=== PATIENT | male | born 1940 | race Caucasian/White ===

== ENCOUNTER 2016-09-23 13:44 | Outpatient (CLI) | payer MEDICARE, MEDICAID | END 2016-09-23 13:45 | disposition home or self-care (01) | DX: I10 Essential (primary) hypertension (principal); E78.5 Hyperlipidemia, unspecified; E11.9 Type 2 diabetes mellitus without complications; N13.9 Obstructive and reflux uropathy, unspecified; N39.0 Urinary tract infection, site not specified ==

== ENCOUNTER 2016-10-05 11:04 | Outpatient (CLI) | payer MEDICARE, MEDICAID | END 2016-10-05 11:05 | DX: N39.0 Urinary tract infection, site not specified (principal) ==

== ENCOUNTER 2016-12-06 08:33 | Outpatient (CLI) | payer MEDICARE, MEDICAID | END 2016-12-06 08:34 | disposition home or self-care (01) | LOC: LAB.R 08:33 | PROVIDERS: ATTEND Family Medicine | DX: N39.0 Urinary tract infection, site not specified (principal) | CPT/HCPCS: 87086 ==

== ENCOUNTER 2017-01-20 11:45 | Outpatient (CLI) | payer MEDICARE, MEDICAID | END 2017-01-20 11:46 | disposition home or self-care (01) | LOC: LAB.R 11:45 | PROVIDERS: ATTEND Family Medicine | DX: N39.0 Urinary tract infection, site not specified (principal) | CPT/HCPCS: 87086 ==

== ENCOUNTER 2017-02-17 16:00 | Outpatient (CLI) | payer MEDICARE, MEDICAID ==
[2017-02-17 19:23] LABS: BASOPHILS # (AUTO) 0.1 10^3/uL (0.0-0.1); BASOPHILS % (AUTO) 0.5 %; EOSINOPHILS % (AUTO) 0.5 %; HCT - HEMATOCRIT 42.3 % (42.0-52.0); HGB - HEMOGLOBIN 13.8 g/dL (14.0-18.0); LYMPHOCYTES # (AUTO) 0.8 10^3/uL (1.5-3.5); LYMPHOCYTES % (AUTO) 7.3 %; MEAN CORPUSCULAR HEMOGLOBIN 28.1 pg (27.0-31.0); MEAN CORPUSCULAR HGB CONC 32.7 g/dL (32.0-36.0); MEAN PLATELET VOLUME 7.7 fL (7.4-11.4); MONOCYTES # (AUTO) 0.5 10^3/uL (0.0-1.0); NEUTROPHILS # (AUTO) 9.3 10^3/uL (1.5-6.6); NEUTROPHILS % (AUTO) 86.7 %; RED BLOOD COUNT 4.92 10^6/uL (4.70-6.10); RED CELL DISTRIBUTION WIDTH 17.9 % (12.0-15.0); UNCORRECTED WHITE BLOOD COUNT 10.7 x10^3/uL; WHITE BLOOD COUNT 10.7 x10^3/uL (4.8-10.8)
[2017-02-17 19:26] LABS: INR 3.5 (0.8-1.2); PT - PROTHROMBIN TIME 39.9 secs (9.9-12.6)
[2017-02-17 19:54] LABS: BUN - BLOOD UREA NITROGEN 24 mg/dL (6-20); CALCIUM 8.9 mg/dL (8.5-10.3); CARBON DIOXIDE - CO2 27 mmol/L (21-32); CHLORIDE 100 mmol/L (101-111); CHOLESTEROL 139 mg/dL; CREATININE 1.2 mg/dL (0.6-1.2); GFR - MDRD 59 (>89); GLUCOSE 95 mg/dL (70-100); HDL CHOLESTEROL 47 mg/dL; LDL/HDL RATIO 1.5 (<3.6); POTASSIUM 3.5 mmol/L (3.5-5.0); SODIUM 137 mmol/L (135-145); TRIGLYCERIDES 100 mg/dL; VLDL CHOLESTEROL 20 mg/dL
[2017-02-17 20:02] LABS: HEMOGLOBIN A1C 0.49 g/dL
== END 2017-02-17 16:01 | disposition home or self-care (01) ==
LOC: LAB.WCP 16:00
PROVIDERS: ATTEND Family Medicine
DX: N39.0 Urinary tract infection, site not specified (principal); I10 Essential (primary) hypertension; E78.5 Hyperlipidemia, unspecified; E11.9 Type 2 diabetes mellitus without complications; N13.9 Obstructive and reflux uropathy, unspecified; Z79.01 Long term (current) use of anticoagulants
CPT/HCPCS: 36415; 80053; 80061; 82043; 83036; 85025; 85610; 87086

== ENCOUNTER 2017-02-17 16:30 | Outpatient (CLI) | payer MEDICARE, MEDICAID | END 2017-02-17 16:31 | disposition home or self-care (01) | LOC: LAB.R 16:30 | PROVIDERS: ATTEND Family Medicine | DX: N13.9 Obstructive and reflux uropathy, unspecified (principal) | CPT/HCPCS: 87086 ==

== ENCOUNTER 2017-05-02 13:55 | Outpatient (CLI) | payer MEDICARE, MEDICAID | END 2017-05-02 13:56 | disposition critical access hospital (66) | LOC: EMS 13:55 → EDUNIT# 13:55 → EMS 13:56 | PROVIDERS: ATTEND Surgery | DX: S61.411A Laceration without foreign body of right hand, initial encounter (principal); W22.8XXA Striking against or struck by other objects, initial encounter | CPT/HCPCS: A0425; A0429 ==

== ENCOUNTER 2017-05-02 14:29 | Inpatient (IN) | payer MEDICARE, MEDICAID ==
--- NOTE | 2017-05-02 15:36 | XRAY Preliminary Report ---
Exam: XR Wrist 4 View RT IMPRESSION: 1. 4 x 8 mm fracture dorsal aspect of the carpal bones, most likely involving the pisiform or triquet rum. Correlate clinically to determine if further evaluation with dedicated wrist CT indicated. 2. Massive edema. Exclude cellulitis [facility] SITE ID: [id number]
--- NOTE | 2017-05-02 15:37 | XRAY Preliminary Report ---
Exam: XR HAND 3 VIEW RT IMPRESSION: 1. 4 x 8 mm fracture dorsal to the carpal bones, correlate clinically to determine if dedicated wrist CT would be useful. 2. Massive edema. Exclude cellulitis. [facility] SITE ID: [id number]
--- NOTE | 2017-05-02 15:43 | XRAY Report ---
EXAM: RIGHT WRIST RADIOGRAPHY EXAM DATE: 05/02/2017 03:05 PM. CLINICAL HISTORY: Direct impact injury dorsal aspect of the hand and wrist 2 days ago. Pain. COMPARISON: None. TECHNIQUE: 4 views. FINDINGS: Bones: 48 mm fracture dorsal aspect of the wrist, in the area of the triquetrum. A form. Mature distortion fifth metacarpal due to old fracture. Mature distortion almost process due to old fracture. 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 Soft Tissues: Massive and edema, greatest dorsally to the metacarpals and wrist. IMPRESSION: 1. 4 x 8 mm fracture dorsal aspect of the carpal bones, most likely involving the pisiform or triquetrum. Correlate clinically to determine if further evaluation with dedicated wrist CT indicated. 2. Massive edema. Exclude cellulitis. [facility] Referring Provider Line: [phone] SITE ID: [id number]
--- NOTE | 2017-05-02 15:44 | XRAY Report ---
EXAM: RIGHT HAND RADIOGRAPHY EXAM DATE: 05/02/2017 03:04 PM. CLINICAL HISTORY: Direct dorsal hand and wrist trauma 2 days ago. Pain and edema. COMPARISON: None. TECHNIQUE: 3 views. FINDINGS: Bones: 4 x 8 mm fracture fragment dorsal to the mid carpal bones. Mature deformity fifth metacarpal and ulnar styloid process due to old fractures. Joints: Moderate to marked adjacent changes radiocarpal joint. Soft Tissues: Massive edema dorsal to the hand and wrist. IMPRESSION: 1. 4 x 8 mm fracture dorsal to the carpal bones, correlate clinically to determine if dedicated wrist CT would be useful. 2. Massive edema. Exclude cellulitis. [facility] Referring Provider Line: [phone] SITE ID: [id number]
[2017-05-02] MEDS ORDERED: ACETAMINOPHEN 325 MG TABLET PO STA (16:20)
[2017-05-02] MEDS ORDERED: ACETAMINOPHEN 325 MG TABLET PO ONE (16:29)
--- NOTE | 2017-05-02 17:28 | ED Physician Documentation ---
PD HPI UPPER EXT INJURY - Stated complaint Stated Complaint: HAND PX - Chief complaint Chief Complaint: Trauma Ext - History obtained from History obtained from: Patient - History of Present Illness Location: Right (Right-handed 77-year-old gentle man who is up-to-date on tetanus, in contrast of the nursing notes he says that 9 days ago he was moving a couch and it fell on his hand and he suffered a laceration to the dorsum of the right hand and pain there which is manageable at this point.) Review of Systems Ten Systems: 10 systems reviewed and negative Constitutional: reports: Chills. denies: Fever Eyes: denies: Loss of vision, Decreased vision Ears: reports: Reviewed and negative Throat: reports: Reviewed and negative Cardiac: reports: Reviewed and negative Respiratory: reports: Reviewed and negative GI: reports: Reviewed and negative : reports: Reviewed and negative PD PAST MEDICAL HISTORY - Past Medical History Cardiovascular: Atrial fibrillation Respiratory: Sleep apnea, CPAP use Neuro: None Endocrine/Autoimmune: Type 2 diabetes GI: None : Indwelling catheter HEENT: Glaucoma Psych: None Musculoskeletal: None Derm: None - Past Surgical History Past Surgical History: Yes Cardiovascular: AAA HEENT: Cataracts, Detached retina repair Derm: Skin cancer surgery - Present Medications Home Medications: Ambulatory Orders Medication Instructions Recorded Confirmed Enalapril [Vasotec] 20 mg PO BID 07/28/15 05/03/17 Warfarin [Coumadin] 7.5 mg PO DAILY 07/28/15 05/03/17 Saccharomyces Boulardii [Florastor] 250 mg PO BIDWM 07/30/15 05/03/17 amLODIPine [Norvasc] 10 mg PO DAILY 09/04/15 05/03/17 - Allergies Allergies/Adverse Reactions: Allergies Allergy/AdvReac Type Severity Reaction Status Date / Time vancomycin AdvReac Mild injection Verified 05/03/17 09:06 site erythema - Living Situation Living Situation: reports: With spouse/s.o. - Social History Does the pt smoke?: Yes Smoking Status: Current every day smoker Does the pt drink ETOH?: No Does the pt have substance abuse?: No - Immunizations Immunizations are current?: Yes Immunizations: TDAP >10years/unknown - POLST Patient has POLST: No PD ED PE NORMAL - Vitals Vital signs reviewed: Yes - General General: Alert and oriented X 3, No acute distress - HEENT HEENT: PERRL, EOMI - Neck Neck: Supple, no meningeal sign, No bony TTP - Cardiac Cardiac: Other (irregular no murmur) - Respiratory Respiratory: No respiratory distress, Clear bilaterally - Abdomen Abdomen: Soft, Non tender - Back Back: No CVA TTP, No spinal TTP - Derm Derm: Normal color, Warm and dry - Extremities Extremities: Other (On the dorsum of the right hand there is a large soft tissue defect which is full of clot and quite dirty, the entirety of the dorsum of the hand is cellulitic and edematous. He is tender over the dorsum of the hand and cannot make a fist, he says sensation is equal throughout all the digits. He has good repeat cap refill in all the digits.) - Neuro Neuro: Alert and oriented X 3, Normal speech - Psych Psych: Normal mood, Normal affect Results - Vitals Vitals: Oxygen O2 Source [With Activity] Room air O2 Source [Without Activity] Room air O2 Source Room air - Labs Labs: Laboratory Tests 05/02/17 05/02/17 05/02/17 17:34 17:34 17:34 WBC 7.5 RBC 4.47 L Hgb 12.3 L Hct 37.7 L MCV 84.3 MCH 27.5 MCHC 32.6 RDW 16.3 H Plt Count 276 MPV 6.4 L Neut # 5.6 Lymph # 1.3 L Beauregard # 0.5 Eos # 0.0 Baso # 0.1 Absolute Nucleated RBC 0.00 Nucleated RBC % 0.0 PT 30.5 H INR 2.7 H Sodium 136 Potassium 3.3 L Chloride 92 L Carbon Dioxide 31 Anion Gap 13.0 BUN 20 Creatinine 1.1 Estimated GFR (MDRD) 65 L Glucose 98 Calcium 9.3 Total Bilirubin 1.1 H AST 14 ALT < 10 L Alkaline Phosphatase 50 Total Protein 8.2 Albumin 4.1 Globulin 4.1 Albumin/Globulin Ratio 1.0 Lipase 28 PD MEDICAL DECISION MAKING - ED course ED course: 77-year-old gentleman with a large defect to the dorsum of the right hand associated with a 9-day-old fracture of indeterminate carpal bone. There is evidence of infection and will likely need a washout. I spoke with Dr. Bernardo Camejo, by phone, the on-call orthopedist who will see him in consultation. Spoke with Dr. Zamora for admission at 5:35 PM we agreed on Margy and Nicolasa. Departure - Departure Disposition: 66 [facility] DC/Xfer Clinical Impression: T2DM (type 2 diabetes mellitus), Chronic a-fib, Open fracture of carpal bone, Cellulitis of hand Condition: Stable Discharge Date/Time: 05/02/17 18:30
[2017-05-02] MEDS ORDERED: PIPERACILLIN/TAZOBACTAM 3.375 GM in SODIUM CHLORIDE 0.9% MINIBAG 100 ML IV STA (17:34)
[2017-05-02] MEDS ORDERED: VANCOMYCIN INJ 1.5 GM in SODIUM CHLORIDE 0.9% 500 ML IV STA (17:34)
[2017-05-02] MEDS ORDERED: ONDANSETRON ODT 4 MG TABLET TL PRN (17:35)
[2017-05-02] MEDS ORDERED: ONDANSETRON 4 MG/2 ML VIAL IVP PRN (17:35)
[2017-05-02 17:39] LABS: BASOPHILS # (AUTO) 0.1 10^3/uL (0.0-0.1); BASOPHILS % (AUTO) 0.9 %; EOSINOPHILS % (AUTO) 0.3 %; HCT - HEMATOCRIT 37.7 % (42.0-52.0); HGB - HEMOGLOBIN 12.3 g/dL (14.0-18.0); LYMPHOCYTES # (AUTO) 1.3 10^3/uL (1.5-3.5); LYMPHOCYTES % (AUTO) 16.9 %; MEAN CORPUSCULAR HEMOGLOBIN 27.5 pg (27.0-31.0); MEAN CORPUSCULAR HGB CONC 32.6 g/dL (32.0-36.0); MEAN CORPUSCULAR VOLUME 84.3 fL (80.0-94.0); MEAN PLATELET VOLUME 6.4 fL (7.4-11.4); MONOCYTES # (AUTO) 0.5 10^3/uL (0.0-1.0); MONOCYTES % (AUTO) 6.7 %; NEUTROPHILS # (AUTO) 5.6 10^3/uL (1.5-6.6); NEUTROPHILS % (AUTO) 75.2 %; RED BLOOD COUNT 4.47 10^6/uL (4.70-6.10); RED CELL DISTRIBUTION WIDTH 16.3 % (12.0-15.0); UNCORRECTED WHITE BLOOD COUNT 7.5 x10^3/uL; WHITE BLOOD COUNT 7.5 x10^3/uL (4.8-10.8)
[2017-05-02 17:48] LABS: INR 2.7 (0.8-1.2); PT - PROTHROMBIN TIME 30.5 secs (9.9-12.6)
[2017-05-02 17:53] LABS: BILIRUBIN,TOTAL 1.1 mg/dL (0.2-1.0); BUN - BLOOD UREA NITROGEN 20 mg/dL (6-20); CALCIUM 9.3 mg/dL (8.5-10.3); CARBON DIOXIDE - CO2 31 mmol/L (21-32); CHLORIDE 92 mmol/L (101-111); CREATININE 1.1 mg/dL (0.6-1.2); GFR - MDRD 65 (>89); GLUCOSE 98 mg/dL (70-100); LIPASE 28 U/L (22-51); POTASSIUM 3.3 mmol/L (3.5-5.0); SODIUM 136 mmol/L (135-145); TOTAL PROTEIN 8.2 g/dL (6.7-8.2)
[2017-05-02] MEDS ORDERED: VANCOMYCIN PER PHARMACY 1 GM in SODIUM CHLORIDE 0.9% 250 ML IV SCH (18:00)
[2017-05-02] MEDS ORDERED: hydrALAZINE INJ 20 MG/ML VIAL IVP PRN (19:29)
[2017-05-02] MEDS ORDERED: diphenhydrAMINE INJ 50 MG/ML VIAL IVP SCH (19:30)
[2017-05-02] MEDS: LINEZOLID 600 MG/300 ML 600 MG/300 ML BAG IV SCH (21:25)
[2017-05-02] MEDS: ENALAPRIL 5 MG TABLET PO SCH (21:33)
[2017-05-02] MEDS: METOPROLOL TARTRATE 25 MG TABLET PO SCH (21:35)
[2017-05-02] MEDS: SODIUM CHLORIDE FLUSH 0.9% 10 ML SYRINGE IVP SCH (21:38)
[2017-05-02] MEDS: oxyCODONE 5 MG TABLET PO PRN (22:23)
[2017-05-02] MEDS: PIPERACILLIN/TAZOBACTAM 3.375 GM in SODIUM CHLORIDE 0.9% MINIBAG 100 ML IV SCH (22:54)
[2017-05-03] MEDS: PIPERACILLIN/TAZOBACTAM 3.375 GM in SODIUM CHLORIDE 0.9% MINIBAG 100 ML IV SCH ×4 (01:46→21:43)
[2017-05-03] MEDS: oxyCODONE 5 MG TABLET PO PRN ×4 (01:46→21:44)
[2017-05-03] MEDS: SODIUM CHLORIDE FLUSH 0.9% 10 ML SYRINGE IVP SCH ×3 (04:55→22:24)
[2017-05-03] MEDS ORDERED: VANCOMYCIN 1.5 GM/NS 500 ML 1.5 GM/500 ML BAG IV SCH (06:00)
[2017-05-03] MEDS ORDERED: PHYTONADIONE 10 MG/ML AMP PO ONE (07:17)
--- NOTE | 2017-05-03 07:21 | PROVIDER PROGRESS NOTE ---
Subjective - Prog Note Date Prog Note Date: 05/03/17 Prog Note Time: 07:18 - Subjective Subjective: he had an allergic response to vancomycin last night>hives stopped and changed to linezolide by video production assistant. denies cp, sob, current hives I have been unable to talk to his . The phone number we have in the paperwork is his phone number that he carries with him on his cell. He says that he just does not remember his 's phone number. So I have not been able to talk to her since his admission. Current Medications - Current Medications Current Medications: Active Medications Acetaminophen (Tylenol) 650 mg PO Q4HR PRN PRN Reason: Pain 1 to 4 Amlodipine Besylate (Norvasc) 10 mg PO DAILY [facility] Enalapril Maleate (Vasotec) 20 mg PO BID [facility] Last Admin: 05/02/17 21:33 Dose: 20 mg Hydralazine HCl (Apresoline Inj) 5 mg IVP Q8HR PRN PRN Reason: Hypertensive Emergency Piperacillin Sod/Tazobactam (Sod 3.375 gm/ Sodium Chloride) 100 mls @ 200 mls/ hr IV Q6H [facility] Last Admin: 05/03/17 01:46 Dose: 200 mls/hr Linezolid (Zyvox 600 Mg/300 Ml) 600 mg in 300 mls @ 300 mls/hr IV Q12H [facility] Last Infusion: 05/02/17 22:59 Dose: Infused Metoprolol Tartrate (Lopressor) 25 mg PO BID [facility] Last Admin: 05/02/17 21:35 Dose: 25 mg Ondansetron HCl (Zofran Inj) 4 mg IVP Q6HR PRN PRN Reason: Nausea / Vomiting Ondansetron HCl (Zofran Odt) 4 mg TL Q6HR PRN PRN Reason: Nausea / Vomiting Oxycodone HCl (Roxicodone) 5 mg PO Q4HR PRN PRN Reason: Pain 5 to 7 Last Admin: 05/03/17 01:46 Dose: 5 mg Phytonadione (Vitamin K (Adult)) 10 mg PO ONCE ONE Stop: 05/03/17 07:18 Polyethylene Glycol (Miralax) 17 gm PO DAILY [facility] Saccharomyces Boulardii (Florastor) 250 mg PO BIDWM [facility] Sodium Chloride (Normal Saline Flush 0.9%) 10 ml IVP PRN PRN PRN Reason: NEEDED PER PROVIDER ORDERS Sodium Chloride (Normal Saline Flush 0.9%) 10 ml IVP Q8HR [facility] Last Admin: 05/03/17 04:55 Dose: 10 ml Warfarin Sodium 5 mg PO SUTUWETHSA 12/25/13 Enalapril [Vasotec] 20 mg PO BID 07/28/15 Warfarin [Coumadin] 7.5 mg PO MOFR 07/28/15 Saccharomyces Boulardii [Florastor] 250 mg PO BIDWM 07/30/15 Metoprolol Tartrate [Lopressor] 25 mg PO BID 09/04/15 amLODIPine [Norvasc] 10 mg PO DAILY 09/04/15 Objective - Vital Signs/Intake & Output Reviewed Vital Signs: Yes Vital Signs: Vital Signs x48h Temp Pulse Resp BP Pulse Ox 05/02/17 23:40 37.1 C 46 L 16 125/83 H 100 Intake & Output: Intake & Output 04/30/17 05/01/17 05/02/17 05/03/17 23:59 23:59 23:59 23:59 Intake Total 525 240 Output Total 200 525 Balance 325 -285 - Objective General Appearance: positive: No acute distress, Alert, Other (Much better hygiene since yesterday. He has had a shower, and his guevara has been braided. The horrible odor of dirty clothes and dried urine is gone.) Eyes Bilateral: positive: PERRL ENT: positive: Other (Dentures partially gone) Neck: positive: No JVD. negative: Lymphadenopathy (R), Lymphadenopathy (L), Stiff neck, Carotid bruit Respiratory: positive: Chest non-tender. negative: Wheezes, Rales, Rhonchi Cardiovascular: positive: Irregularly irregular. negative: Systolic murmur, Gallop/S4, Friction rub Abdomen: positive: Non-tender, No organomegaly, Nml bowel sounds, No distention Skin: positive: No rash, Warm, Dry, Other (Ruborous discoloration from the knees on down of the anterior shins. The scaling skin is completely gone. He had a shower last night and his skin was scrubbed down. So the scales were removed. He does have an ulcer on the tip of his toe that was present yesterday. That is the same size and unchanged. There is no tenderness, no drainage, no heat. Nursing has documented with the picture and size and depth) Extremities: positive: Other (The swelling of the dorsum of his right hand is considerably improved. Hematoma appears to have decreased in size. the hand overall is still swollen in all of the digits but again 25-40% better than yesterday. Still unable to flex his fingers to make a fist. Wrist flexion and extension is normal. There is no redness no heat. Skin is normal color.) Neurologic/Psychiatric: positive: Oriented x3, CN's nml (2-12), Motor nml (And he is walking down the hallway with a walker. Left leg is slightly turned outwards. It is almost a flat-footed shuffling walk but he does lift his feet. He does not feel his feet from neuropathy. And he says that the floor is moving and he has vertigo). negative: Slurred/abnml speech, Depressed mood/ affect - Lab Results Fish Bones: 05/02/17 17:34 05/02/17 17:34 Other Labs: Lab Results x24hrs 05/02/17 Range/Units 19:59 POC Whole Bld Glucose 82 (70 - 100) mg/dL Assessment/Plan - Problem List (1) Traumatic hematoma of right hand with infection Impression: to be seen by Dr. Camejo today he does not plan a wash out in the OR and just simple cleaning at the bedside. WBC was normal He has had no fever Day #2 Zosyn Day #1 linezolide after 1 dose of vancomycin caused hives Qualifiers: Encounter type: initial encounter Qualified Code(s): S60.221A - Contusion of right hand, initial encounter; L08.9 - Local infection of the skin and subcutaneous tissue, unspecified; L08.9 - Local infection of the skin and subcutaneous tissue, unspecified (2) Allergic reaction to drug Impression: due to vancomycin resolved after benadryl (3) T2DM (type 2 diabetes mellitus) Impression: 78 POC gluocose this am. diet controlled. will order only fasting ac am checks. A1c ordered. 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 (5) HTN (hypertension) Impression: Selected Entries 05/02/17 05/03/17 20:55 07:44 Blood Pressure 193/95 H 148/85 H [Right Brachial artery] He is getting his usual meds regularly. Could there be an element of noncompliance at home? here it is acceptable range this morning. no change in meds. contine to monitor. Qualifiers: Hypertension type: essential hypertension Qualified Code(s): I10 - Essential (primary) hypertension (6) Poor personal hygiene Impression: encouraged to bath every other day at home. scrub his legs to avoid the scaling.
[2017-05-03] MEDS: POLYETHYLENE GLYCOL 3350 17 GM PACKET PO SCH (07:32)
[2017-05-03] MEDS: SACCHAROMYCES BOULARDII 250 MG CAPSULE PO SCH ×2 (09:54→17:09)
[2017-05-03] MEDS: amLODIPine 5 MG TABLET PO SCH (09:55)
[2017-05-03] MEDS: POTASSIUM CHLORIDE 20 MEQ TABLET PO SCH (09:56)
[2017-05-03] MEDS: ENALAPRIL 5 MG TABLET PO SCH ×2 (09:56→21:41)
[2017-05-03] MEDS: METOPROLOL TARTRATE 25 MG TABLET PO SCH ×2 (09:56→21:41)
[2017-05-03] MEDS: LINEZOLID 600 MG/300 ML 600 MG/300 ML BAG IV SCH ×2 (10:00→21:43)
[2017-05-03] MEDS: SODIUM CHLORIDE FLUSH 0.9% 10 ML SYRINGE IVP PRN ×2 (10:58→15:04)
--- NOTE | 2017-05-03 17:59 | CONSULTATION NOTE ---
Referring Provider Name of Referring Provider:: Luisa Zamora MD Consult Date: 05/03/17 Chief Complaint - Chief Complaint Chief Complaint: Right Hand swelling and pain History of Present Illness - Admitted From Admitted From:: ED - History Obtained From Records Reviewed: ED History obtained from: albino Lemon historian - History of Present Illness HPI Comment/Other: This is a 77 yo male who is somewhat unclear about the precise mechanism but seems to have caught his Right hand under a piece of furniture he was moving or between two pieces of furniture. He did not seek medical attention. The injury occurred about 10 days ago. He came to the ED when he noticed gradually increasing swelling, pain, and odor. He was seen in the ED by Dr. Mcdermott who washed out the wound and admitted him to the Hospitalist service, starting him on antibiotics. He denies fevers, chills, sweats, or other constitutional symptoms. He notes that both pain and swelling are considerably improved today with rest and elevation. History - Past Medical History Cardiovascular: reports: Atrial fibrillation Respiratory: reports: Sleep apnea, CPAP use Neuro: reports: None Endocrine/Autoimmune: reports: Type 2 diabetes GI: reports: None : reports: Indwelling catheter HEENT: reports: Glaucoma Psych: reports: None Musculoskeletal: reports: None Derm: reports: None MRSA Hx?: No - Past Surgical History Cardiovascular: reports: AAA HEENT: reports: Cataracts, Detached retina repair Derm: reports: Skin cancer surgery - Family & Social History Living arrangement: At home Living Situation: With spouse/s.o. - POLST Patient has POLST: No Meds/Allgy - Home Medications Home Medications: Ambulatory Orders Medication Instructions Recorded Confirmed Enalapril [Vasotec] 20 mg PO BID 07/28/15 05/03/17 Warfarin [Coumadin] 7.5 mg PO DAILY 07/28/15 05/03/17 Saccharomyces Boulardii [Florastor] 250 mg PO BIDWM 07/30/15 05/03/17 amLODIPine [Norvasc] 10 mg PO DAILY 09/04/15 05/03/17 - Allergies Allergies/Adverse Reactions: Allergies Allergy/AdvReac Type Severity Reaction Status Date / Time vancomycin AdvReac Mild injection Verified 05/03/17 09:06 site erythema Review of Systems - All Other Systems All Other Systems: reports: Reviewed and negative Exam - Vital Signs Reviewed Vital Signs: Yes Vital Signs: Vital Signs x48h Temp Pulse Resp BP Pulse Ox 05/03/17 15:56 36.6 C 99 16 138/81 H 99 - Physical Exam General Appearance: positive: No acute distress, Alert Eyes Bilateral: positive: Normal inspection ENT: positive: ENT inspection nml Neck: positive: Nml inspection Respiratory: positive: No respiratory distress, Breath sounds nml Cardiovascular: positive: Regular rate & rhythm Peripheral Pulses: positive: 2+ Abdomen: positive: Non-tender, Nml bowel sounds, No distention. negative: Guarding Back: positive: Nml inspection (Large 5x8 cm eschar over dorum of Right hand with moderate surrounding erythema and boggy to compression. No abdelrahman purulence or bleeding.) Skin: positive: Color nml, Warm Neurologic/Psychiatric: positive: Oriented x3, Motor nml, Sensation nml, Mood/ affect nml Conclusion/Plan - Diagnosis Diagnosis: Hematoma, Right Hand Dorsum - Plan Plan: 1. Agree with admission for swelling control and antibiotics. 2. Silvadene dressing changes daily. 3. Consult [facility]. 4. No indication for I&D at this time. - Lab Results Fish Bones: 05/02/17 17:34 05/02/17 17:34 - Diagnostic Imaging Results Diagnostic Imaging Results: positive: See rad report
[2017-05-04] MEDS: SODIUM CHLORIDE FLUSH 0.9% 10 ML SYRINGE IVP PRN ×2 (03:45→17:39)
[2017-05-04] MEDS: PIPERACILLIN/TAZOBACTAM 3.375 GM in SODIUM CHLORIDE 0.9% MINIBAG 100 ML IV SCH ×4 (03:45→22:20)
[2017-05-04] MEDS ORDERED: SODIUM CHLORIDE 0.9% 1,000 ML IV ONE (08:44)
[2017-05-04] MEDS: POLYETHYLENE GLYCOL 3350 17 GM PACKET PO SCH (08:45)
[2017-05-04] MEDS: ACETAMINOPHEN 325 MG TABLET PO PRN ×3 (08:45→16:05)
[2017-05-04] MEDS: METOPROLOL TARTRATE 25 MG TABLET PO SCH ×2 (08:46→20:35)
[2017-05-04] MEDS: oxyCODONE 5 MG TABLET PO PRN ×4 (08:46→23:36)
[2017-05-04] MEDS: amLODIPine 5 MG TABLET PO SCH (08:46)
[2017-05-04] MEDS: ENALAPRIL 5 MG TABLET PO SCH ×2 (08:47→20:35)
[2017-05-04] MEDS: POTASSIUM CHLORIDE 20 MEQ TABLET PO SCH (08:47)
[2017-05-04] MEDS: SACCHAROMYCES BOULARDII 250 MG CAPSULE PO SCH ×2 (08:47→17:37)
[2017-05-04] MEDS: LINEZOLID 600 MG/300 ML 600 MG/300 ML BAG IV SCH ×2 (08:57→20:40)
[2017-05-04] MEDS: SODIUM CHLORIDE FLUSH 0.9% 10 ML SYRINGE IVP SCH ×3 (08:58→20:40)
[2017-05-04 09:50] LABS: BASOPHILS # (AUTO) 0.1 10^3/uL (0.0-0.1); BASOPHILS % (AUTO) 1.1 %; EOSINOPHILS # (AUTO) 0.1 10^3/uL (0.0-0.7); EOSINOPHILS % (AUTO) 1.2 %; HCT - HEMATOCRIT 36.6 % (42.0-52.0); HGB - HEMOGLOBIN 11.9 g/dL (14.0-18.0); LYMPHOCYTES % (AUTO) 14.8 %; MEAN CORPUSCULAR HEMOGLOBIN 27.8 pg (27.0-31.0); MEAN CORPUSCULAR HGB CONC 32.5 g/dL (32.0-36.0); MEAN CORPUSCULAR VOLUME 85.6 fL (80.0-94.0); MEAN PLATELET VOLUME 6.9 fL (7.4-11.4); MONOCYTES # (AUTO) 0.4 10^3/uL (0.0-1.0); MONOCYTES % (AUTO) 6.3 %; NEUTROPHILS # (AUTO) 5.3 10^3/uL (1.5-6.6); NEUTROPHILS % (AUTO) 76.6 %; RED BLOOD COUNT 4.28 10^6/uL (4.70-6.10); RED CELL DISTRIBUTION WIDTH 16.3 % (12.0-15.0); UNCORRECTED WHITE BLOOD COUNT 6.9 x10^3/uL; WHITE BLOOD COUNT 6.9 x10^3/uL (4.8-10.8)
[2017-05-04 09:57] LABS: CALCIUM 8.6 mg/dL (8.5-10.3); CREATININE 1.4 mg/dL (0.6-1.2); POTASSIUM 4.1 mmol/L (3.5-5.0)
[2017-05-04 10:38] LABS: HEMOGLOBIN A1C 0.42 g/dL
--- NOTE | 2017-05-04 22:22 | PROVIDER PROGRESS NOTE ---
Assessment/Plan - Problem List (1) Traumatic hematoma of right hand with infection Qualifiers: Encounter type: initial encounter Qualified Code(s): S60.221A - Contusion of right hand, initial encounter; L08.9 - Local infection of the skin and subcutaneous tissue, unspecified; L08.9 - Local infection of the skin and subcutaneous tissue, unspecified Assessment/Plan: is being treated by wound care, is on Zosyn day 3 and linezolid-day2 (2) Cellulitis of hand Assessment/Plan: on zosyn and linezolid (3) Essential hypertension Assessment/Plan: is being treated with amlodipine, enalapril, and metaprolol tartrate. (4) Chronic a-fib Assessment/Plan: on coumadin and metoprolol tartrate. - Current Meds Current Meds: Current Medications Generic Name Dose Route Start Last Admin Trade Name Freq PRN Reason Stop Dose Admin Acetaminophen 650 mg 05/02/17 17:35 05/04/17 16:05 Tylenol PO 650 mg Q4HR PRN Administration Pain 1 to 4 Amlodipine Besylate 10 mg 05/03/17 09:00 05/04/17 08:46 Norvasc PO 10 mg DAILY [facility] Administration Enalapril Maleate 20 mg 05/02/17 21:00 05/04/17 20:35 Vasotec PO 20 mg BID [facility] Administration Linezolid 600 mg in 300 mls @ 300 mls/hr 05/02/17 20:00 05/04/17 20:40 Zyvox 600 Mg/300 Ml IV 300 mls/hr Q12H [facility] Administration Piperacillin Sod/Tazobactam 100 mls @ 200 mls/hr 05/04/17 10:00 05/04/17 16: 07 Sod 3.375 gm/ Sodium Chloride IV 200 mls/hr Q6H [facility] Administration Metoprolol Tartrate 25 mg 05/02/17 21:00 05/04/17 20:35 Lopressor PO 25 mg BID [facility] Administration Oxycodone HCl 5 mg 05/02/17 17:35 05/04/17 16:05 Roxicodone PO 5 mg Q4HR PRN Administration Pain 5 to 7 Polyethylene Glycol 17 gm 05/03/17 09:00 05/04/17 08:45 Miralax PO 17 gm DAILY [facility] Administration Potassium Chloride 20 meq 05/03/17 08:00 05/04/17 08:47 K-Dur PO 20 meq DAILYWM [facility] Administration Saccharomyces Boulardii 250 mg 05/03/17 08:00 05/04/17 17:37 Florastor PO 250 mg BIDWM [facility] Administration Sodium Chloride 10 ml 05/02/17 17:35 05/04/17 17:39 Normal Saline Flush 0.9% IVP 10 ml PRN PRN Administration NEEDED PER PROVIDER ORDERS Sodium Chloride 10 ml 05/02/17 22:00 05/04/17 20:40 Normal Saline Flush 0.9% IVP 10 ml Q8HR [facility] Administration - Lab Result Fish Bone Diagrams: 05/04/17 09:40 05/04/17 09:40 - Additional Planning Condition/Complexity: Guarded Plan Discussed with:: Patient Time Spent: 15-30 minutes Subjective - Subjective Patient Reports: Feeling Better (His right hand is still being debrided.) Objective Vital Signs: Vital Signs - 24 hr 05/04/17 05/04/17 05/04/17 00:46 08:09 08:46 Temperature 36.6 C 36.4 C L Heart Rate [ 98 75 Brachial] Respiratory 16 18 Rate Blood Pressure 122/78 Blood Pressure 147/75 H [Left Brachial artery] Blood Pressure 134/88 H [Right Brachial artery] O2 Saturation 98 100 05/04/17 05/04/17 05/04/17 15:36 20:27 20:35 Temperature 36.8 C 36.7 C Heart Rate [ 92 40 L Brachial] Respiratory 16 16 Rate Blood Pressure 137/74 H Blood Pressure [Left Brachial artery] Blood Pressure 131/71 H 137/74 H [Right Brachial artery] O2 Saturation 100 100 05/04/17 20:41 Temperature Heart Rate [ 96 Brachial] Respiratory Rate Blood Pressure Blood Pressure [Left Brachial artery] Blood Pressure [Right Brachial artery] O2 Saturation Oxygen O2 Source Room air I&O (Last 24 Hrs): Intake and Output Totals x24h 05/02/17 05/03/17 05/04/17 23:59 23:59 23:59 Intake Total 525 2160 2100 Output Total 200 1425 1350 Balance 325 735 750 General: Alert, Oriented x3, Cooperative HEENT: Atraumatic, PERRLA, EOMI Neck: Supple Neuro: Alert Cardiovascular: Other (irregularly irregular) Respiratory: Chest non-tender, No respiratory distress, Breath sounds nml Abdomen: Normal bowel sounds, Soft, No tenderness (right arm is still needing debridement at hematoma site, lower extremities- warm, no edema, no cyanosis) - Results Results: Laboratory Results WBC 6.9 x10^3/uL (4.8-10.8) 05/04/17 09:40 RBC 4.28 10^6/uL (4.70-6.10) L 05/04/17 09:40 Hgb 11.9 g/dL (14.0-18.0) L 05/04/17 09:40 Hct 36.6 % (42.0-52.0) L 05/04/17 09:40 MCV 85.6 fL (80.0-94.0) 05/04/17 09:40 MCH 27.8 pg (27.0-31.0) 05/04/17 09:40 MCHC 32.5 g/dL (32.0-36.0) 05/04/17 09:40 RDW 16.3 % (12.0-15.0) H 05/04/17 09:40 Plt Count 277 10^3/uL (130-450) 05/04/17 09:40 MPV 6.9 fL (7.4-11.4) L 05/04/17 09:40 Neut # 5.3 10^3/uL (1.5-6.6) 05/04/17 09:40 Lymph # 1.0 10^3/uL (1.5-3.5) L 05/04/17 09:40 [place] # 0.4 10^3/uL (0.0-1.0) 05/04/17 09:40 Eos # 0.1 10^3/uL (0.0-0.7) 05/04/17 09:40 Baso # 0.1 10^3/uL (0.0-0.1) 05/04/17 09:40 Absolute Nucleated RBC 0.00 x10^3/uL 05/04/17 09:40 Nucleated RBC % 0.0 /100WBC 05/04/17 09:40 PT 30.5 secs (9.9-12.6) H 05/02/17 17:34 INR 2.7 (0.8-1.2) H 05/02/17 17:34 Sodium 135 mmol/L (135-145) 05/04/17 09:40 Potassium 4.1 mmol/L (3.5-5.0) 05/04/17 09:40 Chloride 95 mmol/L (101-111) L 05/04/17 09:40 Carbon Dioxide 30 mmol/L (21-32) 05/04/17 09:40 Anion Gap 10.0 (6-13) 05/04/17 09:40 BUN 21 mg/dL (6-20) H 05/04/17 09:40 Creatinine 1.4 mg/dL (0.6-1.2) H 05/04/17 09:40 Estimated GFR (MDRD) 49 (>89) L 05/04/17 09:40 Glucose 183 mg/dL (70-100) H 05/04/17 09:40 POC Whole Bld Glucose 128 mg/dL (70 - 100) H 05/04/17 11:29 Glycated Hemoglobin 5.3 % (4.6-6.2) 05/04/17 09:40 Estim Average Glucose 105 (70-100) H 05/04/17 09:40 Calcium 8.6 mg/dL (8.5-10.3) 05/04/17 09:40 Total Bilirubin 1.1 mg/dL (0.2-1.0) H 05/02/17 17:34 AST 14 IU/L (10-42) 05/02/17 17:34 ALT < 10 IU/L (10-60) L 05/02/17 17:34 Alkaline Phosphatase 50 IU/L (42-121) 05/02/17 17:34 Total Protein 8.2 g/dL (6.7-8.2) 05/02/17 17:34 Albumin 4.1 g/dL (3.2-5.5) 05/02/17 17:34 Globulin 4.1 g/dL (2.1-4.2) 05/02/17 17:34 Albumin/Globulin Ratio 1.0 (1.0-2.2) 05/02/17 17:34 Lipase 28 U/L (22-51) 05/02/17 17:34 - Procedures Procedures: Procedures CHANGE DRAINAGE DEVICE IN BLADDER, EXTERNAL APPROACH (07/27/15) DRAIN OF R UP LEG SUBCU/FASCIA WITH DRAIN DEV, PERC APPROACH (05/13/15) REPLACEMENT OF L HIP JT, FEMORAL WITH METAL, OPEN APPROACH (07/27/15) TRANSFUSE NONAUT FRESH PLASMA IN PERIPH VEIN, PERC (07/27/15)
[2017-05-04] MEDS: WARFARIN 5 MG TABLET PO SCH (23:35)
[2017-05-05] MEDS: PIPERACILLIN/TAZOBACTAM 3.375 GM in SODIUM CHLORIDE 0.9% MINIBAG 100 ML IV SCH ×4 (03:55→22:16)
[2017-05-05] MEDS: SODIUM CHLORIDE FLUSH 0.9% 10 ML SYRINGE IVP SCH ×3 (03:56→21:35)
[2017-05-05 05:43] LABS: BASOPHILS % (AUTO) 0.7 %; EOSINOPHILS # (AUTO) 0.1 10^3/uL (0.0-0.7); EOSINOPHILS % (AUTO) 1.8 %; HCT - HEMATOCRIT 35.8 % (42.0-52.0); HGB - HEMOGLOBIN 11.6 g/dL (14.0-18.0); LYMPHOCYTES % (AUTO) 31.5 %; MEAN CORPUSCULAR HEMOGLOBIN 27.8 pg (27.0-31.0); MEAN CORPUSCULAR HGB CONC 32.4 g/dL (32.0-36.0); MEAN CORPUSCULAR VOLUME 85.8 fL (80.0-94.0); MEAN PLATELET VOLUME 6.9 fL (7.4-11.4); MONOCYTES # (AUTO) 0.4 10^3/uL (0.0-1.0); MONOCYTES % (AUTO) 7.1 %; NEUTROPHILS # (AUTO) 3.7 10^3/uL (1.5-6.6); NEUTROPHILS % (AUTO) 58.9 %; RED BLOOD COUNT 4.17 10^6/uL (4.70-6.10); RED CELL DISTRIBUTION WIDTH 16.2 % (12.0-15.0); UNCORRECTED WHITE BLOOD COUNT 6.3 x10^3/uL; WHITE BLOOD COUNT 6.3 x10^3/uL (4.8-10.8)
[2017-05-05 05:45] LABS: INR 2.1 (0.8-1.2); PT - PROTHROMBIN TIME 23.7 secs (9.9-12.6)
[2017-05-05 06:01] LABS: BILIRUBIN,TOTAL 0.9 mg/dL (0.2-1.0); BUN - BLOOD UREA NITROGEN 21 mg/dL (6-20); CALCIUM 8.4 mg/dL (8.5-10.3); CARBON DIOXIDE - CO2 27 mmol/L (21-32); CHLORIDE 98 mmol/L (101-111); CREATININE 1.3 mg/dL (0.6-1.2); GFR - MDRD 54 (>89); GLUCOSE 93 mg/dL (70-100); POTASSIUM 3.1 mmol/L (3.5-5.0); SODIUM 136 mmol/L (135-145); TOTAL PROTEIN 6.6 g/dL (6.7-8.2)
[2017-05-05] MEDS ORDERED: POTASSIUM CHLORIDE 20 MEQ TABLET PO ONE (08:00)
[2017-05-05] MEDS: POTASSIUM CHLORIDE 20 MEQ TABLET PO SCH (09:15)
[2017-05-05] MEDS: oxyCODONE 5 MG TABLET PO PRN ×3 (09:15→21:18)
[2017-05-05] MEDS: amLODIPine 5 MG TABLET PO SCH (09:15)
[2017-05-05] MEDS: METOPROLOL TARTRATE 25 MG TABLET PO SCH ×2 (09:15→21:18)
[2017-05-05] MEDS: SACCHAROMYCES BOULARDII 250 MG CAPSULE PO SCH ×2 (09:15→16:50)
[2017-05-05] MEDS: ENALAPRIL 5 MG TABLET PO SCH ×2 (09:16→21:18)
[2017-05-05] MEDS: POLYETHYLENE GLYCOL 3350 17 GM PACKET PO SCH (09:16)
[2017-05-05] MEDS: LINEZOLID 600 MG/300 ML 600 MG/300 ML BAG IV SCH ×2 (09:20→19:05)
[2017-05-05] MEDS: WARFARIN 5 MG TABLET PO SCH (14:05)
--- NOTE | 2017-05-05 16:03 | PROVIDER PROGRESS NOTE ---
Assessment/Plan - Problem List (1) Traumatic hematoma of right hand with infection Qualifiers: Encounter type: initial encounter Qualified Code(s): S60.221A - Contusion of right hand, initial encounter; L08.9 - Local infection of the skin and subcutaneous tissue, unspecified; L08.9 - Local infection of the skin and subcutaneous tissue, unspecified Assessment/Plan: is being treated by wound care, is on IV Zosyn day 4 and linezolid day 3 (2) Cellulitis of hand Assessment/Plan: is being treated with zosyn and linezolid (3) Essential hypertension Assessment/Plan: is being treated with amlodipine, enalapril, and metaprolol tartrate (4) Chronic a-fib Assessment/Plan: is being treated with coumadin and metoprolol tartrate (5) Hypokalemia Assessment/Plan: is being treated with KCl. - Current Meds Current Meds: Current Medications Generic Name Dose Route Start Last Admin Trade Name Freq PRN Reason Stop Dose Admin Acetaminophen 650 mg 05/02/17 17:35 05/04/17 16:05 Tylenol PO 650 mg Q4HR PRN Administration Pain 1 to 4 Amlodipine Besylate 10 mg 05/03/17 09:00 05/05/17 09:15 Norvasc PO 10 mg DAILY KELLY Administration Enalapril Maleate 20 mg 05/02/17 21:00 05/05/17 09:16 Vasotec PO 20 mg BID KELLY Administration Linezolid 600 mg in 300 mls @ 300 mls/hr 05/02/17 20:00 05/05/17 10:22 Zyvox 600 Mg/300 Ml IV Infused Q12H KELLY Infusion Piperacillin Sod/Tazobactam 100 mls @ 200 mls/hr 05/04/17 10:00 05/05/17 10: 55 Sod 3.375 gm/ Sodium Chloride IV Infused Q6H KELLY Infusion Metoprolol Tartrate 25 mg 05/02/17 21:00 05/05/17 09:15 Lopressor PO 25 mg BID KELLY Administration Oxycodone HCl 5 mg 05/02/17 17:35 05/05/17 09:15 Roxicodone PO 5 mg Q4HR PRN Administration Pain 5 to 7 Polyethylene Glycol 17 gm 05/03/17 09:00 05/05/17 09:16 Miralax PO 17 gm DAILY KELLY Administration Potassium Chloride 20 meq 05/03/17 08:00 05/05/17 09:15 K-Dur PO 20 meq DAILYWM KELLY Administration Saccharomyces Boulardii 250 mg 05/03/17 08:00 05/05/17 09:15 Florastor PO 250 mg BIDWM KELLY Administration Sodium Chloride 10 ml 05/02/17 17:35 05/04/17 17:39 Normal Saline Flush 0.9% IVP 10 ml PRN PRN Administration NEEDED PER PROVIDER ORDERS Sodium Chloride 10 ml 05/02/17 22:00 05/05/17 14:05 Normal Saline Flush 0.9% IVP 10 ml Q8HR KELLY Administration Warfarin Sodium 5 mg 05/04/17 23:00 05/05/17 14:05 Coumadin PO 5 mg QDWARFARIN KELLY Administration - Lab Result Lab results reviewed: Yes Fish Bone Diagrams: 05/05/17 05:12 05/05/17 05:12 - Diagnostic Imaging Results Diagnostic Imaging Results: Final report reviewed Diagnostic Imaging Results Comments: Right Hand X-ray-4x8mm fracture dorsal to the carpal bones with massive edema, exclude cellulitis - Additional Planning My Orders: My Active Orders 05/04/17 23:00 Warfarin [Coumadin] 5 mg PO QDWARFARIN 05/05/17 12:06 Daily Dressing Change [RC] DAILY The right hand is going to need further surgical debridement and the orthopedic surgeon here feels that it will need a higher level of care than our facility can provide. The patient will need to be transferred to a higher level of care. Plan Discussed with:: Patient Time Spent: 31-60 minutes Subjective - Subjective Patient Reports: No Complaints (The right hand still needs significant debridement and continued antibiotic treatment.) Objective Vital Signs: Vital Signs - 24 hr 05/04/17 05/04/17 05/04/17 20:27 20:35 20:41 Temperature 36.7 C Heart Rate [ 40 L 96 Brachial] Respiratory 16 Rate Blood Pressure 137/74 H Blood Pressure [Left Brachial artery] Blood Pressure 137/74 H [Right Brachial artery] O2 Saturation 100 05/05/17 05/05/17 00:33 08:19 Temperature 36.6 C 36.4 C L Heart Rate [ 53 L Brachial] Respiratory 18 16 Rate Blood Pressure Blood Pressure 124/55 L [Left Brachial artery] Blood Pressure 143/68 H [Right Brachial artery] O2 Saturation 98 100 Oxygen O2 Source Room air I&O (Last 24 Hrs): Intake and Output Totals x24h 05/03/17 05/04/17 05/05/17 23:59 23:59 23:59 Intake Total 2160 2500 1320 Output Total 1425 1350 1500 Balance 735 1150 -180 General: Alert, Oriented x3, Cooperative HEENT: Atraumatic, PERRLA Neck: Supple, No JVD Neuro: Alert, CN 2-12 Grossly Intact, Oriented Times 3 Cardiovascular: Other (irregularly irregular) Respiratory: Chest non-tender, No respiratory distress, Breath sounds nml Abdomen: Normal bowel sounds, Soft, No tenderness Extremities: Other (right hand needs further debridement (infected hematoma)) - Results Results: Laboratory Results WBC 6.3 x10^3/uL (4.8-10.8) 05/05/17 05:12 RBC 4.17 10^6/uL (4.70-6.10) L 05/05/17 05:12 Hgb 11.6 g/dL (14.0-18.0) L 05/05/17 05:12 Hct 35.8 % (42.0-52.0) L 05/05/17 05:12 MCV 85.8 fL (80.0-94.0) 05/05/17 05:12 MCH 27.8 pg (27.0-31.0) 05/05/17 05:12 MCHC 32.4 g/dL (32.0-36.0) 05/05/17 05:12 RDW 16.2 % (12.0-15.0) H 05/05/17 05:12 Plt Count 265 10^3/uL (130-450) 05/05/17 05:12 MPV 6.9 fL (7.4-11.4) L 05/05/17 05:12 Neut # 3.7 10^3/uL (1.5-6.6) 05/05/17 05:12 Lymph # 2.0 10^3/uL (1.5-3.5) 05/05/17 05:12 [place] # 0.4 10^3/uL (0.0-1.0) 05/05/17 05:12 Eos # 0.1 10^3/uL (0.0-0.7) 05/05/17 05:12 Baso # 0.0 10^3/uL (0.0-0.1) 05/05/17 05:12 Absolute Nucleated RBC 0.00 x10^3/uL 05/05/17 05:12 Nucleated RBC % 0.0 /100WBC 05/05/17 05:12 PT 23.7 secs (9.9-12.6) H 05/05/17 05:12 INR 2.1 (0.8-1.2) H 05/05/17 05:12 Sodium 136 mmol/L (135-145) 05/05/17 05:12 Potassium 3.1 mmol/L (3.5-5.0) L 05/05/17 05:12 Chloride 98 mmol/L (101-111) L 05/05/17 05:12 Carbon Dioxide 27 mmol/L (21-32) 05/05/17 05:12 Anion Gap 11.0 (6-13) 05/05/17 05:12 BUN 21 mg/dL (6-20) H 05/05/17 05:12 Creatinine 1.3 mg/dL (0.6-1.2) H 05/05/17 05:12 Estimated GFR (MDRD) 54 (>89) L 05/05/17 05:12 Glucose 93 mg/dL (70-100) 05/05/17 05:12 POC Whole Bld Glucose 95 mg/dL (70 - 100) 05/05/17 11:25 Glycated Hemoglobin 5.3 % (4.6-6.2) 05/04/17 09:40 Estim Average Glucose 105 (70-100) H 05/04/17 09:40 Calcium 8.4 mg/dL (8.5-10.3) L 05/05/17 05:12 Total Bilirubin 0.9 mg/dL (0.2-1.0) 05/05/17 05:12 AST 12 IU/L (10-42) 05/05/17 05:12 ALT < 10 IU/L (10-60) L 05/05/17 05:12 Alkaline Phosphatase 39 IU/L (42-121) L 05/05/17 05:12 Total Protein 6.6 g/dL (6.7-8.2) L 05/05/17 05:12 Albumin 3.3 g/dL (3.2-5.5) 05/05/17 05:12 Globulin 3.3 g/dL (2.1-4.2) 05/05/17 05:12 Albumin/Globulin Ratio 1.0 (1.0-2.2) 05/05/17 05:12 Lipase 28 U/L (22-51) 05/02/17 17:34 - Procedures Procedures: Procedures CHANGE DRAINAGE DEVICE IN BLADDER, EXTERNAL APPROACH (07/27/15) DRAIN OF R UP LEG SUBCU/FASCIA WITH DRAIN DEV, PERC APPROACH (05/13/15) REPLACEMENT OF L HIP JT, FEMORAL WITH METAL, OPEN APPROACH (07/27/15) TRANSFUSE NONAUT FRESH PLASMA IN PERIPH VEIN, PERC (07/27/15)
--- NOTE | 2017-05-05 17:39 | PROVIDER PROGRESS NOTE ---
Subjective - General Admit Date: 05/02/17 - Review of Systems General: positive: No symptoms Musculoskeletal: positive: Joint swelling All Other Systems: positive: Reviewed and negative Objective - Patient Data Reviewed Vital Signs: Yes Vital Signs: Vital Signs x48h Temp Pulse Resp BP Pulse Ox 05/05/17 16:27 36.6 C 50 L 20 140/63 H 100 Intake & Output: Intake and Output Totals x24h 05/03/17 05/04/17 05/05/17 23:59 23:59 23:59 Intake Total 2160 2500 1320 Output Total 1425 1350 1500 Balance 735 1150 -180 - Lab Results Lab Results: 05/05/17 05:12 05/05/17 05:12 Other Lab Results: Lab Results x24hrs 05/05/17 05/05/17 05/05/17 Range/Units 11:25 07:39 05:12 WBC (4.8-10.8) x10^3/uL RBC (4.70-6.10) 10^6/uL Hgb (14.0-18.0) g/dL Hct (42.0-52.0) % MCV (80.0-94.0) fL MCH (27.0-31.0) pg MCHC (32.0-36.0) g/dL RDW (12.0-15.0) % Plt Count (130-450) 10^3/uL MPV (7.4-11.4) fL Neut # (1.5-6.6) 10^3/uL Lymph # (1.5-3.5) 10^3/uL Castro # (0.0-1.0) 10^3/uL Eos # (0.0-0.7) 10^3/uL Baso # (0.0-0.1) 10^3/uL Absolute Nucleated RBC x10^3/uL Nucleated RBC % /100WBC PT 23.7 H (9.9-12.6) secs INR 2.1 H (0.8-1.2) Sodium (135-145) mmol/L Potassium (3.5-5.0) mmol/L Chloride (101-111) mmol/L Carbon Dioxide (21-32) mmol/L Anion Gap (6-13) BUN (6-20) mg/dL Creatinine (0.6-1.2) mg/dL Estimated GFR (MDRD) (>89) Glucose (70-100) mg/dL POC Whole Bld Glucose 95 79 (70 - 100) mg/dL Calcium (8.5-10.3) mg/dL Total Bilirubin (0.2-1.0) mg/dL AST (10-42) IU/L ALT (10-60) IU/L Alkaline Phosphatase (42-121) IU/L Total Protein (6.7-8.2) g/dL Albumin (3.2-5.5) g/dL Globulin (2.1-4.2) g/dL Albumin/Globulin Ratio (1.0-2.2) 05/05/17 05/05/17 Range/Units 05:12 05:12 WBC 6.3 (4.8-10.8) x10^3/uL RBC 4.17 L (4.70-6.10) 10^6/uL Hgb 11.6 L (14.0-18.0) g/dL Hct 35.8 L (42.0-52.0) % MCV 85.8 (80.0-94.0) fL MCH 27.8 (27.0-31.0) pg MCHC 32.4 (32.0-36.0) g/dL RDW 16.2 H (12.0-15.0) % Plt Count 265 (130-450) 10^3/uL MPV 6.9 L (7.4-11.4) fL Neut # 3.7 (1.5-6.6) 10^3/uL Lymph # 2.0 (1.5-3.5) 10^3/uL Castro # 0.4 (0.0-1.0) 10^3/uL Eos # 0.1 (0.0-0.7) 10^3/uL Baso # 0.0 (0.0-0.1) 10^3/uL Absolute Nucleated RBC 0.00 x10^3/uL Nucleated RBC % 0.0 /100WBC PT (9.9-12.6) secs INR (0.8-1.2) Sodium 136 (135-145) mmol/L Potassium 3.1 L (3.5-5.0) mmol/L Chloride 98 L (101-111) mmol/L Carbon Dioxide 27 (21-32) mmol/L Anion Gap 11.0 (6-13) BUN 21 H (6-20) mg/dL Creatinine 1.3 H (0.6-1.2) mg/dL Estimated GFR (MDRD) 54 L (>89) Glucose 93 (70-100) mg/dL POC Whole Bld Glucose (70 - 100) mg/dL Calcium 8.4 L (8.5-10.3) mg/dL Total Bilirubin 0.9 (0.2-1.0) mg/dL AST 12 (10-42) IU/L ALT < 10 L (10-60) IU/L Alkaline Phosphatase 39 L (42-121) IU/L Total Protein 6.6 L (6.7-8.2) g/dL Albumin 3.3 (3.2-5.5) g/dL Globulin 3.3 (2.1-4.2) g/dL Albumin/Globulin Ratio 1.0 (1.0-2.2) - Imaging Results Radiology Imaging: positive: EMP read indepedently - Current Medications Current Medications: Current Medications Generic Name Dose Route Start Last Admin Trade Name Freq PRN Reason Stop Dose Admin Acetaminophen 650 mg 05/02/17 17:35 05/04/17 16:05 Tylenol PO 650 mg Q4HR PRN Administration Pain 1 to 4 Amlodipine Besylate 10 mg 05/03/17 09:00 05/05/17 09:15 Norvasc PO 10 mg DAILY KELLY Administration Enalapril Maleate 20 mg 05/02/17 21:00 05/05/17 09:16 Vasotec PO 20 mg BID KELLY Administration Linezolid 600 mg in 300 mls @ 300 mls/hr 05/02/17 20:00 05/05/17 10:22 Zyvox 600 Mg/300 Ml IV Infused Q12H KELLY Infusion Piperacillin Sod/Tazobactam 100 mls @ 200 mls/hr 05/04/17 10:00 05/05/17 16: 36 Sod 3.375 gm/ Sodium Chloride IV 200 mls/hr Q6H KELLY Administration Metoprolol Tartrate 25 mg 05/02/17 21:00 05/05/17 09:15 Lopressor PO 25 mg BID KELLY Administration Oxycodone HCl 5 mg 05/02/17 17:35 05/05/17 16:50 Roxicodone PO 5 mg Q4HR PRN Administration Pain 5 to 7 Polyethylene Glycol 17 gm 05/03/17 09:00 05/05/17 09:16 Miralax PO 17 gm DAILY KELLY Administration Potassium Chloride 20 meq 05/03/17 08:00 05/05/17 09:15 K-Dur PO 20 meq DAILYWM KELLY Administration Saccharomyces Boulardii 250 mg 05/03/17 08:00 05/05/17 16:50 Florastor PO 250 mg BIDWM KELLY Administration Sodium Chloride 10 ml 05/02/17 17:35 05/04/17 17:39 Normal Saline Flush 0.9% IVP 10 ml PRN PRN Administration NEEDED PER PROVIDER ORDERS Sodium Chloride 10 ml 05/02/17 22:00 05/05/17 14:05 Normal Saline Flush 0.9% IVP 10 ml Q8HR KELLY Administration Warfarin Sodium 5 mg 05/04/17 23:00 05/05/17 14:05 Coumadin PO 5 mg QDWARFARIN KELLY Administration - Physical Exam Wound/Incisions: positive: Other General Appearance: positive: No acute distress Skin: positive: No rash Extremities: positive: Other (right hand: dorsal skin loss secondary to Hematoma. When hematoma is evacuated there is intact covering of extensor tissue. There is no loss of tendon, and no fracture in the hand and wrist.) Impression/Plan - Problem List Problem List: Ortho Coverage: I have been compelled to step in and see this patient as the technical solutions consultant physician is away and not signed out on this case. This man has had a crush injury of the right hand about 11 days ago, and then developed a contained hematoma secondary to the effect of the injury and the coumadin anticoagulant. He doesn't appear to have infection at all. He could have either wound care/ dressing changes with MAC. or be sent for plastic surgery flap coverage. He prefers to have ongoing open wound management with dressing changes. A volar splint will be added. Silvadene cream bid could be helpful. The patient understands that closing by secondary intention could take up to 2 months.
[2017-05-06] MEDS: SODIUM CHLORIDE FLUSH 0.9% 10 ML SYRINGE IVP SCH ×3 (04:16→20:01)
[2017-05-06] MEDS: PIPERACILLIN/TAZOBACTAM 3.375 GM in SODIUM CHLORIDE 0.9% MINIBAG 100 ML IV SCH ×2 (04:16→10:47)
[2017-05-06] MEDS: oxyCODONE 5 MG TABLET PO PRN ×3 (08:33→20:05)
[2017-05-06] MEDS: ACETAMINOPHEN 325 MG TABLET PO PRN ×3 (08:34→20:05)
[2017-05-06] MEDS: POTASSIUM CHLORIDE 20 MEQ TABLET PO SCH (08:35)
[2017-05-06] MEDS: SACCHAROMYCES BOULARDII 250 MG CAPSULE PO SCH ×2 (08:35→16:56)
[2017-05-06] MEDS: SODIUM CHLORIDE FLUSH 0.9% 10 ML SYRINGE IVP PRN (08:43)
[2017-05-06] MEDS: LINEZOLID 600 MG/300 ML 600 MG/300 ML BAG IV SCH (08:49)
[2017-05-06 09:11] LABS: BASOPHILS # (AUTO) 0.1 10^3/uL (0.0-0.1); BASOPHILS % (AUTO) 1.1 %; EOSINOPHILS # (AUTO) 0.1 10^3/uL (0.0-0.7); EOSINOPHILS % (AUTO) 1.1 %; HCT - HEMATOCRIT 36.9 % (42.0-52.0); HGB - HEMOGLOBIN 12.1 g/dL (14.0-18.0); LYMPHOCYTES # (AUTO) 1.5 10^3/uL (1.5-3.5); MEAN CORPUSCULAR HGB CONC 32.7 g/dL (32.0-36.0); MEAN CORPUSCULAR VOLUME 85.6 fL (80.0-94.0); MEAN PLATELET VOLUME 7.6 fL (7.4-11.4); MONOCYTES # (AUTO) 0.4 10^3/uL (0.0-1.0); MONOCYTES % (AUTO) 5.7 %; NEUTROPHILS # (AUTO) 4.6 10^3/uL (1.5-6.6); NEUTROPHILS % (AUTO) 70.1 %; NUCLEATED RED BLOOD CELLS AUTO 0.1 /100WBC; RED BLOOD COUNT 4.31 10^6/uL (4.70-6.10); RED CELL DISTRIBUTION WIDTH 16.6 % (12.0-15.0); UNCORRECTED WHITE BLOOD COUNT 6.6 x10^3/uL; WHITE BLOOD COUNT 6.6 x10^3/uL (4.8-10.8)
[2017-05-06 09:18] LABS: CALCIUM 8.7 mg/dL (8.5-10.3); CREATININE 1.4 mg/dL (0.6-1.2); POTASSIUM 3.9 mmol/L (3.5-5.0)
--- NOTE | 2017-05-06 10:46 | PROVIDER PROGRESS NOTE ---
Subjective - General Admit Date: 05/02/17 - Review of Systems Wound/Incisions: positive: Healing well, Other General: positive: No symptoms Musculoskeletal: positive: Joint swelling All Other Systems: positive: Reviewed and negative Objective - Patient Data Reviewed Vital Signs: Yes Vital Signs: Vital Signs x48h Temp Pulse Resp BP Pulse Ox 05/06/17 08:26 36.8 C 64 16 158/88 H 99 Intake & Output: Intake and Output Totals x24h 05/04/17 05/05/17 05/06/17 23:59 23:59 23:59 Intake Total 2500 2170 340 Output Total 1350 1500 425 Balance 1150 670 -85 - Lab Results Lab Results: 05/06/17 08:55 05/06/17 08:55 Other Lab Results: Lab Results x24hrs 05/06/17 05/06/17 05/05/17 Range/Units 08:55 08:55 11:25 WBC 6.6 (4.8-10.8) x10^3/uL RBC 4.31 L (4.70-6.10) 10^6/uL Hgb 12.1 L (14.0-18.0) g/dL Hct 36.9 L (42.0-52.0) % MCV 85.6 (80.0-94.0) fL MCH 28.0 (27.0-31.0) pg MCHC 32.7 (32.0-36.0) g/dL RDW 16.6 H (12.0-15.0) % Plt Count 268 (130-450) 10^3/uL MPV 7.6 (7.4-11.4) fL Neut # 4.6 (1.5-6.6) 10^3/uL Lymph # 1.5 (1.5-3.5) 10^3/uL Eddy # 0.4 (0.0-1.0) 10^3/uL Eos # 0.1 (0.0-0.7) 10^3/uL Baso # 0.1 (0.0-0.1) 10^3/uL Absolute Nucleated RBC 0.01 x10^3/uL Nucleated RBC % 0.1 /100WBC Sodium 137 (135-145) mmol/L Potassium 3.9 (3.5-5.0) mmol/L Chloride 99 L (101-111) mmol/L Carbon Dioxide 25 (21-32) mmol/L Anion Gap 13.0 (6-13) BUN 21 H (6-20) mg/dL Creatinine 1.4 H (0.6-1.2) mg/dL Estimated GFR (MDRD) 49 L (>89) Glucose 118 H (70-100) mg/dL POC Whole Bld Glucose 95 (70 - 100) mg/dL Calcium 8.7 (8.5-10.3) mg/dL - Current Medications Current Medications: Current Medications Generic Name Dose Route Start Last Admin Trade Name Freq PRN Reason Stop Dose Admin Acetaminophen 650 mg 05/02/17 17:35 05/06/17 08:34 Tylenol PO 650 mg Q4HR PRN Administration Pain 1 to 4 Amlodipine Besylate 10 mg 05/03/17 09:00 05/05/17 09:15 Norvasc PO 10 mg DAILY KELLY Administration Enalapril Maleate 20 mg 05/02/17 21:00 05/05/17 21:18 Vasotec PO 20 mg BID KELLY Administration Linezolid 600 mg in 300 mls @ 300 mls/hr 05/02/17 20:00 05/06/17 08:49 Zyvox 600 Mg/300 Ml IV 300 mls/hr Q12H KELLY Administration Piperacillin Sod/Tazobactam 100 mls @ 200 mls/hr 05/04/17 10:00 05/06/17 04: 48 Sod 3.375 gm/ Sodium Chloride IV Infused Q6H KELLY Infusion Metoprolol Tartrate 25 mg 05/02/17 21:00 05/05/17 21:18 Lopressor PO 25 mg BID KELLY Administration Oxycodone HCl 5 mg 05/02/17 17:35 05/06/17 08:33 Roxicodone PO 5 mg Q4HR PRN Administration Pain 5 to 7 Polyethylene Glycol 17 gm 05/03/17 09:00 05/05/17 09:16 Miralax PO 17 gm DAILY KELLY Administration Potassium Chloride 20 meq 05/03/17 08:00 05/06/17 08:35 K-Dur PO 20 meq DAILYWM KELLY Administration Saccharomyces Boulardii 250 mg 05/03/17 08:00 05/06/17 08:35 Florastor PO 250 mg BIDWM KELLY Administration Sodium Chloride 10 ml 05/02/17 17:35 05/06/17 08:43 Normal Saline Flush 0.9% IVP 10 ml PRN PRN Administration NEEDED PER PROVIDER ORDERS Sodium Chloride 10 ml 05/02/17 22:00 05/06/17 04:16 Normal Saline Flush 0.9% IVP 10 ml Q8HR KELLY Administration Warfarin Sodium 5 mg 05/04/17 23:00 05/05/17 14:05 Coumadin PO 5 mg QDWARFARIN KELLY Administration - Physical Exam Wound/Incisions: positive: Healing well Extremities: positive: Joint swelling Neurologic/Psychiatric: positive: Motor nml, Sensation nml, Mood/affect nml Impression/Plan - Problem List Problem List: ORTHO: Pts wound is clean, and there is granulation in the base of the wound. No tendons are exposed. The patient may begin dressing changes daily at discharge. I have discussed skin grafting with the patient and this could be done as an outpatient at a later time when the wound is properly "ready" to receive a graft. At this time there needs to be a fostering of granulation healing with dressing changes. This could all be accomplished as an outpatient. IV antibiotics are not necessary, but PO Keflex could continue. Ortho office visit should be next week if the patient's social situation allows d/c
[2017-05-06] MEDS: POLYETHYLENE GLYCOL 3350 17 GM PACKET PO SCH (10:53)
[2017-05-06] MEDS: amLODIPine 5 MG TABLET PO SCH (10:53)
[2017-05-06] MEDS: METOPROLOL TARTRATE 25 MG TABLET PO SCH ×2 (10:54→20:01)
[2017-05-06] MEDS: ENALAPRIL 5 MG TABLET PO SCH ×2 (10:54→20:01)
[2017-05-06] MEDS: cephALEXin 250 MG CAPSULE PO SCH ×2 (14:41→17:00)
[2017-05-06] MEDS: WARFARIN 5 MG TABLET PO SCH (14:41)
--- NOTE | 2017-05-06 20:04 | PROVIDER PROGRESS NOTE ---
Assessment/Plan - Problem List (1) Traumatic hematoma of right hand with infection Qualifiers: Encounter type: initial encounter Qualified Code(s): S60.221A - Contusion of right hand, initial encounter; L08.9 - Local infection of the skin and subcutaneous tissue, unspecified; L08.9 - Local infection of the skin and subcutaneous tissue, unspecified Assessment/Plan: the patient will need wound care/dressing changes with MAC. Will need a volar splint. Silvadene cream should be applied to the wound bid. (2) Cellulitis of hand Assessment/Plan: will need keflex on discharge (3) Essential hypertension Assessment/Plan: is being treted with amlodipine, enalapril, and metaprolol tartrate (4) Chronic a-fib Assessment/Plan: is treating with coumadin and metoprolol tartrate (5) Hypokalemia Assessment/Plan: resolved - Current Meds Current Meds: Current Medications Generic Name Dose Route Start Last Admin Trade Name Freq PRN Reason Stop Dose Admin Acetaminophen 650 mg 05/02/17 17:35 05/06/17 15:53 Tylenol PO 650 mg Q4HR PRN Administration Pain 1 to 4 Amlodipine Besylate 10 mg 05/03/17 09:00 05/06/17 10:53 Norvasc PO 10 mg DAILY KELLY Administration Cephalexin 500 mg 05/06/17 12:00 05/06/17 17:00 Keflex PO 500 mg Q6HR KELLY Administration Enalapril Maleate 20 mg 05/02/17 21:00 05/06/17 10:54 Vasotec PO 20 mg BID KELLY Administration Metoprolol Tartrate 25 mg 05/02/17 21:00 05/06/17 10:54 Lopressor PO 25 mg BID KELLY Administration Oxycodone HCl 5 mg 05/02/17 17:35 05/06/17 15:54 Roxicodone PO 5 mg Q4HR PRN Administration Pain 5 to 7 Polyethylene Glycol 17 gm 05/03/17 09:00 05/06/17 10:53 Miralax PO Not Given DAILY KELLY Potassium Chloride 20 meq 05/03/17 08:00 05/06/17 08:35 K-Dur PO 20 meq DAILYWM KELLY Administration Saccharomyces Boulardii 250 mg 05/03/17 08:00 05/06/17 16:56 Florastor PO 250 mg BIDWM KELLY Administration Sodium Chloride 10 ml 05/02/17 17:35 05/06/17 08:43 Normal Saline Flush 0.9% IVP 10 ml PRN PRN Administration NEEDED PER PROVIDER ORDERS Sodium Chloride 10 ml 05/02/17 22:00 05/06/17 14:38 Normal Saline Flush 0.9% IVP 10 ml Q8HR KELLY Administration Warfarin Sodium 5 mg 05/04/17 23:00 05/06/17 14:41 Coumadin PO 5 mg QDWARFARIN KELLY Administration - Lab Result Lab results reviewed: Yes Fish Bone Diagrams: 05/06/17 08:55 05/06/17 08:55 - Additional Planning My Orders: My Active Orders 05/06/17 16:09 Message to Nursing [RC] QSHIFT Plan Discussed with:: Patient Time Spent: 15-30 minutes Subjective - Subjective Patient Reports: Feeling Better, No Complaints (The right hand is still requiring wound care dressing changes.) Objective Vital Signs: Vital Signs - 24 hr 05/05/17 05/06/17 05/06/17 21:18 00:40 08:26 Temperature 36.5 C 36.8 C Heart Rate [ 40 L 64 Brachial] Respiratory 16 16 Rate Blood Pressure 133/73 H Blood Pressure 137/72 H 158/88 H [Right Brachial artery] O2 Saturation 99 99 05/06/17 05/06/17 10:54 16:37 Temperature 37 C Heart Rate [ 46 L Brachial] Respiratory 16 Rate Blood Pressure 158/88 H Blood Pressure 148/63 H [Right Brachial artery] O2 Saturation 98 Oxygen O2 Source Room air I&O (Last 24 Hrs): Intake and Output Totals x24h 05/04/17 05/05/17 05/06/17 23:59 23:59 23:59 Intake Total 2500 2170 940 Output Total 1350 1500 875 Balance 1150 670 65 General: Alert HEENT: Atraumatic Neck: Supple, No JVD Neuro: Alert, CN 2-12 Grossly Intact, Oriented Times 3 Cardiovascular: Other (irregularly irregular) Respiratory: Chest non-tender, No respiratory distress, Breath sounds nml Abdomen: Normal bowel sounds, Soft, No tenderness Extremities: No edema - Results Results: Laboratory Results WBC 6.6 x10^3/uL (4.8-10.8) 05/06/17 08:55 RBC 4.31 10^6/uL (4.70-6.10) L 05/06/17 08:55 Hgb 12.1 g/dL (14.0-18.0) L 05/06/17 08:55 Hct 36.9 % (42.0-52.0) L 05/06/17 08:55 MCV 85.6 fL (80.0-94.0) 05/06/17 08:55 MCH 28.0 pg (27.0-31.0) 05/06/17 08:55 MCHC 32.7 g/dL (32.0-36.0) 05/06/17 08:55 RDW 16.6 % (12.0-15.0) H 05/06/17 08:55 Plt Count 268 10^3/uL (130-450) 05/06/17 08:55 MPV 7.6 fL (7.4-11.4) 05/06/17 08:55 Neut # 4.6 10^3/uL (1.5-6.6) 05/06/17 08:55 Lymph # 1.5 10^3/uL (1.5-3.5) 05/06/17 08:55 Placer # 0.4 10^3/uL (0.0-1.0) 05/06/17 08:55 Eos # 0.1 10^3/uL (0.0-0.7) 05/06/17 08:55 Baso # 0.1 10^3/uL (0.0-0.1) 05/06/17 08:55 Absolute Nucleated RBC 0.01 x10^3/uL 05/06/17 08:55 Nucleated RBC % 0.1 /100WBC 05/06/17 08:55 PT 23.7 secs (9.9-12.6) H 05/05/17 05:12 INR 2.1 (0.8-1.2) H 05/05/17 05:12 Sodium 137 mmol/L (135-145) 05/06/17 08:55 Potassium 3.9 mmol/L (3.5-5.0) 05/06/17 08:55 Chloride 99 mmol/L (101-111) L 05/06/17 08:55 Carbon Dioxide 25 mmol/L (21-32) 05/06/17 08:55 Anion Gap 13.0 (6-13) 05/06/17 08:55 BUN 21 mg/dL (6-20) H 05/06/17 08:55 Creatinine 1.4 mg/dL (0.6-1.2) H 05/06/17 08:55 Estimated GFR (MDRD) 49 (>89) L 05/06/17 08:55 Glucose 118 mg/dL (70-100) H 05/06/17 08:55 POC Whole Bld Glucose 84 mg/dL (70 - 100) 05/05/17 20:37 Glycated Hemoglobin 5.3 % (4.6-6.2) 05/04/17 09:40 Estim Average Glucose 105 (70-100) H 05/04/17 09:40 Calcium 8.7 mg/dL (8.5-10.3) 05/06/17 08:55 Total Bilirubin 0.9 mg/dL (0.2-1.0) 05/05/17 05:12 AST 12 IU/L (10-42) 05/05/17 05:12 ALT < 10 IU/L (10-60) L 05/05/17 05:12 Alkaline Phosphatase 39 IU/L (42-121) L 05/05/17 05:12 Total Protein 6.6 g/dL (6.7-8.2) L 05/05/17 05:12 Albumin 3.3 g/dL (3.2-5.5) 05/05/17 05:12 Globulin 3.3 g/dL (2.1-4.2) 05/05/17 05:12 Albumin/Globulin Ratio 1.0 (1.0-2.2) 05/05/17 05:12 Lipase 28 U/L (22-51) 05/02/17 17:34 - Procedures Procedures: Procedures CHANGE DRAINAGE DEVICE IN BLADDER, EXTERNAL APPROACH (07/27/15) DRAIN OF R UP LEG SUBCU/FASCIA WITH DRAIN DEV, PERC APPROACH (05/13/15) REPLACEMENT OF L HIP JT, FEMORAL WITH METAL, OPEN APPROACH (07/27/15) TRANSFUSE NONAUT FRESH PLASMA IN PERIPH VEIN, PERC (07/27/15)
[2017-05-07] MEDS: oxyCODONE 5 MG TABLET PO PRN ×5 (01:06→23:55)
[2017-05-07] MEDS: cephALEXin 250 MG CAPSULE PO SCH ×5 (01:06→23:54)
[2017-05-07] MEDS: ACETAMINOPHEN 325 MG TABLET PO PRN ×4 (01:06→23:54)
[2017-05-07 05:20] LABS: CALCIUM 8.5 mg/dL (8.5-10.3); CREATININE 1.4 mg/dL (0.6-1.2); POTASSIUM 3.9 mmol/L (3.5-5.0)
[2017-05-07 05:25] LABS: BASOPHILS # (AUTO) 0.1 10^3/uL (0.0-0.1); BASOPHILS % (AUTO) 1.2 %; EOSINOPHILS # (AUTO) 0.1 10^3/uL (0.0-0.7); EOSINOPHILS % (AUTO) 1.6 %; HCT - HEMATOCRIT 34.2 % (42.0-52.0); HGB - HEMOGLOBIN 11.2 g/dL (14.0-18.0); LYMPHOCYTES # (AUTO) 1.9 10^3/uL (1.5-3.5); LYMPHOCYTES % (AUTO) 40.3 %; MEAN CORPUSCULAR HEMOGLOBIN 28.2 pg (27.0-31.0); MEAN CORPUSCULAR HGB CONC 32.8 g/dL (32.0-36.0); MEAN CORPUSCULAR VOLUME 85.9 fL (80.0-94.0); MEAN PLATELET VOLUME 7.3 fL (7.4-11.4); MONOCYTES # (AUTO) 0.4 10^3/uL (0.0-1.0); MONOCYTES % (AUTO) 7.9 %; NEUTROPHILS # (AUTO) 2.3 10^3/uL (1.5-6.6); RED BLOOD COUNT 3.98 10^6/uL (4.70-6.10); RED CELL DISTRIBUTION WIDTH 16.4 % (12.0-15.0); UNCORRECTED WHITE BLOOD COUNT 4.7 x10^3/uL; WHITE BLOOD COUNT 4.7 x10^3/uL (4.8-10.8)
[2017-05-07] MEDS: SODIUM CHLORIDE FLUSH 0.9% 10 ML SYRINGE IVP SCH ×3 (06:55→22:03)
[2017-05-07] MEDS: METOPROLOL TARTRATE 25 MG TABLET PO SCH ×2 (09:02→20:47)
[2017-05-07] MEDS: POTASSIUM CHLORIDE 20 MEQ TABLET PO SCH (09:02)
[2017-05-07] MEDS: amLODIPine 5 MG TABLET PO SCH (09:02)
[2017-05-07] MEDS: SACCHAROMYCES BOULARDII 250 MG CAPSULE PO SCH ×2 (09:02→19:34)
[2017-05-07] MEDS: ENALAPRIL 5 MG TABLET PO SCH ×2 (09:02→20:47)
[2017-05-07] MEDS: POLYETHYLENE GLYCOL 3350 17 GM PACKET PO SCH (09:03)
--- NOTE | 2017-05-07 12:54 | Discharge Plan ---
Discharge Plan Disposition: 01 Home, Self Care Condition: Stable Prescriptions: Cephalexin [Keflex] 250 mg PO Q6H #60 capsule Diet: Cardiac Activity Restrictions: Do Shower Restrictions: No Driving Restrictions: Yes (can not drive until he can use his right arm.) Weight Bearing: No Weight Additional Instructions or Follow Up instructions: The patient will be seen at [facility] [place] at 11 am tomorrow for right hand dressing changes as per wound care. He will be set up for all of his other appts by [facility] [place]. The wound will take about 6 to 8 wk to heal. He will follow up with Dr. Smith next week and is to call his office for an appt. He will follow- up with Dr. Bell next week. ([phone] Dr. Bell) ([phone]-Dr. Smith). He is to stay on Keflex for 14 days. No Smoking: If you smoke, Please STOP! Call for help. Follow-up with: Lakshmi Bell MD [Primary Care Provider] - 1 Week
[2017-05-07] MEDS: WARFARIN 5 MG TABLET PO SCH (15:11)
--- NOTE | 2017-05-07 21:17 | PROVIDER PROGRESS NOTE ---
Hospitalist Cross-cover Note - Cross-Cover Note Cross-Cover Note: Progress Note: Traumatic hematoma of right hand with infection and cellulitis of the right hand - The patient has been discharged and [place] [facility] [place] for right hand dressing changes as per wound care. He will be set up for all of his other appts by [facility] The wound will take about 6 to 8 weeks to heal. He will follow-up with Dr. Smith next week and is to call his office for an appt. He will follow-up with Dr. Bell next week. ([phone] Dr. Bell) ([phone] Dr. Smith). He has been given a prescription for Keflex for 14 days. Essential Hypertension-is treated with amlodipine, enalapril, and metoprolol tartrate. Chronic Atrial Fibrillation- is being treated with coumadin and metoprolol tartrate. The hypokalemia has resolved. The patient is medically cleared for discharge and is refusing discharge. From the time of discharge, medicare has 72 hours to approve or deny the appealed discharge. vital signs: temp=36.8 pulse=84 blood pressure= 140/71 respiratory rate= 16 O2 saturation= 99% on room air Head- atraumatic, normocephalic Eyes- PERRLA, EOMI Neck- supple, no JVD, no bruits, no adenopathy Heart- RRR Lungs- CTA Abdomen- +BS, soft, nontender, no rebound, no guarding Lower Extremities-warm, no edema, +2 pedal pulses Right Hand - wrapped in gauze. Neurological-oriented x 3, follows commands, moves all 4 extremities. Labs: wbc=4.7 Hb=11.2 Hct=34.2 Platelets-238,000 Sodium- 139 Potassium-3.9 Chloride- 102 Carbon dioxide- 27 BUN-23 Creatinine- 1.4 glucose-87 Estimated GFR-49
[2017-05-08] MEDS: ACETAMINOPHEN 325 MG TABLET PO PRN ×3 (05:33→14:12)
[2017-05-08] MEDS: cephALEXin 250 MG CAPSULE PO SCH ×2 (05:33→14:13)
[2017-05-08] MEDS: oxyCODONE 5 MG TABLET PO PRN ×3 (05:33→14:12)
[2017-05-08] MEDS: SODIUM CHLORIDE FLUSH 0.9% 10 ML SYRINGE IVP SCH ×2 (05:34→14:13)
[2017-05-08 06:02] LABS: EOSINOPHILS # (AUTO) 0.1 10^3/uL (0.0-0.7); EOSINOPHILS % (AUTO) 1.5 %; HCT - HEMATOCRIT 35.3 % (42.0-52.0); HGB - HEMOGLOBIN 11.4 g/dL (14.0-18.0); LYMPHOCYTES # (AUTO) 1.9 10^3/uL (1.5-3.5); LYMPHOCYTES % (AUTO) 39.3 %; MEAN CORPUSCULAR HGB CONC 32.4 g/dL (32.0-36.0); MEAN CORPUSCULAR VOLUME 86.3 fL (80.0-94.0); MONOCYTES # (AUTO) 0.4 10^3/uL (0.0-1.0); MONOCYTES % (AUTO) 8.2 %; NEUTROPHILS # (AUTO) 2.4 10^3/uL (1.5-6.6); RED BLOOD COUNT 4.09 10^6/uL (4.70-6.10); RED CELL DISTRIBUTION WIDTH 16.7 % (12.0-15.0); UNCORRECTED WHITE BLOOD COUNT 4.9 x10^3/uL; WHITE BLOOD COUNT 4.9 x10^3/uL (4.8-10.8)
[2017-05-08 06:17] LABS: CALCIUM 8.4 mg/dL (8.5-10.3); CREATININE 1.2 mg/dL (0.6-1.2); POTASSIUM 3.7 mmol/L (3.5-5.0)
[2017-05-08 08:55] VITALS: BP 147/76
[2017-05-08] MEDS: POLYETHYLENE GLYCOL 3350 17 GM PACKET PO SCH (10:03)
[2017-05-08] MEDS: METOPROLOL TARTRATE 25 MG TABLET PO SCH (10:10)
[2017-05-08] MEDS: amLODIPine 5 MG TABLET PO SCH (10:10)
[2017-05-08] MEDS: SACCHAROMYCES BOULARDII 250 MG CAPSULE PO SCH (10:11)
[2017-05-08] MEDS: ENALAPRIL 5 MG TABLET PO SCH (10:12)
[2017-05-08] MEDS: POTASSIUM CHLORIDE 20 MEQ TABLET PO SCH (10:12)
--- NOTE | 2017-05-08 14:04 | PROVIDER PROGRESS NOTE ---
Subjective - Prog Note Date Prog Note Date: 05/08/17 Prog Note Time: 14:02 - Subjective Pt reports feeling: Improved (No pain) Objective - Vital Signs/Intake & Output Vital Signs: Vital Signs x48h Temp Pulse Resp BP Pulse Ox 05/08/17 08:54 36.8 C 45 L 16 147/76 H 97 Intake & Output: Intake & Output 05/05/17 05/06/17 05/07/17 05/08/17 23:59 23:59 23:59 23:59 Intake Total 2170 373 203 7460 Output Total 9056 008 1543 700 Balance 670 65 -2636 670 - Lab Results Fish Bones: 05/08/17 05:43 05/08/17 05:43 Other Labs: Lab Results x24hrs 05/08/17 05/08/17 05/08/17 Range/Units 11:26 05:43 05:43 WBC 4.9 (4.8-10.8) x10^3/uL RBC 4.09 L (4.70-6.10) 10^6/uL Hgb 11.4 L (14.0-18.0) g/dL Hct 35.3 L (42.0-52.0) % MCV 86.3 (80.0-94.0) fL MCH 28.0 (27.0-31.0) pg MCHC 32.4 (32.0-36.0) g/dL RDW 16.7 H (12.0-15.0) % Plt Count 222 (130-450) 10^3/uL MPV 7.0 L (7.4-11.4) fL Neut # 2.4 (1.5-6.6) 10^3/uL Lymph # 1.9 (1.5-3.5) 10^3/uL Lyman # 0.4 (0.0-1.0) 10^3/uL Eos # 0.1 (0.0-0.7) 10^3/uL Baso # 0.0 (0.0-0.1) 10^3/uL Absolute Nucleated RBC 0.00 x10^3/uL Nucleated RBC % 0.0 /100WBC Sodium 136 (135-145) mmol/L Potassium 3.7 (3.5-5.0) mmol/L Chloride 103 (101-111) mmol/L Carbon Dioxide 27 (21-32) mmol/L Anion Gap 6.0 (6-13) BUN 18 (6-20) mg/dL Creatinine 1.2 (0.6-1.2) mg/dL Estimated GFR (MDRD) 59 L (>89) Glucose 74 (70-100) mg/dL POC Whole Bld Glucose 106 H (70 - 100) mg/dL Calcium 8.4 L (8.5-10.3) mg/dL 05/07/17 Range/Units 20:25 WBC (4.8-10.8) x10^3/uL RBC (4.70-6.10) 10^6/uL Hgb (14.0-18.0) g/dL Hct (42.0-52.0) % MCV (80.0-94.0) fL MCH (27.0-31.0) pg MCHC (32.0-36.0) g/dL RDW (12.0-15.0) % Plt Count (130-450) 10^3/uL MPV (7.4-11.4) fL Neut # (1.5-6.6) 10^3/uL Lymph # (1.5-3.5) 10^3/uL Lyman # (0.0-1.0) 10^3/uL Eos # (0.0-0.7) 10^3/uL Baso # (0.0-0.1) 10^3/uL Absolute Nucleated RBC x10^3/uL Nucleated RBC % /100WBC Sodium (135-145) mmol/L Potassium (3.5-5.0) mmol/L Chloride (101-111) mmol/L Carbon Dioxide (21-32) mmol/L Anion Gap (6-13) BUN (6-20) mg/dL Creatinine (0.6-1.2) mg/dL Estimated GFR (MDRD) (>89) Glucose (70-100) mg/dL POC Whole Bld Glucose 112 H (70 - 100) mg/dL Calcium (8.5-10.3) mg/dL - Other Results/Comments Other Results/Comments: EXAM: Right hand: MOves fingers well without pain. N/V ok distally. Dressing removed - wound bed is granulating in nicely with minimal (4-5 mm) necrotic edge on the radial distal edge of wound. No purulence seen. No exposed tendon Assessment/Plan - Problem List (1) Cellulitis of hand Impression: Improved. Wound bed is clean and granulating in nicely with minimal necrotic wound edge radial/distally PLAN: As noted in Dr. Smith earlier note. Patient may be discharged to outpatient treatment of wound. Recommend daily wet-to-dry saline dressing changes and resplinting wrist. Demonstrated to staff and patient. Patient's will be taught dressing changes to be done at home. Follow up with Dr. Smith late next week for wound check.
[2017-05-08] MEDS: WARFARIN 5 MG TABLET PO SCH (14:11)
--- NOTE | 2017-05-09 04:32 | DISCHARGE SUMMARY ---
DATE OF ADMISSION: 05/02/2017 DATE OF DISCHARGE: 05/08/2017 TIME: 3:14. DISCHARGE DIAGNOSES 1. Traumatic hematoma of the right hand. 2. Right hand cellulitis. 3. Essential hypertension. 4. Chronic atrial fibrillation. 5. Hypokalemia. His comorbidities are sleep apnea on CPAP, type 2 diabetes mellitus diet controlled, and indwelling catheter. He will follow up with Dr. Bell next week and Dr. Smith next week. The patient wanted to be discharged from the hospital and was discharged. It was the patient's wishes that he be discharged. He received a prescription for Keflex 250 mg 1 tab p.o. q.6h. x 14 days #60. DISCHARGE INSTRUCTIONS: He received a right hand dressing change today. He is to make an appointment at [facility] for further wound care. The wound will take 6-8 weeks to heal. DISCHARGE MEDICATIONS He is to resume his home medications of 1. Warfarin 7.5 mg 1 tab p.o. every day. 2. Florastor 250 mg 1 tab p.o. twice a day on Wednesdays and Mondays. 3. Vasotec 20 mg 1 tab p.o. twice a day. 4. Norvasc 10 mg 1 tab p.o. every day. 5. Keflex 250 mg 1 tab p.o. q.6h. for 14 days. HOSPITAL COURSE: The patient, a 77-year-old white male, was admitted with a traumatic right hand injury. Dr. Camejo was consulted as was wound care. He received debridement from wound care and right hand dressing changes. The cellulitis of the right hand was treated with IV Zosyn and IV linezolid. His hypertension was treated with amlodipine, enalapril, metoprolol, and IV hydralazine. His atrial fibrillation was treated with Coumadin and Metoprolol tartrate. His orthopaedic coverage changed to Dr. Smith to continue the right hand dressing changes, and the patient's cellulitis will be treated with Keflex. On discharge, the patient is to follow up with [facility] daily for dressing changes as per instructions given to them by Dr. Smith. He received the prescription for Keflex and he was discharged to home. PHYSICAL EXAMINATION VITAL SIGNS: On discharge were temperature of 36.8, pulse of 45, blood pressure of 147/76, respiratory rate of 16, O2 saturation of 97% on room air. HEENT: Head was atraumatic, normocephalic. Eyes were PERRLA, EOMI. NECK: Supple. No JVD, no bruits, no adenopathy. HEART: Irregularly irregular. LUNGS: Clear to auscultation. ABDOMEN: Positive for bowel sounds, soft, nontender. No rebound or guarding. EXTREMITIES: Lower extremities are warm. There was no edema. There was +2 pedal pulses. Right hand was wrapped in gauze. NEUROLOGICAL: He was oriented x3, follows commands with all 4 extremities. LABORATORY: On discharge were sodium of 136, potassium of 3.7, chloride of 103, bicarbonate of 27, BUN of 18, creatinine of 1.2, glucose of 74. White blood cell count of 4.9, hemoglobin of 11.4, hematocrit of 35.3, and platelets of 222, 000. Glomerular filtration rate of 59. His right hand x-ray showed a 4 x 8 mm fracture, dorsal aspect of the carpal bones, most likely involving the pisiform or triquetrum. Correlate clinically to determine if further evaluation with wrist CT indicated to check for massive edema, and exclude cellulitis. JOB #: [id number] EXT JOB #:[id number] [facility]
--- NOTE | 2017-05-10 10:38 | HISTORY & PHYSICAL EXAMINATION ---
DATE OF ADMISSION: 05/02/2017 PRIMARY CARE PROVIDER: Lakshmi Bell MD. ADMITTING PROVIDER: Luisa Zamora MD. CHIEF COMPLAINT: Right hand swelling and pain. HISTORY OF PRESENT ILLNESS: The patient is a 77-year-old white male who lives in his own trailer with his for the last 15 years. He has a history of falls. When I ask him why he is falling, he is v ague about that. He cannot really tell me why he is falling, but he fell in April 2015 and had a ri ght thigh hematoma as a consequence of the fall and being anticoagulated for atrial fibrillation. He had to have that surgically drained by Dr. Smith. He then fell in July 2015 and had a left femor al neck fracture requiring operative repair. He fell 9 days ago. He says that he was lifting up a hea vy sofa and in lifting the sofa stumbled, tripped, and fell down, with the sofa falling directly on h is hand. Since that time, it has been an open wound. He has been unable to use that hand. He was niru id to get any water on it, so he has not bathed in over a week. He denies fever, chills, rigors, myal gias, but the pain and swelling in his right hand got to be so severe that he brought himself to the emergency room today. He was evaluated by Dr. Octavio Santos and is afebrile at 36.5. Normotensive and oxygenating normally. T he dorsum of his right hand is dome-shaped and deformed from a huge hematoma. The entire hand in and of itself has also sausage-like digits. He has a 4 x 8 mm fracture dorsal to the carpal bones, and th e film confirms massive edema. White cell count and chemistries are pending. Dr. Santos would like e patient admitted for incision and debridement of this wound and wash out under anesthesia. Dr. Marsh on is willing to do that tomorrow if we admit the patient to our service tonight. PAST MEDICAL HISTORY 1. 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 The last glycosylated hemo globin was 5% on February 17, 2017. He is diet controlled. 2. Hypertension. 3. Chronic atrial fibrillation on anticoagulation with Coumadin and rate control with metoprolol. 4. Benign prostatic hypertrophy, status post TURP. He has complications that have led to a suprapubic catheter placement. It is changed once a month by Dr. Bell's office. 5. Tonsillectomy and adenoidectomy. 6. Chronic venous stasis dermatitis as well as peripheral arterial vascular disease. 7. He has had intermittent leg wounds in the past. He [place] at [place] [facility] when he does get them infected. 8. 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 ALLERGIES: HE HAS NO KNOWN DRUG ALLERGIES. MEDICATIONS 1. Amlodipine 10 mg a day. 2. Vasotec 20 mg b.i.d. 3. Metoprolol tartrate 25 mg p.o. b.i.d. 4. Florastor 250 mg a day. 5. Coumadin 7.5 mg on Mondays and Fridays and 5 mg on other days. SOCIAL HISTORY: He was born and raised in [place]. He came down to [facility] about 15-16 years ag o, when he retired. He is to his third for 46 years. They live in their own trailer in [facility]. He has not driven for the last 5 years. He is dependent on his for taking him to [employer]. 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 He used to smoke 3 cigars a week and quit ben t 1 year ago. He used to smoke 1 pack per day for 15 years and quit over 15 years ago. He has never h ad a problem with alcohol abuse, and he does smoke cannabis but denies any history of cocaine, heroin , LSD, methamphetamines, or speed. FAMILY HISTORY: Mom in her 80s with peripheral vascular disease and old age. Dad may have i n his 50s. He did not know him very well and he was from his mom. He may have been an alcoholic. Both parents had tuberculosis. Of 2 siblings, they are younger than him as completely heal thy. He denies tuberculosis, peripheral vascular disease, hypertension, atrial fibrillation, OH, stro ke. The same goes for his one son who is completely healthy. REVIEW OF SYSTEMS GENERAL: He denies any fevers, malaise, any unexpected weight changes. HEENT: His left eye is blind. Right eye had diminishing vision. That is unchanged and just getting sl owly and gradually worse over time. He has bad teeth and has had all of them removed and only has his top plate in place right now. He thinks he lost his bottom plate. He denies problems with dysphagia, hearing, headaches, facial droop, or problem swallowing. PULMONARY: Denies emphysema, coughing, chest congestion. He denies shortness of breath. CARDIOVASCULAR: He has chronic atrial fibrillation. He has had that for years. Denies a heart attack, history of congestive heart failure. His legs are always swollen. That is not new. He walks within t he house but does not regularly exercise. GI: Denies diarrhea, black stools. Any change in bowel habits. No abdominal pain. Appetite has been g ood. : Right now, he denies flank pain. The bag is changed once a month. JOINTS: He denies significant arthritic pain. Denies any significant back or neck pain. SKIN: His legs are always dry and scaling and reddish and ruborous. Edema is the same as always. He d oes not have any new moles or rashes that he is aware of. He does say that right now, he is feeling p retty gross from not having had a bath in over a week. 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 Again, cannot tell me why he falls. He does know that the parat ransit people require him to use a cane when he walks. He denies any history of strokes or seizures o r TIA-like symptoms. He has peripheral neuropathy. PSYCHIATRIC: Denies depression. Anxiety. PHYSICAL EXAMINATION VITAL SIGNS: The patient is seen in the emergency room with a temperature of 36.5, pulse of 60, blood pressure 168/87, respirations 16, and 99% on room air. GENERAL: He is sitting in a wheelchair, disheveled and unshaven with a long guevara that goes all the w ay down to his chest. 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 He squints as he talks to you because of the blindness in the left eye, and the main thing about this gentleman is the horrific odor coming f rom his clothes and body. He smells of urine. HEAD AND NECK: With the squinting left eye, partial lower dentures, no facial asymmetry. Speech is no rmal. The neck has shotty adenopathy. No bruits or goiter. LUNGS: Clear to auscultation and percussion without crackles, rhonchi, or wheezing. He has no increas ed respiratory effort. CARDIOVASCULAR: PMI is normally placed with very slow irregular rate and rhythm. I do not hear any mu rmurs, rubs, or gallops. ABDOMEN: Soft, nontender. No organomegaly. Normal bowel sounds. EXTREMITIES: The legs are wrapped in Clark wrap and compression stockings; however, they start about a handbreadth above the ankles. This leaves the feet looking like sausages and the legs compressed. Fro m what I can see of the skin, he has layer of skin and scaling, ruborous discoloration of all of his legs but at this time, no open wounds or sores. No clubbing, no cyanosis. NEUROLOGICAL: He is alert and oriented to person, place, and time. He follows 2-step commands. Withou t anybody to assist me, I am not going to have him sit up from the gurney, as I have already placed h im in the gurney from the wheelchair, but he is adamant that he is completely ambulatory in his own h ome without an assist. He has hand grasp strength that is intact and normal on the left. The right batres nd is with fingers extended, and he cannot make a fist because of the swelling and pain in his hand. The top of the right hand has old dried blood, as well as a bulbous deformity of the dorsum of the batres nd. Dr. Santos said he has already rinsed and washed it several times. Fingers are sausage-like, and edema extends to the junction of the wrist and hand joint. A little bit of edema in the distal forear m. He can flex and extend at the wrist. He cannot flex or extend any fingers, except maybe his thumb. The left hand is normal. He appears to be blind in his left eye. Hearing is intact. He is oriented t o person, place, and time. Review of the EMR shows him to have grown Acinetobacter, Raoultella, Serratia, Enterococcus, Klebsiel la, and ESBL producing Klebsiella pneumoniae in his urine. The Enterococcus had been faecalis. The l ast positive culture was September 2016. CBC and ER abdominal panel and PT with INR have been ordered and are pending. He has a mature deformi ty of the 5th metacarpal and ulnar styloid process due to fractures, moderate to marked adjacent day ges in the radiocarpal joint, massive edema dorsal to the hand and wrist. ASSESSMENT/PLAN 1. Presumed infected hematoma in a gentleman who has had poor hygiene and has diabetes. The plan is t o admit for wash-out under surgery. Because he is a diabetic, we will start him on vancomycin and Zos yn. Follow up with CBC and sedimentation rate. 2. Chronic atrial fibrillation. Rate is controlled at this time. Continue rate-controlling medicatio ns, and he will need vitamin K before going to operating room. I will ask Dr. Camejo when that will b e planned. 3. History of type 2 diabetes with complications of neuropathy, retinopathy, and neuropathy, controll ed. Sliding scale insulin before meals will be provided after sugar is checked t.i.d. a.c. 4. Hypertension. Currently uncontrolled. He says that he may have forgotten to take his medicines tod ay. Those will all be resumed today. Adjust medications as needed. 5. Chronic indwelling Winslow catheter. We will verify with Dr. Bell's office when it was last change d, and he may need to have it changed here. 6. Hygiene is a problem. I have asked the aids and nursing to please take off his clothes, have his w enoch bring in clean clothes and have him have a bath. 7. FULL CODE STATUS. 8. Deep venous thrombosis prophylaxis is ongoing anticoagulation in a patient who is on Coumadin. JOB #: [id number] EXT JOB #:[id number]
== END 2017-05-08 14:30 | disposition home or self-care (01) | DRG 603 ==
LOC: EDUNIT# → ED 14:29 → EDUNIT# 17:35 → MS2 17:35
PROVIDERS: ADMIT Specialist
PROC: 0HDFXZZ Extraction of Right Hand Skin, External Approach (ICD-10-PCS; principal; 2017-05-04)
DX: L03.113 Cellulitis of right upper limb (principal); W20.8XXA Other cause of strike by thrown, projected or falling object, initial encounter; S62.101B Fracture of unspecified carpal bone, right wrist, initial encounter for open fracture; E11.9 Type 2 diabetes mellitus without complications; W22.8XXA Striking against or struck by other objects, initial encounter; G47.30 Sleep apnea, unspecified; H40.9 Unspecified glaucoma; Z85.828 Personal history of other malignant neoplasm of skin; I48.2 Chronic atrial fibrillation; Z79.899 Other long term (current) drug therapy; F17.200 Nicotine dependence, unspecified, uncomplicated; E87.6 Hypokalemia; E11.42 Type 2 diabetes mellitus with diabetic polyneuropathy; E11.319 Type 2 diabetes mellitus with unspecified diabetic retinopathy without macular edema; E11.51 Type 2 diabetes mellitus with diabetic peripheral angiopathy without gangrene; I10 Essential (primary) hypertension; Z93.59 Other cystostomy status; I87.8 Other specified disorders of veins; H54.3 Unqualified visual loss, both eyes; L50.0 Allergic urticaria; T36.8X5A Adverse effect of other systemic antibiotics, initial encounter; Y92.230 Patient room in hospital as the place of occurrence of the external cause; Y93.E9 Activity, other interior property and clothing maintenance; Y92.029 Unspecified place in mobile home as the place of occurrence of the external cause; Z72.89 Other problems related to lifestyle; Z79.01 Long term (current) use of anticoagulants; R76.11 Nonspecific reaction to tuberculin skin test without active tuberculosis; Z87.891 Personal history of nicotine dependence; Z91.81 History of falling
CPT/HCPCS: 36415; 80048; 80053; 83036; 83690; 85025; 85610; 87070; 87205; 99283; 99285

== ENCOUNTER 2017-07-14 08:00 | Outpatient (CLI) | payer MEDICAID, MEDICARE | END 2017-07-14 23:59 | LOC: LAB.WCP 08:00 | PROVIDERS: ATTEND Family Medicine | DX: L03.115 Cellulitis of right lower limb (principal) | CPT/HCPCS: 87070; 87077; 87205 ==

== ENCOUNTER 2017-07-27 21:04 | Outpatient (CLI) | payer MEDICARE, MEDICAID | END 2017-07-27 21:05 | disposition critical access hospital (66) | LOC: EMS 21:04 | PROVIDERS: ATTEND Surgery | DX: R29.810 Facial weakness (principal) | CPT/HCPCS: A0425; A0429 ==

== ENCOUNTER 2017-07-27 21:22 | Emergency (ER) | payer MEDICARE, MEDICAID ==
--- NOTE | 2017-07-27 21:44 | ED Physician Documentation ---
PD HPI FOCAL NEURO - Stated complaint Stated Complaint: RT FACIAL DROOP - Chief complaint Chief Complaint: Neuro - History obtained from History obtained from: Patient, Family - History of Present Illness Timing - onset: Today Timing - details: Gradual onset, Still present Severity of deficit: Moderate Weakness: Face Numbness: Face Associated symptoms: No: Headache, Nausea / vomiting, Seizure, Syncope, Head injury Contributing factors: positive: Atrial fibrillation Baseline status: positive: A&OX3, ambulatory, indep Similar symptoms before: No diagnosis Recently seen: Not recently seen - Additional information Additional information: Patient is a 77 year old male with a history of diabetes and a fib who is presenting to the emergency department for right sided facial droop. According to patient, family and ems, patient was last seen normal yesterday, and today when the family came home to check on the patient they noticed that the right side of his face was drooping. Family called ems. Patient denied any other deficits. Review of Systems Constitutional: denies: Fever, Chills Eyes: denies: Decreased vision, Photophobia Ears: denies: Ear pain Throat: reports: Reviewed and negative Respiratory: denies: Cough, Wheezing GI: denies: Nausea, Vomiting : reports: Reviewed and negative Musculoskeletal: reports: Extremity pain, Joint pain, Extremity swelling Neurologic: reports: Focal weakness, Numbness. denies: Generalized weakness PD PAST MEDICAL HISTORY - Past Medical History Cardiovascular: Atrial fibrillation Respiratory: Sleep apnea, CPAP use Neuro: None Endocrine/Autoimmune: Type 2 diabetes GI: None : Indwelling catheter HEENT: Glaucoma Psych: None Musculoskeletal: None Derm: None - Past Surgical History Past Surgical History: Yes Cardiovascular: AAA HEENT: Cataracts, Detached retina repair Derm: Skin cancer surgery - Present Medications Home Medications: Ambulatory Orders Medication Instructions Recorded Confirmed Enalapril [Vasotec] 20 mg PO BID 07/28/15 07/27/17 Warfarin [Coumadin] 7.5 mg PO DAILY 07/28/15 07/27/17 Saccharomyces Boulardii [Florastor] 250 mg PO BIDWM 07/30/15 07/27/17 amLODIPine [Norvasc] 10 mg PO DAILY 09/04/15 07/27/17 cephALEXin [Keflex] 250 mg PO Q6H #60 capsule 05/07/17 07/27/17 Atorvastatin [Lipitor] 10 mg PO DAILY 07/27/17 07/27/17 Gabapentin 300 mg PO TID 07/27/17 07/27/17 Valacyclovir HCl [Valacyclovir] 1,000 mg PO TID #21 tablet 07/27/17 predniSONE [Prednisone] 60 mg PO DAILY 7 Days tablet 07/27/17 - Allergies Allergies/Adverse Reactions: Allergies Allergy/AdvReac Type Severity Reaction Status Date / Time vancomycin AdvReac Mild injection Verified 07/27/17 21:38 site erythema - Social History Does the pt smoke?: Yes Smoking Status: Current every day smoker Does the pt drink ETOH?: No Does the pt have substance abuse?: No - Immunizations Immunizations are current?: Yes Immunizations: TDAP >10years/unknown - POLST Patient has POLST: No PD ED PE NORMAL - General General: Alert and oriented X 3, No acute distress - HEENT HEENT: Atraumatic, Pharynx benign - Neck Neck: Supple, no meningeal sign, No JVD - Respiratory Respiratory: No respiratory distress, Clear bilaterally - Abdomen Abdomen: Soft, Non tender, Non distended - Psych Psych: Normal mood PD ED PE EXPANDED - HEENT HEENT: Dry mucous membranes - 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 No: Disoriented, Lethargic, Obtunded, Unresponsive NIHSS - Time Time: 09:35 - Level of Consciousness Level of consciousness: (0) Alert, Keenly responsive LOC Questions: (0) Answers both Q's correct LOC Commands: (0) Performs both correctly - Gaze Best Gaze: (0) Normal - Visual Visual: (0) No loss - Facial Palsy Facial Palsy: (2) Partial paralysis - Motor Arms (both separate) Motor Arm (right): (0) No drift Motor Arm (left): (0) No drift - Motor Legs (both separate) Motor Leg (right): (0) No drift Motor Leg (left): (0) No drift - Limb Ataxia Limb Ataxia: (0) Absent - Sensory Sensory: (0) Normal - Best Language Best Language: (0) No aphasia - Dysarthria Dysarthria: (0) Normal - Extinction and Inattention (formally neg Extinction and inattention: (0) No abnormality - Total Score/Results Total Score/Result: 2 Results - Vitals Vitals: Vital Signs - 24 hr 07/27/17 07/27/17 21:24 22:02 Temperature 36.7 C Heart Rate 53 L 60 Respiratory 16 15 Rate Blood Pressure 128/77 132/75 H O2 Saturation 100 100 Oxygen O2 Source [] Room air O2 Source [] Room air O2 Source Room air - EKG (time done) 2132 Rate: Rate (enter#) (56) Rhythm: Atrial fibrillation QRS: Normal Ischemia: T wave inversion Compare to prior EKG: Changed from prior EKG - Labs Labs: Laboratory Tests 07/27/17 07/27/17 07/27/17 21:55 21:55 21:55 WBC 5.6 RBC 4.36 L Hgb 12.3 L Hct 37.4 L MCV 85.8 MCH 28.1 MCHC 32.8 RDW 15.1 H Plt Count 221 MPV 7.2 L Neut # 3.7 Lymph # 1.1 L [place] # 0.5 Eos # 0.1 Baso # 0.2 H Absolute Nucleated RBC 0.00 Nucleated RBC % 0.0 VBG pH VBG pCO2 VBG pO2 VBG HCO3 VBG Total CO2 VBG O2 Saturation VBG Base Excess Sodium 139 Potassium 3.5 Chloride 103 Carbon Dioxide 28 Anion Gap 8.0 BUN 20 Creatinine 1.2 Estimated GFR (MDRD) 59 L Glucose 119 H Calcium 8.5 Magnesium 2.3 Total Bilirubin 0.6 AST 17 ALT < 10 L Alkaline Phosphatase 49 Troponin I < 0.04 Total Protein 6.9 Albumin 3.6 Globulin 3.3 Albumin/Globulin Ratio 1.1 Lipase 40 Urine Color Urine Clarity Urine pH Ur Specific [place] Urine Protein Urine Glucose (UA) Urine Ketones Urine Occult Blood Urine Nitrite Urine Bilirubin Urine Urobilinogen Ur Leukocyte Esterase Urine RBC Urine WBC Ur Squamous Epith Cells Urine Bacteria Ur Microscopic Review Urine Culture Comments 07/27/17 07/27/17 21:55 21:55 WBC RBC Hgb Hct MCV MCH MCHC RDW Plt Count MPV Neut # Lymph # [place] # Eos # Baso # Absolute Nucleated RBC Nucleated RBC % VBG pH 7.376 VBG pCO2 50.4 VBG pO2 31.6 VBG HCO3 28.9 H VBG Total CO2 30.4 H VBG O2 Saturation 65.7 VBG Base Excess 2.8 H Sodium Potassium Chloride Carbon Dioxide Anion Gap BUN Creatinine Estimated GFR (MDRD) Glucose Calcium Magnesium Total Bilirubin AST ALT Alkaline Phosphatase Troponin I Total Protein Albumin Globulin Albumin/Globulin Ratio Lipase Urine Color YELLOW Urine Clarity HAZY Urine pH 7.5 Ur Specific [place] 1.020 Urine Protein 30 H Urine Glucose (UA) NEGATIVE Urine Ketones TRACE Urine Occult Blood TRACE-INTA Urine Nitrite NEGATIVE Urine Bilirubin NEGATIVE Urine Urobilinogen 0.2 (NORMAL) Ur Leukocyte Esterase MODERATE H Urine RBC 0-5 Urine WBC >25 H Ur Squamous Epith Cells RARE Squamous Urine Bacteria Many H Ur Microscopic Review INDICATED Urine Culture Comments INDICATED - Rads (name of study) ct head Radiology: Final report received (no acute intracranial pathology) PD MEDICAL DECISION MAKING - ED course Complexity details: reviewed old records, reviewed results, re-evaluated patient , considered differential, d/w patient, d/w family ED course: Patient was seen and examined at bedside. 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 Patient's diagnostics were within normal limits aside from the urinalysis, but it was likely colonization. Patient had a swanson change coming up and repeat urinalysis would be performed at that time. patient was treated with prednisone and valacylovir since his house-brackmann score was IV. Patient and family were made aware of the findings and was stable for discharge with outpatient follow up. Departure - Departure Disposition: 01 Home, Self Care Clinical Impression: Mcdermott palsy Condition: Stable Instructions: ED [place] Palsy Follow-Up: Lakshmi Bell MD [Primary Care Provider] - Within 3 Days Prescriptions: predniSONE [Prednisone] 60 mg PO DAILY 7 Days tablet Valacyclovir HCl [Valacyclovir] 1,000 mg PO TID #21 tablet Comments: Your diagnostics today were within normal limits. Your symptoms are being caused by mcdermott's palsy which is a peripheral nerve palsy, not a central nervous system problem. You will be on steriods and an antiretroviral for the next week. The symptoms can last for a few weeks. You will also need to apply eye drops to your eye as well to keep it moist. You should follow up with your doctor next week for re-evaluation. You may return to the emergency department at any time for new, worsening or uncontrollable symptoms.
[2017-07-27] MEDS ORDERED: predniSONE 20 MG TABLET PO STA (22:03)
[2017-07-27] MEDS ORDERED: valACYclovir 500 MG TABLET PO STA (22:03)
[2017-07-27 22:16] LABS: BASOPHILS # (AUTO) 0.2 10^3/uL (0.0-0.1); BASOPHILS % (AUTO) 4.1 %; EOSINOPHILS # (AUTO) 0.1 10^3/uL (0.0-0.7); EOSINOPHILS % (AUTO) 1.4 %; HGB - HEMOGLOBIN 12.3 g/dL (14.0-18.0); LYMPHOCYTES # (AUTO) 1.1 10^3/uL (1.5-3.5); LYMPHOCYTES % (AUTO) 20.2 %; MEAN CORPUSCULAR HEMOGLOBIN 28.1 pg (27.0-31.0); MEAN CORPUSCULAR HGB CONC 32.8 g/dL (32.0-36.0); MEAN CORPUSCULAR VOLUME 85.8 fL (80.0-94.0); MEAN PLATELET VOLUME 7.2 fL (7.4-11.4); MONOCYTES # (AUTO) 0.5 10^3/uL (0.0-1.0); MONOCYTES % (AUTO) 8.3 %; NEUTROPHILS # (AUTO) 3.7 10^3/uL (1.5-6.6); PLT - PLATELET COUNT 221 10^3/uL (130-450); RED BLOOD COUNT 4.36 10^6/uL (4.70-6.10); RED CELL DISTRIBUTION WIDTH 15.1 % (12.0-15.0); WHITE BLOOD COUNT 5.6 x10^3/uL (4.8-10.8)
[2017-07-27 22:17] LABS: GLUCOSE, URINE (UA) NEGATIVE (NEGATIVE); KETONES,URINE (UA) TRACE mg/dL (NEGATIVE); LEUKOCYTE ESTERASE, URINE MODERATE (NEGATIVE); NITRITE,URINE NEGATIVE (NEGATIVE); OCCULT BLOOD,URINE TRACE-INTA (NEGATIVE); PH,URINE 7.5 PH (5.0-7.5); PROTEIN,URINE 30 mg/dL (NEGATIVE); UROBILINOGEN,URINE 0.2 (NORMAL) E.U./dL (NORMAL)
--- NOTE | 2017-07-27 22:19 | CT Report ---
EXAM: CT HEAD EXAM DATE: 07/27/2017 09:53 PM. CLINICAL HISTORY: Facial droop. COMPARISON: 07/27/2015. TECHNIQUE: Multiaxial CT images were obtained from the foramen magnum to the vertex. Reformats: Coron al. IV contrast: None. In accordance with CT protocol optimization, one or more of the following dose reduction techniques w ere utilized for this exam: automated exposure control, adjustment of mA and/or KV based on patient s ize, or use of iterative reconstructive technique. FINDINGS: Parenchyma: No intraparenchymal hemorrhage. No evidence of mass, midline shift, or CT findings of inf arction. Ha-white differentiation is distinct. Extraaxial Spaces: Normal for age. No subdural or epidural collections identified. Ventricles: Normal in size and position. Sinuses and Orbits: Imaged paranasal sinuses, orbits, and mastoids show no significant abnormality. Bones: No evidence of fracture or calvarial defect. Other: No change since the prior study. IMPRESSION: No acute or focal intracranial abnormality. [facility] Referring Provider Line: [phone] SITE ID: [id number]
[2017-07-27 22:20] LABS: CLARITY,URINE HAZY (CLEAR)
[2017-07-27 22:21] LABS: VBG BASE EXCESS 2.8 mmol/L (-2 - +2); VBG PCO2 50.4 mmHg (41-51); VBG PH 7.376 (7.31-7.41); VBG PO2 31.6 mmHg (25-47); VBG TOTAL CO2 30.4 mmol/L (24-29)
[2017-07-27 22:25] LABS: BACTERIA,URINE Many /HPF (None Seen); BILIRUBIN,URINE NEGATIVE (NEGATIVE); ICTOTEST,URINE NEGATIVE; RBC,URINE 0-5 /HPF (0-5); SQUAMOUS EPITHELIAL CELL,UR RARE Squamous (<= Few)
[2017-07-27 22:26] LABS: ALBUMIN 3.6 g/dL (3.2-5.5); ALBUMIN/GLOBULIN RATIO 1.1 (1.0-2.2); ALKALINE PHOSPHATASE 49 IU/L (42-121); ALT ALANINE AMINOTRANSFERASE < 10 IU/L (10-60); AST ASPARTATE AMINOTRANSFERASE 17 IU/L (10-42); BILIRUBIN,TOTAL 0.6 mg/dL (0.2-1.0); BUN - BLOOD UREA NITROGEN 20 mg/dL (6-20); CALCIUM 8.5 mg/dL (8.5-10.3); CARBON DIOXIDE - CO2 28 mmol/L (21-32); CHLORIDE 103 mmol/L (101-111); CREATININE 1.2 mg/dL (0.6-1.2); GFR - MDRD 59 (>89); GLUCOSE 119 mg/dL (70-100); LIPASE 40 U/L (22-51); MAGNESIUM 2.3 mg/dL (1.7-2.8); SODIUM 139 mmol/L (135-145); TOTAL PROTEIN 6.9 g/dL (6.7-8.2)
--- NOTE | 2017-07-27 23:15 | XRAY Report ---
EXAM: RIGHT KNEE RADIOGRAPHY EXAM DATE: 07/27/2017 10:58 PM. CLINICAL HISTORY: Fell, knee pain. COMPARISON: 05/13/2015 TECHNIQUE: 4 views. FINDINGS: Bones: No acute displaced fracture. No definite suspicious bony lesion. Joints: No dislocation. 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 No significant effusion. Soft Tissues: Diffuse subcutaneous edema. IMPRESSION: No acute bony abnormality. No significant change. [facility] Referring Provider Line: [phone] SITE ID: [id number]
[2017-07-27 23:28] VITALS: BP 129/70
== END 2017-07-27 23:37 | disposition home or self-care (01) ==
LOC: EDUNIT# → ED 21:22
DX: G51.0 Bell's palsy (principal); E11.9 Type 2 diabetes mellitus without complications; I48.91 Unspecified atrial fibrillation; F17.200 Nicotine dependence, unspecified, uncomplicated; Z79.01 Long term (current) use of anticoagulants; Z79.4 Long term (current) use of insulin
CPT/HCPCS: 36415; 70450; 73564; 80053; 81001; 82803; 83690; 83735; 84484; 85025; 87077; 87086; 87181; 93005; 99283; A9270; J7512; 81003

== ENCOUNTER 2017-08-31 18:11 | Outpatient (CLI) | payer MEDICARE, MEDICAID | END 2017-08-31 18:12 | disposition critical access hospital (66) | LOC: EMS 18:11 | PROVIDERS: ATTEND Surgery | DX: R07.9 Chest pain, unspecified (principal); R06.02 Shortness of breath | CPT/HCPCS: A0425; A0427 ==

== ENCOUNTER 2017-08-31 18:34 | Emergency (ER) | payer MEDICARE, MEDICAID ==
[2017-08-31 19:17] LABS: BASOPHILS % (AUTO) 0.7 %; EOSINOPHILS % (AUTO) 0.1 %; HGB - HEMOGLOBIN 13.3 g/dL (14.0-18.0); LYMPHOCYTES # (AUTO) 0.9 10^3/uL (1.5-3.5); MEAN CORPUSCULAR HEMOGLOBIN 28.2 pg (27.0-31.0); MEAN CORPUSCULAR HGB CONC 32.9 g/dL (32.0-36.0); MEAN CORPUSCULAR VOLUME 85.6 fL (80.0-94.0); MEAN PLATELET VOLUME 7.7 fL (7.4-11.4); MONOCYTES # (AUTO) 0.5 10^3/uL (0.0-1.0); MONOCYTES % (AUTO) 6.4 %; NEUTROPHILS # (AUTO) 6.1 10^3/uL (1.5-6.6); NEUTROPHILS % (AUTO) 80.8 %; PLT - PLATELET COUNT 177 10^3/uL (130-450); RED BLOOD COUNT 4.72 10^6/uL (4.70-6.10); RED CELL DISTRIBUTION WIDTH 17.6 % (12.0-15.0); WHITE BLOOD COUNT 7.5 x10^3/uL (4.8-10.8)
[2017-08-31 19:22] LABS: CALCIUM 8.5 mg/dL (8.5-10.3)
--- NOTE | 2017-08-31 19:22 | XRAY Report ---
EXAM: CHEST RADIOGRAPHY EXAM DATE: 08/31/2017 07:03 PM. CLINICAL HISTORY: Chest pain COMPARISON: 07/27/2015. TECHNIQUE: 1 view. FINDINGS: Lungs/Pleura: No focal opacities evident. No pleural effusion. No pneumothorax. Lungs are well expand ed. Mediastinum: There is cardiomegaly. There is mild thoracic aortic tortuosity. Other: None. IMPRESSION: No acute intrathoracic plain film abnormality. [facility] Referring Provider Line: [phone] SITE ID: [id number]
[2017-08-31] MEDS ORDERED: ATROPINE 0.4 MG/ML VIAL IVP ONE (19:33)
--- NOTE | 2017-08-31 19:36 | ED Physician Documentation ---
PD HPI CHEST PAIN - Stated complaint Stated Complaint: CHEST PAIN - Chief complaint Chief Complaint: Cardiac - History obtained from History obtained from: Patient - History of Present Illness Timing - onset: Other (77-year-old gentleman with history of atrial fibrillation on warfarin, not currently on any AV jeff blocking agents. For the last 2 days he has had very slight chest pain and dizziness without syncope. He went to physical therapy today where he was found to be significantly bradycardic and was referred here.) Review of Systems Constitutional: reports: Reviewed and negative Nose: reports: Reviewed and negative Cardiac: reports: Chest pain / pressure. denies: Palpitations, Pedal edema, Calf pain Respiratory: denies: Dyspnea, Cough PD PAST MEDICAL HISTORY - Past Medical History Cardiovascular: Atrial fibrillation Respiratory: Sleep apnea, CPAP use Neuro: None Endocrine/Autoimmune: Type 2 diabetes GI: None : Indwelling catheter HEENT: Glaucoma Psych: None Musculoskeletal: None Derm: None - Past Surgical History Past Surgical History: Yes Cardiovascular: AAA HEENT: Cataracts, Detached retina repair Derm: Skin cancer surgery - Present Medications Home Medications: Ambulatory Orders Medication Instructions Recorded Confirmed Enalapril [Vasotec] 20 mg PO BID 07/28/15 08/31/17 Warfarin [Coumadin] 7.5 mg PO DAILY 07/28/15 08/31/17 Saccharomyces Boulardii [Florastor] 250 mg PO BIDWM 07/30/15 08/31/17 amLODIPine [Norvasc] 10 mg PO DAILY 09/04/15 08/31/17 Atorvastatin [Lipitor] 10 mg PO DAILY 07/27/17 08/31/17 Gabapentin 300 mg PO TID 07/27/17 08/31/17 - Allergies Allergies/Adverse Reactions: Allergies Allergy/AdvReac Type Severity Reaction Status Date / Time vancomycin AdvReac Mild injection Verified 08/31/17 18:43 site erythema - Social History Does the pt smoke?: Yes Smoking Status: Current every day smoker Does the pt drink ETOH?: No Does the pt have substance abuse?: No - Family History Family history: reports: Non contributory - Immunizations Immunizations are current?: Yes Immunizations: TDAP >10years/unknown - POLST Patient has POLST: No PD ED PE NORMAL - Vitals Vital signs reviewed: Yes - General General: Alert and oriented X 3, No acute distress - HEENT HEENT: PERRL, EOMI - Neck Neck: Supple, no meningeal sign, No bony TTP - Cardiac Cardiac: Other (Irregular and bradycardic) - Respiratory Respiratory: No respiratory distress, Clear bilaterally - Abdomen Abdomen: Normal bowel sounds, Soft, Non tender - Back Back: No CVA TTP, No spinal TTP - Derm Derm: Normal color, Warm and dry, No rash - Extremities Extremities: No edema, No calf tenderness / cord - Neuro Neuro: Alert and oriented X 3, Normal speech - Psych Psych: Normal mood, Normal affect Results - Vitals Vitals: Vital Signs - 24 hr 08/31/17 08/31/17 08/31/17 18:40 19:15 19:45 Temperature 36.4 C L Heart Rate 50 L 32 L 40 L Respiratory 18 18 16 Rate Blood Pressure 125/69 120/48 L 135/70 H O2 Saturation 100 96 97 08/31/17 08/31/17 08/31/17 19:47 19:50 20:05 Temperature Heart Rate 55 L 50 L 56 L Respiratory 16 Rate Blood Pressure 141/71 H O2 Saturation 97 08/31/17 08/31/17 20:18 20:57 Temperature Heart Rate 51 L 39 L Respiratory 16 16 Rate Blood Pressure 141/71 H 119/64 O2 Saturation 97 98 Oxygen O2 Source [] Room air O2 Source [] Room air O2 Source Room air - EKG (time done) 1840 Rate: Rate (enter#) (41) Rhythm: Atrial fibrillation [place]: LAD QRS: Low voltage Ischemia: Non specific changes Computer interpretation: Agree with computer - Labs Labs: Laboratory Tests 08/31/17 08/31/17 08/31/17 18:53 19:01 19:01 WBC 7.5 RBC 4.72 Hgb 13.3 L Hct 40.4 L MCV 85.6 MCH 28.2 MCHC 32.9 RDW 17.6 H Plt Count 177 MPV 7.7 Neut # 6.1 Lymph # 0.9 L [place] # 0.5 Eos # 0.0 Baso # 0.0 Absolute Nucleated RBC 0.00 Nucleated RBC % 0.0 Whole Blood INR 3.0 H Sodium 139 Potassium 3.6 Chloride 103 Carbon Dioxide 28 Anion Gap 8.0 BUN 26 H Creatinine 1.0 Estimated GFR (MDRD) 73 L Glucose 117 H Calcium 8.5 Troponin I 08/31/17 19:01 WBC RBC Hgb Hct MCV MCH MCHC RDW Plt Count MPV Neut # Lymph # [place] # Eos # Baso # Absolute Nucleated RBC Nucleated RBC % Whole Blood INR Sodium Potassium Chloride Carbon Dioxide Anion Gap BUN Creatinine Estimated GFR (MDRD) Glucose Calcium Troponin I < 0.04 PD MEDICAL DECISION MAKING - ED course ED course: 77-year-old gentleman with chronic atrial fibrillation presents with significant bradycardia, he is not on any AV jeff blocking agents. Initially he requested [facility] for transfer is no cardiology is available here, they were full. He was administered IV atropine. After [facility], they were full, then we called [facility], they were full, patient requested [facility], I guess he has extensive records there. His heart rate did come up into the mid 40s after the atropine. He was accepted by Dr. Kenton Mcdonough to the Located within [facility] at 9:09 PM. Departure - Departure Disposition: 02 Transfer Acute Care Hosp Clinical Impression: Chronic a-fib, Adequate anticoagulation on anticoagulant therapy, Bradycardia Condition: Stable
[2017-08-31 21:24] VITALS: BP 131/70
== END 2017-08-31 22:38 | disposition short-term general hospital (02) ==
LOC: EDUNIT# → ED 18:34
DX: I48.2 Chronic atrial fibrillation (principal); R00.1 Bradycardia, unspecified; E11.9 Type 2 diabetes mellitus without complications; F17.200 Nicotine dependence, unspecified, uncomplicated; Z79.01 Long term (current) use of anticoagulants
CPT/HCPCS: 36415; 71045; 80048; 84484; 85025; 85610; 93005; 96374; 99284; 99285

== ENCOUNTER 2017-08-31 22:45 | Outpatient (CLI) | payer MEDICARE, MEDICAID | END 2017-08-31 22:46 | disposition short-term general hospital (02) | LOC: EMS 22:45 | PROVIDERS: ATTEND Surgery | DX: R00.1 Bradycardia, unspecified (principal) | CPT/HCPCS: A0170; A0425; A0426 ==

== ENCOUNTER 2018-10-01 08:39 | Outpatient (CLI) | payer MEDICARE, MEDICAID | END 2018-10-01 08:40 | disposition critical access hospital (66) | LOC: EMS 08:39 | PROVIDERS: ATTEND Surgery | DX: T83.098A Other mechanical complication of other urinary catheter, initial encounter (principal); R39.89 Other symptoms and signs involving the genitourinary system; R63.0 Anorexia; R15.9 Full incontinence of feces; H57.11 Ocular pain, right eye; Y84.6 Urinary catheterization as the cause of abnormal reaction of the patient, or of later complication, without mention of misadventure at the time of the procedure; Y92.029 Unspecified place in mobile home as the place of occurrence of the external cause; Z74.01 Bed confinement status; Z59.1 Inadequate housing | CPT/HCPCS: A0425; A0429 ==

== ENCOUNTER 2018-10-01 08:57 | Emergency (ER) | payer MEDICARE, MEDICAID ==
--- NOTE | 2018-10-01 09:17 | ED Physician Documentation ---
History of Present Illness - Stated complaint Stated Complaint: CLOGGED CATH - Chief complaint Chief Complaint: General - History obtained from History obtained from: Patient, Family - History of Present Illness Timing: Today - Additonal information Additional information: 78-year-old male with a history of CVA has an indwelling Swanson suprapubic catheter and this is become plugged. Urine is leaking out around the site of insertion and the patient has some generalized pain in the area. He states that today he does not feel ill he feels like he has a plugged catheter. Patient is getting his medical care at the [facility] and goes in for care about once per month. He does have his catheter changed about once per month. He is currently on lisinopril and warfarin. Review of Systems Constitutional: denies: Fever Eyes: denies: Decreased vision Ears: denies: Ear pain Nose: denies: Rhinorrhea / runny nose, Congestion Throat: denies: Sore throat Cardiac: denies: Chest pain / pressure, Palpitations Respiratory: reports: Cough (similar to always). denies: Dyspnea GI: denies: Abdominal Pain, Nausea, Vomiting : reports: Swanson Problem Skin: denies: Rash Musculoskeletal: denies: Neck pain, Back pain, Extremity pain Neurologic: reports: Generalized weakness. denies: Focal weakness, Numbness PD PAST MEDICAL HISTORY - Past Medical History Cardiovascular: Atrial fibrillation Respiratory: Sleep apnea, CPAP use Endocrine/Autoimmune: Type 2 diabetes GI: None : Indwelling catheter HEENT: Glaucoma Psych: None Musculoskeletal: None Derm: None - Past Surgical History Past Surgical History: Yes Cardiovascular: AAA HEENT: Cataracts, Detached retina repair Derm: Skin cancer surgery - Present Medications Home Medications: Ambulatory Orders Medication Instructions Recorded Confirmed RX: Enalapril [Vasotec] 20 mg PO BID 07/28/15 08/31/17 RX: Warfarin [Coumadin] 7.5 mg PO DAILY 07/28/15 08/31/17 RX: Saccharomyces Boulardii 250 mg PO BIDWM 07/30/15 08/31/17 [Florastor] RX: amLODIPine [Norvasc] 10 mg PO DAILY 09/04/15 08/31/17 RX: Atorvastatin [Lipitor] 10 mg PO DAILY 07/27/17 08/31/17 RX: Gabapentin 300 mg PO TID 07/27/17 08/31/17 Sulfamethoxazole/Trimethoprim 1 each PO BID #14 tablet 10/01/18 [Sulfamethoxazole-Tmp Ds Tablet] - Allergies Allergies/Adverse Reactions: Allergies Allergy/AdvReac Type Severity Reaction Status Date / Time vancomycin AdvReac Mild injection Verified 08/31/17 18:43 site erythema - Social History Does the pt smoke?: Yes Smoking Status: Current every day smoker Does the pt drink ETOH?: No Does the pt have substance abuse?: No - Immunizations Immunizations are current?: Yes Immunizations: TDAP >10years/unknown - POLST Patient has POLST: No PD ED PE NORMAL - Vitals Vital signs reviewed: Yes (hypertensive ) - General General: No acute distress, Well developed/nourished - HEENT HEENT: Atraumatic, Other (significant facial droop on the left side. ) - Neck Neck: Supple, no meningeal sign, No bony TTP - Cardiac Cardiac: RRR, No murmur - Respiratory Respiratory: No respiratory distress, Other (diminished breath sounds) - Abdomen Abdomen: Soft, Other (G-tube is in place and the swanson has urine draining around the catheter insertion. There is suprapubic pain to palpation. ) - Back Back: No CVA TTP, No spinal TTP - Derm Derm: Normal color, Warm and dry, No rash - Extremities Extremities: Other (post inflamatory hyperpigmentation is present bilaterally without edema today. ) - Neuro Neuro: Alert and oriented X 3, Normal speech Eye Opening: Spontaneous Motor: Obeys Commands Verbal: Oriented GCS Score: 15 - Psych Psych: Normal mood, Normal affect Results - Vitals Vitals: Vital Signs - 24 hr 10/01/18 10/01/18 10/01/18 09:00 11:23 13:26 Temperature 36 C L Heart Rate 75 72 85 Respiratory 18 18 18 Rate Blood Pressure 129/82 H 134/78 H 137/80 H O2 Saturation 96 98 96 10/01/18 14:55 Temperature 35.8 C L Heart Rate 70 Respiratory 16 Rate Blood Pressure 140/77 H O2 Saturation 98 Oxygen O2 Source [] Room air O2 Source [] Room air O2 Source Room air - Labs Labs: Laboratory Tests 10/01/18 10/01/18 10/01/18 10:32 10:32 10:32 WBC 13.0 H RBC 4.75 Hgb 14.0 Hct 42.1 MCV 88.7 MCH 29.5 MCHC 33.2 RDW 15.4 H Plt Count 290 MPV 7.1 L Neut # (Auto) 11.6 H Lymph # (Auto) 0.5 L [place] # (Auto) 0.8 Eos # (Auto) 0.0 Baso # (Auto) 0.1 Absolute Nucleated RBC 0.00 Nucleated RBC % 0.0 Whole Blood INR 1.8 H Sodium 140 Potassium 3.9 Chloride 92 L Carbon Dioxide 32 Anion Gap 16.0 H BUN 45 H Creatinine 1.2 Estimated GFR (MDRD) 59 L Glucose 153 H Lactic Acid Calcium 9.6 Total Bilirubin 1.1 H AST 24 ALT 14 Alkaline Phosphatase 66 Troponin I Total Protein 7.5 Albumin 3.4 Globulin 4.1 Albumin/Globulin Ratio 0.8 L Lipase 31 Urine Color Urine Clarity Urine pH Ur Specific [place] Urine Protein Urine Glucose (UA) Urine Ketones Urine Occult Blood Urine Nitrite Urine Bilirubin Urine Urobilinogen Ur Leukocyte Esterase Urine RBC Urine WBC Ur Squamous Epith Cells Urine Crystals Urine Bacteria Ur Microscopic Review Urine Culture Comments 10/01/18 10/01/18 10/01/18 10:32 11:07 13:07 WBC RBC Hgb Hct MCV MCH MCHC RDW Plt Count MPV Neut # (Auto) Lymph # (Auto) [place] # (Auto) Eos # (Auto) Baso # (Auto) Absolute Nucleated RBC Nucleated RBC % Whole Blood INR Sodium Potassium Chloride Carbon Dioxide Anion Gap BUN Creatinine Estimated GFR (MDRD) Glucose Lactic Acid 1.7 Calcium Total Bilirubin AST ALT Alkaline Phosphatase Troponin I < 0.04 Total Protein Albumin Globulin Albumin/Globulin Ratio Lipase Urine Color YELLOW Urine Clarity CLOUDY Urine pH 8.5 H Ur Specific [place] 1.010 Urine Protein >=300 Urine Glucose (UA) NEGATIVE Urine Ketones 15 H Urine Occult Blood SMALL H Urine Nitrite NEGATIVE Urine Bilirubin NEGATIVE Urine Urobilinogen 1 (NORMAL) Ur Leukocyte Esterase MODERATE H Urine RBC 0-5 Urine WBC >25 H Ur Squamous Epith Cells NONE SEEN Urine Crystals 3-5 Calcium Oxalate Urine Bacteria Many H Ur Microscopic Review INDICATED Urine Culture Comments INDICATED - Rads (name of study) 1 view chest Radiology: Prelim report reviewed (Impression: 1. Small left pleural effusion with underlying atelectatic changes. Radiodense cylindrical object projecting over the cardiac silhouette, likely object external to patient. Clinical correlation recommended.), EMP read indepedently, See rad report PD MEDICAL DECISION MAKING - ED course Complexity details: reviewed old records, reviewed results, re-evaluated patient, considered differential, d/w patient, d/w family ED course: 78-year-old male status post CVA who has an in dwelling suprapubic catheter has had leaking around his catheter and clearly has an infection. His catheter is changed out and is now working well and drains urine filled with pus. The patient is administered saline and Rocephin after review of his most recent urine culture. The patient insists on going home and his lactate is normal and we have rehydrated him. The patient's living conditions are poor and the paramedics requested we call Adult Protective Services. The patient is cared for by his son in a trailer and the patient himself has refused to let people into his trailer to help him. He has refused assistance with bathing. I did confront the patient with his lack of bathing and indicated to him that it would be polite for his caregivers for him to bathe so that he does not smell bad while they are caring for him. The patient did indicate that he would give some effort to this but I am dubious. Patient is placed onto sulfamethoxazole trimethoprim as this antibiotic appears to cover the most recent organisms cultured. Social work is consulted in the case and will make a report to APS. Departure - Departure Disposition: 01 Home, Self Care Clinical Impression: Urinary tract infection Qualifiers: Urinary tract infection type: catheter-associated UTI Indwelling urinary catheter type: cystostomy catheter Encounter type: initial encounter Qualified Code(s): T83.510A - Infection and inflammatory reaction due to cystostomy catheter, initial encounter Condition: Stable Instructions: ED UTI Cystitis Male Follow-Up: Lakshmi Bell MD [Primary Care Provider] - Prescriptions: Sulfamethoxazole/Trimethoprim [Sulfamethoxazole-Tmp Ds Tablet] 1 each PO BID #14 tablet Comments: Today it looks like there is infection in the bladder and the recommendation is to increase your amount of liquids and take the antibiotic as prescribed. Because you are on an antibiotic and you are on Coumadin you will need to have your INR checked in about 3 days. Follow-up with your primary care doctor. Discharge Date/Time: 10/01/18 15:33
[2018-10-01 10:35] LABS: BASOPHILS # (AUTO) 0.1 10^3/uL (0.0-0.1); BASOPHILS % (AUTO) 0.6 %; EOSINOPHILS % (AUTO) 0.2 %; LYMPHOCYTES # (AUTO) 0.5 10^3/uL (1.5-3.5); LYMPHOCYTES % (AUTO) 3.9 %; MEAN CORPUSCULAR HEMOGLOBIN 29.5 pg (27.0-31.0); MEAN CORPUSCULAR HGB CONC 33.2 g/dL (32.0-36.0); MEAN CORPUSCULAR VOLUME 88.7 fL (80.0-94.0); MEAN PLATELET VOLUME 7.1 fL (7.4-11.4); MONOCYTES # (AUTO) 0.8 10^3/uL (0.0-1.0); NEUTROPHILS # (AUTO) 11.6 10^3/uL (1.5-6.6); NEUTROPHILS % (AUTO) 89.3 %; PLT - PLATELET COUNT 290 10^3/uL (130-450); RED BLOOD COUNT 4.75 10^6/uL (4.70-6.10); RED CELL DISTRIBUTION WIDTH 15.4 % (12.0-15.0)
[2018-10-01 10:50] LABS: ALBUMIN 3.4 g/dL (3.2-5.5); ALBUMIN/GLOBULIN RATIO 0.8 (1.0-2.2); BILIRUBIN,TOTAL 1.1 mg/dL (0.2-1.0); CALCIUM 9.6 mg/dL (8.5-10.3); CREATININE 1.2 mg/dL (0.6-1.2); TOTAL PROTEIN 7.5 g/dL (6.7-8.2)
--- NOTE | 2018-10-01 11:16 | XRAY Report ---
Reason: chest pain Procedure Date: 10/01/2018 Accession Number: [id number] / [id number] Procedure: XR - Chest 1 View X-Ray CPT Code: 93641 FULL RESULT: EXAM: CHEST RADIOGRAPHY EXAM DATE: 10/01/2018 10:27 AM. CLINICAL HISTORY: Chest pain. COMPARISON: CHEST 1 VIEW 08/31/2017 6:52 PM. TECHNIQUE: 1 view. FINDINGS: Lungs/Pleura: There is blunting of the left costophrenic angle suggestive of small effusion. Minimal atelectatic changes also seen at the left base. Right lung is clear. Mediastinum: Within exam limitations, the cardiomediastinal contour is normal. Other: There is a radiodense cylindrical object projecting over the cardiac silhouette, likely object external to patient. IMPRESSION: 1. Small left pleural effusion with underlying atelectatic changes. 2. Radiodense cylindrical object projecting over the cardiac silhouette, likely object external to patient. Clinical correlation recommended. RADIA
[2018-10-01 11:50] LABS: GLUCOSE, URINE (UA) NEGATIVE (NEGATIVE); KETONES,URINE (UA) 15 mg/dL (NEGATIVE); LEUKOCYTE ESTERASE, URINE MODERATE (NEGATIVE); NITRITE,URINE NEGATIVE (NEGATIVE); OCCULT BLOOD,URINE SMALL (NEGATIVE); PH,URINE 8.5 PH (5.0-7.5); PROTEIN,URINE >=300 mg/dL (NEGATIVE); UROBILINOGEN,URINE 1 (NORMAL) E.U./dL (NORMAL)
[2018-10-01 11:51] LABS: CLARITY,URINE CLOUDY (CLEAR)
[2018-10-01 12:01] LABS: BILIRUBIN,URINE NEGATIVE (NEGATIVE); ICTOTEST,URINE NEGATIVE
[2018-10-01 12:02] LABS: BACTERIA,URINE Many /HPF (None Seen); CRYSTALS,URINE 3-5 Calcium Oxalate /LPF; RBC,URINE 0-5 /HPF (0-5); SQUAMOUS EPITHELIAL CELL,UR NONE SEEN (<= Few)
[2018-10-01] MEDS ORDERED: cefTRIAXone 2 GM in SODIUM CHLORIDE 0.9% MINIBAG 100 ML IV STA (12:45)
[2018-10-01 14:56] VITALS: BP 140/77
== END 2018-10-01 15:33 | disposition home or self-care (01) ==
LOC: EDSEX → EDUNIT# → ED 08:57
DX: T83.510A Infection and inflammatory reaction due to cystostomy catheter, initial encounter (principal); T83.030A Leakage of cystostomy catheter, initial encounter; Y84.6 Urinary catheterization as the cause of abnormal reaction of the patient, or of later complication, without mention of misadventure at the time of the procedure; J90 Pleural effusion, not elsewhere classified; J98.11 Atelectasis; F17.200 Nicotine dependence, unspecified, uncomplicated; I69.392 Facial weakness following cerebral infarction; E11.9 Type 2 diabetes mellitus without complications; I48.91 Unspecified atrial fibrillation; Z79.01 Long term (current) use of anticoagulants
CPT/HCPCS: 36415; 71045; 80053; 81001; 81003; 83605; 83690; 84484; 85025; 85610; 87086; 96365; 99283; 99284

== ENCOUNTER 2019-01-10 13:02 | Outpatient (CLI) | payer MEDICARE, MEDICAID | END 2019-01-10 13:03 | disposition critical access hospital (66) | LOC: EMS 13:02 | PROVIDERS: ATTEND Surgery | DX: T83.091A Other mechanical complication of indwelling urethral catheter, initial encounter (principal); R53.1 Weakness | CPT/HCPCS: A0425; A0429 ==

== ENCOUNTER 2019-01-10 13:25 | Inpatient (IN) | payer MEDICARE, MEDICAID ==
--- NOTE | 2019-01-10 13:27 | ED Physician Documentation ---
PD HPI MALE - Stated complaint Stated Complaint: BLOCKED CATH - History obtained from History obtained from: Patient - History of Present Illness Timing - onset: How many days ago ( says she noted the urine to be dark and cloudy starting about 4 days ago. The catheter was not draining started this morning. She says she has had increasing trouble with care of patient at home. They have an aide but is not reliable. No Home Health nursing. She is asking for more help. Patient has had feeding tube and suprapubic catheter intermediate. Post parotid cancer with surgery and mets.) Timing - duration: Days (4 days of dark cloudy urine and increased general weakness.) Timing - details: Gradual onset, Still present Associated symptoms: Hematuria (and cloudy urine), Indwelling catheter (which was not draining today) PD HPI MALE CONTRIB FACTORS: Indwelling catheter Recently seen: Not recently seen Review of Systems Constitutional: reports: Fatigue. denies: Fever, Chills Nose: denies: Rhinorrhea / runny nose, Congestion Throat: denies: Sore throat Cardiac: denies: Chest pain / pressure Respiratory: denies: Cough GI: reports: Other (Eat some. He gets much of his calories from J-tube feedings twice daily.). denies: Abdominal Pain, Vomiting, Diarrhea Neurologic: reports: Generalized weakness PD PAST MEDICAL HISTORY - Past Medical History Cardiovascular: Atrial fibrillation Respiratory: Sleep apnea, CPAP use Endocrine/Autoimmune: Type 2 diabetes GI: None : Indwelling catheter HEENT: Glaucoma Psych: None Musculoskeletal: None Derm: None - Past Surgical History Past Surgical History: Yes Cardiovascular: AAA HEENT: Cataracts, Detached retina repair Derm: Skin cancer surgery - Present Medications Home Medications: Ambulatory Orders Medication Instructions Recorded Confirmed Enalapril [Vasotec] 20 mg PO BID 07/28/15 01/10/19 Warfarin [Coumadin] 5 mg PO DAILY 07/28/15 01/10/19 - Allergies Allergies/Adverse Reactions: Allergies Allergy/AdvReac Type Severity Reaction Status Date / Time vancomycin AdvReac Mild injection Verified 08/31/17 18:43 site erythema - Social History Does the pt smoke?: Yes Smoking Status: Current every day smoker Does the pt drink ETOH?: No Does the pt have substance abuse?: No - Immunizations Immunizations are current?: Yes Immunizations: TDAP >10years/unknown - POLST Patient has POLST: No PD ED PE NORMAL - Vitals Vital signs reviewed: Yes - General General: Alert and oriented X 3, No acute distress, Other (Strong smell of urine generally and somewhat on days.). No: Well developed/nourished - HEENT HEENT: Pharynx benign, Other (considerable scar tissue throat and neck. ) - Neck Neck: Supple, no meningeal sign - Cardiac Cardiac: RRR, No murmur - Respiratory Respiratory: Clear bilaterally - Abdomen Abdomen: Soft, Non tender - Male Male : Other (suprapubic catheter in place, not draining. feeding tube in place without signs of infection at site. ) - Rectal Rectal: Other (guiac negative) - Back Back: No CVA TTP - Derm Derm: No: Normal color (pale) Results - Vitals Vitals: Vital Signs - 24 hr 01/10/19 01/10/19 01/10/19 13:23 14:02 15:27 Temperature 36 C L Heart Rate 78 74 Respiratory 16 18 Rate Blood Pressure 91/56 L 79/44 L 111/58 L O2 Saturation 94 100 01/10/19 01/10/19 15:32 16:59 Temperature 36.5 C Heart Rate 64 Respiratory 18 Rate Blood Pressure 121/68 O2 Saturation 97 Oxygen O2 Source [With Activity] Room air O2 Source [Without Activity] Room air O2 Source Room air - Labs Labs: Laboratory Tests 01/10/19 01/10/19 01/10/19 13:50 13:50 13:50 WBC 18.9 H RBC 4.68 L Hgb 13.0 L Hct 40.9 L MCV 87.4 MCH 27.8 MCHC 31.8 L RDW 14.6 Plt Count 319 MPV 9.1 Neut # (Auto) 17.3 H Lymph # (Auto) 0.7 L [place] # (Auto) 0.8 Eos # (Auto) 0.0 Baso # (Auto) 0.1 Absolute Nucleated RBC 0.00 Nucleated RBC % 0.0 PT > 120.0 H* INR > 10.0 H* Sodium 129 L Potassium 3.5 Chloride 85 L Carbon Dioxide 22 Anion Gap 22.0 H BUN 30 H Creatinine 1.2 Estimated GFR (MDRD) 59 L Glucose 75 Lactic Acid Calcium 8.8 Magnesium 2.1 Total Bilirubin 2.9 H AST 20 ALT 20 Alkaline Phosphatase 65 Troponin I Total Protein 7.3 Albumin 3.0 L Globulin 4.3 H Albumin/Globulin Ratio 0.7 L Lipase 19 L Urine Color Urine Clarity Urine pH Ur Specific [place] Urine Protein Urine Glucose (UA) Urine Ketones Urine Occult Blood Urine Nitrite Urine Bilirubin Urine Urobilinogen Ur Leukocyte Esterase Ur Microscopic Review Urine Culture Comments 01/10/19 01/10/19 01/10/19 13:50 13:50 15:14 WBC RBC Hgb Hct MCV MCH MCHC RDW Plt Count MPV Neut # (Auto) Lymph # (Auto) [place] # (Auto) Eos # (Auto) Baso # (Auto) Absolute Nucleated RBC Nucleated RBC % PT INR Sodium Potassium Chloride Carbon Dioxide Anion Gap BUN Creatinine Estimated GFR (MDRD) Glucose Lactic Acid 1.6 Calcium Magnesium Total Bilirubin AST ALT Alkaline Phosphatase Troponin I 0.04 Total Protein Albumin Globulin Albumin/Globulin Ratio Lipase Urine Color Cancelled Urine Clarity Cancelled Urine pH Cancelled Ur Specific [place] Cancelled Urine Protein Cancelled Urine Glucose (UA) Cancelled Urine Ketones Cancelled Urine Occult Blood Cancelled Urine Nitrite Cancelled Urine Bilirubin Cancelled Urine Urobilinogen Cancelled Ur Leukocyte Esterase Cancelled Ur Microscopic Review Cancelled Urine Culture Comments Cancelled Procedures - General procedure General procedure: Exchange of the suprapubic catheter was done by me. I deflated the balloon and was able to pull out the prior suprapubic catheter. As I did urine came out spontaneously. It was feculent and cloudy. New catheter was placed in the balloon inflated without any problems. It was draining well through the catheter. The output was cloudy and dark and feculent. PD MEDICAL DECISION MAKING - ED course Complexity details: considered differential (He does seem ill. His lactate is normal but he was initially hypotensive. I think that is more from dehydration. His blood pressure improved readily with just some IV fluids. He has an elevated white count. He does not have a fever. He does have a very feculent cloudy output from the suprapubic catheter. This may be just a very good infection. We will do a CT scan with contrast to evaluate for possible fistula. Otherwise we will give antibiotics for presumed cystitis. I talked with the hospitalist will have the patient in the hospital for further care.), d/w patient Departure - Departure Disposition: [facility] DC/Xfer Clinical Impression: Transient hypotension, Dehydration, Supratherapeutic INR Suprapubic catheter dysfunction Qualifiers: Encounter type: initial encounter Qualified Code(s): T83.010A - Breakdown (mechanical) of cystostomy catheter, initial encounter UTI (urinary tract infection) Qualifiers: Urinary tract infection type: acute cystitis Hematuria presence: with hematuria Qualified Code(s): N30.01 - Acute cystitis with hematuria Condition: Stable Record reviewed to determine appropriate education?: Yes
[2019-01-10] MEDS ORDERED: SODIUM CHLORIDE 0.9% 1,000 ML IV ONE ×2 (13:42→14:32)
[2019-01-10] MEDS ORDERED: MORPHINE 10 MG/ML VIAL IVP STA (13:42)
[2019-01-10 13:56] LABS: BASOPHILS # (AUTO) 0.1 10^3/uL (0.0-0.1); BASOPHILS % (AUTO) 0.3 %; EOSINOPHILS % (AUTO) 0.1 %; LYMPHOCYTES # (AUTO) 0.7 10^3/uL (1.5-3.5); LYMPHOCYTES % (AUTO) 3.5 %; MEAN CORPUSCULAR HEMOGLOBIN 27.8 pg (27.0-31.0); MEAN CORPUSCULAR HGB CONC 31.8 g/dL (32.0-36.0); MEAN CORPUSCULAR VOLUME 87.4 fL (80.0-94.0); MEAN PLATELET VOLUME 9.1 fL (7.4-11.4); MONOCYTES # (AUTO) 0.8 10^3/uL (0.0-1.0); MONOCYTES % (AUTO) 4.3 %; NEUTROPHILS # (AUTO) 17.3 10^3/uL (1.5-6.6); NEUTROPHILS % (AUTO) 91.4 %; PLT - PLATELET COUNT 319 10^3/uL (130-450); RED BLOOD COUNT 4.68 10^6/uL (4.70-6.10); RED CELL DISTRIBUTION WIDTH 14.6 % (12.0-15.0); WHITE BLOOD COUNT 18.9 x10^3/uL (4.8-10.8)
[2019-01-10 14:13] LABS: ALBUMIN/GLOBULIN RATIO 0.7 (1.0-2.2); BILIRUBIN,TOTAL 2.9 mg/dL (0.2-1.0); CALCIUM 8.8 mg/dL (8.5-10.3); CREATININE 1.2 mg/dL (0.6-1.2); MAGNESIUM 2.1 mg/dL (1.7-2.8); TOTAL PROTEIN 7.3 g/dL (6.7-8.2)
[2019-01-10 14:34] LABS: PT - PROTHROMBIN TIME > 120.0 secs (9.9-12.6)
[2019-01-10 14:35] LABS: INR > 10.0 (0.8-1.2)
[2019-01-10] MEDS ORDERED: PHYTONADIONE INJ (ADULT) 5 MG in SODIUM CHLORIDE 0.9% 50 ML IV ONE (14:36)
--- NOTE | 2019-01-10 15:16 | XRAY Report ---
Reason: fall 2 weeks ago with leg pain still Procedure Date: 01/10/2019 Accession Number: [id number] / [id number] Procedure: XR - Tib/Fib RT CPT Code: FULL RESULT: EXAM: RIGHT TIBIA/FIBULA RADIOGRAPHY EXAM DATE: 01/10/2019 02:57 PM. CLINICAL HISTORY: Fall 2 weeks ago with leg pain still. COMPARISON: FEMUR LT 07/27/2015 6:36 PM. FEMUR 2V RT 01/10/2019 2:25 PM. KNEE 4 VIEW RT 07/27/2017 10:46 PM. TECHNIQUE: 2 views. FINDINGS: Bones: The bones are qualitatively osteopenic; this limits evaluation for underlying fractures or masses. Francis wires and a cerclage wire is seen in the region of the distal fibula. No fracture is seen in this area. The medial malleolus of the tibia demonstrates ongoing healing with apparent fracture pattern still visible. No fracture seen in the proximal or diaphyseal portions of the tibia and fibula. Joints: The visualized portions of the ankle mortise appear preserved, incompletely evaluated. Soft Tissues: Normal. No soft tissue swelling. IMPRESSION: Distal osteopenia limiting evaluation with old distal fibula and medial malleolar fractures. Nonunion/malunion or reinjury at the medial malleolus is difficult to exclude. RADIA
--- NOTE | 2019-01-10 15:17 | XRAY Report ---
Reason: fall with leg pain 2 weeks ago Procedure Date: 01/10/2019 Accession Number: [id number] / [id number] Procedure: XR - Femur 2V RT CPT Code: FULL RESULT: EXAM: RIGHT FEMUR RADIOGRAPHY. EXAM DATE: 01/10/2019 02:57 PM. CLINICAL HISTORY: Fall with leg pain 2 weeks ago. COMPARISON: FEMUR LT 07/27/2015 6:36 PM. TECHNIQUE: 2 views. FINDINGS: Bones: The bones are qualitatively osteopenic; this limits evaluation for underlying fractures or masses. No definite fracture is detected. Joints: Degenerative changes are seen in the visualized portion of the right femoral acetabular joint. Visualized portions of the knee joint demonstrate degenerative changes without subluxation. Soft Tissues: Surgical clips are seen overlying the thigh and right pelvis with fiducial markers in the prostate region. Overlying ECG leads partially obscure visualized portions of the pelvis. IMPRESSION: Osteopenia with no definite fracture detected. RADIA
--- NOTE | 2019-01-10 15:24 | XRAY Report ---
Reason: weak and low BP Procedure Date: 01/10/2019 Accession Number: [id number] / [id number] Procedure: XR - Chest 1 View X-Ray CPT Code: 10418 FULL RESULT: EXAM: CHEST RADIOGRAPHY EXAM DATE: 01/10/2019 03:15 PM. CLINICAL HISTORY: Weak and low BP. COMPARISON: CHEST 1 VIEW 10/01/2018 10:13 AM. TECHNIQUE: 1 view. FINDINGS: Limited single view AP portable radiograph with significant rotation. Lungs/Pleura: Compared to the prior radiograph, there is increase in interstitial markings, possibly pulmonary edema. There is a new apparent 1.2 cm right lung nodule in the mid lung. Pleural effusions as below. No pneumothorax. Mediastinum: There is cardiomegaly with interval increase in left pleural effusion and possibly a trace right pleural effusion. Other: Cardiac recording device is noted, again seen. IMPRESSION: Limited radiograph with interval increase in pleural effusion and possible pulmonary edema. Potential 1.2 cm right lung nodule not previously seen. RADIA
[2019-01-10] MEDS ORDERED: cefTRIAXone 1 GM VIAL IVP STA (15:51)
[2019-01-10] MEDS ORDERED: IOVERSOL 320 100 ML VIAL IVP ONE ×2 (16:43→18:54)
[2019-01-10] MEDS ORDERED: IOVERSOL 320 50 ML VIAL ONE (16:43)
[2019-01-10] MEDS ORDERED: TEMAZEPAM 15 MG CAPSULE PO PRN (16:44)
[2019-01-10] MEDS ORDERED: PROCHLORPERAZINE 10 MG/2 ML VIAL IVP PRN (16:44)
[2019-01-10] MEDS ORDERED: ONDANSETRON 4 MG/2 ML VIAL IVP PRN (16:44)
--- NOTE | 2019-01-10 17:05 | HISTORY & PHYSICAL EXAMINATION ---
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 The patient was brought in via EMS for complaints of a clogged S/P cath of which his attempted to flush at home, without success. This H&P was formulated with the assistance of the patient's , Jaleesa, given the patient's altered mental status. Jaleesa notes that starting about 2 weeks ago, the patient was not tolerating his usual tube feeding cans and would throw them up shortly after administration. She states that about one week ago, the patient had increased pain in his bladder and took up to 4 tablets of ibuprofen for this. She states that about 4 days ago is when she noticed that her 's urine was changing color and consistency with a foul odor. She states that he has had increased insomnia, waking up 4-5 times for the past several nights. Today, prior to calling EMS, she asked him to hold up his arms to put on his gown and he would not do this, which was very worrisome to her. She denies any complaints of fever, chills, chest pain, bleeding (other than easy to bruise), falls, or changes in bowels. Upon arrival to the ED, the patient was found to be hypotensive with a blood pressure of 79/44, afebrile, heart rate of 70, and did not require oxygen. He was given IV fluids, which improved the blood pressure to 111/58. Labs show an elevated WBC count of 18.9, H/H of 13.0/40.9, neut # 17.3, PT 120.0, INR 10.0, sodium 129, potassium 3.5, chloride 85, anion gap 22, BUN 30, creatinine of 1.2, GFR 59, total bili 2.9, lactic acid 1.6, troponin 0.04, lipase 19, with no other abnormalities. The ED provider changed the S/P cath, which immediately drained dark brown, mucous urine, and a sample is still pending. An abdominal CT is underway at this time. Upon my exam, the patient cannot answer questions, has sluggish speech, and appears ill. He will be admitted to inpatient to further treat this septic shock, UTI, monitor and monitor his supratherapeutic INR, and stabilize his metabolic encephalopathy. He does not appear to be acutely bleeding, despite his elevated INR of 10.0, so no vitamin K will be given unless there is evidence of bleeding, or he becomes hemodynamically unstable. History - Past Medical History Cardiovascular: reports: Hypertension, High cholesterol, Atrial fibrillation Respiratory: reports: COPD, Pneumonia, Sleep apnea Neuro: reports: Dementia, Peripheral neuropathy Endocrine/Autoimmune: reports: Type 2 diabetes (diet controlled) GI: reports: GERD : reports: Indwelling catheter HEENT: reports: Chronic vision loss, Glaucoma, Chronic sinusitis, Chronic hearing loss Psych: reports: Depression, Anxiety Musculoskeletal: reports: Osteoarthritis, Osteoporosis Derm: reports: None MRSA Hx?: No Other Past Medical History: parotid gland cancer, prostate cancer - Past Surgical History Cardiovascular: reports: AAA HEENT: reports: Cataracts, Detached retina repair Derm: reports: Skin cancer surgery - Family & Social History Family History: Mother: , CVA/TIA, Father: , Brother: Alive and Well, CAD, Hypertension Family History Comment/Other: Father: The patient did not know his father. Mother: CVA, TB. 2 Brothers: HTN, CAD Living arrangement: At home Living Situation: With spouse/s.o., With caregiver(s) (SATHYA- camila Summers) Social History Notes: The patient and his have lived in [facility] for most of their adult life and moved to [place] about 3 years ago to live on a boat. Once the patient was diagnosed with prostate cancer, they purchased a mobile home and sold the boat. Since that time they have resided in their trailer home. 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 They have one son named Kristopher who lives with them and is the patient's rehab care assistant. The patient admits to tobacco and cigar use from age 16 to 61, and currently smokes marijuana with very occasional alcohol use. He wishes to be a FULL code. - Substance History Use: Uses substance without health or social issues: Cannabis Use Issues: Anxiety Disorder Abuse: Recurrent use of substance despite neg consequences: Cannabis Abuse Issues: Anxiety Disorder Dependence: Experiences withdrawal or developed tolerances: NONE Dependence Issues: Anxiety Disorder - POLST Patient has POLST: No POLST Status: Full Code Meds/Allgy - Home Medications Home Medications: Ambulatory Orders Medication Instructions Recorded Confirmed Enalapril [Vasotec] 20 mg PO BID 07/28/15 01/10/19 Warfarin [Coumadin] 5 mg PO DAILY 07/28/15 01/10/19 - Allergies Allergies/Adverse Reactions: Allergies Allergy/AdvReac Type Severity Reaction Status Date / Time vancomycin AdvReac Mild injection Verified 08/31/17 18:43 site erythema Review of Systems - Constitutional Constitutional: reports: Fatigue, Weakness, Poor appetite, Night sweats, Weight loss - Eyes Eyes: reports: Vision loss - Ears, Nose & Throat Ears, Nose & Throat: reports: Hearing loss, Postnasal drainage - Cardiovascular Cariovascular: reports: Edema, Lightheadedness, Decr. exercise tolerance - Respiratory Respiratory: reports: Cough, SOB with exertion - Gastrointestinal Gastrointestinal: reports: Abdominal distention, Change in bowel habits, Nausea, Vomiting, Reflux/heartburn, Bloating, Poor appetite - Genitourinary Genitourinary: reports: Hematuria, Flank pain, Other (chronic S/P cath) - Musculoskeletal Musculoskeletal: reports: Muscle aches, Stiffness, Limited range of motion, Muscle weakness, Joint pain - Integumentary Integumentary: reports: Lesions, Dryness, Pigment changes, Hair changes - Neurological Neurological: reports: General weakness, Focal weakness, Numbness, Memory problems, Pre-existing deficit, Abnormal gait, Incoordination, Slurred speech - Psychiatric Psychiatric: reports: Depression, Anxiety - Hematologic/Lymphatic Hematologic/Lymphatic: reports: Anemia, Recurrent infections - All Other Systems All Other Systems: reports: Reviewed and negative Prior Level of Functionality: Has been bed bound for the past several months, was doing pivot transfers, frequent falls. Firemen come to the home for lift assist frequently. Exam - Vital Signs Reviewed Vital Signs: Yes Vital Signs: Vital Signs x48h Temp Pulse Resp BP Pulse Ox 01/10/19 16:59 64 18 121/68 97 01/10/19 15:32 36.5 C 01/10/19 15:27 74 18 111/58 L 100 01/10/19 14:02 79/44 L 01/10/19 13:23 36 C L 78 16 91/56 L 94 - Physical Exam General Appearance: positive: Moderate distress, Lethargic Eyes Bilateral: positive: No lid inflammation ENT: positive: Pharyngeal erythema, Dry mucous membranes Neck: positive: No JVD, Lymphadenopathy (R), Lymphadenopathy (L), Stiff neck, Tracheal deviation Respiratory: positive: Chest non-tender, No respiratory distress, Other (diminished) Cardiovascular: positive: Regular rate & rhythm, No gallop, Systolic murmur Peripheral Pulses: positive: 1+ Abdomen: positive: Non-tender, Nml bowel sounds, Other (rounded, PEG site with some redness and drainage) Back: positive: Nml inspection Skin: positive: No rash, Warm, Dry, Pallor Extremities: positive: Pedal edema, Joint swelling, Other (evidence of long- standing vascular impairment to BLEs- peeling skin) Neurologic/Psychiatric: positive: Disoriented to time, Weakness, Sensory loss, Slurred/abnml speech, Depressed mood/affect, Other (lethargic) Reflexes: Bicep (R): 2+, Bicep (L): 2+ Sepsis Event Note (H) - Evaluation Current Stage of Sepsis: Sepsis Possible source of Sepsis: positive: Genitourinary Confirmed Source and Organism (if known) of Sepsis: Urine - Sepsis Criteria Sepsis Criteria: Recorded Heart Rate greater than 90 bpm, WBC count greater than 12,000 or less than 4000, INSPECTOR RAG SORTING: altered consciousness (unrelated to primary neuro pathology), SBP drop more than 40mHg, SBP less than 90 mmHg, Renal: urine output less than 0.5ml/kg/hr for 2 hours or creatinine gr, Hepatic: Bilirubin greater than 2mg/dl, Hematologic: platelets < 100,000; INR > 1.5, or a PTT>60 seconds Conclusion/Plan - Problem List (1) Sepsis Conclusion/Plan: - Hypotension upon arrival - Elevated bilirubin at 2.9, normal lactic acid at 1.6, very elevated INR at 10.0 - Signs of organ dysfunction including altered mental status, and possible liver congestion - Afebrile so far, but fevers and chills at home per Plan: Order sepsis bundle, recheck lactic in 3 hours (2) Urinary tract infection Conclusion/Plan: - Urine appearance is alina, thick, mucous, and very foul smelling in new swanson tubing - Had gone a few weeks with intermittent clogging of his S/P cath - Recurrent UTIs, most recently treated with Bactrim - S/P prostate cancer a few years ago, which led to the chronic superpubic cath Plan: Await culture results, continue rocephin which was started in the ED Qualifiers: Urinary tract infection type: acute cystitis Hematuria presence: with hematuria Qualified Code(s): N30.01 - Acute cystitis with hematuria (3) Acute metabolic encephalopathy Conclusion/Plan: - per Jaleesa, the patient's , her has been confused prior to co robert in - Could not follow simple commands such as putting on his shirt at home - During my initial exam, the patient was very lethargic and has no evidence of meaningful conversations Plan: Treat sepsis, monitor for improvement (4) Nausea and vomiting Conclusion/Plan: - Jaleesa, the patient's states that these symptoms began around 2 weeks ago - Routinely gets cans of supplement per PEG - Shortly after getting his usual can feeding, he would throw it up Plan: Dietary consult, clear liquids for now (5) Dehydration Conclusion/Plan: - Very dry mucous membranes, poor skin turgor on exam - Peeling skin, 3rd spacing Plan: Continue to replace IV fluids, monitor labs (6) Supratherapeutic INR Conclusion/Plan: - No evidence of acutely bleeding, rust colored urine in swanson tubing - Continue to monitor INR - Hold coumadin Plan: Watch for bleeding, daily INR, restart when less than 2.5 (7) Transient hypotension Conclusion/Plan: - Upon presentation to the ED, blood pressure was 79/44 - After IV fluid bolus, improved to 111/58 - Lethargy on exam Plan: Continue to monitor, continue septic work up (8) Complication, blocked Swanson catheter Conclusion/Plan: - Longstanding S/P cath - Brought in via EMS for this being clogged - Newly changed while in the ED, now draining dark, rust, mucous urine Plan: Monitor I/O, treat acute infection Qualifiers: Encounter type: subsequent encounter Qualified Code(s): T83.091D - Other mechanical complication of indwelling urethral catheter, subsequent encounter (9) T2DM (type 2 diabetes mellitus) Conclusion/Plan: - , Jaleesa believes his last hgA1C was ~5% - Now considered diet controlled - Glucose a little low on admission at 75 per CMP Plan: Continue with clear liquids, monitor daily glucose in labs Qualifiers: Diabetes mellitus terminal block assembler insulin use: without terminal block assembler use Diabetes mellitus complication status: with ophthalmic complications Diabetes mellitus complication detail: with diabetic retinopathy Diabetic retinopathy severity: with proliferative retinopathy - Lab Results Lab results reviewed: Yes Ivan Bones: 01/11/19 04:40 01/11/19 04:40 Core Measures - Anticipated LOS I expect patient to be DC'd or transferred within 96 hours.: Yes - DVT/VTE - Prophylaxis VTE/DVT Device ordered at admit?: Yes VTE/DVT Prophylaxis med ordered at admit?: Yes Not Ordered - Medical Reason: Contraindicated (on coumadin) - Stroke - Rehab Assessment Rehab services assessment to be ordered?: Yes - AMI - Statin at Admit Aspirin Prescribed on Admit: No Not Ordered - Medical Reason: Contraindicated
--- NOTE | 2019-01-10 18:26 | ADVANCE CARE PLANNING NOTE ---
Advance Care Planning - Date/Time Date: 01/10/19 Time: 18:24 - Purpose of encounter Text: Establish goals of care, confirm code status - Parties in attendance Parties in attendance: The patient- Damion Johnson (Jonathan), his - Jaleesa Johnson, and myself- NESSA Dacosta - Decisional capacity Decisional capacity of: The patient is usually A & O x3, but has acute altered mental status related to his illness. Jaleesa, (POA) according to outside record chart review is his next of kin, and appears to have his best interest in mind during this interview. - Subjective/Patient's story Subjective/Patient's story: The patient's Jaleesa tells his story: They have live in [facility] for most of their adult life and moved to [place] about 3 years ago to live on a boat. Once the patient was diagnosed with prostate cancer, they purchased a mobile home and sold the boat. Since that time they have resided in their trailer home. He just celebrated his 79th birthday and this time last year was walking at a community festival with his . Over the past year, his health has been declining in which he has slowly lost his ability to bear weight on his feet. 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 This cancer was stage 4, so they understand that the chances of this metastasizing is great. He has paperwork at home that his wish has always been to make all efforts in the event of an emergency to save him, and confirms wishes to remain a FULL code. He continues to have generalized pain each day and his , Jaleesa states that the quality of his life has been very poor for the past 6 months. She endorses his continued use of medical marijuana to treat his pain. They were due to get a follow up CT at the oncology clinic this month, but due to his physical limitations, have not been able to. Jaleesa also states that they have frequent firemen come to their home for "lift assistance" because both her and her son are not strong enough to lift him. Jaleesa has concerns about her son, Kristopher due to his increased alcohol intake and his shady girlfriend who spends most of their time locked in the bedroom, "doing whatever". In conclusion, Jaleesa is seeking the medical attention needed to treat this illness, but also would like some guidance as to rehab, or would even consider a Palliative care consult. She states that she has "fired" her son as her 's primary care-taker. 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 The patient was brought in via EMS for complaints of a clogged S/P cath of which his attempted to flush at home, without success. This H&P was formulated with the assistance of the patient's , Jaleesa, given the patient's altered mental status. Jaleesa notes that starting about 2 weeks ago, the patient was not tolerating his usual tube feeding cans and would throw them up shortly after administration. She states that about one week ago, the patient had increased pain in his bladder and took up to 4 tablets of ibuprofen for this. She states that about 4 days ago is when she noticed that her 's urine was changing color and consistency with a foul odor. She states that he has had increased insomnia, waking up 4-5 times for the past several nights. Today, prior to calling EMS, she asked him to hold up his arms to put on his gown and he would not do this, which was very worrisome to her. She denies any complaints of fever, chills, chest pain, bleeding (other than easy to bruise), falls, or changes in bowels. Upon arrival to the ED, the patient was found to be hypotensive with a blood pressure of 79/44, afebrile, heart rate of 70, and did not require oxygen. He was given IV fluids, which improved the blood pressure to 111/58. Labs show an elevated WBC count of 18.9, H/H of 13.0/40.9, neut # 17.3, PT 120.0, INR 10.0, sodium 129, potassium 3.5, chloride 85, anion gap 22, BUN 30, creatinine of 1.2, GFR 59, total bili 2.9, lactic acid 1.6, troponin 0.0 4, lipase 19, with no other abnormalities. The ED provider changed the S/P cath, which immediately drained dark brown, mucous urine, and a sample is still pending. An abdominal CT is underway at this time. Upon my exam, the patient cannot answer questions, has sluggish speech, and appears ill. He will be admitted to inpatient to further treat this septic shock, UTI, monitor and monitor his supratherapeutic INR, and stabilize his metabolic encephalopathy. He does not appear to be acutely bleeding, despite his elevated INR of 10.0, so no vitamin K will be given unless there is evidence of bleeding, or he becomes hemodynamically unstable. * Further discussion with Jaleesa regarding the condition of her opened her mind to exploring the issue of her 's code status. She is agreeable to a Palliative care consult, but would like to think about it tonight. Further imaging may lead us to metastatic disease. She answered yes to all 4 questions surrounding resuscitation including; Chest compressions- YES, shocking- YES, cardiac meds- YES, and intubation- YES. I have confirmed this to keep the patient a FULL code. - Goals of Care Goals of care determinations: - Depending on further testing, if the cancer is found to be wide-spread, a Hospice care approach may be appropriate. - Acute conditions that may change the course of treatment include: *Sudden cardiac arrest or stroke *Traumatic fall with injury *A critical finding on echocardiogram *Wide-spread CA *Acute bleeding from elevated INR *Worsening infection, septic shock - Plan Plan: - Treat this acute illness and symptoms - Possible Palliative care consult in the next 1-2 days - Evaluate heart function - Obtain records from oncology to confirm prognosis, further testing, etc. - Possible SNF for short term rehab to make home care more feasible - Code Status Code Status: Attempt Resuscitation - Time Spent on Advance Care Planning Time spent on advance care plannin
[2019-01-10] MEDS: SODIUM CHLORIDE FLUSH 0.9% 10 ML SYRINGE IVP SCH (18:42)
[2019-01-10] MEDS: PANTOPRAZOLE 40 MG VIAL IVP SCH (18:43)
[2019-01-10] MEDS: SODIUM CHLORIDE 0.9% 1,000 ML IV SCH (18:43)
[2019-01-10] MEDS ORDERED: IOVERSOL 320 50 ML VIAL PO ONE (18:54)
--- NOTE | 2019-01-10 19:23 | CT Report ---
Reason: abd pain; suprapubic draining feculent urine Procedure Date: 01/10/2019 Accession Number: [id number] / [id number] Procedure: CT - Abdomen/Pelvis W CPT Code: FULL RESULT: EXAM: CT ABDOMEN AND PELVIS EXAM DATE: 01/10/2019 06:38 PM. CLINICAL HISTORY: Abdomen pain. Suprapubic catheter draining feculent urine. COMPARISONS: None. TECHNIQUE: Routine helical CT imaging was performed through the abdomen and pelvis. IV contrast: 100 cc of Optiray 320. Enteric contrast: Yes. Reconstructions: Coronal and sagittal. In accordance with CT protocol optimization, one or more of the following dose reduction techniques were utilized for this exam: automated exposure control, adjustment of mA and/or KV based on patient size, or use of iterative reconstructive technique. FINDINGS: Lung Bases: Unremarkable. Liver: Normal. No masses. Gallbladder/Bile Ducts: Small gallstones. No dilated ducts. Spleen: Normal. Pancreas: Normal. Adrenal Glands: Normal. Kidneys: On the left, mild hydronephrosis. Upper pole 5.3 mm cyst. On the right, diffuse cortical atrophy. Moderate hydronephrosis and hydroureter, with gas in the upper collecting system and with enhancing urothelium. Peritoneal Cavity/Bowel: Normal. No free fluid, free air or adenopathy. No masses or acute inflammatory process. The appendix is well visualized and normal. Pelvic Organs: Radioactive prostate seeds. Suprapubic catheter drains a very thick-walled bladder with enhancing urothelium and with air in the bladder. Vasculature: Moderate atherosclerotic calcification and plaquing. Dilated infrarenal aorta with a maximum diameter of 4.2 cm. No dissection. Bones: Left hip arthroplasty noted. Other: None. IMPRESSION: 1. Very thick-walled bladder with enhancing urothelium and air in the bladder compatible with severe cystitis. 2. Atrophic right kidney with moderate hydronephrosis, enhancing urothelium, and air in the upper collecting system compatible with ureteritis. 3. Mild left hydronephrosis and hydroureter without enhancing urothelium. 4. Infrarenal aortic aneurysm with a maximum diameter of 4.2 cm. 5. Multiple cholelithiasis. RADIA
[2019-01-10 19:29] LABS: BILIRUBIN,URINE NEGATIVE (NEGATIVE); GLUCOSE, URINE (UA) NEGATIVE (NEGATIVE); KETONES,URINE (UA) 15 mg/dL (NEGATIVE); LEUKOCYTE ESTERASE, URINE LARGE (NEGATIVE); NITRITE,URINE NEGATIVE (NEGATIVE); OCCULT BLOOD,URINE LARGE (NEGATIVE); PROTEIN,URINE 100 mg/dL (NEGATIVE); UROBILINOGEN,URINE 0.2 (NORMAL) E.U./dL (NORMAL)
[2019-01-10 19:44] LABS: CLARITY,URINE TURBID (CLEAR)
[2019-01-10 19:45] LABS: BACTERIA,URINE Rare /HPF (None Seen); RBC,URINE TNTC /HPF (0-5); SQUAMOUS EPITHELIAL CELL,UR NONE SEEN (<= Few); WBC CLUMPS,URINE PRESENT
[2019-01-10 21:04] LABS: HGB - HEMOGLOBIN 11.9 g/dL (14.0-18.0)
[2019-01-11] MEDS: SODIUM CHLORIDE 0.9% 1,000 ML IV SCH (04:27)
[2019-01-11 05:28] LABS: BASOPHILS % (AUTO) 0.2 %; EOSINOPHILS % (AUTO) 0.3 %; HGB - HEMOGLOBIN 11.5 g/dL (14.0-18.0); LYMPHOCYTES # (AUTO) 0.8 10^3/uL (1.5-3.5); LYMPHOCYTES % (AUTO) 5.3 %; MEAN CORPUSCULAR HEMOGLOBIN 28.2 pg (27.0-31.0); MEAN PLATELET VOLUME 9.9 fL (7.4-11.4); MONOCYTES # (AUTO) 0.6 10^3/uL (0.0-1.0); MONOCYTES % (AUTO) 4.2 %; NEUTROPHILS # (AUTO) 13.2 10^3/uL (1.5-6.6); NEUTROPHILS % (AUTO) 89.7 %; PLT - PLATELET COUNT 284 10^3/uL (130-450); RED BLOOD COUNT 4.08 10^6/uL (4.70-6.10); RED CELL DISTRIBUTION WIDTH 14.8 % (12.0-15.0); WHITE BLOOD COUNT 14.7 x10^3/uL (4.8-10.8)
[2019-01-11 05:37] LABS: INR 1.5 (0.8-1.2); PT - PROTHROMBIN TIME 17.2 secs (9.9-12.6)
[2019-01-11 05:48] LABS: ALBUMIN 2.8 g/dL (3.2-5.5); ALBUMIN/GLOBULIN RATIO 0.8 (1.0-2.2); BILIRUBIN,TOTAL 2.3 mg/dL (0.2-1.0); CALCIUM 8.6 mg/dL (8.5-10.3); CREATININE 0.9 mg/dL (0.6-1.2); MAGNESIUM 2.1 mg/dL (1.7-2.8); PHOSPHORUS 2.7 mg/dL (2.5-4.6); TOTAL PROTEIN 6.5 g/dL (6.7-8.2)
[2019-01-11] MEDS ORDERED: DEXTROSE 50% ABBOJECT 25 GM/50 ML SYRINGE IVP ONE (06:22)
[2019-01-11] MEDS: SODIUM CHLORIDE FLUSH 0.9% 10 ML SYRINGE IVP SCH ×3 (06:38→17:18)
[2019-01-11] MEDS: PANTOPRAZOLE 40 MG VIAL IVP SCH (06:43)
--- NOTE | 2019-01-11 08:09 | PROVIDER PROGRESS NOTE ---
Subjective - Prog Note Date Prog Note Date: 01/11/19 Prog Note Time: 08:08 - Subjective Pt reports feeling: Improved Subjective: Ike (patient's preferred name) complains of ongoing leg pain, and continues to be lethargic even when not getting IV pain medication. His , Jaleesa has been at his bedside for much of today. He denies chest pain, emesis, a new rash, a new cough, or a headache on exam. He initially refused a head CT to rule out causes of his AMS, but later proceeded. Current Medications - Current Medications Current Medications: Active Medications: Acetaminophen (Tylenol) 650 mg PO Q4HR PRN Apixaban (Eliquis) 5 mg PO BID KELLY Potassium Chloride/Dextrose/Sod Cl (D5.45ns W/20 Meq Kcl) 1,000 mls @ 125 mls/hr IV .Q8H KELLY Morphine Sulfate (Morphine (Carpuject)) 2 mg IVP Q2HR PRN Ondansetron HCl (Zofran Inj) 4 mg IVP Q6HR PRN Pantoprazole Sodium (Protonix) 40 mg IVP QDAC KELLY Polyethylene Glycol (Miralax) 17 gm PO DAILY KELLY Prochlorperazine Edisylate (Compazine Inj) 10 mg IVP Q6HR PRN Temazepam (Restoril) 15 mg PO QPM PRN Cefepime 2 GM IV KELLY HOME meds: Enalapril [Vasotec] 20 mg PO BID 07/28/15 Warfarin [Coumadin] 5 mg PO DAILY 07/28/15 Objective - Vital Signs/Intake & Output Reviewed Vital Signs: Yes Vital Signs: Vital Signs x48h Temp Pulse Resp BP Pulse Ox 01/11/19 04:00 36.6 C 74 20 128/68 95 Intake & Output: Intake & Output 01/08/19 01/09/19 01/10/19 01/11/19 23:59 23:59 23:59 23:59 Intake Total 2050.5 973.333 Output Total 750 1175 Balance 1300.5 -201.667 - Objective General Appearance: positive: No acute distress Eyes Bilateral: positive: No lid inflammation ENT: positive: Pharynx nml, Dry mucous membranes, Other ([place], blindness in left eye) Neck: positive: No JVD, Stiff neck, Tracheal deviation Respiratory: positive: Chest non-tender, No respiratory distress, Other (diminished, bilaterally) Cardiovascular: positive: Regular rate & rhythm, No gallop, Systolic murmur, Decreased pulse(s) Peripheral Pulses: 1+ Radial (R), 1+ Radial (L) Abdomen: positive: Non-tender, Abnml bowel sounds, Other (PEG in place with minimal drainage) Back: positive: Nml inspection Skin: positive: No rash, Warm, Dry, Pallor Extremities: positive: Non-tender, Pedal edema, Joint swelling, Other (profound debility, loss of function to BLEs) Neurologic/Psychiatric: positive: Disoriented to time, Weakness, Sensory loss, Facial droop (chronic), Slurred/abnml speech, Depressed mood/affect, Other Reflexes: Bicep (R): 2+, Bicep (L): 2+ - Lab Results Fish Bones: 01/11/19 04:40 01/11/19 04:40 Other Labs: Lab Results x24hrs 01/11/19 01/11/19 01/11/19 Range/Units 04:40 04:40 04:40 WBC 14.7 H (4.8-10.8) x10^3/uL RBC 4.08 L (4.70-6.10) 10^6/uL Hgb 11.5 L (14.0-18.0) g/dL Hct 35.9 L (42.0-52.0) % MCV 88.0 (80.0-94.0) fL MCH 28.2 (27.0-31.0) pg MCHC 32.0 (32.0-36.0) g/dL RDW 14.8 (12.0-15.0) % Plt Count 284 (130-450) 10^3/uL MPV 9.9 (7.4-11.4) fL Neut # (Auto) 13.2 H (1.5-6.6) 10^3/uL Lymph # (Auto) 0.8 L (1.5-3.5) 10^3/uL [place] # (Auto) 0.6 (0.0-1.0) 10^3/uL Eos # (Auto) 0.0 (0.0-0.7) 10^3/uL Baso # (Auto) 0.0 (0.0-0.1) 10^3/uL Absolute Nucleated RBC 0.00 x10^3/uL Nucleated RBC % 0.0 /100WBC PT 17.2 H (9.9-12.6) secs INR 1.5 H (0.8-1.2) Sodium 135 (135-145) mmol/L Potassium 3.1 L (3.5-5.0) mmol/L Chloride 94 L (101-111) mmol/L Carbon Dioxide 21 (21-32) mmol/L Anion Gap 20.0 H (6-13) BUN 23 H (6-20) mg/dL Creatinine 0.9 (0.6-1.2) mg/dL Estimated GFR (MDRD) 82 L (>89) Glucose 60 L* (70-100) mg/dL Lactic Acid (0.5-2.2) mmol/L Calcium 8.6 (8.5-10.3) mg/dL Phosphorus 2.7 (2.5-4.6) mg/dL Magnesium 2.1 (1.7-2.8) mg/dL Total Bilirubin 2.3 H (0.2-1.0) mg/dL AST 14 (10-42) IU/L ALT 15 (10-60) IU/L Alkaline Phosphatase 68 (42-121) IU/L Troponin I (<0.49) ng/mL Total Protein 6.5 L (6.7-8.2) g/dL Albumin 2.8 L (3.2-5.5) g/dL Globulin 3.7 (2.1-4.2) g/dL Albumin/Globulin Ratio 0.8 L (1.0-2.2) Lipase (22-51) U/L Urine Color Urine Clarity Urine pH Ur Specific [place] Urine Protein Urine Glucose (UA) Urine Ketones Urine Occult Blood Urine Nitrite Urine Bilirubin Urine Urobilinogen Ur Leukocyte Esterase Urine RBC (0-5) /HPF Urine WBC (0-3) /HPF Urine WBC Clumps Ur Squamous Epith Cells (<= Few) Urine Bacteria (None Seen) /HPF Ur Microscopic Review Urine Culture Comments 01/10/19 01/10/19 01/10/19 Range/Units 20:57 20:57 18:55 WBC (4.8-10.8) x10^3/uL RBC (4.70-6.10) 10^6/uL Hgb 11.9 L (14.0-18.0) g/dL Hct 37.9 L (42.0-52.0) % MCV (80.0-94.0) fL MCH (27.0-31.0) pg MCHC (32.0-36.0) g/dL RDW (12.0-15.0) % Plt Count (130-450) 10^3/uL MPV (7.4-11.4) fL Neut # (Auto) (1.5-6.6) 10^3/uL Lymph # (Auto) (1.5-3.5) 10^3/uL [place] # (Auto) (0.0-1.0) 10^3/uL Eos # (Auto) (0.0-0.7) 10^3/uL Baso # (Auto) (0.0-0.1) 10^3/uL Absolute Nucleated RBC x10^3/uL Nucleated RBC % /100WBC PT (9.9-12.6) secs INR (0.8-1.2) Sodium (135-145) mmol/L Potassium (3.5-5.0) mmol/L Chloride (101-111) mmol/L Carbon Dioxide (21-32) mmol/L Anion Gap (6-13) BUN (6-20) mg/dL Creatinine (0.6-1.2) mg/dL Estimated GFR (MDRD) (>89) Glucose (70-100) mg/dL Lactic Acid 1.1 (0.5-2.2) mmol/L Calcium (8.5-10.3) mg/dL Phosphorus (2.5-4.6) mg/dL Magnesium (1.7-2.8) mg/dL Total Bilirubin (0.2-1.0) mg/dL AST (10-42) IU/L ALT (10-60) IU/L Alkaline Phosphatase (42-121) IU/L Troponin I (<0.49) ng/mL Total Protein (6.7-8.2) g/dL Albumin (3.2-5.5) g/dL Globulin (2.1-4.2) g/dL Albumin/Globulin Ratio (1.0-2.2) Lipase (22-51) U/L Urine Color YELLOW Urine Clarity TURBID Urine pH 7.0 Ur Specific [place] 1.010 Urine Protein 100 H Urine Glucose (UA) NEGATIVE Urine Ketones 15 H Urine Occult Blood LARGE H Urine Nitrite NEGATIVE Urine Bilirubin NEGATIVE Urine Urobilinogen 0.2 (NORMAL) Ur Leukocyte Esterase LARGE H Urine RBC TNTC H (0-5) /HPF Urine WBC >25 H (0-3) /HPF Urine WBC Clumps PRESENT Ur Squamous Epith Cells NONE SEEN (<= Few) Urine Bacteria Rare (None Seen) /HPF Ur Microscopic Review INDICATED Urine Culture Comments INDICATED 01/10/19 01/10/19 01/10/19 Range/Units 15:14 13:50 13:50 WBC (4.8-10.8) x10^3/uL RBC (4.70-6.10) 10^6/uL Hgb (14.0-18.0) g/dL Hct (42.0-52.0) % MCV (80.0-94.0) fL MCH (27.0-31.0) pg MCHC (32.0-36.0) g/dL RDW (12.0-15.0) % Plt Count (130-450) 10^3/uL MPV (7.4-11.4) fL Neut # (Auto) (1.5-6.6) 10^3/uL Lymph # (Auto) (1.5-3.5) 10^3/uL [place] # (Auto) (0.0-1.0) 10^3/uL Eos # (Auto) (0.0-0.7) 10^3/uL Baso # (Auto) (0.0-0.1) 10^3/uL Absolute Nucleated RBC x10^3/uL Nucleated RBC % /100WBC PT (9.9-12.6) secs INR (0.8-1.2) Sodium (135-145) mmol/L Potassium (3.5-5.0) mmol/L Chloride (101-111) mmol/L Carbon Dioxide (21-32) mmol/L Anion Gap (6-13) BUN (6-20) mg/dL Creatinine (0.6-1.2) mg/dL Estimated GFR (MDRD) (>89) Glucose (70-100) mg/dL Lactic Acid 1.6 (0.5-2.2) mmol/L Calcium (8.5-10.3) mg/dL Phosphorus (2.5-4.6) mg/dL Magnesium (1.7-2.8) mg/dL Total Bilirubin (0.2-1.0) mg/dL AST (10-42) IU/L ALT (10-60) IU/L Alkaline Phosphatase (42-121) IU/L Troponin I 0.04 (<0.49) ng/mL Total Protein (6.7-8.2) g/dL Albumin (3.2-5.5) g/dL Globulin (2.1-4.2) g/dL Albumin/Globulin Ratio (1.0-2.2) Lipase (22-51) U/L Urine Color Cancelled Urine Clarity Cancelled Urine pH Cancelled Ur Specific [place] Cancelled Urine Protein Cancelled Urine Glucose (UA) Cancelled Urine Ketones Cancelled Urine Occult Blood Cancelled Urine Nitrite Cancelled Urine Bilirubin Cancelled Urine Urobilinogen Cancelled Ur Leukocyte Esterase Cancelled Urine RBC (0-5) /HPF Urine WBC (0-3) /HPF Urine WBC Clumps Ur Squamous Epith Cells (<= Few) Urine Bacteria (None Seen) /HPF Ur Microscopic Review Cancelled Urine Culture Comments Cancelled 01/10/19 01/10/19 01/10/19 Range/Units 13:50 13:50 13:50 WBC 18.9 H (4.8-10.8) x10^3/uL RBC 4.68 L (4.70-6.10) 10^6/uL Hgb 13.0 L (14.0-18.0) g/dL Hct 40.9 L (42.0-52.0) % MCV 87.4 (80.0-94.0) fL MCH 27.8 (27.0-31.0) pg MCHC 31.8 L (32.0-36.0) g/dL RDW 14.6 (12.0-15.0) % Plt Count 319 (130-450) 10^3/uL MPV 9.1 (7.4-11.4) fL Neut # (Auto) 17.3 H (1.5-6.6) 10^3/uL Lymph # (Auto) 0.7 L (1.5-3.5) 10^3/uL [place] # (Auto) 0.8 (0.0-1.0) 10^3/uL Eos # (Auto) 0.0 (0.0-0.7) 10^3/uL Baso # (Auto) 0.1 (0.0-0.1) 10^3/uL Absolute Nucleated RBC 0.00 x10^3/uL Nucleated RBC % 0.0 /100WBC PT > 120.0 H* (9.9-12.6) secs INR > 10.0 H* (0.8-1.2) Sodium 129 L (135-145) mmol/L Potassium 3.5 (3.5-5.0) mmol/L Chloride 85 L (101-111) mmol/L Carbon Dioxide 22 (21-32) mmol/L Anion Gap 22.0 H (6-13) BUN 30 H (6-20) mg/dL Creatinine 1.2 (0.6-1.2) mg/dL Estimated GFR (MDRD) 59 L (>89) Glucose 75 (70-100) mg/dL Lactic Acid (0.5-2.2) mmol/L Calcium 8.8 (8.5-10.3) mg/dL Phosphorus (2.5-4.6) mg/dL Magnesium 2.1 (1.7-2.8) mg/dL Total Bilirubin 2.9 H (0.2-1.0) mg/dL AST 20 (10-42) IU/L ALT 20 (10-60) IU/L Alkaline Phosphatase 65 (42-121) IU/L Troponin I (<0.49) ng/mL Total Protein 7.3 (6.7-8.2) g/dL Albumin 3.0 L (3.2-5.5) g/dL Globulin 4.3 H (2.1-4.2) g/dL Albumin/Globulin Ratio 0.7 L (1.0-2.2) Lipase 19 L (22-51) U/L Urine Color Urine Clarity Urine pH Ur Specific [place] Urine Protein Urine Glucose (UA) Urine Ketones Urine Occult Blood Urine Nitrite Urine Bilirubin Urine Urobilinogen Ur Leukocyte Esterase Urine RBC (0-5) /HPF Urine WBC (0-3) /HPF Urine WBC Clumps Ur Squamous Epith Cells (<= Few) Urine Bacteria (None Seen) /HPF Ur Microscopic Review Urine Culture Comments ABX Reporting Has patient been on IV antibiotics over the past 48 hours?: Yes Sepsis Event Note (H) - Evaluation Current Stage of Sepsis: Sepsis Possible source of Sepsis: positive: Genitourinary - Sepsis Criteria Sepsis Criteria: Recorded Heart Rate greater than 90 bpm, WBC count greater than 12,000 or less than 4000, ANIMAL THERAPIST: altered consciousness (unrelated to primary neuro pathology), SBP drop more than 40mHg, SBP less than 90 mmHg, Renal: urine output less than 0.5ml/kg/hr for 2 hours or creatinine gr, Hepatic: Bilirubin greater than 2mg/dl Assessment/Plan - Problem List (1) Gram-positive cocci bacteremia Impression: - 2 of 2 blood cultures samples are preliminary positive with the same organism - Preliminary urine results also show + nitrites, so maybe a variation of e. coli Plan: Await final culture results, changing Rocephin to Cefepime (2) Sepsis Impression: - Hypotension upon arrival, still with light B/Ps 115/57, heart rates 80-90's today - Elevated bilirubin at 2.9, now 2.3 - Normal lactic acid at 1.6, recheck was 1.1 - Elevated INR at 10.0, post vitamin K, now 1.5 - Signs of organ dysfunction including altered mental status, and possible liver congestion- both improved today - Afebrile so far, temp max 36.7 C Plan: Continue to monitor, await head CT to evaluate for changes given AMS (3) Pyelonephritis Impression: - Urine appearance is alina, thick, mucous, and very foul smelling in new swanson tubing - Had gone a few weeks with intermittent clogging of his S/P cath - Recurrent UTIs, most recently treated with Bactrim - S/P prostate cancer a few years ago, which led to the chronic supra pubic cath - Abdominal CT results Plan: Await culture results, continue rocephin which was started in the ED (4) Hypokalemia Impression: - K+ is low at 3.1 today - Stooling upon admission and very poor PO intake for the past several days Plan: Change IVFs to 20 Meq, replace as needed, daily labs (5) Hypoglycemia Impression: - Lab draw this AM showed a low blood sugar of only 60 - NO home meds Plan: Encourage PO intake, nursing to do periodic blood sugar checks, treat accordingly (6) Acute metabolic encephalopathy Impression: - per Jaleesa, the patient's , her has been confused prior to co robert in - Could not follow simple commands such as putting on his shirt at home - During my initial exam, the patient was very lethargic and has no evidence of meaningful conversations Plan: Treat sepsis, monitor for improvement (7) Nausea and vomiting Impression: - Jaleesa, the patient's states that these symptoms began around 2 weeks ago - Routinely gets cans of supplement per PEG - Shortly after getting his usual can feeding, he would throw it up - Continues to have nausea today after consuming a small amount of Jello Plan: Dietary consulting and following, clear liquids for now (8) Dehydration Impression: - Very dry mucous membranes, poor skin turgor on exam - Peeling skin, 3rd spacing Plan: Continue to replace IV fluids, monitor labs (9) Supratherapeutic INR Impression: - No evidence of acutely bleeding, rust colored urine in swanson tubing - Upon arrival to the ED, INR was 10.0, now down to 1.5 after one dose of Vitamin K in the ED - Coumadin was held, now discontinued Plan: Watch for bleeding, start Eliquis today (10) Transient hypotension Impression: - Upon presentation to the ED, blood pressure was 79/44 - After IV fluid bolus, improved to 111/58 - Lethargy on exam Plan: Continue to monitor, continue septic work up (11) Complication, blocked Swanson catheter Impression: - Longstanding S/P cath - Brought in via EMS for this being clogged - Newly changed while in the ED, now draining dark, rust, mucous urine Plan: Monitor I/O, treat acute infection Qualifiers: Encounter type: subsequent encounter Qualified Code(s): T83.091D - Other mechanical complication of indwelling urethral catheter, subsequent encounter (12) T2DM (type 2 diabetes mellitus) Impression: - , Jaleesa believes his last hgA1C was ~5% - Now considered diet controlled - Glucose a little low on admission at 75 per CMP Plan: Continue with clear liquids, monitor daily glucose in labs Qualifiers: Diabetes mellitus terminal manager insulin use: without terminal manager use Diabetes mellitus complication status: with ophthalmic complications Diabetes mellitus complication detail: with diabetic retinopathy Diabetic retinopathy severity: with proliferative retinopathy (13) Pulmonary nodule, right Impression: - A chest x-ray at the time of admission notes a 1.2 cm right lung nodule that is new - and patient has been informed - Status post prostate and parotid gland cancer Plan: Recommend follow up
[2019-01-11] MEDS ORDERED: DOXYCYCLINE INJ 100 MG in SODIUM CHLORIDE 0.9% MINIBAG 100 ML IV SCH (09:00)
[2019-01-11] MEDS ORDERED: cefTRIAXone 2 GM in SODIUM CHLORIDE 0.9% MINIBAG 100 ML IV SCH (09:00)
[2019-01-11] MEDS: D5.45NS W/20 MEQ KCL 1,000 ML IV SCH ×2 (10:02→18:58)
[2019-01-11] MEDS: APIXABAN 5 MG TABLET PO SCH ×2 (10:20→21:07)
[2019-01-11] MEDS: MORPHINE 2 MG/ML CARPUJECT IVP PRN ×4 (10:21→21:06)
[2019-01-11] MEDS: POLYETHYLENE GLYCOL 3350 17 GM PACKET PO SCH (10:24)
--- NOTE | 2019-01-11 17:05 | CT Report ---
Reason: altered mental status, evaluate for mets Procedure Date: 01/11/2019 Accession Number: [id number] / [id number] Procedure: CT - HEAD WO CPT Code: FULL RESULT: EXAM: CT HEAD WITHOUT CONTRAST. EXAM DATE: 01/11/2019 02:40 PM. CLINICAL HISTORY: Altered mental status, evaluate for metastasis. COMPARISON: HEAD W/O 07/27/2017 9:47 PM. TECHNIQUE: Multiaxial CT images were obtained from the foramen magnum to the vertex. Reformats: Sagittal and coronal. IV contrast: None. In accordance with CT protocol optimization, one or more of the following dose reduction techniques were utilized for this exam: automated exposure control, adjustment of mA and/or KV based on patient size, or use of iterative reconstructive technique. FINDINGS: The examination is degraded by a dense metallic foreign object located along the medial right supraorbital region superficially which measures 1.9 x 0.9 cm. This dense object generated significant beam hardening artifact covering brain parenchyma. Parenchyma: No intraparenchymal hemorrhage is detected. While no mass with direct mass effect is detected, there is progressive volume loss. Degree of midline asymmetry as assessed coronally is similar to the prior study. Extraaxial Spaces: There is asymmetry of the frontal horns, the right is greater than the left which was also seen previously, possibly related to asymmetric volume loss. Basal cisterns are preserved. No subdural or epidural collections identified. Ventricles: Normal in size and position. Sinuses and Orbits: Imaged paranasal sinuses, orbits show no significant abnormality. Bones: The patient is status post interval right mastoidectomy. There is no left mastoid effusion. Other: None. IMPRESSION: No acute intracranial hemorrhage or significant mass effect. Preservation of basal cisterns. Cerebral volume loss. RADIA
[2019-01-11] MEDS: CEFEPIME 2 GM in SODIUM CHLORIDE 0.9% MINIBAG 100 ML IV SCH (18:56)
[2019-01-12] MEDS: D5.45NS W/20 MEQ KCL 1,000 ML IV SCH ×2 (03:49→12:34)
[2019-01-12] MEDS: SODIUM CHLORIDE FLUSH 0.9% 10 ML SYRINGE IVP SCH ×3 (03:49→18:33)
[2019-01-12 05:20] LABS: ALBUMIN 2.5 g/dL (3.2-5.5); ALBUMIN/GLOBULIN RATIO 0.7 (1.0-2.2); BILIRUBIN,TOTAL 0.9 mg/dL (0.2-1.0); CALCIUM 8.3 mg/dL (8.5-10.3); CREATININE 0.8 mg/dL (0.6-1.2); MAGNESIUM 1.9 mg/dL (1.7-2.8); PHOSPHORUS 1.9 mg/dL (2.5-4.6); TOTAL PROTEIN 6.2 g/dL (6.7-8.2)
[2019-01-12] MEDS: CEFEPIME 2 GM in SODIUM CHLORIDE 0.9% MINIBAG 100 ML IV SCH ×2 (06:11→18:33)
[2019-01-12] MEDS: SODIUM CHLORIDE FLUSH 0.9% 10 ML SYRINGE IVP PRN ×3 (06:49→11:30)
[2019-01-12] MEDS: PANTOPRAZOLE 40 MG VIAL IVP SCH (06:49)
--- NOTE | 2019-01-12 09:11 | PROVIDER PROGRESS NOTE ---
Subjective - Prog Note Date Prog Note Date: 01/12/19 Prog Note Time: 09:10 - Subjective Pt reports feeling: Improved Subjective: Ike states that he only wants to return home with his . He denies any new symptoms and continues to have a very poor appetite. Jello is difficult to finish and makes him nauseated. He is agreeable to a trickle tube feeding to start (low rate 30-50 mLs). His , Jaleesa is at the bedside and wishes for a Palliative care consult today. Current Medications - Current Medications Current Medications: Active Medications: Acetaminophen (Tylenol) 650 mg PO Q4HR PRN Apixaban (Eliquis) 5 mg PO BID KELLY Potassium Chloride/Dextrose/Sod Cl (D5.45ns W/20 Meq Kcl) 1,000 mls @ 125 mls/hr IV .Q8H KELLY Cefepime HCl 2 gm/ Sodium (Chloride) 100 mls @ 200 mls/hr IV Q12H KELLY Morphine Sulfate (Morphine (Carpuject)) 2 mg IVP Q2HR PRN Ondansetron HCl (Zofran Inj) 4 mg IVP Q6HR PRN Pantoprazole Sodium (Protonix) 40 mg IVP QDAC KELLY Polyethylene Glycol (Miralax) 17 gm PO DAILY KELLY Prochlorperazine Edisylate (Compazine Inj) 10 mg IVP Q6HR PRN Temazepam (Restoril) 15 mg PO QPM PRN HOME meds: Enalapril [Vasotec] 20 mg PO BID 07/28/15 Warfarin [Coumadin] 5 mg PO DAILY 07/28/15 Objective - Vital Signs/Intake & Output Reviewed Vital Signs: Yes Vital Signs: Vital Signs x48h Temp Pulse Resp BP Pulse Ox 01/12/19 04:07 36.3 C L 70 16 126/72 99 Intake & Output: Intake & Output 01/09/19 01/10/19 01/11/19 01/12/19 23:59 23:59 23:59 23:59 Intake Total 2050.5 3873.333 1404.167 Output Total 750 2100 375 Balance 1300.5 1950.800 4217.167 - Objective General Appearance: positive: No acute distress, Alert, Lethargic Eyes Bilateral: positive: No lid inflammation ENT: positive: Pharyngeal erythema, Dry mucous membranes Neck: positive: No JVD, Tracheal deviation Respiratory: positive: Chest non-tender, No respiratory distress, Breath sounds nml, Other (diminished) Cardiovascular: positive: Regular rate & rhythm, No gallop, Systolic murmur Peripheral Pulses: 1+ Radial (R), 1+ Radial (L) Abdomen: positive: Non-tender, Nml bowel sounds, Guarding Back: positive: Nml inspection Skin: positive: No rash, Warm, Dry, Pallor Extremities: positive: Non-tender, Pedal edema, Joint swelling, Other (loss of function to BLEs) Neurologic/Psychiatric: positive: CN's nml (2-12), Weakness, Sensory loss, Slurred/abnml speech (baseline), Depressed mood/affect Reflexes: Bicep (R): 2+, Bicep (L): 2+ - Lab Results Fish Bones: 01/11/19 04:40 01/12/19 04:55 Other Labs: Lab Results x24hrs 01/12/19 01/11/19 01/11/19 Range/Units 04:55 08:01 06:59 Sodium 133 L (135-145) mmol/L Potassium 3.1 L (3.5-5.0) mmol/L Chloride 96 L (101-111) mmol/L Carbon Dioxide 28 (21-32) mmol/L Anion Gap 9.0 (6-13) BUN 15 (6-20) mg/dL Creatinine 0.8 (0.6-1.2) mg/dL Estimated GFR (MDRD) 93 (>89) Glucose 158 H (70-100) mg/dL POC Whole Bld Glucose 113 H 142 H (70 - 100) mg/dL Calcium 8.3 L (8.5-10.3) mg/dL Phosphorus 1.9 L (2.5-4.6) mg/dL Magnesium 1.9 (1.7-2.8) mg/dL Total Bilirubin 0.9 (0.2-1.0) mg/dL AST 11 (10-42) IU/L ALT 11 (10-60) IU/L Alkaline Phosphatase 57 (42-121) IU/L Total Protein 6.2 L (6.7-8.2) g/dL Albumin 2.5 L (3.2-5.5) g/dL Globulin 3.7 (2.1-4.2) g/dL Albumin/Globulin Ratio 0.7 L (1.0-2.2) Prealbumin 5 L (18-45) mg/dL 01/11/19 01/11/19 Range/Units 06:17 06:00 Sodium (135-145) mmol/L Potassium (3.5-5.0) mmol/L Chloride (101-111) mmol/L Carbon Dioxide (21-32) mmol/L Anion Gap (6-13) BUN (6-20) mg/dL Creatinine (0.6-1.2) mg/dL Estimated GFR (MDRD) (>89) Glucose (70-100) mg/dL POC Whole Bld Glucose 66 L 50 L* (70 - 100) mg/dL Calcium (8.5-10.3) mg/dL Phosphorus (2.5-4.6) mg/dL Magnesium (1.7-2.8) mg/dL Total Bilirubin (0.2-1.0) mg/dL AST (10-42) IU/L ALT (10-60) IU/L Alkaline Phosphatase (42-121) IU/L Total Protein (6.7-8.2) g/dL Albumin (3.2-5.5) g/dL Globulin (2.1-4.2) g/dL Albumin/Globulin Ratio (1.0-2.2) Prealbumin (18-45) mg/dL ABX Reporting Has patient been on IV antibiotics over the past 48 hours?: Yes Sepsis Event Note (H) - Evaluation Current Stage of Sepsis: Resolved - Sepsis Criteria Sepsis Criteria: Hepatic: Bilirubin greater than 2mg/dl Assessment/Plan - Problem List (1) Gram-positive cocci bacteremia Impression: - 2 of 2 blood cultures samples are preliminary positive with the same organism - Urine results also show + nitrites, so likely e. coli, but this seems to be of not culture quality Plan: Await final culture results, continue Cefepime (2) Sepsis Impression: - Hypotension upon arrival, still with light B/Ps 115/57, heart rates 80-90's today - Elevated bilirubin at 2.9, now 2.3 - Normal lactic acid at 1.6, recheck was 1.1 - Elevated INR at 10.0, post vitamin K, now 1.5 - Signs of organ dysfunction including altered mental status, and possible liver congestion- both improved today - Afebrile so far, temp max 36.7 C Plan: Continue to monitor, await head CT to evaluate for changes given AMS (3) Pyelonephritis Impression: - Urine appearance is al[place], thick, mucous, and very foul smelling in new swanson tubing - Had gone a few weeks with intermittent clogging of his S/P cath - Recurrent UTIs, most recently treated with Bactrim - S/P prostate cancer a few years ago, which led to the chronic supra pubic cath - Abdominal CT results show hydronephrosis - Changed Rocephin to Cefepime based on + blood cultures Plan: Await culture results, continue Cefepime (4) Hypokalemia Impression: - K+ is low at 3.1 again today despite adding K+ to IV fluids yesterday - 40 Meq of potassium in a liquid form for PEG x1 today - Stooling upon admission and very poor PO intake for the past several days - Still not tolerating TF, but will start at a trickle rate today 01/12 Plan: Give a one time dose of 40 Meq K+ in PEG, routine labs (5) Acute metabolic encephalopathy Impression: - per Jaleesa, the patient's , her has been confused prior to coming in - Could not follow simple commands such as putting on his shirt at home - During my initial exam, the patient was very lethargic and has no evidence of meaningful conversations - Each day his mentation has slightly improved and is conversing with his - Today he made his wish known that he wishes to return home with his Plan: Treat sepsis, monitor for improvement (6) Nausea and vomiting Impression: - Jaleesa, the patient's states that these symptoms began around 2 weeks ago - Routinely gets cans of supplement per PEG - Shortly after getting his usual can feeding, he would throw it up - Continues to have nausea today after consuming a small amount of Jello - Agreeable to starting trickle feeds via PEG with a slow rate of 30-50 mls/hour Plan: Dietary consulting and following, clear liquids for now (7) Dehydration Impression: - Very dry mucous membranes, poor skin turgor on exam - Peeling skin, 3rd spacing - Improvement in appearance, now with a low sodium, indicating some fluid overload Plan: Continue to monitor, daily weights, monitor labs (8) Complication, blocked [place] catheter Impression: - Longstanding S/P cath - Brought in via EMS for this being clogged - Newly changed while in the ED, now draining dark, rust, mucous urine - Now clearing up, but continues to have mucous Plan: Monitor I/O, treat acute infection Qualifiers: Encounter type: subsequent encounter Qualified Code(s): T83.091D - Other mechanical complication of indwelling urethral catheter, subsequent encounter (9) T2DM (type 2 diabetes mellitus) Impression: - , Jaleesa believes his last hgA1C was ~5% - Now considered diet controlled - Glucose a little low on admission at 75 per CMP, now improved at 158 this morning Plan: Continue with clear liquids, monitor daily glucose in labs Qualifiers: Diabetes mellitus fdc insulin use: without fdc use Diabetes mellitus complication status: with ophthalmic complications Diabetes mellitus complication detail: with diabetic retinopathy Diabetic retinopathy severity: with proliferative retinopathy (10) Pulmonary nodule, right Impression: - A chest x-ray at the time of admission notes a 1.2 cm right lung nodule that is new - and patient has been informed - Status post prostate and parotid gland cancer Plan: Recommend follow up
[2019-01-12] MEDS: APIXABAN 5 MG TABLET PO SCH ×2 (10:21→21:05)
[2019-01-12] MEDS: POLYETHYLENE GLYCOL 3350 17 GM PACKET PO SCH (10:22)
[2019-01-12] MEDS: MORPHINE 2 MG/ML CARPUJECT IVP PRN ×3 (10:59→21:14)
[2019-01-12] MEDS: POTASSIUM CHLORIDE 20 MEQ/15 ML UDC PEG SCH (10:59)
--- NOTE | 2019-01-12 16:29 | CONSULTATION NOTE ---
Palliative Care Consultation - Referral Referring Provider: Sri SZYMANSKI Time of Visit: [id number] Referral setting: Hospitalized patient Referral Reason: Stage IV Parotid Cancer/FTT/Goals of care - Information Sources Records reviewed: Previous records reviewed History/Review of Systems obtained from: Patient, Family ( Jaleesa present) Exam limitations: Clinical condition (patient DB; mild memory problems) - History of Present Illness Brief History of Present Illness: This is a 79-year-old gentleman who has had fairly rapid decline over the last 2 to 3 weeks, and more gradual decline over the last 9 months. 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 Patient has not received chemotherapy, has continued with surveillance scans. Unfortunately has not been able to be followed for the last 6 months, as he has had more functional decline, and has mostly been bedbound. In the context of his failure to thrive, patient has had significant weight loss, reports overall about 200 pounds, and more acutely over the last 6 months. He has had upper and lower extremity muscle wasting, and has been essentially bedbound. He was having increased difficulty with swallowing and 11/2017, at that point in time he had the PEG tube placed. On return home, he has become weaker, spending more time in bed, and essentially has been bedbound more recently. There is no acute episode they can identify, he did have a fall about 6 months ago to his right knee, that had limited his ambulation. In reviewing his weight loss, reports he is supposed to be getting 6 cans of feeding daily, but most often was only able to take 4 this was related both to a feeling of fullness and nausea, as well as resistance seco ndary to this. He has had poor tolerance over the last several weeks, that she now attributes to his pending acute illness, that included vomiting and poor toleration of the tube feeding. They are hopeful the continuous feeding, will solve the problem of abdominal discomfort, and better tolerance. He is able to take a few things orally, ice cream, yogurt, Jell-O's. He has also been challenged with liquid and loose stools on a regular basis. Patient also has a history of prostate cancer, and 89 received a TURP from Dr[address] Wick, he also has had ongoing complications with what they described as a "hole" in his urethra, diverticulitis in his bladder that required a surgical resection, and at that point in time had a suprapubic placed. They have been receiving her primary care down at [place] that you have developed, they are to reconnect on 02/16 as a new patient up at [facility]. Hoping given patient's functional decline, to obtain more of his care closer to home, including follow- up with urology. Patient currently has been confused on admit, he still continues with short-term memory issues, does have some hearing difficulties. He did have a CT of the abdomen and chest, which showed a new 1.2 cm nodule. He had a head CT that was negative, and no further identification of disease metastatic. He unfortunately though does need a follow-up CT of his neck, for ongoing surveillance, he may need to do this outpatient. Palliative care referral made to assist with goals of care, identifying better support services, and assisting with continuum of care and anticipatory guidance . Medical/Surgical History - Past Medical History Cardiovascular: reports: Hypertension, High cholesterol, Atrial fibrillation (was previously on coumadin; unable to get INR related to homebound status; on eliquis now) Respiratory: reports: COPD, Pneumonia, Sleep apnea Neuro: Dementia, Peripheral neuropathy Endocrine/Autoimmune: reports: Type 2 diabetes (diet controlled) GI: reports: GERD, Other (PEG tube feeding) : reports: Indwelling catheter (suprapubic; changed in ed) HEENT: reports: Chronic vision loss, Glaucoma, Chronic sinusitis, Chronic hearing loss Psych: reports: Depression, Anxiety Musculoskeletal: reports: Osteoarthritis, Osteoporosis, Other (right knee injury) Derm: reports: Other (LE wounds) MRSA Hx?: No Other Past Medical History: parotid gland cancer, prostate cancer - Past Surgical History Ortho: reports: Hip replacement Cardiovascular: reports: Pacemaker, AAA HEENT: reports: Cataracts, Detached retina repair Derm: reports: Skin cancer surgery - Substance History Use: Uses substance without health or social issues: Cannabis Use Issues: Anxiety Disorder Social History - Living Situation Living arrangement: At home Living Situation: With spouse/s.o., With family Support System: Patient and have been together 45 years, and 2000 got . The previously came from [place], then moved to [place] and lived on a boat. They did move to a [facility], where there is son also lives with them with his girlfriend. His son is his [employer] worker, there is been significant tension related to alcohol use, though they say they have resolved most of their differences at this point in time. There are multiple financial stressors, and with patient's increased care needs and functional decline has caused more difficulties as well. Family History - Family History Family History: Mother: , CVA/TIA, Father: , Brother: Alive and Well, CAD Medications/Allergies - Medications Active Medication List: Active Medications Acetaminophen (Tylenol) 650 mg PO Q4HR PRN PRN Reason: Pain 1 to 4 Apixaban (Eliquis) 5 mg PO BID [facility] Last Admin: 01/12/19 10:21 Dose: 5 mg Cefepime HCl 2 gm/ Sodium (Chloride) 100 mls @ 200 mls/hr IV Q12H [facility] Last Infusion: 01/12/19 06:55 Dose: Infused Morphine Sulfate (Morphine (Carpuject)) 2 mg IVP Q2HR PRN PRN Reason: PAIN Last Admin: 01/12/19 14:29 Dose: 2 mg Ondansetron HCl (Zofran Inj) 4 mg IVP Q6HR PRN PRN Reason: Nausea / Vomiting Pantoprazole Sodium (Protonix) 40 mg IVP QDAC [facility] Last Admin: 01/12/19 06:49 Dose: 40 mg Polyethylene Glycol (Miralax) 17 gm PO DAILY [facility] Last Admin: 01/12/19 10:22 Dose: 17 gm Potassium Chloride () 40 meq PEG DAILYWM [facility] Last Admin: 01/12/19 10:59 Dose: 40 meq Prochlorperazine Edisylate (Compazine Inj) 10 mg IVP Q6HR PRN PRN Reason: Nausea / Vomiting Sodium Chloride (Normal Saline Flush 0.9%) 10 ml IVP PRN PRN PRN Reason: NEEDED PER PROVIDER ORDERS Last Admin: 01/12/19 11:30 Dose: 10 ml Sodium Chloride (Normal Saline Flush 0.9%) 10 ml IVP 0100,0900,1700 [facility] Last Admin: 01/12/19 06:49 Dose: 10 ml Temazepam (Restoril) 15 mg PO QPM PRN PRN Reason: Insomnia Enalapril [Vasotec] 20 mg PO BID 07/28/15 Warfarin [Coumadin] 5 mg PO DAILY 07/28/15 - Allergies Allergies/Adverse Reactions: Allergies Allergy/AdvReac Type Severity Reaction Status Date / Time vancomycin AdvReac Mild injection Verified 08/31/17 18:43 site erythema Review of Systems - Constitutional Constitutional: reports: Fatigue (190), Weight loss - Eyes Eyes: reports: Vision loss (vision very poor right eye) - Ears, Nose & Throat Ears, Nose & Throat: reports: Hearing loss (left ear), Nasal congestion, Dry mouth, Other (scarring from surgery) - Respiratory Respiratory: denies: Cough, SOB at rest - Gastrointestinal Gastrointestinal: reports: Diarrhea, Nausea. denies: Abdominal pain, Reflux/heartburn - Genitourinary Genitourinary: reports: Other (suprapubic catheter sediment; dark brown high INR on arrival could have been old blood) - Musculoskeletal Musculoskeletal: reports: Muscle aches, Stiffness, Limited range of motion, Muscle weakness, Joint pain (right knee) - Integumentary Integumentary: reports: Dryness - Neurological Neurological: reports: General weakness, Memory problems, Other (peripheral neuropathy). denies: Abnormal gait (nonambulatory for 9 months) - Psychiatric Psychiatric: reports: Depression, Anxiety - Endocrine Endocrine: reports: Diabetes type 2 - Hematologic/Lymphatic Hematologic/Lymphatic: reports: Anemia, Recurrent infections (UTIs) - All Other Systems All Other Systems: reports: Reviewed and negative Physical Exam - Vital Signs Vital Signs: Vital Signs x48h Temp Pulse Resp BP BP Pulse Ox 01/12/19 16:00 36.5 C 80 18 128/64 98 01/12/19 14:50 37.0 C 67 17 123/55 L 98 - Physical Exam General Appearance: positive: No acute distress, Lethargic ENT: positive: Other (scarred; difficult to open oral cavity) Neck: positive: Lymphadenopathy (L), Stiff neck, Other (scarring with skin graft left neck) Cardiovascular: positive: Regular rate & rhythm Respiratory: positive: No respiratory distress Abdomen: positive: Soft, Nml bowel sounds Skin: positive: Pallor, Dryness, Wound (dressing right bernard intact) Extremities: positive: Pedal edema Neurologic/Psychiatric: positive: Disoriented to time, Weakness, Slurred/abnml speech, Depressed mood/affect, Flat affect Palliative Care - POLST Patient has POLST: No POLST Status: Full Code Pain: Pain improved, Location (right knee) Tiredness/Fatigue: Severe (7-10) Drowsiness/Sedation: Moderate (4-6) Nausea: Moderate (4-6) Depression: Moderate (4-6) Anxiety: Mild (1-3) Dyspnea: None Anorexia: Mild (1-3) Sleep: Variable sleep pattern Performance Status: Recent on his birthday last year, was able to ambulate, no decline in function. Has had muscle wasting, weight loss, symptoms of failure to thrive with a slow decline, and more acute over the last several weeks. Patient is become ho mebound and bedbound. Requiring lift assist and ambulance support for appointments. This is been a significant stressor for both patient and his .He is also incontinent of stool, difficulty with bed mobility, and is hoping for some improvement in his functional status. - Palliative Care Discussion: Patient and do understand he has metastatic stage IV parotid cancer, that he has been on surveillance, with the goal to revisit treatment if recurrent disease. Now presents with new nodule, has been in touch with oncologist, and told to focus on his current acute situation first. In discussing what is most important to them both, it would actually to improve his functional status, reports the patient is just able to stand and pivot transfer, with increased their ability to meet his care needs, and improve his quality of life. His goal is to have enough strength to be able to use his scooter, and be able to participate more in life. Currently spends most of his time in bed, watching TV, does not identify any quality of life. 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 His has changed her quality of life as well, needing to stay home with him, is feeling like he needs some space to get organized, and identify things that would make things easier at home including equipment and further home services and support. In the context of introducing ways to meet their goals, we did discuss rehab and SNF placement. There were 2 things that would need to happen, he would be needing to have the recommendation from therapy, that he would benefit, as well as his willingness to dissipate. He had been and filled out go about 3-1/2 years ago for a hip replacement, and had found that a positive experience. His would like him close to home, so she could see him daily the dog would be her first choice, carriage her second. They do appear to have realistic goals, as far as what is possible given his current level of decline, but certainly would benefit from increased trunk balance, pivot transfer training, and appropriate equipment to meet his care needs. We also discussed overall the role of palliative care, given he has serious illness, and providing support through the continuum of care. I did not address advanced care planning at this point, my goal is to establish rapport and trust given his multiple issues. Will reach out to oncology, patient does need a surveillance scan of his neck, to better help us understand where his cancer diagnosis puts us. Results - Lab Results Lab results reviewed: Yes Fish Bones: 01/11/19 04:40 01/12/19 04:55 Lab and Imaging Results: Lab Results x24hrs 01/12/19 01/11/19 01/11/19 Range/Units 04:55 08:01 06:59 Sodium 133 L (135-145) mmol/L Potassium 3.1 L (3.5-5.0) mmol/L Chloride 96 L (101-111) mmol/L Carbon Dioxide 28 (21-32) mmol/L Anion Gap 9.0 (6-13) BUN 15 (6-20) mg/dL Creatinine 0.8 (0.6-1.2) mg/dL Estimated GFR (MDRD) 93 (>89) Glucose 158 H (70-100) mg/dL POC Whole Bld Glucose 113 H 142 H (70 - 100) mg/dL Calcium 8.3 L (8.5-10.3) mg/dL Phosphorus 1.9 L (2.5-4.6) mg/dL Magnesium 1.9 (1.7-2.8) mg/dL Total Bilirubin 0.9 (0.2-1.0) mg/dL AST 11 (10-42) IU/L ALT 11 (10-60) IU/L Alkaline Phosphatase 57 (42-121) IU/L Total Protein 6.2 L (6.7-8.2) g/dL Albumin 2.5 L (3.2-5.5) g/dL Globulin 3.7 (2.1-4.2) g/dL Albumin/Globulin Ratio 0.7 L (1.0-2.2) Prealbumin 5 L (18-45) mg/dL 01/11/19 01/11/19 Range/Units 06:17 06:00 Sodium (135-145) mmol/L Potassium (3.5-5.0) mmol/L Chloride (101-111) mmol/L Carbon Dioxide (21-32) mmol/L Anion Gap (6-13) BUN (6-20) mg/dL Creatinine (0.6-1.2) mg/dL Estimated GFR (MDRD) (>89) Glucose (70-100) mg/dL POC Whole Bld Glucose 66 L 50 L* (70 - 100) mg/dL Calcium (8.5-10.3) mg/dL Phosphorus (2.5-4.6) mg/dL Magnesium (1.7-2.8) mg/dL Total Bilirubin (0.2-1.0) mg/dL AST (10-42) IU/L ALT (10-60) IU/L Alkaline Phosphatase (42-121) IU/L Total Protein (6.7-8.2) g/dL Albumin (3.2-5.5) g/dL Globulin (2.1-4.2) g/dL Albumin/Globulin Ratio (1.0-2.2) Prealbumin (18-45) mg/dL Impression and Recommendations - Palliative Care Impression: Is a 79-year-old gentleman who presents acutely with sepsis, urinary tract infection, and acute metabolic encephalopathy and supratherapeutic INR in the face of dehydration. In the context of patient's bigger picture, patient has had ongoing decline, weight loss, and does present as a failure to thrive. Patient's underlying diagnosis of stage IV parotid cancer, now with probable lung mets, will need to be addressed in the near future. Palliative care to provide ongoing support, coordination of care, and definition of goals. Recommendations/Counseling Done: 1. Metastatic parotid cancer. Patient now presents with new lung nodule, will need follow-up on the outpatient setting as well as surveillance scan of his neck. We will help facilitate this on discharge. 2. Generalized weakness. Patient would benefit from SNF placement for rehab services, goals remain realistic as far as pivot transfers, truncal stability, and ability to manage in a wheeled chair for increased independence. 3. Failure to thrive. This seems multifactorial in origin, including nutrition, deconditioning, may be attributed to progressive cancer diagnosis as well, as well as acute infection. We will continue to look at the multiple variables, and focus on issues of quality of life in the context of coordination of care and symptom management. Would continue to explore if continuous tube feedings versus bolus feedings would benefit of patient. Consult with dietitian. 4. Caregiver fatigue. This is multifactorial in origin as well, patient does need appropriate equipment in the home, increased [employer] support for bathing and care, multiple family and financial stressors adding to the distress. Discussed transitioning more specialty care, primary care and continue support with palliative care and managing patient's ongoing needs. Follow-up with [facility] regarding patient's/'s choices for SNF placement and goals. 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 Advanced care planning. Patient presents with stage IV cancer, failure to thrive, functional decline as well as cognitive decline. Palliative care establishing rapport, will continue to explore goals of care as well as advanced care planning documents. Time Spent: 70 minutes with greater than 50% of this done in counseling regarding goals of care, coordination of care issues, psychosocial support anticipatory guidance and establishing rapport with palliative care
[2019-01-12] MEDS: NEUTRA-PHOS 250 MG TABLET PEG SCH (18:33)
[2019-01-13 05:26] LABS: BASOPHILS % (AUTO) 0.4 %; EOSINOPHILS # (AUTO) 0.3 10^3/uL (0.0-0.7); EOSINOPHILS % (AUTO) 3.5 %; HGB - HEMOGLOBIN 10.7 g/dL (14.0-18.0); LYMPHOCYTES # (AUTO) 0.7 10^3/uL (1.5-3.5); LYMPHOCYTES % (AUTO) 7.4 %; MEAN CORPUSCULAR HEMOGLOBIN 28.1 pg (27.0-31.0); MEAN CORPUSCULAR HGB CONC 31.1 g/dL (32.0-36.0); MEAN CORPUSCULAR VOLUME 90.3 fL (80.0-94.0); MEAN PLATELET VOLUME 9.2 fL (7.4-11.4); MONOCYTES # (AUTO) 0.5 10^3/uL (0.0-1.0); MONOCYTES % (AUTO) 5.4 %; NEUTROPHILS # (AUTO) 7.9 10^3/uL (1.5-6.6); NEUTROPHILS % (AUTO) 82.9 %; PLT - PLATELET COUNT 254 10^3/uL (130-450); RED BLOOD COUNT 3.81 10^6/uL (4.70-6.10); WHITE BLOOD COUNT 9.5 x10^3/uL (4.8-10.8)
[2019-01-13] MEDS: CEFEPIME 2 GM in SODIUM CHLORIDE 0.9% MINIBAG 100 ML IV SCH (06:29)
[2019-01-13] MEDS: SODIUM CHLORIDE FLUSH 0.9% 10 ML SYRINGE IVP SCH ×3 (06:30→19:00)
[2019-01-13] MEDS: PANTOPRAZOLE 40 MG VIAL IVP SCH (06:51)
[2019-01-13] MEDS: SODIUM CHLORIDE FLUSH 0.9% 10 ML SYRINGE IVP PRN ×3 (06:51→15:29)
[2019-01-13] MEDS: NEUTRA-PHOS 250 MG TABLET PEG SCH ×3 (09:29→16:55)
[2019-01-13] MEDS: POLYETHYLENE GLYCOL 3350 17 GM PACKET PO SCH (09:31)
[2019-01-13] MEDS: APIXABAN 5 MG TABLET PO SCH ×2 (09:31→21:49)
[2019-01-13] MEDS: POTASSIUM CHLORIDE 20 MEQ/15 ML UDC PEG SCH (09:31)
--- NOTE | 2019-01-13 10:33 | PROVIDER PROGRESS NOTE ---
Subjective - Prog Note Date Prog Note Date: 01/13/19 Prog Note Time: 10:33 - Subjective Pt reports feeling: Improved Subjective: Ike complains of ongoing nausea and states that he just vomited this morning after getting his tube feeding for most of the night. He denies new symptoms such as chest pain, a rash, a new cough or shortness of breath. Current Medications - Current Medications Current Medications: Active Medications: Acetaminophen (Tylenol) 650 mg PO Q4HR PRN Apixaban (Eliquis) 5 mg PO BID [facility] Ciprofloxacin (Cipro 400 Mg/200 Ml) 200 mls @ 200 mls/hr IV Q12H [facility] Morphine Sulfate (Morphine (Carpuject) 2 mg IVP Q2HR PRN Ondansetron HCl (Zofran Inj) 4 mg IVP Q6HR PRN Pantoprazole Sodium (Protonix) 40 mg IVP QDAC [facility] Polyethylene Glycol (Miralax) 17 gm PO DAILY [facility] Potassium Chloride 40 meq PEG DAILYWM [facility] Prochlorperazine Edisylate (Compazine Inj) 10 mg IVP Q6HR PRN Reglan 10 mg IV Q6H [facility] Sodium Phosphate (K-Phos Neutral) 250 mg PEG TIDWM [facility] Temazepam (Restoril) 15 mg PO QPM PRN HOME meds: Enalapril [Vasotec] 20 mg PO BID 07/28/15 Warfarin [Coumadin] 5 mg PO DAILY 07/28/15 Objective - Vital Signs/Intake & Output Reviewed Vital Signs: Yes Vital Signs: Vital Signs x48h Temp Pulse Resp BP Pulse Ox 01/13/19 07:22 36.5 C 73 18 127/65 96 Intake & Output: Intake & Output 01/10/19 01/11/19 01/12/19 01/13/19 23:59 23:59 23:59 23:59 Intake Total 2050.5 3873.333 4374.000 2729 Output Total 750 2100 665 377 Balance 1300.5 9236.569 9890.000 2352 - Objective General Appearance: positive: No acute distress, Lethargic Eyes Bilateral: positive: No lid inflammation Eyes: OU Scleral icterus ENT: positive: Pharynx nml, No signs of dehydration Neck: positive: No JVD, Lymphadenopathy (R), Lymphadenopathy (L), Stiff neck Respiratory: positive: Chest non-tender, No respiratory distress Cardiovascular: positive: Regular rate & rhythm, No gallop, Systolic murmur Peripheral Pulses: 1+ Radial (R), 1+ Radial (L) Abdomen: positive: Non-tender, Nml bowel sounds, Other (PEG in place) Back: positive: Nml inspection Skin: positive: Color nml, No rash, Warm, Dry, Pallor Extremities: positive: Pedal edema, Joint swelling, Other (loss of muscle tone BLEs) Neurologic/Psychiatric: positive: CN's nml (2-12), Weakness, Sensory loss, Facial droop (baseline- left), Slurred/abnml speech, Depressed mood/affect Reflexes: Bicep (R): 2+, Bicep (L): 2+ - Lab Results Fish Bones: 01/13/19 05:14 01/12/19 04:55 Other Labs: Lab Results x24hrs 01/13/19 01/13/19 01/13/19 Range/Units 05:14 05:14 05:14 WBC 9.5 (4.8-10.8) x10^3/uL RBC 3.81 L (4.70-6.10) 10^6/uL Hgb 10.7 L (14.0-18.0) g/dL Hct 34.4 L (42.0-52.0) % MCV 90.3 (80.0-94.0) fL MCH 28.1 (27.0-31.0) pg MCHC 31.1 L (32.0-36.0) g/dL RDW 15.0 (12.0-15.0) % Plt Count 254 (130-450) 10^3/uL MPV 9.2 (7.4-11.4) fL Neut # (Auto) 7.9 H (1.5-6.6) 10^3/uL Lymph # (Auto) 0.7 L (1.5-3.5) 10^3/uL [place] # (Auto) 0.5 (0.0-1.0) 10^3/uL Eos # (Auto) 0.3 (0.0-0.7) 10^3/uL Baso # (Auto) 0.0 (0.0-0.1) 10^3/uL Absolute Nucleated RBC 0.00 x10^3/uL Nucleated RBC % 0.0 /100WBC C-Reactive Protein 10.6 H (0-1.0) mg/dL B-Natriuretic Peptide 232 H (5-100) pg/mL ABX Reporting Has patient been on IV antibiotics over the past 48 hours?: Yes Sepsis Event Note (H) - Evaluation Current Stage of Sepsis: Resolved Possible source of Sepsis: positive: Genitourinary - Sepsis Criteria Sepsis Criteria: Hepatic: Bilirubin greater than 2mg/dl Assessment/Plan - Problem List (1) Gram-positive cocci bacteremia Impression: - 2 of 2 blood cultures samples are preliminary positive with the same organism - Urine results also show + nitrites, so likely e. coli, but this seems to be of not culture quality - Cefepime changed to Cipro based on culture results Plan: Await final culture results, continue Cipro based on sensitivity list of urine sample (2) Sepsis Impression: - This is resolving, now with continued bacteremia, UTI - Hypotension upon arrival, still with light B/Ps 127/65, heart rates 80's today - Elevated bilirubin at 2.9, now 0.9 - Normal lactic acid at 1.6, recheck was 1.1 - CRP elevated at 10.6 - Elevated INR at 10.0, post vitamin K, now 1.5 - Signs of organ dysfunction including altered mental status, and possible liver congestion- both improving - Afebrile so far, temp max 36.7 C Plan: Continue to monitor, treat bacteremia, and UTI (3) Pyelonephritis Impression: - Urine appearance is alina, thick, mucous, and very foul smelling in new swanson tubing - Improved appearance of urine, still with mucous - Had gone a few weeks with intermittent clogging of his S/P cath - Recurrent UTIs, most recently treated with Bactrim - S/P prostate cancer a few years ago, which led to the chronic supra pubic cath - Abdominal CT results show hydronephrosis - Changed Rocephin to Cefepime based on + blood cultures, now changed to Cipro - Back pain has improved Plan: Continue Cipro (4) Nausea and vomiting Impression: - Jaleesa, the patient's states that these symptoms began around 2 weeks ago - Routinely gets cans of supplement per PEG - Shortly after getting his usual can feeding, he would throw it up - TFs via PEG with a slow rate of 50 mls/hour infused overnight, a total of 1982 mLs was charted - Reports that he vomited about 300 mL this morning - Will start Reglan to promote GI motility after an abdominal x-ray to rule out a blockage Plan: Dietary consulting and following, clear liquids (5) Hypokalemia Impression: - K+ is low at 3.1, no electrolyte labs today - 40 Meq of potassium in a liquid form for PEG daily continues - Stooling upon admission and very poor PO intake for the past several days- now tolerating TF - Tolerating TF at a slower rate, which was started 01/12 Plan: Routine labs (6) Acute metabolic encephalopathy Impression: - per Jaleesa, the patient's , her has been confused prior to coming in - Could not follow simple commands such as putting on his shirt at home - During my initial exam, the patient was very lethargic and has no evidence of meaningful conversations - Each day his mentation has slightly improved and is conversing with his - Today he made his wish known that he wishes to return home with his Plan: Treat sepsis, monitor for improvement (7) Complication, blocked Swanson catheter Impression: - Longstanding S/P cath - Brought in via EMS for this being clogged - Newly changed while in the ED, now draining dark, rust, mucous urine - Now clearing up, but continues to have mucous Plan: Monitor I/O, treat acute infection Qualifiers: Encounter type: subsequent encounter Qualified Code(s): T83.091D - Other mechanical complication of indwelling urethral catheter, subsequent encounter (8) T2DM (type 2 diabetes mellitus) Impression: - , Jaleesa believes his last hgA1C was ~5% - Now considered diet controlled - Glucose a little low on admission at 75 per CMP, now improved at 158 this morning Plan: Continue with clear liquids, monitor daily glucose in labs Qualifiers: Diabetes mellitus buttermaker continuous churn insulin use: without buttermaker continuous churn use Diabetes mellitus complication status: with ophthalmic complications Diabetes mellitus complication detail: with diabetic retinopathy Diabetic retinopathy severity: with proliferative retinopathy (9) Pulmonary nodule, right Impression: - A chest x-ray at the time of admission notes a 1.2 cm right lung nodule that is new - and patient has been informed - Status post prostate and parotid gland cancer Plan: Recommend follow up
--- NOTE | 2019-01-13 13:29 | XRAY Report ---
Reason: nausea/vomiting,abdominal pain Procedure Date: 01/13/2019 Accession Number: [id number] / [id number] Procedure: XR - Abdomen 1 View X-Ray CPT Code: 60745 FULL RESULT: EXAM: ABDOMEN RADIOGRAPHY EXAM DATE: 01/13/2019 01:13 PM. CLINICAL HISTORY: Abdominal pain with nausea and vomiting. COMPARISON: ABDOMEN/PELVIS W/ 01/10/2019 6:25 PM. TECHNIQUE: 1 view. FINDINGS: Bowel Gas Pattern: Within normal limits. No dilated loops. Other: Prostatic seeds are noted, with additional postsurgical clips seen about the pelvis. There is round radiodensity projecting over the stomach, likely PEG tube. Left total hip hardware is partially visualized. IMPRESSION: 1. No dilated loops to suggest obstruction. RADIA
[2019-01-13] MEDS: CIPROFLOXACIN 400 MG/200 ML 200 ML IV SCH ×2 (13:36→22:56)
[2019-01-13] MEDS: ACETAMINOPHEN 325 MG TABLET PO PRN (16:58)
[2019-01-13] MEDS: METOCLOPRAMIDE 10 MG/2 ML VIAL IVP SCH (19:00)
[2019-01-14] MEDS: SODIUM CHLORIDE FLUSH 0.9% 10 ML SYRINGE IVP SCH ×2 (00:24→06:30)
[2019-01-14] MEDS: METOCLOPRAMIDE 10 MG/2 ML VIAL IVP SCH ×2 (00:24→06:30)
[2019-01-14] MEDS ORDERED: SODIUM CHLORIDE 0.9% 500 ML IV PRN (04:49)
[2019-01-14] MEDS: SODIUM CHLORIDE FLUSH 0.9% 10 ML SYRINGE IVP PRN (06:30)
[2019-01-14] MEDS: PANTOPRAZOLE 40 MG VIAL IVP SCH (06:30)
[2019-01-14 07:13] LABS: ALBUMIN 2.4 g/dL (3.2-5.5); ALBUMIN/GLOBULIN RATIO 0.7 (1.0-2.2); ALKALINE PHOSPHATASE 52 IU/L (42-121); ALT ALANINE AMINOTRANSFERASE < 10 IU/L (10-60); AST ASPARTATE AMINOTRANSFERASE 12 IU/L (10-42); BILIRUBIN,TOTAL 0.6 mg/dL (0.2-1.0); BUN - BLOOD UREA NITROGEN 16 mg/dL (6-20); CALCIUM 8.1 mg/dL (8.5-10.3); CARBON DIOXIDE - CO2 27 mmol/L (21-32); CHLORIDE 100 mmol/L (101-111); CREATININE 0.7 mg/dL (0.6-1.2); GFR - MDRD 109 (>89); GLUCOSE 130 mg/dL (70-100); PHOSPHORUS 1.8 mg/dL (2.5-4.6); PREALBUMIN 9 mg/dL (18-45); SODIUM 133 mmol/L (135-145); TOTAL PROTEIN 5.8 g/dL (6.7-8.2)
[2019-01-14 08:07] VITALS: BP 129/85
[2019-01-14] MEDS: ACETAMINOPHEN 325 MG TABLET PO PRN ×2 (08:14→13:27)
[2019-01-14] MEDS: NEUTRA-PHOS 250 MG TABLET PEG SCH ×2 (08:14→11:46)
[2019-01-14] MEDS: POLYETHYLENE GLYCOL 3350 17 GM PACKET PO SCH (08:22)
[2019-01-14] MEDS: APIXABAN 5 MG TABLET PO SCH (08:22)
[2019-01-14] MEDS ORDERED: CARBOXYMETHYLCELLULOSE OPHTH DROPS RIGHTEYE PRN (09:30)
[2019-01-14] MEDS: POTASSIUM CHLORIDE 20 MEQ/15 ML UDC PEG SCH (09:38)
--- NOTE | 2019-01-14 10:51 | Discharge Plan ---
"Discharge Plan for SNF / [facility] - Discharge Plan And Transition Orders Disposition: 03 SNF DC/Xfer Condition: Good Allergies and Adverse Reactions: Allergies Allergy/AdvReac Type Severity Reaction Status Date / Time vancomycin AdvReac Mild injection Verified 08/31/17 18:43 site erythema Health Concerns: Generalized weakness Bacteremia with Staphlococcus Cristi hominis, Staph epidermidis (2 of 2 blood cultures) Dementia Parotid gland cancer, new lung nodule, history of prostate cancer Chronic supra-pubic catheter PEG with continuous tube feeding Plan of Treatment: Transfer to a SNF to gain strength enough to be able to pivot transfer Complete another 14 days of PO/PEG Ciprofloxacin based on final culture results Continue with continuous tube feedings Continue another 5 days of Reglan for ongoing nausea and for GI motility Palliative care was initiated here, and can continue likely after you return home Continue new blood thinner Eliquis, which was started here Care Goals: Cure infection Improve nutritional status by changing bolus feeding to continuous Gain strength by curing infection and by improving nutrition Assessment: You were admitted for a presumed bladder infection that traveled up to your kidneys, and also became a blood infection. You were started on IV antibiotics, that were transitioned to PEG antibiotics after cultures results were finalized. Your INR was very high, and since you kidney function is normal, you were changed to Eliquis. A prescription was sent you your pharmacy to ensure that it would be covered, and it is 100% covered. Physical therapy has determined that you would benefit from a senior care rehab stay. A Palliative care consult was made, and Karis Castrejonlley met with both you and your , which a rehab stay was discussed when figuring out what the most valuable next step in your life. - SNF / HALFWAY Transition Orders Admit to ([facility]): [facility] Diagnosis: Gram-positive cocci bacteremia- 2 of 2 blood culture samples were positive, with sensitivities to Cipro. Transitioned to PEG administration to continue for the next 14 days Sepsis- Resolved Pyelonephritis- Confirmed by imaging, continue Cipro per PEG, S/P cath was shay ruiz in the ED upon admission (01/10/2019), back pain resolved Hypokalemia- resolved, K+ 4.0 today Acute metabolic encephalopathy- resolved, baseline dementia Nausea and vomiting- resolved, tolerating continuous TF after starting Reglan per PEG Dehydration- resolved Complication, blocked Winslow catheter- resolved T2DM (type 2 diabetes mellitus)- chronic, stable Pulmonary nodule, right- Patient and were told of this, recommend follow up UTI (urinary tract infection)- resloved, urine culture showed colonized organisms Supratherapeutic INR- 10.0 on admission, resolved with an INR of 1.5, now on Eliquis Transient hypotension- resolved Primary parotid gland malignancy- chronic, status post resection Medicare Certification Statement: I certify that [facility] senior care care is medically necessary on a continuing basis for any of the conditions for which she/he is receiving care during hospitalization. Notify PCP of admission and forward orders to primary provider for signature. Weight on admission and: Weekly Additional Bowel Program Orders: If no BM after 2 days, nurse may give M.O.M. 30ml PO PRN and/or ducolax Supp 1 MN and/or PASHA 250mg P.O., and/or senna 1-2 tabs PO. On day 3 nurse may give repeat above order until residents constipation is resolved. Treatments & Other Orders: Continuous tube feeding per established PEG Oxygen Orders: N/A Lab Tests or X-ray Orders: Check electrolytes in 5-7 days. Orthopedic Orders: Imaging reviewed with Dr. Smith- orthopedic surgery. Based on imaging, right leg/ankle is cleared to bear full weight. Old fractures only noted. Also had hip imaging revealing no fractures. Medication Orders: PLEASE REFER TO THE DISCHARGE MEDICATION LIST. - Medications New Prescriptions: Acetaminophen [Tylenol] 650 mg PEG Q4HR PRN #60 tablet PRN Reason: Pain 1 to 4 Apixaban [Eliquis] 5 mg PO BID #60 tablet Ciprofloxacin HCl [Cipro] 500 mg PO BID #28 tablet Metoclopramide [Reglan] 10 mg PEG Q6H #20 tablet Neutra-Phos [K-Phos Neutral] 250 mg PEG BIDWM #60 tablet Polyethylene Glycol 3350 [Miralax] 17 gm PO DAILY #30 packet Saccharomyces Boulardii [Florastor] 250 mg PEG BID #60 capsule - Diet Type: Geriatric Texture: Regular Liquids: Thin May have monthly special meal: Yes - Therapies | Activity Therapy: Evaluation | Treat if indicated: PT, OT Rehabilitation Potential: Maximize functional status, Return to independent living Activity: Activity as Tolerated Weight Bearing: Full Weight Assistance Devices: Wheelchair, Walker"
[2019-01-14] MEDS ORDERED: CIPROFLOXACIN 250 MG TABLET PO SCH (11:00)
[2019-01-14] MEDS ORDERED: METOCLOPRAMIDE 10 MG TABLET PEG SCH (11:00)
--- NOTE | 2019-01-14 11:34 | DISCHARGE SUMMARY ---
Discharge Summary Admit Date: 01/10/19 Discharge Date: 01/14/19 Discharging Provider: NESSA Dacosta Primary Care Provider: Marbin Guo Code Status: Attempt Resuscitation Condition at Discharge: Good Discharge Disposition: 03 SNF DC/Xfer Discharge Facility Name: [facility] - DIAGNOSES Discharge Diagnoses with Status of Each Condition: Gram-positive cocci bacteremia- 2 of 2 blood culture samples were positive, with sensitivities to Cipro. Transitioned to PEG administration to continue for the next 14 days Sepsis- Resolved Pyelonephritis- Confirmed by imaging, continue Cipro per PEG, S/P cath was changed in the ED upon admission (01/10/2019), back pain resolved Hypokalemia- resolved, K+ 4.0 today Acute metabolic encephalopathy- resolved, baseline dementia Nausea and vomiting- resolved, tolerating continuous TF after starting Reglan per PEG Dehydration- resolved Complication, blocked Swanson catheter- resolved T2DM (type 2 diabetes mellitus)- chronic, stable Pulmonary nodule, right- Patient and were told of this, recommend follow up UTI (urinary tract infection)- resloved, urine culture showed colonized organisms Supratherapeutic INR- 10.0 on admission, resolved with an INR of 1.5, now on Eliquis Transient hypotension- resolved Primary parotid gland malignancy- chronic, status post resection - HPI History of Present Illness: Damion Johnson (Jonathan) is a very ill appearing 79-year old male with a past medical history of 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 The patient was brought in via EMS for complaints of a clogged S/P cath of which his attempted to flush at home, without success. This H&P was formulated with the assistance of the patient's , Jaleesa, given the patient's altered mental status. Jaleesa notes that starting about 2 weeks ago, the patient was not tolerating his usual tube feeding cans and would throw them up shortly after administration. She states that about one week ago, the patient had increased pain in his bladder and took up to 4 tablets of ibuprofen for this. She states that about 4 days ago is when she noticed that her 's urine was changing color and consistency with a foul odor. She states that he has had increased insomnia, waking up 4-5 times for the past several nights. Today, prior to calling EMS, she asked him to hold up his arms to put on his gown and he would not do this, which was very worrisome to her. She denies any complaints of fever, chills, chest pain, bleeding (other than easy to bruise), falls, or changes in bowels. Upon arrival to the ED, the patient was found to be hypotensive with a blood pressure of 79/44, afebrile, heart rate of 70, and did not require oxygen. He was given IV fluids, which improved the blood pressure to 111/58. Labs show an elevated WBC count of 18.9, H/H of 13.0/40.9, neut # 17.3, PT 120.0, INR 10.0, sodium 129, potassium 3.5, chloride 85, anion gap 22, BUN 30, creatinine of 1.2, GFR 59, total bili 2.9, lactic acid 1.6, troponin 0 .04, lipase 19, with no other abnormalities. The ED provider changed the S/P cath, which immediately drained dark brown, mucous urine, and a sample is still pending. An abdominal CT is underway at this time. Upon my exam, the patient cannot answer questions, has sluggish speech, and appears ill. He will be admitted to inpatient to further treat this septic shock, UTI, monitor and monitor his supratherapeutic INR, and stabilize his metabolic encephalopathy. He does not appear to be acutely bleeding, despite his elevated INR of 10.0, so no vitamin K will be given unless there is evidence of bleeding, or he becomes hemodynamically unstable. - HOSPITAL COURSE Hospital Course: Gram-positive cocci bacteremia- 2 of 2 blood cultures samples are preliminary positive with the same organism - Urine results also show + nitrites, so likely e. coli, but this seems to be of not culture quality - Cefepime changed to Cipro based on culture results - Continue Cipro for an extended course of 14 days Sepsis- This has resolved - Hypotension upon arrival, now resolved, B/Ps 127/65, heart rates 80's - Elevated bilirubin at 2.9, now 0.9 - Normal lactic acid at 1.6, recheck was 1.1 - CRP elevated at 10.6 - Elevated INR at 10.0, post vitamin K, now 1.5 - Signs of organ dysfunction including altered mental status, and possible liver congestion- both resolved - Afebrile, temp max 36.7 C Pyelonephritis- Urine appearance is alina, thick, mucous, and very foul smelling in new swanson tubing - Improved appearance of urine, still with mucous - Recurrent UTIs, most recently treated with Bactrim - S/P prostate cancer a few years ago, which led to the chronic supra pubic cath - Abdominal CT results show hydronephrosis - Changed Rocephin to Cefepime based on + blood cultures, now changed to Cipro to continue for 14 days - Consider fpc treatment with Hiprex after Cipro treatment Nausea and vomiting- Now resolved since starting the Jaleesa Mcelroy, the patient's states that these symptoms began around 2 weeks ago Hypokalemia- Resolved, once the patient began tolerating tube feedings Acute metabolic encephalopathy- Now resolved, per Jaleesa, the patient's , her has been confused prior to coming in - Could not follow simple commands such as putting on his shirt at home - During my initial exam, the patient was very lethargic and has no evidence of meaningful conversations - Each day his mentation has slightly improved and is conversing with his Complication, blocked Swanson catheter- Longstanding S/P cath - Brought in via EMS for this being clogged - Newly changed while in the ED, now draining dark, rust, mucous urine - Now clearing up, but continues to have mucous T2DM (type 2 diabetes mellitus)- , Jaleesa believes his last hgA1C was ~5% - Now considered diet controlled - Glucose a little low on admission at 75 per CMP, now improved at 158 Pulmonary nodule, right- A chest x-ray at the time of admission notes a 1.2 cm right lung nodule that is new - and patient has been informed - Status post prostate and parotid gland cancer, Recommend follow up Disposition: The patient was medically stable and started on oral antibiotics for his bacteremia. His encephalopathy resolved, he has been afebrile with no further WBC count. - ALLERGIES Allergies/Adverse Reactions: Allergies Allergy/AdvReac Type Severity Reaction Status Date / Time vancomycin AdvReac Mild injection Verified 08/31/17 18:43 site erythema - MEDICATIONS Home Medications: Ambulatory Orders Medication Instructions Recorded Confirmed Apixaban [Eliquis] 5 mg PO BID #60 tablet 01/12/19 Acetaminophen [Tylenol] 650 mg PEG Q4HR PRN #60 tablet 01/14/19 Apixaban [Eliquis] 5 mg PEG BID tablet 01/14/19 Ciprofloxacin HCl [Cipro] 500 mg PO BID #28 tablet 01/14/19 Enalapril [Vasotec] 5 mg PEG BID #60 01/14/19 01/10/19 Metoclopramide [Reglan] 10 mg PEG Q6H #20 tablet 01/14/19 Neutra-Phos [K-Phos Neutral] 250 mg PEG BIDWM #60 tablet 01/14/19 Polyethylene Glycol 3350 [Miralax] 17 gm PO DAILY #30 packet 01/14/19 Saccharomyces Boulardii [Florastor] 250 mg PEG BID #60 capsule 01/14/19 - PHYSICAL EXAM AT DISCHARGE General Appearance: positive: No acute distress, Alert Eyes Bilateral: positive: No lid inflammation ENT: positive: Pharynx nml, Dry mucous membranes Neck: positive: Thyroid nml, No JVD Respiratory: positive: Chest non-tender, No respiratory distress, Breath sounds nml Cardiovascular: positive: Regular rate & rhythm, No gallop, Systolic murmur, Decreased pulse(s) Peripheral Pulses: positive: 1+ Abdomen: positive: Non-tender, Nml bowel sounds, Hepatomegaly, Other (PEG in place, soft, rounded) Back: positive: Nml inspection Skin: positive: No rash, Warm, Dry Extremities: positive: Non-tender, Pedal edema, Joint swelling (baseline right foot deformity) Neurologic/Psychiatric: positive: Oriented x3, CN's nml (2-12), Weakness, Sensory loss, Slurred/abnml speech (baseline garbled speech due to prior parotid gland dissection), Depressed mood/affect (baseline dementia, poor short term memory) Reflexes: Bicep (R): 3+, Bicep (L): 3+ - LABS Result Diagrams: 01/13/19 05:14 01/14/19 06:39 - DIAGNOSTIC IMAGING Diagnostic Imaging Results: Final report reviewed Diagnostic Imaging Results Comments: EXAM: RIGHT TIBIA/FIBULA RADIOGRAPHY EXAM DATE: 01/10/2019 02:57 PM IMPRESSION: Distal osteopenia limiting evaluation with old distal fibula and medial malleolar fractures. Nonunion/malunion or reinjury at the medial malleolus is difficult to exclude. EXAM: RIGHT FEMUR RADIOGRAPHY EXAM DATE: 01/10/2019 02:57 PM IMPRESSION: Osteopenia with no definite fracture detected. EXAM: CHEST RADIOGRAPHY EXAM DATE: 01/10/2019 03:15 PM IMPRESSION: Limited radiograph with interval increase in pleural effusion and possible pulmonary edema. Potential 1.2 cm right lung nodule not previously seen. EXAM: CT ABDOMEN AND PELVIS EXAM DATE: 01/10/2019 06:38 PM IMPRESSION: 1. Very thick-walled bladder with enhancing urothelium and air in the bladder compatible with severe cystitis. 2. Atrophic right kidney with moderate hydronephrosis, enhancing urothelium, and air in the upper collecting system compatible with ureteritis. 3. Mild left hydronephrosis and hydroureter without enhancing urothelium. 4. Infrarenal aortic aneurysm with a maximum brigida meter of 4.2 cm. 5. Multiple cholelithiasis. EXAM: CT HEAD WITHOUT CONTRAST EXAM DATE: 01/11/2019 02:40 PM IMPRESSION: No acute intracranial hemorrhage or significant mass effect. Pres ervation of basal cisterns. Cerebral volume loss. EXAM: ABDOMEN RADIOGRAPHY EXAM DATE: 01/13/2019 01:13 PM IMPRESSION: 1. No dilated loops to suggest obstruction. - SEPSIS Current Stage of Sepsis: Resolved Possible source of Sepsis: Genitourinary Sepsis Criteria: Hepatic: Bilirubin greater than 2mg/dl - FOLLOW UP Follow Up: Follow up with PCP after rehab. - TIME SPENT Time Spent in Discharge (Minutes): 55
== END 2019-01-14 14:00 | DRG 871 ==
LOC: ED 13:25 → MS2 16:44
PROVIDERS: ADMIT Nurse Practitioner; ATTEND Nurse Practitioner
DX: T83.090A Other mechanical complication of cystostomy catheter, initial encounter (principal); N30.01 Acute cystitis with hematuria; A41.1 Sepsis due to other specified staphylococcus; R65.21 Severe sepsis with septic shock; Z93.4 Other artificial openings of gastrointestinal tract status; G93.41 Metabolic encephalopathy; F17.200 Nicotine dependence, unspecified, uncomplicated; G47.30 Sleep apnea, unspecified; E11.9 Type 2 diabetes mellitus without complications; N12 Tubulo-interstitial nephritis, not specified as acute or chronic; J90 Pleural effusion, not elsewhere classified; Z85.858 Personal history of malignant neoplasm of other endocrine glands; Z86.79 Personal history of other diseases of the circulatory system; Z85.828 Personal history of other malignant neoplasm of skin; N13.30 Unspecified hydronephrosis; A41.51 Sepsis due to Escherichia coli [E. coli]; T83.098A Other mechanical complication of other urinary catheter, initial encounter; C07 Malignant neoplasm of parotid gland; E87.6 Hypokalemia; E86.0 Dehydration; R91.1 Solitary pulmonary nodule; I48.91 Unspecified atrial fibrillation; I10 Essential (primary) hypertension; J44.9 Chronic obstructive pulmonary disease, unspecified; G47.33 Obstructive sleep apnea (adult) (pediatric); I95.9 Hypotension, unspecified; R11.2 Nausea with vomiting, unspecified; E11.42 Type 2 diabetes mellitus with diabetic polyneuropathy; E11.649 Type 2 diabetes mellitus with hypoglycemia without coma; E11.51 Type 2 diabetes mellitus with diabetic peripheral angiopathy without gangrene; E11.3599 Type 2 diabetes mellitus with proliferative diabetic retinopathy without macular edema, unspecified eye; E78.5 Hyperlipidemia, unspecified; R42 Dizziness and giddiness; I71.2 Thoracic aortic aneurysm, without rupture; I87.2 Venous insufficiency (chronic) (peripheral); I89.0 Lymphedema, not elsewhere classified; K76.1 Chronic passive congestion of liver; F03.90 Unspecified dementia, unspecified severity, without behavioral disturbance, psychotic disturbance, mood disturbance, and anxiety; R29.6 Repeated falls; M19.90 Unspecified osteoarthritis, unspecified site; M85.80 Other specified disorders of bone density and structure, unspecified site; F32.9 Major depressive disorder, single episode, unspecified; F12.980 Cannabis use, unspecified with anxiety disorder; Z93.1 Gastrostomy status; D64.9 Anemia, unspecified; M79.604 Pain in right leg; K21.9 Gastro-esophageal reflux disease without esophagitis; K80.20 Calculus of gallbladder without cholecystitis without obstruction; J32.9 Chronic sinusitis, unspecified; H54.7 Unspecified visual loss; H40.9 Unspecified glaucoma; H91.90 Unspecified hearing loss, unspecified ear; Z96.642 Presence of left artificial hip joint; Z51.5 Encounter for palliative care; Z79.01 Long term (current) use of anticoagulants; Z74.01 Bed confinement status; Z95.0 Presence of cardiac pacemaker; Z87.891 Personal history of nicotine dependence; Z85.46 Personal history of malignant neoplasm of prostate; Z87.440 Personal history of urinary (tract) infections; Z92.3 Personal history of irradiation; Z85.820 Personal history of malignant melanoma of skin; Z87.01 Personal history of pneumonia (recurrent); Z72.89 Other problems related to lifestyle; Z90.79 Acquired absence of other genital organ(s)
CPT/HCPCS: 36415; 51702; 70450; 71045; 73552; 73590; 74018; 74177; 80053; 81001; 83605; 83690; 83735; 83880; 84100; 84134; 84484; 85014; 85018; 85025; 85610; 86140; 87040; 87077; 87086; 87181; 93306; 96361; 96365; 96366; 96375; 97162; 97530; 99223; 99284; A9270; J2765; J7040; Q9967; 81003

== ENCOUNTER 2019-03-05 12:57 | Outpatient (CLI) | payer MEDICARE, MEDICAID | END 2019-03-05 12:58 | disposition critical access hospital (66) | LOC: EMS 12:57 | PROVIDERS: ATTEND Surgery | DX: R53.1 Weakness (principal); K92.1 Melena | CPT/HCPCS: A0425; A0429 ==

== ENCOUNTER 2019-03-05 13:20 | Emergency (ER) | payer MEDICARE, MEDICAID ==
--- NOTE | 2019-03-05 13:26 | ED Physician Documentation ---
History of Present Illness - Stated complaint Stated Complaint: GI - History obtained from History obtained from: Patient, Family - History of Present Illness Timing: Prior to arrival - Additonal information Additional information: Patient is a 79-year-old male with extremely complicated past medical history including dementia,And recent bacteremia full cancers, diabetes, hypertension, hyperlipidemia, atrial fibrillation from likely urinary source that placed him in the hospital several months ago presenting from home by ambulance after home health nurse was concerned about presence of blood in his stool. Patient and deny such an issue, as well as any fever, chest pain, difficulty breathing, productive cough, abdominal pain, nausea, or vomiting. Patient is fed by PEG tube and denies any complications with such. Patient also has suprapubic urinary catheter in place which was recently changed in the past several days and and patient also denies complications with such. No other improving or worsening factors noted. Patient's Coumadin was recently changed to Eliquis. Review of Systems Constitutional: denies: Fever Cardiac: denies: Chest pain / pressure Respiratory: denies: Dyspnea, Cough GI: denies: Abdominal Pain, Nausea, Vomiting, Diarrhea, Hematemesis, Bloody / black stool : denies: Dysuria PD PAST MEDICAL HISTORY - Past Medical History Cardiovascular: Hypertension, High cholesterol, Atrial fibrillation (was previously on coumadin; unable to get INR related to homebound status; on eliquis now) Respiratory: COPD, Pneumonia, Sleep apnea Neuro: Dementia, Peripheral neuropathy Endocrine/Autoimmune: Type 2 diabetes (diet controlled) GI: GERD, Other (PEG tube feeding) : Indwelling catheter (suprapubic; changed in ed) HEENT: Chronic vision loss, Glaucoma, Chronic sinusitis, Chronic hearing loss Psych: Depression, Anxiety Musculoskeletal: Osteoarthritis, Osteoporosis, Other (right knee injury) Derm: Other (LE wounds) - Past Surgical History Past Surgical History: Yes Ortho: Hip replacement Cardiovascular: Pacemaker, AAA HEENT: Cataracts, Detached retina repair Derm: Skin cancer surgery - Present Medications Home Medications: Ambulatory Orders Medication Instructions Recorded Confirmed Apixaban [Eliquis] 5 mg PO BID #60 tablet 01/12/19 Acetaminophen [Tylenol] 650 mg PEG Q4HR PRN #60 tablet 01/14/19 03/05/19 Apixaban [Eliquis] 5 mg PEG BID tablet 01/14/19 03/05/19 Ciprofloxacin HCl [Cipro] 500 mg PO BID #28 tablet 01/14/19 Enalapril [Vasotec] 5 mg PEG BID #60 01/14/19 01/10/19 Metoclopramide [Reglan] 10 mg PEG Q6H #20 tablet 01/14/19 Neutra-Phos [K-Phos Neutral] 250 mg PEG BIDWM #60 tablet 01/14/19 Polyethylene Glycol 3350 [Miralax] 17 gm PO DAILY #30 packet 01/14/19 Saccharomyces Boulardii [Florastor] 250 mg PEG BID #60 capsule 01/14/19 Chlorthalidone 12.5 mg PEG DAILY 03/05/19 03/05/19 Nitrofurantoin [Macrobid] 100 mg PEG DAILY 03/05/19 03/05/19 Pantoprazole Sodium 40 mg PEG BID 03/05/19 03/05/19 - Allergies Allergies/Adverse Reactions: Allergies Allergy/AdvReac Type Severity Reaction Status Date / Time vancomycin AdvReac Mild injection Verified 03/05/19 13:47 site erythema - Social History Does the pt smoke?: Yes Smoking Status: Former smoker Does the pt drink ETOH?: No Does the pt have substance abuse?: No - Immunizations Immunizations are current?: Yes Immunizations: TDAP >10years/unknown - POLST Patient has POLST: No POLST Status: Full Code PD ED PE NORMAL - Vitals Vital signs reviewed: Yes - General General: Alert and oriented X 3, No acute distress, Well developed/nourished - HEENT HEENT: Atraumatic, Moist mucous membranes - Neck Neck: Supple, no meningeal sign - Cardiac Cardiac: No murmur. No: RRR (irregular) - Respiratory Respiratory: No respiratory distress, Clear bilaterally - Abdomen Abdomen: Soft, Non tender, Non distended - Male Male : Other (Suprapubic catheter in place and draining orange colored fluid) - Rectal Rectal: Other (Hemmocult negative stool) - Derm Derm: Normal color, Warm and dry, No rash - Extremities Extremities: No deformity, No tenderness to palpate - Neuro Neuro: Alert and oriented X 3, No motor deficit, No sensory deficit - Psych Psych: Normal mood, Normal affect Results - Vitals Vitals: Vital Signs - 24 hr 03/05/19 03/05/19 03/05/19 13:25 13:56 15:12 Temperature 36.5 C 36.8 C Heart Rate 73 72 70 Respiratory 23 18 20 Rate Blood Pressure 108/86 H 104/67 125/72 O2 Saturation 95 97 100 03/05/19 16:45 Temperature Heart Rate 72 Respiratory 20 Rate Blood Pressure 138/88 H O2 Saturation 98 Oxygen O2 Source [] Room air O2 Source [] Room air O2 Source Room air - EKG (time done) 1355 Rate: Rate (enter#) (75) Rhythm: Atrial fibrillation Intervals: Prolonged QT, RBBB - Labs Labs: Laboratory Tests 03/05/19 03/05/19 03/05/19 13:55 13:55 13:55 WBC 7.1 RBC 4.01 L Hgb 11.3 L Hct 37.0 L MCV 92.3 MCH 28.2 MCHC 30.5 L RDW 16.8 H Plt Count 289 MPV 9.0 Neut # (Auto) 5.3 Lymph # (Auto) 0.9 L [place] # (Auto) 0.5 Eos # (Auto) 0.5 Baso # (Auto) 0.1 Absolute Nucleated RBC 0.00 Nucleated RBC % 0.0 PT 20.5 H INR 1.8 H APTT 35.4 H Sodium 140 Potassium 3.5 Chloride 93 L Carbon Dioxide 33 H Anion Gap 14.0 H BUN 36 H Creatinine 1.0 Estimated GFR (MDRD) 72 L Glucose 159 H Calcium 9.3 Total Bilirubin 0.9 AST 18 ALT 17 Alkaline Phosphatase 87 Total Protein 7.8 Albumin 2.9 L Globulin 4.9 H Albumin/Globulin Ratio 0.6 L Lipase 37 Urine Color Urine Clarity Urine pH Ur Specific [place] Urine Protein Urine Glucose (UA) Urine Ketones Urine Occult Blood Urine Nitrite Urine Bilirubin Urine Urobilinogen Ur Leukocyte Esterase Urine RBC Urine WBC Ur Squamous Epith Cells Urine Bacteria Ur Microscopic Review Urine Culture Comments 03/05/19 16:30 WBC RBC Hgb Hct MCV MCH MCHC RDW Plt Count MPV Neut # (Auto) Lymph # (Auto) [place] # (Auto) Eos # (Auto) Baso # (Auto) Absolute Nucleated RBC Nucleated RBC % PT INR APTT Sodium Potassium Chloride Carbon Dioxide Anion Gap BUN Creatinine Estimated GFR (MDRD) Glucose Calcium Total Bilirubin AST ALT Alkaline Phosphatase Total Protein Albumin Globulin Albumin/Globulin Ratio Lipase Urine Color LT. YELLOW Urine Clarity CLOUDY Urine pH 7.0 Ur Specific [place] 1.015 Urine Protein 100 H Urine Glucose (UA) NEGATIVE Urine Ketones NEGATIVE Urine Occult Blood MODERATE H Urine Nitrite NEGATIVE Urine Bilirubin NEGATIVE Urine Urobilinogen 0.2 (NORMAL) Ur Leukocyte Esterase LARGE H Urine RBC 6-10 H Urine WBC >25 H Ur Squamous Epith Cells NONE SEEN Urine Bacteria Many H Ur Microscopic Review INDICATED Urine Culture Comments INDICATED PD MEDICAL DECISION MAKING - ED course Complexity details: reviewed old records, reviewed results, re-evaluated patient, considered differential, d/w patient, d/w family ED course: Patient presenting because of presence of blood on bedding at home and noticed by nursing, which is likely due to skin breakdown and friable skin as he is chronically bedbound. Do not find evidence of bloody stool or Hemoccult positive stool on exam and do not feel the patient is experiencing an acute GI bleed. Patient also denies other complaints, as does . Have low suspicion at this time for other complication including sepsis, intra-abdominal issues, cardiac issues, respiratory compromise. Screening lab work obtained which was relatively unremarkable and otherwise similar to prior measurements. Urinalysis was performed after exchange of suprapubic catheter and noted to be infected, although patient just started Macrobid yesterday and feel this is appropriate. At this time, do not feel patient requires further imaging or work-up. Arrangement for transportation home made as patient is bedbound. and patient otherwise voiced understanding and are comfortable with discharge plan. Departure - Departure Disposition: 01 Home, Self Care Clinical Impression: Diarrhea Condition: Good Follow-Up: Lakshmi Bell MD [Primary Care Provider] - Within 3 Days Comments: Please continue all home medications as previously instructed, including antibiotics. Please follow-up with primary care physician in next 2 to 3 days and return to ED sooner if experience worsening symptoms or have other concerns.
[2019-03-05 14:00] LABS: BASOPHILS # (AUTO) 0.1 10^3/uL (0.0-0.1); BASOPHILS % (AUTO) 0.7 %; EOSINOPHILS # (AUTO) 0.5 10^3/uL (0.0-0.7); EOSINOPHILS % (AUTO) 6.3 %; HGB - HEMOGLOBIN 11.3 g/dL (14.0-18.0); LYMPHOCYTES # (AUTO) 0.9 10^3/uL (1.5-3.5); LYMPHOCYTES % (AUTO) 11.9 %; MEAN CORPUSCULAR HEMOGLOBIN 28.2 pg (27.0-31.0); MEAN CORPUSCULAR HGB CONC 30.5 g/dL (32.0-36.0); MEAN CORPUSCULAR VOLUME 92.3 fL (80.0-94.0); MONOCYTES # (AUTO) 0.5 10^3/uL (0.0-1.0); MONOCYTES % (AUTO) 6.6 %; NEUTROPHILS # (AUTO) 5.3 10^3/uL (1.5-6.6); NEUTROPHILS % (AUTO) 74.2 %; PLT - PLATELET COUNT 289 10^3/uL (130-450); RED BLOOD COUNT 4.01 10^6/uL (4.70-6.10); RED CELL DISTRIBUTION WIDTH 16.8 % (12.0-15.0); WHITE BLOOD COUNT 7.1 x10^3/uL (4.8-10.8)
[2019-03-05 14:10] LABS: INR 1.8 (0.8-1.2); PT - PROTHROMBIN TIME 20.5 secs (9.9-12.6)
[2019-03-05 14:17] LABS: ALBUMIN 2.9 g/dL (3.2-5.5); ALBUMIN/GLOBULIN RATIO 0.6 (1.0-2.2); BILIRUBIN,TOTAL 0.9 mg/dL (0.2-1.0); CALCIUM 9.3 mg/dL (8.5-10.3); TOTAL PROTEIN 7.8 g/dL (6.7-8.2)
[2019-03-05 14:18] LABS: PARTIAL THROMBOPLASTIN TIME 35.4 secs (24.9-33.3)
[2019-03-05] MEDS ORDERED: SODIUM CHLORIDE 0.9% 1,000 ML IV ONE (15:31)
[2019-03-05 16:36] LABS: BILIRUBIN,URINE NEGATIVE (NEGATIVE); GLUCOSE, URINE (UA) NEGATIVE (NEGATIVE); KETONES,URINE (UA) NEGATIVE (NEGATIVE); LEUKOCYTE ESTERASE, URINE LARGE (NEGATIVE); NITRITE,URINE NEGATIVE (NEGATIVE); OCCULT BLOOD,URINE MODERATE (NEGATIVE); PROTEIN,URINE 100 mg/dL (NEGATIVE); UROBILINOGEN,URINE 0.2 (NORMAL) E.U./dL (NORMAL)
[2019-03-05 16:37] LABS: CLARITY,URINE CLOUDY (CLEAR)
[2019-03-05 16:46] LABS: BACTERIA,URINE Many /HPF (None Seen); SQUAMOUS EPITHELIAL CELL,UR NONE SEEN (<= Few)
[2019-03-05 20:55] VITALS: BP 147/86
== END 2019-03-05 21:00 | disposition home or self-care (01) ==
LOC: ED 13:20
DX: R19.7 Diarrhea, unspecified (principal); N39.0 Urinary tract infection, site not specified; I10 Essential (primary) hypertension; F03.90 Unspecified dementia, unspecified severity, without behavioral disturbance, psychotic disturbance, mood disturbance, and anxiety; Z96.0 Presence of urogenital implants; Z93.1 Gastrostomy status; Z87.891 Personal history of nicotine dependence; Z74.01 Bed confinement status
CPT/HCPCS: 36415; 80053; 81001; 81003; 83690; 85025; 85610; 85730; 87086; 93005; 96360; 99282

== ENCOUNTER 2019-03-05 21:04 | Outpatient (CLI) | payer MEDICARE, MEDICAID | END 2019-03-05 21:05 | disposition home or self-care (01) | LOC: EMS 21:04 | PROVIDERS: ATTEND Surgery | DX: R53.1 Weakness (principal); Z74.01 Bed confinement status | CPT/HCPCS: A0425; A0428 ==

== ENCOUNTER 2019-08-23 08:00 | Outpatient (CLI) | payer MEDICARE, MEDICAID ==
[2019-08-23 19:30] LABS: BILIRUBIN,URINE NEGATIVE (NEGATIVE); GLUCOSE, URINE (UA) NEGATIVE (NEGATIVE); KETONES,URINE (UA) NEGATIVE (NEGATIVE); LEUKOCYTE ESTERASE, URINE MODERATE (NEGATIVE); NITRITE,URINE NEGATIVE (NEGATIVE); OCCULT BLOOD,URINE SMALL (NEGATIVE); PH,URINE 7.5 PH (5.0-7.5); PROTEIN,URINE NEGATIVE (NEGATIVE); UROBILINOGEN,URINE 0.2 (NORMAL) E.U./dL (NORMAL)
[2019-08-23 19:32] LABS: CLARITY,URINE HAZY (CLEAR)
[2019-08-23 19:58] LABS: BACTERIA,URINE Few /HPF (None Seen); SQUAMOUS EPITHELIAL CELL,UR RARE Squamous (<= Few); WBC CLUMPS,URINE PRESENT
== END 2019-08-23 23:59 | disposition home or self-care (01) ==
LOC: LAB.R 08:00
PROVIDERS: ATTEND Family Medicine
DX: N39.0 Urinary tract infection, site not specified (principal)
CPT/HCPCS: 81001; 81003; 87086; 87181

== ENCOUNTER 2019-10-13 08:00 | Outpatient (CLI) | payer MEDICARE, MEDICAID ==
[2019-10-13 15:15] LABS: BILIRUBIN,URINE NEGATIVE (NEGATIVE); GLUCOSE, URINE (UA) NEGATIVE (NEGATIVE); KETONES,URINE (UA) NEGATIVE (NEGATIVE); LEUKOCYTE ESTERASE, URINE LARGE (NEGATIVE); NITRITE,URINE NEGATIVE (NEGATIVE); OCCULT BLOOD,URINE MODERATE (NEGATIVE); PH,URINE 6.5 PH (5.0-7.5); PROTEIN,URINE NEGATIVE (NEGATIVE); UROBILINOGEN,URINE 0.2 (NORMAL) E.U./dL (NORMAL)
[2019-10-13 15:23] LABS: BACTERIA,URINE Few /HPF (None Seen); CLARITY,URINE HAZY (CLEAR); RBC,URINE TNTC /HPF (0-5); SQUAMOUS EPITHELIAL CELL,UR NONE SEEN (<= Few); WBC CLUMPS,URINE PRESENT
== END 2019-10-13 23:59 | disposition home or self-care (01) ==
LOC: LAB.R 08:00
PROVIDERS: ATTEND Family Medicine
DX: N39.0 Urinary tract infection, site not specified (principal)
CPT/HCPCS: 81001

== ENCOUNTER 2020-01-15 15:12 | Outpatient (CLI) | payer MEDICARE, MEDICAID ==
[2020-01-15 18:10] LABS: BILIRUBIN,URINE NEGATIVE (NEGATIVE); GLUCOSE, URINE (UA) NEGATIVE (NEGATIVE); KETONES,URINE (UA) TRACE mg/dL (NEGATIVE); LEUKOCYTE ESTERASE, URINE LARGE (NEGATIVE); NITRITE,URINE NEGATIVE (NEGATIVE); OCCULT BLOOD,URINE MODERATE (NEGATIVE); PROTEIN,URINE 100 mg/dL (NEGATIVE); UROBILINOGEN,URINE 1 (NORMAL) E.U./dL (NORMAL)
[2020-01-15 18:11] LABS: CLARITY,URINE CLEAR (CLEAR)
[2020-01-15 18:22] LABS: WBC CLUMPS,URINE PRESENT
[2020-01-15 18:23] LABS: BACTERIA,URINE Rare /HPF (None Seen); SQUAMOUS EPITHELIAL CELL,UR NONE SEEN (<= Few)
== END 2020-01-15 23:59 | disposition home or self-care (01) ==
LOC: LAB.R 15:12
PROVIDERS: ATTEND Family Medicine
DX: N39.0 Urinary tract infection, site not specified (principal)
CPT/HCPCS: 81001; 81003; 87086; 87181

== ENCOUNTER 2020-05-27 14:40 | Outpatient (CLI) | payer MEDICARE, MEDICAID ==
--- NOTE | 2020-05-27 16:58 | CONSULTATION NOTE ---
Palliative Care Consultation - Referral Referring Provider: Dr. Yifan Braswell Time of Visit: 2554-4214 Referral setting: Home Referral Reason: Debility/FTT/Advanced Care Planning - Information Sources Records reviewed: Previous records reviewed History/Review of Systems obtained from: Patient, Family (, Jaleesa present), Other (ZAK, Josiane present) Exam limitations: Clinical condition ([place]) - History of Present Illness Brief History of Present Illness: This is a 80-year-old gentleman who was seen and evaluated today for initial palliative care consultation within his home with his , Jaleesa and his [id number], Josiane present Due to failure to thrive, debility, and advanced care planning. The patient's , Jaleesa reports that the patient has been bedbound since he developed sepsis in 2019, approximately 1-1/2 years ago. She does also relay, that the patient was diagnosed with stage IV parietal cancer and underwent extensive head and neck surgery followed by radiation. After the patient completed radiation it was noted that he had increasing weakness that he have subsequently not recovered from. When the patient last had CT scans of his neck from his oncologist through the [facility] at radiation oncology it was stable without signs of recurrence. The patient has not been out of his home and has been unable to see his primary PCP. The patient's , Jaleesa was quite anxious for the patient to receive an influenza vaccine within the home for protection. The patient also has a history of prostate cancer status post brachytherapy and reconstructive surgery for bladder diverticulum and ureteral diversion and has had a suprapubic catheter since 2009. The patient has had a history of frequent urinary tract infections and is on chronic Macrobid therapy for UTI prophylaxis and suppression. The patient's previous private caregiver was changing the patient suprapubic catheter every 4 weeks. The patient's , does not feel equipped to perform the catheter changes and presently is receiving help from her sister, Josiane who is trained as an [employer]. However, the patient's [id number]-tsd is only helping for a brief time as they are looking into an additional caregiver from the [employer] program and needs additional follow-up and training. After the patient's completed his radiation for his stage IV parietal cancer he was having a difficult time with taste and appetite. He had a significant weight loss from close to 400 pounds to now approximately weighing close to 200 pounds. He had a PEG placed and receives tube feeding continuously during the day with Jevity 1.5. The patient's reports that he was evaluated for dysphagia and there was no evidence of obstruction or signs of aspiration after the surgery. The PEG was placed per the 's report for maintaining his weight due to his lack of oral intake. The patient is able to swallow his medic ations without signs of coughing. He does eat items periodically that he is craving but subsequently, receives ultimately the bulk of his nutrition through his tube feeding. The patient continues with generalized weakness with muscle wasting. In recent weeks he has been able to sit on the edge of the bed for very brief periods of time but subsequently becomes lightheaded and needs to lie back down. He has poor activity tolerance. The patient's and himself reports that he is becoming more motivated. The patient's reports that they expected the patient to have generalized decline after the radiation but expected him to gradually improve with his energy. The patient has a history of diabetes mellitus and is no longer on any antidiabetic medication. He never required any insulin therapy. With the significant weight loss the patient has had resolution of his diabetes. However, the patient does report neuropathy to both his hands as well as his feet. He has recently reengaged with wanting to work on his [employer] sketches. When the patient was last out of his home for follow-up at [facility] radiation oncology he had such weakness that he fell while getting out of the car at the facility landing on his right knee. The patient and his report that he has had multiple imaging to that right knee without evidence of fracture. Since that particular event, he continues to have pain to the right knee with active range of motion. He has Voltaren gel that is applied before movement which reduces his pain adequately. If he needs anything additional the patient's will administer Tylenol as he is presently on Eliquis for anticoagulation due to his history of atrial fibrillation. The patient is seen sitting up in his hospital bed in the common living room, no evidence of acute distress, chronically ill appearing. He has continuous tube feed running without evidence of distress comfort. Medical/Surgical History - Past Medical History Cardiovascular: reports: Hypertension, High cholesterol, Angina, Atrial fibrillation (was previously on coumadin; unable to get INR related to homebound status; on eliquis now), Other (AAA, Thoaracic aortic aneurysm 2015) Respiratory: reports: COPD, Pneumonia, Sleep apnea Neuro: Dementia, Peripheral neuropathy Neuro: reports: None Endocrine/Autoimmune: reports: Type 2 diabetes (diet controlled after weight loss) GI: reports: GERD, Other (PEG tube feeding) : reports: Indwelling catheter (suprapubic since 2009), Other (frequent UTIs on chronic suppression with macrobid) HEENT: reports: Chronic vision loss (ERM OS), Glaucoma, Chronic sinusitis, Chronic hearing loss, Other (parotid gland cancer) Psych: reports: Depression, Anxiety Musculoskeletal: reports: Osteoarthritis, Osteoporosis, Other (right knee injury) Derm: reports: Other (LE wounds) MRSA Hx?: No Other Past Medical History: Lymphedema, vertigo, balance disturbance - Past Surgical History Ortho: reports: Hip replacement Cardiovascular: reports: Pacemaker, AAA HEENT: reports: Cataracts, Detached retina repair, Other (paroidectomy/mastoidectomy and right neck dissection with neutron raditation 2017) Derm: reports: Skin cancer surgery Other past surgical history: s/p brachytherapy with reconstructive surgery for bladder diverticulum and ureteral diversion - Substance History Use: Uses substance without health or social issues: Cannabis, Other (Former cigar smoker) Use Issues: Anxiety Disorder Social History - Living Situation Living arrangement: At home Living Situation: With spouse/s.o. Support System: Patient and have been together for 45 years. They were residing in [place], [place] on [place] in a [place] area where they were home setting. Approximately 3 years ago they then relocated to [place] where they lived on a boat. After the patient had a diagnosis of cancer [place] The patient originally grew up in [facility]. The patient has a degree in history from [employer]. The couple have 1 son together, Johnathan and he presently resides in a [facility]. The patient has benefits from [employer] program for 180 hours/month. They are presently between caregivers and the patient's [id number] who is an [employer] is presently providing assistance to both the patient and his spouse. Family History - Family History Family History: Mother: , Father: Family History Comment/Other: Mother , cancer. father , [place]. 2 brothers. Medications/Allergies - Medications Home Medications: Ambulatory Orders Medication Instructions Recorded Confirmed Acetaminophen [Tylenol] 650 mg PEG Q4HR PRN #60 tablet 01/14/19 05/28/20 Apixaban [Eliquis] 5 mg PEG BID tablet 01/14/19 05/28/20 Enalapril [Vasotec] 5 mg PEG BID #60 01/14/19 05/28/20 Chlorthalidone 12.5 mg PEG DAILY 03/05/19 05/28/20 Nitrofurantoin [Macrobid] 100 mg PEG DAILY 03/05/19 05/28/20 Diclofenac Sodium [Voltaren] 2 - 4 g TP QID PRN 05/28/20 05/28/20 - Allergies Allergies/Adverse Reactions: Allergies Allergy/AdvReac Type Severity Reaction Status Date / Time vancomycin AdvReac Mild injection Verified 03/05/19 13:47 site erythema Review of Systems - Constitutional Constitutional: reports: Fatigue, Weight stable (after radiation significant weight loss of appx 200lbs that has stablized) - Eyes Eyes: reports: Vision loss (left eye) - Ears, Nose & Throat Ears, Nose & Throat: reports: Hearing loss (right ear after radiation) - Cardiovascular Cardiovascular: denies: Palpitations, Edema - Respiratory Respiratory: denies: Cough - Gastrointestinal Gastrointestinal: reports: Poor appetite. denies: Abdominal pain, Constipation, Vomiting - Genitourinary Genitourinary: reports: Other (suprapubic catheter) - Musculoskeletal Musculoskeletal: reports: Muscle weakness, Joint pain (right knee pain), Transfer issues - Integumentary Integumentary: reports: Other (redness to sacrum) - Neurological Neurological: reports: General weakness, Numbness (to b/l hands and feet due to neuropathy), Memory problems - Psychiatric Psychiatric: reports: Anxiety (reports controlled with medical marijuana). denies: Depression - Hematologic/Lymphatic Hematologic/Lymph: Recurrent infections (UTIs) - All Other Systems All Other Systems: reports: Reviewed and negative Physical Exam - Vital Signs Temperature: 36.4 C Pulse Rate: 54 O2 Saturation: 95 (on RA at rest) Blood Pressure: 115/62 (left wrist) - Physical Exam General Appearance: positive: No acute distress, Alert, Other (resting in bed, chroniclly ill appearing and appears older than stated age) Eyes Bilateral: positive: PERRL, Other (cloudiness to left eye via lens) ENT: positive: No signs of dehydration, Other (+edentulous) Neck: positive: Other ( right parotidectomy with scar tissue prauricular and submandibular area with noted graft site; section of lobule of right ear removed) Cardiovascular: positive: Bradycardia, Systolic murmur Respiratory: positive: No respiratory distress, Breath sounds nml Abdomen: positive: Non-tender, Soft, Nml bowel sounds, Other (+PEG, +suprapubic catheter) Skin: positive: Other (Erythema to sacrum with skin visibly intact; Venous stasis changes to BLE) Extremities: positive: No pedal edema Neurologic/Psychiatric: positive: Oriented x3, Flat affect, Other (+right facial Paralysis; +BUE strength equal and symmetric; +BLE weakness with 2/5 bilaterally; inversion of right foot) Palliative Care - POLST Patient has POLST: No Pain: Pain unchanged (right knee s/p fall appx 1.5 years ago with negative imaging per 's report responds to voltaren gel application) Tiredness/Fatigue: Mild (1-3) Drowsiness/Sedation: None Nausea: None Anorexia: Moderate (4-6) Dyspnea: None Depression: None Anxiety: Mild (1-3) (controlled with marijuana) Feelings of wellbeing/Perceived Quality of Life: Good Sleep: Sleeps well Constipation: No Performance Status: The patient has been bedbound for approximately 1.5 to 2 years. He is receiving nutrition via the PEG tube with intermittent oral intake if he has a desire. He has attempted to sit on the edge of the bed but due to generalized muscle wasting and deconditioning is unable to sit up for long. He is completely dependent for caregivers regarding his ADLs. - Palliative Care Discussion: The patient developed a significant decline after he underwent treatment for his stage IV parotid cancer and then again after he develops S cysts. The patient has been homebound as well as bedbound for approximately 2 years. The patient's is looking for additional ways to support both herself as well as the patient within the home setting. Since the patient's has been extremely fearful that either she or her would contract the illness. The patient's is fearful that if she were to contract the illness who would look after the patient. The patient's [id number], Josiane has offered to assist with caregiving needs if that was required. The patient had a caregiver through [employer] who was able to manage his care as well as changing his suprapubic catheter. The patient's however, feels uncomfortable with the maintenance and certain aspects of caregiving and would like additional support from home health services. Given the patient's multiple comorbidities and overall debility introduced goals of care and interventions with the patient and the spouse. The patient wishes for all interventions and to heroics to be performed. The patient presently does not have a designated healthcare agent and introduced the idea of having his and additional Healthcare agent designated and provided blank copies for the patient and his spouse today. Impression and Recommendations - Palliative Care Impression: This is a frail 80-year-old gentleman who has had stage IV parotid cancer status post surgical intervention and radiation, prostate cancer with suprapubic catheter, peripheral neuropathy, and debility. The patient is presently homebound as well as bedbound and old though has stabilized has demonstrated evidence of failure to thrive with and at any point could suffer a sequelae through something such as an infection. Patient has a history of stage IV parotid cancer but due to his homebound status has been unable to have follow-up imaging for monitoring. Palliative care to continue to provide ongoing support, coordination of care and further exploration of goals of care with anticipatory guidance. Recommendations/Counseling Done: 1. Stage IV parotid cancer. Patient is status post paroidectomy/mastoidectomy with right neck dissection and radiation. No reports of recurrence. Patient has not been able to have follow-up surveillance imaging due to his bedbound status and has hopes to have this coordinated with the patient's new PCP. 2.Physical deconditioning due to peripheral neuropathy due to diabetes mellitus. Patient no longer requires diabetic medication as his diabetes mellitus is now diet controlled after significant weight loss. He has significant generalized weakness with muscle wasting and is unable to exert his lower extremities against gravity. He is now motivated to work with physical therapy and Occupational Therapy for strengthening with a goal of sitting on the edge of the bed and eventually transitioning to a wheelchair in order to leave his home. 3. Failure to thrive. Appears to be multifactorial including deconditioning, Dementia, and history of stage IV parotid cancer. Presently bedbound. The patient presently is maintained on supplemental nutrition via PEG tube and has very little oral intake. Denies signs or symptoms of dysphagia. Recommend as piration precautions due to PEG tube feeding. Presently, the patient does not perceive a poor quality of life outside of right knee pain and offers minimal symptom burden. Palliative care will continue to explore goals of care with the patient as well as spouse moving forward. 4. Right knee pain. Status post fall 1+ year ago with trauma to the right knee. reports negative imaging for fracture or underlying abnormality. reports that imaging was obtained at [facility] and will request records for reference. Likely underlying arthritis as pain is with motion. Responds well to application of Voltaren gel and as needed acetaminophen. Introduced if pain worsens there are additional options for pain management. was hesitant to discuss additional options as patient is presently controlled on present regimen. 5. Vaccine administration. Administered influenza vaccine after consent was obtained by the patient's spouse verbalizing understanding regarding side effects, purpose, dose and agreement to proceed. Administered to left deltoid. 6. Caregiver burden. The patient is and presently his crqxpz-[id number]-ayx are managing the patient's care needs within the home. The patient does have [employer] hours of 180/month and a new caregiver is set to be implemented and at that time his [id number]-[id number] will return to her home. Offered supportive listening an d patient's may require palliative care social work in the future for additional support. 7. Suprapubic catheter in the setting of history of prostate cancer. Patient's has had suprapubic catheter since approximately 2009. Last PSA was undetectable per 's report. Patient's does not feel comfortable with maintenance of patient suprapubic catheter and care previously fell to the patient's caregiver who has subsequently left. would benefit from home health nursing for management and education. 8. At risk for skin breakdown due to bedbound status and supplemental nutrition. Patient's skin is intact. Has erythema to sacrum and recommended application of barrier cream and frequent repositioning. Recommend obtaining heel protectors to protect his heels. 9. Advanced care planning. Patient is status post stage IV cancer, prostate cancer, failure to thrive, dementia, physical deconditioning and has his nutritional support through a PEG tube. Presently, the patient wishes for any medical interventions that would prolong life. Palliative care will continue to build rapport and continue to explore goals of care moving forward. Introduced advanced care planning documents such as designated a healthcare power of litigation attorney and left blank forms for the patient and his to review. FACE to FACE: It would be a taxing considerable effort for the patient to leave his home secondary to her bedbound status, physical deconditioning due to peripheral neuropathy due to diabetes mellitus and right knee pain. PT for strengthening program with a goal of sitting on edge of bed with being able to assist caregivers with transfers to a wheelchair/recliner. OT for upper extremity strength training, energy conservation, and home fall safety evaluation. Home health nursing for maintenance of suprapubic catheter and education. Time Spent: F/u June 2020 or prn. Total time spent 90 minutes with greater than 50% of this spent in counseling and coordination of care with patient, and ZAK; review of aplliative philosophy; supportive listening; examination of patient; review of pain and symptom management and anticipatory guidance. CPT 29536 I spent 40 minutes reviewing the patient's past medical records prior to the visit. Disclaimer: The chart note was formulated using voice recognition technology and unfortunately sound alike errors may occur.
== END 2020-05-27 14:41 | disposition home or self-care (01) ==
LOC: PC 14:40
PROVIDERS: ATTEND Nurse Practitioner Family
DX: Z51.5 Encounter for palliative care (principal); C07 Malignant neoplasm of parotid gland; R53.1 Weakness; E11.42 Type 2 diabetes mellitus with diabetic polyneuropathy; M62.59 Muscle wasting and atrophy, not elsewhere classified, multiple sites; R62.7 Adult failure to thrive; R63.4 Abnormal weight loss; M25.561 Pain in right knee; F03.90 Unspecified dementia, unspecified severity, without behavioral disturbance, psychotic disturbance, mood disturbance, and anxiety; R53.83 Other fatigue; I48.91 Unspecified atrial fibrillation; Z79.899 Other long term (current) drug therapy; Z79.01 Long term (current) use of anticoagulants; Z74.01 Bed confinement status; Z85.46 Personal history of malignant neoplasm of prostate; Z92.3 Personal history of irradiation; Z87.440 Personal history of urinary (tract) infections; Z93.1 Gastrostomy status; Z86.19 Personal history of other infectious and parasitic diseases; Z93.50 Unspecified cystostomy status; Z91.81 History of falling
CPT/HCPCS: 99350; 99358

== ENCOUNTER 2020-06-04 11:00 | Outpatient (CLI) | payer MEDICARE, MEDICAID ==
[2020-06-04 19:05] LABS: BILIRUBIN,URINE NEGATIVE (NEGATIVE); GLUCOSE, URINE (UA) NEGATIVE (NEGATIVE); KETONES,URINE (UA) NEGATIVE (NEGATIVE); LEUKOCYTE ESTERASE, URINE LARGE (NEGATIVE); NITRITE,URINE NEGATIVE (NEGATIVE); OCCULT BLOOD,URINE LARGE (NEGATIVE); PH,URINE 8.5 PH (5.0-7.5); PROTEIN,URINE 30 mg/dL (NEGATIVE); UROBILINOGEN,URINE 1 (NORMAL) E.U./dL (NORMAL)
[2020-06-04 19:30] LABS: CLARITY,URINE TURBID (CLEAR)
[2020-06-04 19:31] LABS: BACTERIA,URINE Many /HPF (None Seen); RBC,URINE TNTC /HPF (0-5); SQUAMOUS EPITHELIAL CELL,UR NONE SEEN (<= Few); WBC CLUMPS,URINE PRESENT
== END 2020-06-04 23:59 | disposition home or self-care (01) ==
LOC: LAB.R 11:00
PROVIDERS: ATTEND Family Medicine
DX: N39.0 Urinary tract infection, site not specified (principal)
CPT/HCPCS: 81001; 87077; 87086; 87181

== ENCOUNTER 2020-07-01 07:00 | Outpatient (CLI) | payer MEDICARE, MEDICAID ==
[2020-07-01 18:26] LABS: BASOPHILS % (AUTO) 0.4 %; EOSINOPHILS % (AUTO) 0.2 %; HGB - HEMOGLOBIN 13.8 g/dL (14.0-18.0); LYMPHOCYTES # (AUTO) 0.9 10^3/uL (1.5-3.5); LYMPHOCYTES % (AUTO) 10.1 %; MEAN CORPUSCULAR HEMOGLOBIN 29.7 pg (27.0-31.0); MEAN CORPUSCULAR HGB CONC 31.4 g/dL (32.0-36.0); MEAN CORPUSCULAR VOLUME 94.6 fL (80.0-94.0); MEAN PLATELET VOLUME 10.2 fL (7.4-11.4); MONOCYTES # (AUTO) 0.6 10^3/uL (0.0-1.0); MONOCYTES % (AUTO) 6.2 %; NEUTROPHILS # (AUTO) 7.4 10^3/uL (1.5-6.6); NEUTROPHILS % (AUTO) 82.9 %; PLT - PLATELET COUNT 246 10^3/uL (130-450); RED BLOOD COUNT 4.65 10^6/uL (4.70-6.10); RED CELL DISTRIBUTION WIDTH 14.9 % (12.0-15.0); WHITE BLOOD COUNT 8.9 x10^3/uL (4.8-10.8)
[2020-07-01 18:41] LABS: ALBUMIN 3.7 g/dL (3.2-5.5); ALKALINE PHOSPHATASE 68 IU/L (42-121); ALT ALANINE AMINOTRANSFERASE 11 IU/L (10-60); AST ASPARTATE AMINOTRANSFERASE 16 IU/L (10-42); BUN - BLOOD UREA NITROGEN 20 mg/dL (6-20); CALCIUM 9.3 mg/dL (8.5-10.3); CARBON DIOXIDE - CO2 32 mmol/L (21-32); CHLORIDE 90 mmol/L (101-111); CHOL/HDL RATIO 3.9 (<5.0); CHOLESTEROL 183 mg/dL; CREATININE 0.5 mg/dL (0.6-1.2); GLUCOSE 146 mg/dL (70-100); HDL CHOLESTEROL 47 mg/dL; LDL CHOLESTEROL,CALCULATED 117 mg/dL; LDL/HDL RATIO 2.5 (<3.6); SODIUM 135 mmol/L (135-145); TOTAL PROTEIN 7.4 g/dL (6.7-8.2); VLDL CHOLESTEROL 19 mg/dL
== END 2020-07-01 23:59 | disposition home or self-care (01) ==
LOC: LAB.R 07:00
PROVIDERS: ATTEND Internal Medicine
DX: E11.42 Type 2 diabetes mellitus with diabetic polyneuropathy (principal); I10 Essential (primary) hypertension
CPT/HCPCS: 80053; 80061; 83036; 83721; 85025

== ENCOUNTER 2020-09-02 12:45 | Outpatient (CLI) | payer MEDICARE, MEDICAID ==
--- NOTE | 2020-09-02 16:27 | CONSULTATION NOTE ---
Palliative Care Follow Up - Referral Referring Provider: Dr. Yifan Braswell Time of Visit: [id number] Referral setting: Home Referral Reason: Debility/failure to thrive/suprapubic catheter/balanitis - Information Sources Records reviewed: Previous records reviewed History/Review of Systems obtained from: Patient, Family (, Jaleesa present) Exam limitations: Clinical condition ([place]) - History of Present Illness Update Brief HPI Update: This is a 80-year-old gentleman who was seen and evaluated today in follow-up due to failure to thrive, functional debility, leakage of the suprapubic catheter, and balantis in his home with his present. See detailed history dictated in HPI 05/27/2020 for full details. 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 The patient's is now open to allowing physical therapy and to the home setting after initial declining with the goal of having the patient with improved upper extremity and lower extremity strength and to be able to transfer to a wheelchair. As the patient is significantly deconditioned he is unable to leave the home setting which has resulted in him not being able to have follow-up surveillance scans due to his history of a stage IV parietal cancer. The patient is being followed by home health nursing due to his suprapubic catheter which is changed every 4 weeks. He has a history of frequent UTIs and is on suppressive therapy with Macrobid. 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 Home health nursing has reported leakage from the suprapubic catheter site. The patient's reports that upon initial placement of a suprapubic catheter the patient did have bladder spasms and they had antispasmatic medications that he utilized. However, she reports that the leakage tends to occur in certain positions and is resolved and others. The patient denies any discomfort that would indicate bladder spasming as a contributing factor. Due to limited caregiving hours the patient developed a Lantus to the glans penis and scrotum and was initiated on clotrimazole 1% cream with positive effect. Home health nursing also reported recent notation of edema to his lower extremities that is not present today on evaluation. The patient is on diuretic therapy with potassium supplementation. He also continues on Jevity 1.5 continuously via tube feeding during the day which is already measured. He continues to enjoy frequent cups of coffee and cookies during the day. With frequent turning and repositioning needed the patient will apply Voltaren gel to the right knee with positive response. The patient is seen sitting up in his hospital bed in the common living room, no evidence of acute distress. He is chronically ill-appearing. Continuous tube feed presently running. 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 Social History - Living Situation Living arrangement: At home Living Situation: With spouse/s.o. Support System: Patient and have been together for 45 years. They were residing in [place] in [place] area where [place]. 3 years ago they relocated to [place] where they were living on a boat. After the patient developed a diagnosis of cancer with a transition to a trailer on [facility]. The patient originally grew up in [facility]. The couple have 1 son together, Johnathan. The patient is receiving caregiving hours through [facility] and Yokasta is his block and case maker. They are having a full-time caregiver starting 09/07, Luci who will be coming 6 days/week to provide assistance. Medications/Allergies - Medications Home Medications: Ambulatory Orders Medication Instructions Recorded Confirmed Acetaminophen [Tylenol] 650 mg PEG Q4HR PRN #60 tablet 01/14/19 09/02/20 Enalapril [Vasotec] 5 mg PEG BID #60 01/14/19 09/02/20 Chlorthalidone 12.5 mg PEG DAILY 03/05/19 09/02/20 Nitrofurantoin [Macrobid] 100 mg PEG DAILY 03/05/19 09/02/20 Diclofenac Sodium [Voltaren] 2 - 4 g TP QID PRN 05/28/20 09/02/20 Apixaban [Eliquis] 2.5 mg PEG BID 09/02/20 09/02/20 Clotrimazole 1% Cream [Lotrimin 1% 1 applic TP BID MDD X.14 DAYS THEN 09/02/20 09/02/20 Cream] PRN Potassium Chloride [K-Dur] 1 tab PO DAILY 09/02/20 09/02/20 - Allergies Allergies/Adverse Reactions: Allergies Allergy/AdvReac Type Severity Reaction Status Date / Time vancomycin AdvReac Mild injection Verified 09/02/20 16:48 site erythema Review of Systems - Constitutional Constitutional: reports: Fatigue, Weight stable (after radiation he had significant weight loss; weight maintained with tube feedings). denies: Fever - Eyes Eyes: reports: Vision loss (left eye) - Ears, Nose & Throat Ears, Nose & Throat: reports: Hearing loss (right ear after radiation). denies: Hearing aids - Cardiovascular Cardiovascular: denies: Chest pain, Edema - Respiratory Respiratory: denies: Cough, SOB at rest - Gastrointestinal Gastrointestinal: reports: Other (Enjoys coffee; uses PEG with tube feeding Jevity 1.5 for most of his caloric intake). denies: Abdominal pain, Constipation, Vomiting - Genitourinary Genitourinary: reports: Other (suprapubic catheter in place) - Musculoskeletal Musculoskeletal: reports: Limited range of motion (unable to turn independently in bed), Joint pain (right knee with movement), Assistive devices, Transfer issues - Integumentary Integumentary: reports: Dryness - Neurological Neurological: reports: General weakness, Memory problems - Psychiatric Psychiatric: reports: Depression (has good days and bad days) - Endocrine Endocrine: reports: Diabetes type 2 (diet controlled) - Hematologic/Lymphatic Hematologic/Lymph: reports: Recurrent infections (UTIs on suppressive therapy) - All Other Systems All Other Systems: reports: Reviewed and negative (ROS supplemented by , Jaleesa) Physical Exam - Vital Signs Temperature: 36.5 C Pulse Rate: 51 O2 Saturation: 98 (on RA at rest) Blood Pressure: 106/63 (left wrist cuff) - Physical Exam General Appearance: positive: No acute distress, Alert, Other (chronically ill appearing and appears old than stated age) Eyes Bilateral: positive: No lid inflammation ENT: positive: No signs of dehydration, Other (+endentulous) Neck: positive: Other (right parotidectomy with scar tissue) Cardiovascular: positive: Bradycardia, Systolic murmur Respiratory: positive: No respiratory distress, Breath sounds nml. negative: Rales Abdomen: positive: Non-tender, Soft, Nml bowel sounds, Other (+PEG, +suprapubic catheter draining yellow urine with no noted drainage at exit site) Skin: positive: Other (dressing to right medial aspect of right foot--see home health nursing notes for further details; Venous stasis chagnes to BLE) Extremities: positive: No pedal edema Neurologic/Psychiatric: positive: Oriented x3, Weakness (decreased range of motion, generalized with inversion of right foot and noted muscular atrophy), Flat affect, Other (right facial paralysis) Palliative Care - POLST Patient has POLST: No Pain: Comment (Patient will have pain to right knee with movement and turning. Voltaren gel is applied before movement and is effective. The patient developed right knee pain after a fall approximately 2 years ago.) Performance Status: She has been bedbound for approximately 2 years. He is receiving nutrition via PEG tube with intermittent oral intake if he has the desire for it. He is completely dependent for caregivers regarding his ADLs. He is incontinent of stool. He has a suprapubic catheter in place since 2009. He requires assistance with turning in bed and repositioning. - Palliative Care Discussion: The patient has previously expressed that he desires all interventions and heroics to be performed for himself. His continues to be fearful about allowing others into the home if they have not been vaccinated with at least when vaccine for coronavirus. She is fearful for both herself and her spouse if they were to contract coronavirus and potentially leading to complications and . The patient's spouse is scheduled to obtain her first coronavirus vaccine at [facility] in early September 2020 based on supply allocation. The patient himself reports frustration that he has thoughts regarding movement on his body and his mind but his body will not cooperate. He would potentially benefit from a trapeze bar so he can turn and reposition more independently in bed. Over the is now open to having physical therapy in the home to work on upper and lower extremity strengthening with the goal to be able to transfer to a wheelchair so he may utilize paratransit if it were to go outside of their trailer home.. Impression and Recommendations - Palliative Care Impression: This is a frail, 80-year-old man who was had stage IV parietal cancer status post surgical intervention and radiation, prostate cancer with suprapubic catheter, and for functional deconditioning and debility. The patient is presently bedbound and has been unable to leave his home. Palliative care to continue to provide ongoing support, care coordination, building rapport, and anticipatory guidance. Recommendations/Counseling Done: 1. Physical deconditioning. Multifactorial due to peripheral neuropathy secondary to diabetes and sequelae of from stage IV parietal cancer and intervention. Patient and desire for him to have increased independence within the home environment and being able to transfer to a wheelchair so he may have surveillance monitoring as well as reducing social isolation and improvement of his quality of life. Patient's is now open to having physical therapy return into the home environment to work on strengthening as well as equipment recommendations and have made home health would be aware of this request. 2. Right knee pain. Status post fall with trauma to the right knee in the past. Reports of negative imaging for fracture previously. Responds well to Voltaren gel application before movement. Continue to encourage repositioning. 3. At high risk for skin breakdown due to bedbound status and supplementation oral nutrition. Noted dressing to medial aspect of right foot please see home health nursing notes for full details. Continue to encourage the patient's heels to be floated which are presently intact. Encouraged the patient and spouse that he needs to reposition and turn every 2 hours. Continue specialty mattress 1 hospital bed for reduction of risk of skin breakdown. 4. Suprapubic catheter since 2009. History of prostate cancer. Continue home health nursing for support and catheter changes. No evidence of bladder spasms related to leakage upon collection of history and appears to be more positional. Wish to avoid any additional medications that may have potential adverse effects. If needed in the future would consider low-dose oxybutynin for leakage related to bladder spasms reviewed with patient and with understanding verbalized. 5. Balanitis. Resolved to affected sites with use of clotrimazole 1% cream. Strongly recommended routine pericare to patient and for reduction of future development in the future. 6. Covid19 risk. The patient is presently physically unable to leave his home setting due to his bedbound state and physical deconditioning. The patient's spouse is expressing concerns regarding the patient's Covid19 risk. Discussed with the patient and spouse that the patient is entirely homebound and his interactions are with those coming in and out of the home and therefore it would be of the utmost importance to have those individuals be vaccinated for COVID-19 to decrease his potential risk. The patient's spouse expresses the desire to be vaccinated with COVID-19 herself and is scheduled if supplies allow in early September 2020. It is the patient's spouse's preference for the patient to be vaccinated with in the home when available. CC: Home Health Nursing F/u in 2-3 months or as needed if new/worsening symptoms. Total time spent 40 minutes with greater than 50% of this spent in counseling and coordination of care with patient and spouse; examination of patient; review of symptom management and anticipatory guidance. Disclaimer: The chart note was formulated using voice recognition technology and unfortunately sound alike errors may occur.
== END 2020-09-02 12:46 | disposition home or self-care (01) ==
LOC: PC 12:45
PROVIDERS: ATTEND Nurse Practitioner Family
DX: Z51.5 Encounter for palliative care (principal); R53.1 Weakness; E11.42 Type 2 diabetes mellitus with diabetic polyneuropathy; M25.561 Pain in right knee; I10 Essential (primary) hypertension; I48.91 Unspecified atrial fibrillation; Z93.50 Unspecified cystostomy status; Z79.899 Other long term (current) drug therapy; Z93.1 Gastrostomy status; Z79.01 Long term (current) use of anticoagulants; Z74.01 Bed confinement status; Z85.841 Personal history of malignant neoplasm of brain
CPT/HCPCS: 99349

== ENCOUNTER 2020-12-04 12:10 | Outpatient (CLI) | payer MEDICARE, MEDICAID ==
--- NOTE | 2020-12-04 13:59 | CONSULTATION NOTE ---
Palliative Care Follow Up - Referral Referring Provider: Dr. Juan Luis Cain Time of Visit: [id number] Referral setting: Home Referral Reason: FTT/Suprapubic catheter with spasm/Excess cerumen - Information Sources Records reviewed: Previous records reviewed History/Review of Systems obtained from: Patient, Family (, Jaleesa), Caregiver (Luci) Exam limitations: Clinical condition ([place], STM impairment) - History of Present Illness Update Brief HPI Update: This is a 80-year-old gentleman who was seen and evaluated today in follow-up due to failure to thrive, debility, leakage of his suprapubic catheter in the setting of bladder spasms and excess cerumen in his home with his , caregiver and home health nurse, Yas present. Please see detailed history dictated in HPI from 05/27/2020 for full details. The patient has reported increased fullness to his ears and home health nurseYas irrigated the left ear. However, due to the patient's prior surgery due to his past history of parietal cancer she did not feel comfortable to do any procedures to the patient's right ear, rightly so and appropriately. The patient no longer has hearing in his right ear after surgery. Caregiver has been placing Debrox otic drops in the left ear and as that ear canal was clear without any evidence of cerumen advised may discontinue. The patient denies any pain to his right ear. There is not been any discharge. The patient is being followed by home health nursing to do a suprapubic catheter. He does have a history of frequent UTIs and is on suppressive therapy with Macrobid. 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 The reports increased leakage from the stoma of the suprapubic catheter. This may be contributed will due to bladder spasms as well as the patient utilizing the trapeze over his bed more regularly and underlying deconditioning of the abdominal muscles. The patient has been on antispasmodic medication in the past however, neither the patient nor the spouse can recall the names of the medications. The patient Reports chronic right knee pain after he sustained a fall in injury in the past and has had negative imaging. His caregiver reports that they placed Voltaren gel directly to the right knee daily and is effective in about 15 to 20 minutes and allows for ease of turning. The patient recently had an increased cough and the use of vaping CBD and he has been titrated down and plans to transition to oral marijuana lozenge years as he has had a positive response to this in the past. The patient has developed the beginning of some hardware showing from his previous right ankle surgery. There has been no discharge, erythema, or tenderness to the site. A referral has been placed for orthopedics to a [facility] and the does not plan to set this up until February 2021 as she wishes to have multiple appointments in 1 day as she will need to set up a ambulance for transport. The patient has a history of stage IV parotid cancer however, has not had surveillance scans due to his significantly deconditioned state in his home setting. He had been followed at [facility]. The patient's cannot recall the name of the oncologist or surgeon at the present time. The patient is seen sitting up in bed in the common living room, no evidence of acute distress. He is chronically ill-appearing. Continues tube feed presently running. 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 Social History - Living Situation Living arrangement: At home Living Situation: With spouse/s.o. Support System: Patient and have been together for 45 years. They were residing in [place] in a remote area where they had a [place]. Approximately 3 years ago they relocated to [place] where they were living on a boat. After the patient developed a diagnosis of cancer they made the transition to a trailer on [facility] [facility]. The patient originally grew up in [place] [facility]. The couple have 1 son together, Johnathan. The patient is receiving caregiving hours through [facility] with Aisha as showcase trimmer presently. They are have a full-time caregiver, Luci who has been coming 6 days/week. Medications/Allergies - Medications Home Medications: Ambulatory Orders Medication Instructions Recorded Confirmed Acetaminophen [Tylenol] 650 mg PEG Q4HR PRN #60 tablet 01/14/19 12/04/20 Enalapril [Vasotec] 5 mg PEG BID #60 01/14/19 12/04/20 Chlorthalidone 12.5 mg PEG DAILY 03/05/19 12/04/20 Nitrofurantoin [Macrobid] 100 mg PEG DAILY 03/05/19 12/04/20 Diclofenac Sodium [Voltaren] 2 - 4 g TP QID PRN 05/28/20 12/04/20 Apixaban [Eliquis] 2.5 mg PEG BID 09/02/20 12/04/20 Clotrimazole 1% Cream [Lotrimin 1% 1 applic TP BID MDD X.14 DAYS THEN 09/02/20 12/04/20 Cream] PRN Potassium Chloride [K-Dur] 1 tab PO DAILY 09/02/20 12/04/20 Ondansetron Odt [Zofran Odt] 4 mg PO Q8H PRN 12/04/20 12/04/20 Oxybutynin Chloride [Ditropan Xl] 5 mg PO DAILY 12/04/20 12/04/20 - Allergies Allergies/Adverse Reactions: Allergies Allergy/AdvReac Type Severity Reaction Status Date / Time vancomycin AdvReac Mild injection Verified 09/02/20 16:48 site erythema Review of Systems - Constitutional Constitutional: reports: Fatigue, Weight stable (after radiation he had significant weight loss; weight maintained with tube feedings). denies: Fever - Eyes Eyes: reports: Vision loss (left eye) - Ears, Nose & Throat Ears, Nose & Throat: reports: Hearing loss (right ear after radiation), Other (ear fullness, see HPI). denies: Hearing aids - Cardiovascular Cardiovascular: denies: Palpitations, Edema - Respiratory Respiratory: reports: Cough (recent cough with vaping and no longer going to vape and switch to lozenges for marijanna). denies: Wheezing - Gastrointestinal Gastrointestinal: reports: Nausea (occasional nausea, last appx 6-8 weeks ago and has given promethazine 12.5mg tablet from rehab facility that was effectice--advised to dispose of medication and will prescribe order for zofran ODT PRN), Other (Enjoys coffee; uses PEG with tube feeding Jevity 1.5 for most of his caloric intake). denies: Abdominal pain, Constipation (intermittent use of metamucil the paient has daily bowel movements), Vomiting - Genitourinary Genitourinary: reports: Other (suprapubic catheter in place with leakage). denies: Dysuria, Hematuria - Musculoskeletal Musculoskeletal: reports: Limited range of motion (improved with use of trapezee), Joint pain (right knee with movement), Assistive devices, Transfer issues - Integumentary Integumentary: reports: Dryness, Pigment changes (BLE), Other (visible hardware to right ankle) - Neurological Neurological: reports: General weakness, Memory problems - Psychiatric Psychiatric: reports: Depression - Endocrine Endocrine: reports: Diabetes type 2 (diet controlled) - Hematologic/Lymphatic Hematologic/Lymph: reports: Recurrent infections (UTIs on suppressive therapy) - All Other Systems All Other Systems: reports: Reviewed and negative (ROS supplemented by Jaleesa and caregiver, Luci) Physical Exam - Vital Signs Temperature: 36.3 C Pulse Rate: 59 O2 Saturation: 98 (on RA) Blood Pressure: 108/56 (left arm) - Physical Exam General Appearance: positive: No acute distress, Alert, Other (chronically ill appearing and appears old than stated age) Eyes Bilateral: positive: No lid inflammation ENT: positive: No signs of dehydration, Other (+endentulous; Right ear canal with excess cerumen removed with lighted currette and otoscope--tolerated well and TM intact with noed scarring; Left ear cannal without excess cerumen and TM intact.) Neck: positive: Other (right parotidectomy with scar tissue) Cardiovascular: positive: Bradycardia, Systolic murmur Respiratory: positive: No respiratory distress, Breath sounds nml Abdomen: positive: Non-tender, Soft, Nml bowel sounds, Other Skin: positive: Other ( Venous stasis chagnes to BLE; pinprick site of exposed metal hardware on right lateral malleolus without discharge, TTP, or surroudning erythema) Extremities: positive: No pedal edema Neurologic/Psychiatric: positive: Oriented x3, Weakness (decreased range of motion, generalized with inversion of right foot and noted muscular atrophy), Flat affect, Other (right facial paralysis) Palliative Care - POLST Patient has POLST: No Pain: Comment (Pain with movement to right knee with movement or turning that is controlled with voltaren gel application before movement.) Constipation: No Performance Status: Has been bedbound for approximately 2.5 years. Receiving nutrition via PEG tube with intermittent oral intake if he has a desire for it. Able to swallow medications without difficulty. He is completely dependent for caregivers regarding his ADLs. He is incontinent of stool. He has a suprapubic catheter in place since 2009. Increase increased ability to turn and reposition in bed with the use of a trapeze bar. - Palliative Care Discussion: Now that the patient has been vaccinated for Covid19 the patient's spouse is looking to having a coordinated for the day of appointments later this summer for the patient for evaluation. It has been sometime since he had any surveillance scans regarding his history of stage IV parietal cancer and she is hoping to coordinate with the [facility] for a order to be placed and sent to [facility] as well as the patient's PCP and to herself for recordkeeping to then coordinate with seeing his PCP as well as orthopedics for evaluation of the exposed hardware from his right ankle surgery and repair approximately 40 years ago. Reviewed with the patient spouse signs and symptoms of infection/cellulitis to monitor for and verbalized understanding. The patient is very adamant that he wishes to continue to have marijuana as he finds this to be effective. The patient spouse voices concerns about using vapors and plans to transition to loss injures to reduce any potential exposure in the vapor product. The patient has intermittent leakage from his suprapubic catheter with likely bladder spasms. He has been on antispasmodic medication in the past and would benefit from reintroducing an antispasmodic For comfort and avoidance of increased changing of his suprapubic catheter. Both the patient and spouse are in agreement for trial of antispasmodic medication. Impression and Recommendations - Palliative Care Impression: This is a frail, 80-year-old man who has had stage IV parotid cancer status post surgical intervention and radiation, prostate cancer with suprapubic catheter and leakage, debility, access cerumen in the ears who would benefit from introduction of an antispasmodic. Excess cerumen was removed today and patient tolerated intervention well. The patient remains bedbound and has been unable to leave his home for a number of years. He is found he is able to participate more in his caregiving needs with the use of a trapeze bar. Palliative care to continue provide some support, care coordination, and anticipatory guidance. Recommendations/Counseling Done: 1. Metastatic parotid cancer. Status post radical neck dissection and radiation. Was being followed at the [facility]. Will request last office visit notes from oncology. Patient requires surveillance scans of his neck and patient's spouse to reach out to [facility] to request prescription for energy imaging to be performed at [facility] due to the patient's underlying debility it would be a difficult journey for him to be transported to [facility] for follow-up. 2. Protein calorie malnutrition. In the setting of history of metastatic parietal cancer and surgical intervention. Has a PEG tube for caloric intake. Recent reports of nausea and will prescribe Zofran 4 mg ODT to be used every 8 hours as needed for nausea. 3. Suprapubic catheter since 2009 in the setting of VOO and history of prostate cancer. Patient to transition to [facility] nursing for management and support. His having leakage around the stoma and exit site likely due to bladder spasms. Home health nursing to change catheter today. Would benefit from Ditropan XL 5 mg daily for reduction of bladder spasms. Reviewed with the patient's spouse and patient himself regarding introduction of an antispasmodic and anticholinergic side effects such as dry mouth with understanding verbalized and wished to proceed with pharmacologic intervention. 4. Right ankle hardware exposed. Patient has a history of right ankle surgery and repair approximately 40 years ago. Exposed hardware just breaking the skin with no evidence of cellulitis. Reviewed with the patient's caregiver and spouse signs and symptoms of infection for monitoring such as redness, discharge, warmth to touch and aware to contact health care provider if this were to occur. Patient has a referral placed for orthopedics for evaluation. 5. Excess cerumen. No wax cerumen noted to left ear canal. Excess cerumen noted to right ear canal and was removed with lighted curette and otoscope and tolerated well with tympanic membrane intact. Advised caregiver and spouse no longer need to administer Debrox otic drops. May consider periodic evaluation and removal of excess cerumen in the future. 6. Physical deconditioning and debility. Multifactorial as the patient has a history of diabetes and ultimate sequela I patient's metastatic parietal cancer and intervention. The use of the trapeze has been positive and effective. The patient's spouse wishes to contact ambulance for transport for patient's upcoming medical appointments. Provided contact for nonurgent ambulance transfer with phone number [phone] for follow-up and coordination. Consider once the patient has transition to [facility] if can be evaluated for a specialty wheelchair that may function as a Mae chair versus a tilt in space to increase the patient's independence. Total time spent 50 minutes with greater than 50% of the spent in counseling coordination of care with the patient, spouse, caregiver and home health nursing; removal of excess cerumen; examination of patient; review of symptom management and anticipatory guidance. Discussed with the patient's spouse disposal of promethazine and no longer using this as it has . Disclaimer: The chart note was formulated using voice recognition technology and unfortunately sound alike errors may occur.
== END 2020-12-04 12:11 | disposition home or self-care (01) ==
LOC: PC 12:10
PROVIDERS: ATTEND Nurse Practitioner Family
DX: Z51.5 Encounter for palliative care (principal); C07 Malignant neoplasm of parotid gland; C79.9 Secondary malignant neoplasm of unspecified site; E46 Unspecified protein-calorie malnutrition; T83.038A Leakage of other urinary catheter, initial encounter; T84.098A Other mechanical complication of other internal joint prosthesis, initial encounter; H61.22 Impacted cerumen, left ear; E11.9 Type 2 diabetes mellitus without complications; Z93.1 Gastrostomy status; Z74.01 Bed confinement status
CPT/HCPCS: 99349

== ENCOUNTER 2021-02-02 14:20 | Outpatient (CLI) | payer MEDICARE, MEDICAID ==
--- NOTE | 2021-02-02 15:45 | CONSULTATION NOTE ---
Palliative Care Follow Up - Referral Referring Provider: Dr. Juan Luis Cain Time of Visit: 5218-5732 Referral setting: Home Referral Reason: Right ankle hardware/Right dry eye/Coordination of Care - Information Sources Records reviewed: Previous records reviewed History/Review of Systems obtained from: Patient, Family (spouse,Jaleesa) Exam limitations: Clinical condition (+CIRCLE and STM impairment) - History of Present Illness Update Brief HPI Update: This is an 81 year old man who is seen and evaluated today in follow up due to exposed hardware to right ankle, dry eye, failure to thrive and debility with his , Jaleesa present. The patient has had exposed hardware to his right ankle for some time. He has a history of a fracture and repair to the right ankle that occurred approximately 38 years ago and was performed in [place], [place] after the patient broke his ankle. There has been no evidence of infection at the site. Home health nursing has provided a padded dressing with an insert placed over it. Unfortunately, to the patient's bedbound status his right ankle is inverted causing infiltration of the hardware. Patient's the end of December 2020 was reporting increased exposure of the hardware from baseline and EMS was contacted for evaluation as the patient is bedbound and has been unable to leave his home for approximately 2 years however, it was deemed not an emergency and the patient was not seen and evaluated. He does have a pending referral to [facility] orthopedics as long as transportation can be set up. To the site he now has a callus formation again, without any signs or symptoms of infection. The patient is followed by [facility] nursing for his suprapubic catheter. He does have a history of frequent UTIs and is on suppressive therapy with Macrobid. 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 Last evaluation by this [facility] in November 2020 there was increased leakage from the stoma of the suprapubic catheter and he was initiated on oxybutynin for potential bladder spasming. However, the patient's and patient himself have opted not to continue this therapy and he is no longer on it. They have not noticed any increased leakage or the patient noting any reports of bladder spasming. The patient has a history of stage IV parietal cancer however has not had any surveillance scans due to his significant deep condition state in his home setting. He has been followed at [facility]. The patient's has been in contact with radiation oncology at [facility] who are going no request coordination with the patient's PCP for obtainment of surveillance scans. However, the patient will need coordination of transport due to his bedbound state. The patient has not been up out of bed in the wheelchair for approximately 2 years. Prior to exposure of hardware to his right ankle he was working with home health PT and OT services and was sitting up on the edge of the bed several days a week for approximately half an hour at a time initially having increased dizziness but after that he built up tolerance and has had no syncopal episodes. However, this is not continued. The patient continually throughout the course of the visit was rubbing his right eye. No noted discharge. He does report intermittent blurred vision and attempts to clear by rubbing his eye. He denies any pain. Denies a foreign body sensation. He does have a weighted piece of goal to his right upper eyelid. However, he cannot completely close his right eyelids together. The patient's utilizes a patch overnight to his right eye to assist with closure. The patient is seen sitting up in bed in the common living room, no evidence of acute distress. He is chronically ill-appearing. Has a continuous tube feed running during the day and off at night. 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 Has had COVID vaccine. Social History - Living Situation Living arrangement: At home Living Situation: With spouse/s.o. Support System: Patient and have been together for 45 years. They were residing in [place] in a remote area where they had a [place]. Approximately 3 years ago they relocated to [place] where they were living on a boat. After the patient developed a diagnosis of cancer they made the transition to a trailer on [address]. The patient originally grew up in [place]. The couple have 1 son together, Johnathan. 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 The patient spouse fire the patient's previous caregiver and she is presently interviewing additional caregivers however, he has been managing independently but is looking forward to having assistance from a caregiver again in the near future. The patient enjoys drawing and cartoon but has not been interested in pursuing this in the last several weeks. Followed by [facility]. Medications/Allergies - Medications Home Medications: Ambulatory Orders Medication Instructions Recorded Confirmed Acetaminophen [Tylenol] 650 mg PEG Q4HR PRN #60 tablet 01/14/19 12/04/20 Enalapril [Vasotec] 5 mg PEG BID #60 01/14/19 12/04/20 Chlorthalidone 12.5 mg PEG DAILY 03/05/19 12/04/20 Nitrofurantoin [Macrobid] 100 mg PEG DAILY 03/05/19 12/04/20 Diclofenac Sodium [Voltaren] 2 - 4 g TP QID PRN 05/28/20 12/04/20 Apixaban [Eliquis] 2.5 mg PEG BID 09/02/20 12/04/20 Clotrimazole 1% Cream [Lotrimin 1% 1 applic TP BID PRN 09/02/20 12/04/20 Cream] Potassium Chloride [K-Dur] 1 tab PO DAILY 09/02/20 12/04/20 Ondansetron Odt [Zofran Odt] 4 mg PO Q8H PRN 12/04/20 12/04/20 Systane Overnight Gel 0.25 RIGHTEYE QPM 02/02/21 - Allergies Allergies/Adverse Reactions: Allergies Allergy/AdvReac Type Severity Reaction Status Date / Time vancomycin AdvReac Mild injection Verified 09/02/20 16:48 site erythema Review of Systems - Constitutional Constitutional: reports: Weight stable (after radiation he had significant weight loss; weight maintained with tube feedings; Left MAC 24cm today 1). denies: Fever - Eyes Eyes: reports: Blurred vision (right eye, see HPI), Vision loss (left eye). denies: Corrective lenses - Ears, Nose & Throat Ears, Nose & Throat: reports: Hearing loss (right ear after radiation). denies: Hearing aids - Cardiovascular Cardiovascular: denies: Chest pain, Edema - Respiratory Respiratory: denies: Wheezing - Gastrointestinal Gastrointestinal: reports: Other (Enjoys coffee; uses PEG with tube feeding Jevity 1.5 for most of his caloric intake during the day and is off during the night. Has been orally drinking water but not eating any snacks with the tube feedings recently). denies: Abdominal pain, Abdominal distention, Constipation (intermittent use of metamucil the paient has daily bowel movements), Nausea, Vomiting - Genitourinary Genitourinary: reports: Other (suprapubic catheter in place with leakage). denies: Hematuria - Musculoskeletal Musculoskeletal: reports: Limited range of motion (improved with use of trapezee), Assistive devices, Transfer issues - Integumentary Integumentary: reports: Dryness, Pigment changes (BLE), Other (callus formation due to visible hardware lateral right ankle. v) - Neurological Neurological: reports: General weakness, Memory problems - Psychiatric Psychiatric: reports: Depression - Endocrine Endocrine: reports: Diabetes type 2 (diet controlled) - Hematologic/Lymphatic Hematologic/Lymph: reports: Recurrent infections (UTIs on suppressive therapy) - All Other Systems All Other Systems: reports: Reviewed and negative (ROS supplemented by , Jaleesa.) Physical Exam - Vital Signs Temperature: 36.3 C Pulse Rate: 64 O2 Saturation: 98 (on RA) Blood Pressure: 124/80 (left arm) - Physical Exam General Appearance: positive: No acute distress, Alert, Other (chronically ill appearing and appears old than stated age) Eyes Bilateral: positive: PERRL, Other (right eyelids do not fully touch despite weight in right upper eyelid with exposure of conjunctiva) ENT: positive: No signs of dehydration, Other (+endentulous) Neck: positive: Other (right parotidectomy with scar tissue) Cardiovascular: positive: Regular rate & rhythm, Systolic murmur Respiratory: positive: No respiratory distress, Breath sounds nml Abdomen: positive: Non-tender, Soft, Nml bowel sounds, Other (+PEG; left suprapubic catheter without erythema surrounding stoma or urine) Skin: positive: Other ( Venous stasis chagnes to BLE; callus formation over exposed hardware 0.4cm on right lateralmalleolus without surrounding erythema and mildly tender to touch.) Extremities: positive: No pedal edema Neurologic/Psychiatric: positive: Oriented x3, Weakness (+ generalized with inversion of right foot and noted muscular atrophy), Flat affect, Other (right facial paralysis) Palliative Care - POLST Patient has POLST: No Pain: Comment (Pain with movementof rightknee that iscontrolled with voltaren gel application) Feelings of wellbeing/Perceived Quality of Life: Fair Sleep: Sleeps well Constipation: No (routine bowel movements are reported.) Performance Status: Patient has been bedbound for approximately 2.5 years. Receiving nutrition via PEG tube with intermittent oral intake if he has a desire to eat. Tube feed occurs during the day and is off at night. Able to swallow all medications without difficulty. He is completely dependent on caregivers for his ADLs. He is incontinent of stool. Has a suprapubic catheter in place since 2009. Has a trapeze bar that provides assistance for repositioning in bed. - Palliative Care Discussion: Patient was to have at least yearly surveillance scans due to his history of parietal cancer however, due to his bedbound state as well as the coronavirus pandemic it is has not been able to be achieved. The patient's has been coordinating with radiation oncology to assist with care coordination [place] [facility] which would be a taxing and difficult journey for the patient and his present physical state. Patient's expresses some concerns if there has been recurrence and potential metastatic disease. However when trying to explore this further she declined further evaluation and exploration wanting to have definitive evidence and not provide speculation as at the present time the patient is comfortable and without evidence of disease. In regards to the history of exposed hardware to the patient's right ankle both the patient and spouse wish to have the patient evaluated by an orthopedist as the hardware has been present for 38 years. If surgery was required to remove the hardware this is something that both the patient and spouse are open to having be performed. Palliative care will assist with care coordination for transport. Impression and Recommendations - Palliative Care Impression: This is a frail 81-year-old man who was had stage IV parietal cancer status post surgical intervention and radiation, prostate cancer with suprapubic catheter, debility, and exposed metal hardware to right ankle. Patient is bedbound and has been unable to leave his home for a number of years nor even sit in a wheelchair. Both the patient and his spouse wish to continue with interventions and require assistance with transport outside of the home for further evaluation. Palliative care to continue provide support, care coordination and anticipatory guidance. Recommendations/Counseling Done: 1.Dry eye, right eye. Patient unable to fully Roni close his right eyelids together with exposure of conjunctiva in the setting of a weighted lid. Re commend utilization of Systane nighttime gel apply one fourth thin ribbon to the right lower eyelid at bedtime to provide moisturization overnight and decrease dry pockets that is leading to impairment of the patient's vision. [facility]. 2. Right ankle hardware. Patient has a history of right ankle surgery and repair approximately 38 years ago. Has a callus formation over the previously exposed hardware with no evidence of cellulitis. Would continue localized padding for protection given the patient's inverted right ankle. PCP has previously provided referral to would be orthopedics for evaluation and treatment. Request that the patient's house contact orthopedics and schedule an appointment at least 2 weeks out and this [employer] will work with care coordination with [facility] regarding approval and obtainment of ambulance transport given the patient would require a stretcher for evaluation. 3. Suprapubic catheter since 2009 in the setting of history of prostate cancer. Being followed by [facility] for management of suprapubic catheter. Patient and spouse have declined to continue Ditropan XL for potential bladder spasms. There has been no increased leakage or report of bladder spasms by either republican. 4. Metastatic parietal cancer. Status post radical neck dissection and radiation. Was being followed by [facility]. has been in contact with radiation oncology to coordinate with PCP in regards to surveillance scans at [facility] due to the patient's underlying debility would be a taxing difficult journey for him to be transported to [facility] for follow-up. Total time spent 45 minutes with greater than 50% of this spent in counseling and coordination of care with patient and spouse, review of pain and symptom management and anticipatory guidance. Disclaimer: The chart note was formulated using voice recognition technology and unfortunately sound alike errors may occur.
== END 2021-02-02 14:21 | disposition home or self-care (01) ==
LOC: PC 14:20
PROVIDERS: ATTEND Nurse Practitioner Family
DX: Z51.5 Encounter for palliative care (principal); H02.59 Other disorders affecting eyelid function; T84.196A Other mechanical complication of internal fixation device of bone of right lower leg, initial encounter; Z93.50 Unspecified cystostomy status; C71.3 Malignant neoplasm of parietal lobe; C79.9 Secondary malignant neoplasm of unspecified site; Z74.01 Bed confinement status; Z93.1 Gastrostomy status
CPT/HCPCS: 99349

== ENCOUNTER 2021-05-21 15:35 | Outpatient (CLI) | payer MEDICARE, MEDICAID ==
--- NOTE | 2021-05-21 19:15 | CONSULTATION NOTE ---
Palliative Care Follow Up - Referral Referring Provider: Dr. Juan Luis Cain Time of Visit: [id number] Referral setting: Home Referral Reason: Parotid Ca/Exposed hardware/Debility - Information Sources Records reviewed: Previous records reviewed History/Review of Systems obtained from: Patient, Family (spouse, Jaleesa) Exam limitations: Clinical condition (+SHOSHONE-PAIUTE and STM impairment) - History of Present Illness Update Brief HPI Update: This is an 81-year-old man who was seen and evaluated today in his home in follow-up due to debility, dry right eye, parotid cancer history, suprapubic catheter and flu vaccine administration with his , Jaleesa present. Provider wore N95 mask. Last evaluation the patient was reporting increased dry eyes due to exposure of conjunctiva and inability to fully close his right eyelid. Has been using [id number] nighttime gel in the evenings and this is provided adequate moisturization overnight. Patient denies any grittiness to his eyes. Patient has a history of ankle fracture and repair approximately 38 years ago performed in [place], [place] after he broke his ankle. He continues to have exposure of hardware to his right ankle which has been present for some time. He was scheduled to have an evaluation with orthopedics [place] summer 2020 with ambulance transfer due to the patient's debility and bedbound state however, the patient's canceled this due to increasing Covid19 rates for fear of she and the patient amado this. She presently does not want the patient to leave the home until they have both been vaccinated with the Covid19 booster and are presently on a waiting list for [facility]. The patient and spouse report no redness to the site of exposed hardware nor any discharge. The patient continues to be followed by [facility] for his suprapubic catheter. He has a history of frequent UTIs and is on suppressive therapy with Macrobid. 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 Previously trialed on oxybutynin for bladder spasms due to increased leakage from stoma however, this was discontinued by the patient's spouse no increase of adverse symptoms. The patient has a history of stage IV parietal cancer however has not had any surveillance scans due to his significant deconditioned state in his home setting. He has been followed by [facility]. He was pending scans after coordination for transport due to his bedbound state however, this was canceled given the patient's spouse's fears regarding Covid19 exposure and will not create follow-up until the patient has been vaccinated with booster. 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 Has had COVID vaccine. Social History - Living Situation Living arrangement: At home Living Situation: With spouse/s.o. Support System: Patient and have been together for 45 years. They were residing in [place] on [place] acres [place] area where they were homesteading. Approximately 4 years ago they then relocated to [place] where they lived on a boat. After the patient had a diagnosis of cancer they transitioned to a trailer on [facility]. The patient originally grew up in [place]. The patient has a degree in history from [employer]. The couple have 1 son together, Johnathan and he presently resides in a [facility]. Reporting present estrangement from son. Patient has [facility] hours approved but spouse has been providing care indpendently but is looking to at restarting a caregiver for some respite. Followed by [facility]. Medications/Allergies - Medications Home Medications: Ambulatory Orders Medication Instructions Recorded Confirmed Acetaminophen [Tylenol] 650 mg PEG Q4HR PRN #60 tablet 01/14/19 12/04/20 Enalapril [Vasotec] 5 mg PEG BID #60 01/14/19 12/04/20 Chlorthalidone 12.5 mg PEG DAILY 03/05/19 12/04/20 Nitrofurantoin [Macrobid] 100 mg PEG DAILY 03/05/19 12/04/20 Diclofenac Sodium [Voltaren] 2 - 4 g TP QID PRN 05/28/20 12/04/20 Apixaban [Eliquis] 2.5 mg PEG BID 09/02/20 12/04/20 Clotrimazole 1% Cream [Lotrimin 1% 1 applic TP BID PRN 09/02/20 12/04/20 Cream] Potassium Chloride [K-Dur] 1 tab PO DAILY 09/02/20 12/04/20 Ondansetron Odt [Zofran Odt] 4 mg PO Q8H PRN 12/04/20 12/04/20 Systane Overnight Gel 0.25 RIGHTEYE QPM 02/02/21 - Allergies Allergies/Adverse Reactions: Allergies Allergy/AdvReac Type Severity Reaction Status Date / Time vancomycin AdvReac Mild injection Verified 09/02/20 16:48 site erythema Review of Systems - Constitutional Constitutional: reports: Weight stable (weight maintained with tube feedings; Left MAC 24cm 02/02/2021). denies: Fever - Eyes Eyes: reports: Vision loss (left eye). denies: Irritation, Corrective lenses - Ears, Nose & Throat Ears, Nose & Throat: reports: Hearing loss (right ear after radiation-- reports to be obtaining hearing aids). denies: Hearing aids - Cardiovascular Cardiovascular: denies: Palpitations, Chest pain, Edema - Respiratory Respiratory: denies: Cough - Gastrointestinal Gastrointestinal: reports: Diarrhea (last evening), Other (Enjoys coffee; uses PEG with tube feeding Jevity 1.5 for most of his caloric intake during the day and is off during the night. Has been orally drinking water and recently had some bites of yogurt). denies: Abdominal pain, Constipation (+daily bowel movements), Nausea, Vomiting - Genitourinary Genitourinary: reports: Other (suprapubic catheter in place since 2009). denies: Hematuria - Musculoskeletal Musculoskeletal: reports: Stiffness, Limited range of motion, Assistive devices, Transfer issues (bedbound and nonambulatory) - Integumentary Integumentary: reports: Dryness, Pigment changes (BLE), Other (callus formation due to visible hardware lateral right ankle.) - Neurological Neurological: reports: General weakness, Memory problems - Psychiatric Psychiatric: reports: Depression - Endocrine Endocrine: reports: Diabetes type 2 (diet controlled) - Hematologic/Lymphatic Hematologic/Lymph: reports: Recurrent infections (UTIs on suppressive therapy) - All Other Systems All Other Systems: reports: Reviewed and negative (ROS supplemented by , Jaleesa.) Physical Exam - Vital Signs Temperature: 36.5 C Pulse Rate: 60 O2 Saturation: 98 (on RA) Blood Pressure: 138/66 (left wrist) - Physical Exam General Appearance: positive: No acute distress, Alert, Other (chronically ill appearing and appears old than stated age resting in hospital bed) Eyes Bilateral: positive: PERRL, Other (+ectropion right lower eyelid; +cloudy lens to left eye) ENT: positive: No signs of dehydration, Other (+endentulous) Neck: positive: Other (right parotidectomy with scar tissue) Cardiovascular: positive: Regular rate & rhythm, Systolic murmur Respiratory: positive: No respiratory distress, Breath sounds nml. negative: Rales Abdomen: positive: Non-tender, Soft, Nml bowel sounds, Other (+PEG; left suprapubic catheter in place with yellow urine drainage) Skin: positive: Other ( Venous stasis chagnes to BLE; callus formation over sharp exposed hardware size of pinpoint on right latera lmalleolus without surrounding erythema and non-ttp) Extremities: positive: No pedal edema, Other (+Right foot inverted with internal rotation noted of right hip) Neurologic/Psychiatric: positive: Oriented x3, Weakness (+ generalized and noted muscular atrophy), Flat affect, Other (right facial paralysis) Palliative Care - POLST Patient has POLST: No Pain: No pain Performance Status: Patient has been bedbound for approximately 3 years. Receiving nutrition via PEG tube with intermittent oral intake if he has a desire to eat tear. Tube feed occurs during the day and is off at night. Able to swallow all medications without difficulty. He is dependent on his for all ADLs. Incontinent of stool. Has had a suprapubic catheter in place since 2009. Has a trapeze bar that provides assistance for repositioning in bed. - Palliative Care Discussion: Patient and spouse are fearful regarding contracture of Covid19 and therefore, I have further postponed evaluation of the patient's exposed hardware to his right ankle with an orthopedist as well as surveillance scans due to his history of parietal cancer. However, he has had not had any surveillance scans since he became bedbound approximately 3 years ago. The patient's has previously been in contact with radiation oncology to assist with care coordination with the patient's PCP for obtainment of imaging on [facility] versus going down to [place] which will be a taxing and difficult journey for the patient's and his present deconditioned, bedbound state. Patient and spouse continue to desire aggressive interventions however, are hesitant to leave the home given fear of amado Covid19. They report that again, their desire and ability to leave the home for further evaluation for the patient is delayed until he has had his Covid19 booster. Palliative care to continue to work on building rapport given the patient's multiple comorbidities and underlying complexity. 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 Patient is bedbound and has been unable to leave his home for a number of years revisit in a wheelchair. Patient and his spouse wish to continue with interventions and requires assistance with transport outside of the home for further evaluation however, this is on hold due to increasing rise of Covid19 cases further fear of obtainment of the illness. Palliative care to continue to provide support, care coordination, anticipatory guidance and tease out goals of care with building rapport. Recommendations/Counseling Done: 1. Metastatic parotid cancer. Status post radical neck dissection and radiation. Was being followed at the [facility]. has been in contact with radiation oncology to coordinate with PCP in regards to surveillance scans at [facility] due to the patient's underlying debility would be a taxing difficult journey for him to be transported to [place] for follow-up. HOwever, follow-up scans on hold at present until patient has had COVID-19 booster per patient's and spouse's desire to be vaccinated to decreased exposure risk. 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 Patient unable to fully close his right eyelids even with weighted lid. Improved. Continue utilization of Systane nighttime gel apply one fourth thin ribbon to the right lower eyelid at bedtime to provide moisturization overnight and decrease dry pockets that is leading to impairment of the patient's vision. 3. Protein calorie malnutrition. In the setting of history of metastatic parietal cancer and surgical intervention. Has a PEG tube for caloric intake. Obtain MAC at next visit. 4. Suprapubic catheter since 2009 in the setting of VOO and history of prostate cancer. Followed by [facility]. Spouse discontinued Ditropan XL that was prescibed for bladder spasms. 5. Right ankle hardware. Patient has a history of right ankle surgery and repair approximately 40 years ago. Has a callus formation over the exposed hardware with no evidence of cellulitis. Patient and spouse continue to express desire to evaluation and coordination for ambulance transfer to orthopedics on a stretcher once he has been vaccinated with COVID-19 booster. Reviewed with patient's spouse s/s of infection such as redness, discharge, warmth to touch and to contact PCP if occurs 6. Flu vaccine. Adminstered Fluzone High Dose [employer] Lot Number [id number] January 21, 2022 to Left Deltoid after consent reviewed and signed by patient's spouse/DPOA. Provided handout on Influenza Vaccine from CDC. REviewed common side effects such as soreness, redness and/or swelling from shot at injection site and when to contact with concerns to PCP. Consider lab obtainment prior to next home visit. CC: [facility] CPT 14023 Plan of care reviewed with patient and spouse at length with questions answered and addressed. No medication adjustments at this time. Aware to contact palliative care is needs arise prior to next home visit. Disclaimer: The chart note was formulated using voice recognition technology and unfortunately sound alike errors may occur.
== END 2021-05-21 15:36 | disposition home or self-care (01) ==
LOC: PC 15:35
PROVIDERS: ATTEND Nurse Practitioner Family
DX: Z51.5 Encounter for palliative care (principal); H02.102 Unspecified ectropion of right lower eyelid; G51.0 Bell's palsy; M62.50 Muscle wasting and atrophy, not elsewhere classified, unspecified site; Z74.01 Bed confinement status; Z93.1 Gastrostomy status; R15.9 Full incontinence of feces; T84.398A Other mechanical complication of other bone devices, implants and grafts, initial encounter; Z93.6 Other artificial openings of urinary tract status; Y79.1 Therapeutic (nonsurgical) and rehabilitative orthopedic devices associated with adverse incidents; E46 Unspecified protein-calorie malnutrition; Z23 Encounter for immunization; Z85.46 Personal history of malignant neoplasm of prostate; Z85.89 Personal history of malignant neoplasm of other organs and systems; Z92.3 Personal history of irradiation; N39.0 Urinary tract infection, site not specified; Z79.2 Long term (current) use of antibiotics; N32.89 Other specified disorders of bladder; I48.91 Unspecified atrial fibrillation; Z79.01 Long term (current) use of anticoagulants; H91.90 Unspecified hearing loss, unspecified ear; H54.7 Unspecified visual loss; E11.9 Type 2 diabetes mellitus without complications
CPT/HCPCS: 99349

== ENCOUNTER 2021-09-16 11:15 | Outpatient (CLI) | payer MEDICARE, MEDICAID ==
--- NOTE | 2021-09-16 14:41 | CONSULTATION NOTE ---
Palliative Care Follow Up - Referral Referring Provider: Dr. Juan Luis Cain Time of Visit: Intiated 1115 Referral setting: Home Referral Reason: Parotid Ca/Exposed hardware/Debility/HTN - Information Sources Records reviewed: Previous records reviewed History/Review of Systems obtained from: Patient, Family (spouse, Jaleesa) Exam limitations: Clinical condition (+SHINNECOCK and STM impairment) - History of Present Illness Update Brief HPI Update: This is an 81-year-old man who was seen and evaluated in follow-up in his home due to debility, dry right eye, parietal cancer history, and exposed hardware to right ankle with his , Jaleesa present. Provider wore N95 mask. Patient has a history of ankle fracture and repair approximately 38 years ago performed in [place], [place] after he broke his ankle. He has a callused area over the exposed hardware on his right ankle which has been present for some time. He was scheduled to have an evaluation with orthopedics in the summer 2020 with ambulance transfer but due to the patient and 's concern due to increasing Covid19 rates they canceled the appointment. The patient also has a history of parietal cancer and has not had follow-up CT scans in at least 3 years. He was being followed by [facility]. The patient and spouse report they recently met via telemedicine with the patient's PCP and the plan is for the patient to have imaging and scans done at the hospital without admission when things quiet down with Covid hopefully, in early summer 2021 per the report. The patient continues to be followed by [facility] for suprapubic catheter. He has a history of frequent UTIs and is on suppressive therapy with Macrobid. 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 The patient has a PEG tube and continues to receive the bulk of his nutrition via tube feedings. Spouse is hoping to have the PEG tube changed and the summer 2021 when he goes in for additional diagnostics if Covid-19 "settles down." Patient continues to have discomfort to his right knee with turning and repositioning. However, the patient's spouse will utilize Voltaren gel prior to repositioning and this provides relief. 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 +COVID vaccine. +Vapes with Marijuana Social History - Living Situation Living arrangement: At home Living Situation: With spouse/s.o. Support System: nt and have been together for 45 years. They were residing in [place] on [place] acres [place] area where they were homesteading. Approximately 4 years ago they then relocated to [place] where they lived on a boat. After the patient had a diagnosis of cancer they transitioned to a trailer on [facility]. The patient originally grew up in [place]. The patient has a degree in history from [employer]. The couple have 1 son together, Johnathan and he presently resides in a [facility]. +Cat in home. Spouse and patient enjoy sharing coffee in the morning over the first hour they get up. Patient has [employer] hours approved but spouse has been providing care independently for appx 7 months but is looking to at restarting a caregiver for some respite. Followed by [facility]. Medications/Allergies - Medications Home Medications: Ambulatory Orders Medication Instructions Recorded Confirmed Acetaminophen [Tylenol] 650 mg PEG Q4HR PRN #60 tablet 01/14/19 12/04/20 Enalapril [Vasotec] 5 mg PEG BID #60 01/14/19 12/04/20 Chlorthalidone 12.5 mg PEG DAILY 03/05/19 12/04/20 Nitrofurantoin [Macrobid] 100 mg PEG DAILY 03/05/19 12/04/20 Diclofenac Sodium [Voltaren] 2 - 4 g TP QID PRN 05/28/20 12/04/20 Apixaban [Eliquis] 2.5 mg PEG BID 09/02/20 12/04/20 Clotrimazole 1% Cream [Lotrimin 1% 1 applic TP BID PRN 09/02/20 12/04/20 Cream] Ondansetron Odt [Zofran Odt] 4 mg PO Q8H PRN 12/04/20 12/04/20 Systane Overnight Gel 0.25 RIGHTEYE QPM 02/02/21 Potassium Chloride [Klor-Con] 1 packet PEG DAILY 09/16/21 09/16/21 - Allergies Allergies/Adverse Reactions: Allergies Allergy/AdvReac Type Severity Reaction Status Date / Time vancomycin AdvReac Mild injection Verified 09/02/20 16:48 site erythema Review of Systems - Constitutional Constitutional: reports: Weight stable (weight maintained with tube feedings; Left MAC 24cm 02/02/2021). denies: Fatigue, Fever - Eyes Eyes: reports: Vision loss. denies: Irritation, Corrective lenses - Ears, Nose & Throat Ears, Nose & Throat: reports: Hearing loss (right ear after radiation), Nasal congestion (clear, first thing in the morning). denies: Hearing aids - Cardiovascular Cardiovascular: denies: Chest pain, Edema - Respiratory Respiratory: denies: Cough - Gastrointestinal Gastrointestinal: reports: Other (Enjoys coffee; uses PEG with tube feeding Jevity 1.5 for most of his caloric intake during the day and is off during the night.). denies: Abdominal pain, Constipation (+daily bowel movements), Nausea, Vomiting - Genitourinary Genitourinary: reports: Other (suprapubic catheter in place since 2009). denies: Hematuria - Musculoskeletal Musculoskeletal: reports: Stiffness, Limited range of motion, Assistive devices, Transfer issues (bedbound and nonambulatory) - Integumentary Integumentary: reports: Dryness, Pigment changes (BLE), Other (callus formation due to visible hardware lateral right ankle.) - Neurological Neurological: reports: General weakness, Memory problems - Psychiatric Psychiatric: reports: Depression - Endocrine Endocrine: reports: Diabetes type 2 (diet controlled) - Hematologic/Lymphatic Hematologic/Lymph: reports: Recurrent infections (UTIs on suppressive therapy) - All Other Systems All Other Systems: reports: Reviewed and negative (ROS supplemented by , Jaleesa.) Physical Exam - Vital Signs Temperature: 36.0 C Pulse Rate: 50 O2 Saturation: 96 (on RA) Blood Pressure: 121/73 (left wrist) - Physical Exam General Appearance: positive: No acute distress, Alert, Other (chronically ill appearing and appears old than stated age resting in hospital bed) Eyes Bilateral: positive: PERRL, Conjunctivae nml, Other (+ectropion right lower eyelid; +cloudy lens to left eye) ENT: positive: No signs of dehydration, Other (+endentulous; No visible wax to either ear canal) Neck: positive: Other (Right parotidectomy with scar tissue) Cardiovascular: positive: Bradycardia, Systolic murmur, Other (Paced) Respiratory: positive: No respiratory distress, Breath sounds nml Abdomen: positive: Non-tender, Soft, Nml bowel sounds, Other (+PEG; left suprapubic catheter in place with yellow urine drainage) Skin: positive: Other ( Venous stasis chagnes to BLE; callus formation over sharp exposed hardware size of pinpoint on right latera lmalleolus without surrounding erythema and non-ttp; Dry, flaky skin to BLE and thickened toenails) Extremities: positive: No pedal edema, Other (+Right foot inverted with internal rotation noted of right hip) Neurologic/Psychiatric: positive: Oriented x3, Weakness (+ generalized and noted muscular atrophy), Flat affect, Other (right facial paralysis) Palliative Care - POLST Patient has POLST: No Pain: Comment (Pain with movement of right knee with repositioning controlled with tylenol--patient and spouse wish to avoid opioid therapy.) - Palliative Care Discussion: Patient and spouse continue to remain fearful regarding contracture of Covid19 and therefore, have postponed multiple evaluations for follow-up such as the patient CT scans related to his parietal cancer as well as evaluation of the exposed hardware to his right ankle with orthopedics. They are optimistic that come early summer 2021 the patient will be able to have all of these diagnostics performed that have been put on hold for the last 2 years due to the pandemic. The patient and spouse continue to remain quite isolated within their home. They continue to be supported by home health nursing. However, the patient spouse has been doing the primary caregiving for approximately 7 months and she is beginning to experience caregiver fatigue. Introduced the role of of palliative care volunteer program to provide some respite and this is something that the patient's spouse as well as the patient is open to. The patient spouse is also looking at reengaging with the patient [employer] therapeutic case manager to obtain caregiving support again in the near future. 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 He is unable to leave his home for a number of years. Diagnostics for follow-up remain on hold at the present time due to Covid19 pandemic but patient and spouse which to reevaluate diagnostics and imaging when things are stable hop efully, in early summer 2020. Given the patient's spouse is expressing some caregiver fatigue and burnout will request palliative care volunteer to provide some additional support. Palliative care will continue to build rapport, provide care coordination, anticipatory guidance and tease out goals of care moving forward. Recommendations/Counseling Done: 1. Caregiver burden. Patient spouse presents with a caregiver burden as she is the sole caregiver for the patient. Patient has [employer] hours however, this has not been utilized in some time due to prior experience with last caregiver. To request volunteer to come to the home from palliative care volunteer program to provide respite to the patient's spouse who is most appreciative and this is welcomed by both parties. 2. Protein calorie malnutrition in the setting of history of metastatic parietal cancer and surgical intervention. Has a PEG G-tube for caloric intake. No noted weight loss reported by patient and spouse. Obtain MAC at next visit. 3. 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 Patient is unable to fully close his right eyelids even with a weighted livid. Continue to use refresh p.m. gel nightly for relief. 4. Right ankle hardware. Patient has a history of right ankle surgery and repair approximately 40 years ago. Has a callus formation over the exposed hardware with no evidence of cellulitis. Continues to be stable. Patient and spouse continue to express desire to have evaluation and will coordinate for orthopedics evaluation in the future when Covid19 pandemic is more stable per their request. Continue to monitor for signs and symptoms of infection. 5. Bedbound status. Has been bedbound for several years. Has trapeze in place to assist with repositioning. Continue to be followed by home health nursing for support. 6. Stage IV parietal cancer. Patient is status post parietal ectomy/mastoidectomy with right neck dissection and radiation. No reports of recurrence. Patient has not been able to have follow-up with surveillance scans due to fear regarding amado Covid19. Plan to have PCP coordinate with [facility] for imaging ideally in the summer 2021 when things hopefully have quieted down with Covid19 per the patient and spouse's request. CC: [facility] CPT 21378 Plan of care reviewed with patient and spouse at length questions answered and addressed. Will obtain telemedicine visit from PCP earlier this month for review. Disclaimer: The chart note was formulated using voice recognition technology and unfortunately sound alike errors may occur.
== END 2021-09-16 11:16 | disposition home or self-care (01) ==
LOC: PC 11:15
PROVIDERS: ATTEND Nurse Practitioner Family
DX: Z51.5 Encounter for palliative care (principal); E46 Unspecified protein-calorie malnutrition; Z93.1 Gastrostomy status; H02.102 Unspecified ectropion of right lower eyelid; T85.698A Other mechanical complication of other specified internal prosthetic devices, implants and grafts, initial encounter; Z74.01 Bed confinement status; Z85.841 Personal history of malignant neoplasm of brain
CPT/HCPCS: 99349

== ENCOUNTER 2021-09-17 08:00 | Outpatient (CLI) | payer MEDICARE, MEDICAID ==
[2021-09-17 18:50] LABS: BASOPHILS % (AUTO) 0.4 %; EOSINOPHILS # (AUTO) 0.1 10^3/uL (0.0-0.7); EOSINOPHILS % (AUTO) 0.6 %; HCT - HEMATOCRIT 42.2 % (42.0-52.0); HGB - HEMOGLOBIN 13.2 g/dL (14.0-18.0); LYMPHOCYTES # (AUTO) 0.9 10^3/uL (1.5-3.5); LYMPHOCYTES % (AUTO) 9.6 %; MEAN CORPUSCULAR HEMOGLOBIN 28.8 pg (27.0-31.0); MEAN CORPUSCULAR HGB CONC 31.3 g/dL (32.0-36.0); MEAN CORPUSCULAR VOLUME 91.9 fL (80.0-94.0); MEAN PLATELET VOLUME 10.6 fL (7.4-11.4); MONOCYTES # (AUTO) 0.5 10^3/uL (0.0-1.0); MONOCYTES % (AUTO) 5.6 %; NEUTROPHILS # (AUTO) 7.8 10^3/uL (1.5-6.6); NEUTROPHILS % (AUTO) 83.5 %; PLT - PLATELET COUNT 279 10^3/uL (130-450); RED BLOOD COUNT 4.59 10^6/uL (4.70-6.10); WHITE BLOOD COUNT 9.4 x10^3/uL (4.8-10.8)
[2021-09-17 19:11] LABS: ALBUMIN 3.4 g/dL (3.2-5.5); ALBUMIN/GLOBULIN RATIO 0.9 (1.0-2.2); ALKALINE PHOSPHATASE 61 IU/L (42-121); ALT ALANINE AMINOTRANSFERASE 14 IU/L (10-60); AST ASPARTATE AMINOTRANSFERASE 17 IU/L (10-42); BILIRUBIN,TOTAL 0.7 mg/dL (0.2-1.0); BUN - BLOOD UREA NITROGEN 23 mg/dL (6-20); CALCIUM 9.3 mg/dL (8.5-10.3); CARBON DIOXIDE - CO2 33 mmol/L (21-32); CHLORIDE 86 mmol/L (101-111); CHOLESTEROL 179 mg/dL; CREATININE 0.6 mg/dL (0.6-1.2); GFR - MDRD 130 (>89); GLUCOSE 150 mg/dL (70-100); HDL CHOLESTEROL 45 mg/dL; LDL CHOLESTEROL,CALCULATED 117 mg/dL; LDL/HDL RATIO 2.6 (<3.6); POTASSIUM 3.3 mmol/L (3.5-5.0); SODIUM 132 mmol/L (135-145); TRIGLYCERIDES 85 mg/dL; VLDL CHOLESTEROL 17 mg/dL
[2021-09-17 19:13] LABS: T4 (THYROXINE) 10.12 ug/dL (6.09-12.23)
[2021-09-17 19:17] LABS: THYROID STIMULATING HORMONE 1.35 uIU/mL (0.34-5.60)
[2021-09-17 19:47] LABS: ESTIMATED AVERAGE GLUCOSE 108 mg/dL (70-100); HEMOGLOBIN A1c% 5.4 % (4.27-6.07)
== END 2021-09-17 23:59 ==
LOC: LAB.R 08:00
PROVIDERS: ATTEND Internal Medicine
DX: C07 Malignant neoplasm of parotid gland (principal); E11.9 Type 2 diabetes mellitus without complications; I48.0 Paroxysmal atrial fibrillation; E78.5 Hyperlipidemia, unspecified
CPT/HCPCS: 80053; 80061; 83036; 83721; 84436; 84443; 85025

== ENCOUNTER 2022-06-14 08:00 | Outpatient (CLI) | payer MEDICARE, MEDICAID ==
[2022-06-14 17:53] LABS: BILIRUBIN,URINE NEGATIVE (NEGATIVE); GLUCOSE, URINE (UA) NEGATIVE (NEGATIVE); KETONES,URINE (UA) NEGATIVE (NEGATIVE); LEUKOCYTE ESTERASE, URINE LARGE (NEGATIVE); NITRITE,URINE POSITIVE (NEGATIVE); OCCULT BLOOD,URINE LARGE (NEGATIVE); PROTEIN,URINE 30 mg/dL (NEGATIVE); UROBILINOGEN,URINE 0.2 (NORMAL) E.U./dL (NORMAL)
[2022-06-14 17:54] LABS: CLARITY,URINE CLOUDY (CLEAR)
[2022-06-14 18:18] LABS: WBC,URINE >25 /HPF (0-3)
[2022-06-14 18:19] LABS: BACTERIA,URINE Moderate /HPF (None Seen); SQUAMOUS EPITHELIAL CELL,UR RARE Squamous (<= Few)
== END 2022-06-14 23:59 | disposition home or self-care (01) ==
LOC: LAB.R 08:00
PROVIDERS: ATTEND Internal Medicine
DX: N39.0 Urinary tract infection, site not specified (principal)
CPT/HCPCS: 81001; 81003; 87086; 87181

== ENCOUNTER 2022-08-17 10:55 | Outpatient (CLI) | payer MEDICARE, MEDICAID | END 2022-08-17 10:56 | disposition critical access hospital (66) | LOC: EMS 10:55 | DX: K94.23 Gastrostomy malfunction (principal); L89.109 Pressure ulcer of unspecified part of back, unspecified stage | CPT/HCPCS: A0425; A0429 ==

== ENCOUNTER 2022-08-17 11:15 | Emergency (ER) | payer MEDICARE, MEDICAID ==
--- NOTE | 2022-08-17 12:35 | ED Physician Documentation ---
History of Present Illness - Stated complaint Stated Complaint: FEEDING TUBE/WOUND - Chief complaint Chief Complaint: Wound - Additonal information Additional information: History is provided by patient's Jaleesa. This 82-year-old male is brought to the emergency department via EMS for evaluation of a chronically leaking G-tube as well as wounds on his posterior coccyx region. Caregiver and historian Jaleesa reports that for the last 5 months she has found that the patient's G-tube leaks consistently while he is being fed. She states that it is gastric contents and not his tube feeding. She is also concerned because he has an area of extensive dermatitis and erythema on his posterior lower back and thighs with now the development of some sacral and coccyx ulcers. Caregiver is frustrated. She reports that she gets very little home health care for her . 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 He does have a PEG tube in place. He also has a suprapubic [place] in place. She reports that b ecause he is bedbound she has been unable to have him follow-up with either his primary care providers or [facility]. She is having difficulty keeping up with his care needs. Patient has previously been seen by palliative care but patient's Jaleesa reports to this provider today that Lew does not have a POLST and that he is a full code "do everything we possibly can to sustain his life and keep him living." On exam we see very elderly chronically debilitated and chronically ill- appearing gentleman. His G-tube has a fair area of dermatitis surrounding it and there is some leakage of gastric contents seen on the dressing. He also has a suprapubic catheter that is reportedly being changed once a week per home health. It is draining yellow cloudy sediment. Review of Systems Unable to obtain: Other (Per caregiver Jaleesa) Constitutional: denies: Fever, Chills Ears: reports: Reviewed and negative Cardiac: denies: Chest pain / pressure GI: reports: Other (G-tube leaking) Skin: reports: Other (Coccyx ulcers) Musculoskeletal: reports: Back pain PD PAST MEDICAL HISTORY - Past Medical History Cardiovascular: Hypertension, High cholesterol, Atrial fibrillation Respiratory: COPD, Pneumonia, Sleep apnea Neuro: Dementia, Peripheral neuropathy Endocrine/Autoimmune: Type 2 diabetes (diet controlled after weight loss) GI: GERD, Other (PEG tube feeding) : Indwelling catheter HEENT: Chronic vision loss, Glaucoma, Chronic sinusitis, Chronic hearing loss Psych: Depression, Anxiety Musculoskeletal: Osteoarthritis, Osteoporosis, Other (right knee injury) Derm: Other (LE wounds) - Past Surgical History Past Surgical History: Yes Ortho: Hip replacement Cardiovascular: Pacemaker, AAA HEENT: Cataracts, Detached retina repair Derm: Skin cancer surgery - Present Medications Home Medications: Ambulatory Orders Medication Instructions Recorded Confirmed Acetaminophen [Tylenol] 650 mg PEG Q4HR PRN #60 tablet 01/14/19 12/04/20 Enalapril [Vasotec] 5 mg PEG BID #60 01/14/19 12/04/20 Chlorthalidone 12.5 mg PEG DAILY 03/05/19 12/04/20 Nitrofurantoin [Macrobid] 100 mg PEG DAILY 03/05/19 12/04/20 Diclofenac Sodium [Voltaren] 2 - 4 g TP QID PRN 05/28/20 12/04/20 Apixaban [Eliquis] 2.5 mg PEG BID 09/02/20 12/04/20 Clotrimazole 1% Cream [Lotrimin 1% 1 applic TP BID PRN 09/02/20 12/04/20 Cream] Ondansetron Odt [Zofran Odt] 4 mg PO Q8H PRN 12/04/20 12/04/20 Systane Overnight Gel 0.25 RIGHTEYE QPM 02/02/21 Potassium Chloride [Klor-Con] 1 packet PEG DAILY 09/16/21 09/16/21 Amox/Clav 875/125 [Augmentin] 1 each PO Q12H #20 tablet 03/10/22 Cefdinir 300 mg PO BID #20 cap 03/14/22 - Allergies Allergies/Adverse Reactions: Allergies Allergy/AdvReac Type Severity Reaction Status Date / Time vancomycin AdvReac Mild injection Verified 03/10/22 12:40 site erythema - Social History Does the pt smoke?: Yes Smoking Status: Former smoker Does the pt drink ETOH?: No Does the pt have substance abuse?: No - Immunizations Immunizations are current?: Yes Immunizations: TDAP >10years/unknown - POLST Patient has POLST: No POLST Status: Full Code PD ED PE EXPANDED - General General: Alert, Other (Chronically ill) - Cardiac Cardiac: Regular Rate, Murmur Present, Radial strong equal, Pedal strong equal, Cap refill < 2 sec - Respiratory Respiratory: Clear to ausultation jacinto. No: Distress, Labored - Abdomen Abdomen: Surgical scars, Other (G-tube in place left upper quadrant. Gastric contents seen on dressing. Fair amount of erythema and dermatitis surrounding.) - Male Male : Other (Suprapubic catheter present. Draining cloudy yellow urine) - Derm Derm: Other (Extensive area of dermatitis and erythema of the lower back extending to the posterior thighs. Multiple areas of skin ulceration. Deep sacral ulcer of the mid coccyx that tunnels 1 to 2 cm in all direction. No bone was palpated though soft tissue is present) - Extremities Extremities: Pedal Pulses Present, Other (Significant hemosiderin staining and peripheral vascular disease on lower extremities.) - Neuro Neuro: Alert and Oriented X 3 - GCS Eye Opening: Spontaneous Motor: Obeys Commands Verbal: Oriented Total: 15 Results - Vitals Vitals: Vital Signs - 24 hr 08/17/22 08/17/22 08/17/22 11:27 11:33 14:04 Temperature 36.8 C Heart Rate 88 65 66 Respiratory 18 18 18 Rate Blood Pressure 159/102 H 152/111 H 153/83 H O2 Saturation 100 100 99 08/17/22 16:00 Temperature Heart Rate 95 Respiratory 18 Rate Blood Pressure 154/96 H O2 Saturation 100 Oxygen O2 Source [] Room air O2 Source [] Room air O2 Source Room air - Labs Labs: Laboratory Tests 08/17/22 08/17/22 08/17/22 12:32 12:32 13:25 WBC 10.0 RBC 4.47 L Hgb 11.8 L Hct 39.2 L MCV 87.7 MCH 26.4 L MCHC 30.1 L RDW 17.2 H Plt Count 318 MPV 9.1 Neut # (Auto) 8.4 H Lymph # (Auto) 0.7 L [place] # (Auto) 0.7 Eos # (Auto) 0.1 Baso # (Auto) 0.0 Absolute Nucleated RBC 0.00 Nucleated RBC % 0.0 Sodium 136 Potassium 3.3 L Chloride 94 L Carbon Dioxide 32 Anion Gap 10.0 BUN 17 Creatinine 0.6 Estimated GFR (MDRD) 129 Glucose 111 H Calcium 8.8 Total Bilirubin 1.2 H AST 17 ALT 10 Alkaline Phosphatase 50 Total Protein 7.4 Albumin 3.3 Globulin 4.1 Albumin/Globulin Ratio 0.8 L Lipase 26 Nasal Adenovirus (PCR) NOT DETECTED Nasal B. parapertussis DNA (PCR) NOT DETECTED Nasal Coronavir 229E PCR NOT DETECTED Nasal Coronavir HKU1 PCR NOT DETECTED Nasal Coronavir NL63 PCR NOT DETECTED Nasal Coronavir OC43 PCR NOT DETECTED Nasal Enterovir/Rhinovir PCR NOT DETECTED Nasal Influenza B PCR NOT DETECTED Nasal Influenza A PCR NOT DETECTED Nasal Parainfluen 1 PCR NOT DETECTED Nasal Parainfluen 2 PCR NOT DETECTED Nasal Parainfluen 3 PCR NOT DETECTED Nasal Parainfluen 4 PCR NOT DETECTED Nasal RSV (PCR) NOT DETECTED Nasal B.pertussis DNA PCR NOT DETECTED Nasal C.pneumoniae (PCR) NOT DETECTED [place] Human Metapneumo PCR NOT DETECTED Nasal M.pneumoniae (PCR) NOT DETECTED Nasal SARS-CoV-2 (PCR) NOT DETECTED - Rads (name of study) CT chest Radiology: Final report received (No acute intrathoracic abnormality. In the setting of malignancy history consider follow-up for pulmonary nodules and suspe cted basilar lung scarring atelectasis. Pulmonary nodules are present measuring [address] abd Radiology: Final report received (Subcutaneous inflammation around the post coccygeal and ischial regions. No drainable abscess. There are some osseous indistinctness of the posterior coccyx which may represent osteomyelitis, correlate whether post coccygeal ulcer probes to bone and consider MRI if necessary to further evaluate. ), Other (G-tube in appropriate position. Enlarging aortoiliac aneurysm, consider CTA follow-up. Indeterminate renal lesions consider ultrasound or renal protocol CT or MRI. High stool burden) PD Medical Decision Making - ED course Complexity details: reviewed results, re-evaluated patient, considered differential, d/w patient, d/w credit consultant ED course: 82-year-old male presents to the emergency department via EMS for evaluation of greater than 5 months G-tube gastric leaking. His is also concerned about the number of bedsores he has developed in his coccyx area. She is also expressing concern and difficulty with caregiver burden and burnout. In brief this gentleman is currently bedbound and nonambulatory. He does have a limited amount of home health hours per week. He does have a history of metastatic parotid cancer for which she has completed chemotherapy and radiation though he has not been seen by oncology since before 2019 pandemic began. Due to weight loss associated with chemotherapy and radiation he did have a G-tube placed. His states that once the G-tube was placed he gave up all hope. She is quite clear that he does not have a POLST and she would wish for all life-saving measures be taken. Here in the emergency department we do note that the G-tube is in place. There is moderate amount of dermatitis surrounding this tube. His has loosened the button on the tube assuming that it was too tight and that is the cause of the leaking. The patient was seen and evaluated very briefly by Dr. Erwin on- call for surgery and she is discussed that loosening the G-tube is likely the cause for the gastric secretions leaking. This gentleman does have a number of sacral decub's and ulcerations on his posterior coccyx. There is 1 tunneling lesion that is about 2 cm in diameter and with my gloved finger I am unable to appreciate any bony surfaces. Soft tissues felt only. It does not seem to track extensively. He has an extensive area of dermatitis however on his lower back and buttocks which I believe is likely due to urine and feces as he is difficult to turn and manage at home. I did obtain a CBC and electrolytes today on this gentleman. My personal interpretation is that there are no acute worrisome findings. Specifically no leukocytosis. No worrisome anemia. His electrolytes show no significant worrisome abnormalities. He has preserved renal function. His vital signs to day in the emergency department show no fevers, tachycardia or hypotension. He does not present as septic. As it has been at least 3 years since he has had CT imaging we did proceed to do a CT of the chest abdomen pelvis. There are multiple incidental findings seen including bilateral pulmonary nodules, an abdominal aneurysm, multiple renal nodules and significant stool obstipation. The CT suggest that there could be early osteomyelitis of the lower sacral region however on my evaluation no bony surfaces are exposed and given the lack of fever or leukocytosis I feel that appropriate wound care should be attempted first. I did contact our wound therapy department and they were able to evaluate the pictures in the chart. They have made a recommendation to begin placing Aquacel AG with Hydrofiber within his wounds and packing with foam bordered dressings. They would also recommend increased pressure relief. These dressings can stay in place up to 1 week. Social work saw the patient and spoke with the . is interested in pursuing respite care though she is hesitant to leave her alone as she still wishes for him to have full support and management of his chronic medical conditions. I did discuss with her that if the CT scans and subsequent imaging are concerning for return of his cancer his prognosis is rather poor. However she would like to continue to speak with oncology as well as the patient's primary care doctor. I did offer the patient and his to board in the emergency department until a bed is available at [facility] which would later likely be later this week however his would prefer to take him home at this time and arrange for Respite care as an outpatient which I believe is a reasonable alternative at this time. I have asked social work to follow-up with the patient and [facility] tomorrow when he is at home to help ensure that his care needs are being met. I did discuss with that she could return to the emergency department at any point for further concerns Departure - Departure Clinical Impression: Pulmonary nodules, History of parotid cancer, Sacral decubitus ulcer, stage III, Renal lesion, Dermatitis, Suprapubic catheter, Gastrostomy tube in place Abdominal aortic aneurysm Qualifiers: Abdominal aorta location: unspecified Presence of rupture: without rupture Qualified Code(s): I71.40 - Abdominal aortic aneurysm, without rupture, unspecified Condition: Poor Comments: Lew came to the ER today because you had concerns that his gastric tube was leaking. Dr. Marquez the surgeon was able to evaluate the catheter and found that it had been loosened too much which was likely the cause of the leaking. The gastric tube is in normal position on CT. The CTs of his chest abdomen and pelvis today show a number of mostly incidental findings. These include an abdominal aneurysm, pulmonary nodules, renal lesions. He should have a CT angiogram completed as an outpatient for further evaluation of this abdominal aorta. He may need dedicated CT of his kidneys for further evaluation of the renal lesions. The pulmonary nodules are concerning that he could have a return of cancer. He does have some dermatitis around his G-tube as well as on his back and legs. I encourage you to use barrier cream in all of these areas. He will need a wound consult referral. We have placed an Aquacel gel within his wounds as well as a foam dressing surrounding these. The best way to manage his wounds is by turning him as often as possible to reduce pressure on his sacrum and coccyx. You were seen by social work today. [facility] Has been contacted and our social sciences professor is attempting to help arrange respite care for you. This will likely take a number of days more. Our social workers will be in contact with you tomorrow. We are going to discharge to head back home. You can continue his usual care and tube feedings otherwise. If you have any other emergent concerns do not hesitate to return to the emergency department
[2022-08-17 12:36] LABS: BASOPHILS % (AUTO) 0.4 %; EOSINOPHILS # (AUTO) 0.1 10^3/uL (0.0-0.7); EOSINOPHILS % (AUTO) 1.2 %; HCT - HEMATOCRIT 39.2 % (42.0-52.0); HGB - HEMOGLOBIN 11.8 g/dL (14.0-18.0); LYMPHOCYTES # (AUTO) 0.7 10^3/uL (1.5-3.5); LYMPHOCYTES % (AUTO) 6.7 %; MEAN CORPUSCULAR HEMOGLOBIN 26.4 pg (27.0-31.0); MEAN CORPUSCULAR HGB CONC 30.1 g/dL (32.0-36.0); MEAN CORPUSCULAR VOLUME 87.7 fL (80.0-94.0); MEAN PLATELET VOLUME 9.1 fL (7.4-11.4); MONOCYTES # (AUTO) 0.7 10^3/uL (0.0-1.0); MONOCYTES % (AUTO) 7.2 %; NEUTROPHILS # (AUTO) 8.4 10^3/uL (1.5-6.6); NEUTROPHILS % (AUTO) 84.2 %; PLT - PLATELET COUNT 318 10^3/uL (130-450); RED BLOOD COUNT 4.47 10^6/uL (4.70-6.10); RED CELL DISTRIBUTION WIDTH 17.2 % (12.0-15.0)
[2022-08-17 12:48] LABS: ALBUMIN 3.3 g/dL (3.2-5.5); ALBUMIN/GLOBULIN RATIO 0.8 (1.0-2.2); BILIRUBIN,TOTAL 1.2 mg/dL (0.2-1.0); CALCIUM 8.8 mg/dL (8.5-10.3); CREATININE 0.6 mg/dL (0.6-1.2); POTASSIUM 3.3 mmol/L (3.5-5.0); TOTAL PROTEIN 7.4 g/dL (6.7-8.2)
--- NOTE | 2022-08-17 14:15 | CT Report ---
PROCEDURE: CHEST WO INDICATIONS: hx of metastatic parotid cancer TECHNIQUE: Noncontrast 1mm axial images were acquired from the pulmonary apices to the posterior costophrenic an gles. Axial 5 mm soft tissue kernel reconstructions were performed as well as 8 mm axial MIP and cor onal and sagittal 5 mm reformations. For radiation dose reduction, the following was used: automate d exposure control, adjustment of mA and/or kV according to patient size. COMPARISON: None FINDINGS: Image quality: Good Lungs and pleura: Basal scarring/atelectasis. No pleural effusion. No dense consolidation. Pulmonary nodules are present, for example in the medial portion of the right upper lobe measuring 5 mm (3/68). Mediastinum, heart, and esophagus: Cardiomegaly and biatrial enlargement. Coronary calcifications. Le aflets pacer. No hiatal hernia. Atherosclerotic calcifications. No pathologic adenopathy by size crit eria. Chest wall and thyroid: Postsurgical changes of the right neck partially seen. Thyroid is unremarkabl e. Upper abdomen: Separately dictated Bones: Degenerative changes without acute or suspicious osseous finding. IMPRESSION: No acute intrathoracic abnormality. In the setting of malignancy history, consider follow-up for pulm onary nodules and suspected basilar lung scarring/atelectasis. Other findings as above, probably front end specialist awais/senescent. Reviewed by: Jack Gannon MD on 08/17/2022 2:13 PM PST Approved by: Jack Gannon MD on 08/17/2022 2:13 PM PST Station ID: [id number]
--- NOTE | 2022-08-17 14:24 | CT Report ---
PROCEDURE: ABDOMEN/PELVIS WO INDICATIONS: large ulcers posterior coccyx; G-tube leaking TECHNIQUE: Noncontrast 5 mm thick sections acquired from the diaphragms to the symphysis. 5 mm coronal and sagi ttal reformats were then performed. For radiation dose reduction, the following was used: automated exposure control, adjustment of mA and/or kV according to patient size. COMPARISON: 01/10/2019 FINDINGS: Image quality: Good Lower chest: Separately dictated Solid organs: Limited evaluation without intravenous contrast. Liver is unremarkable. Cholelithiasis. No pathologic dilation of biliary tree or pancreatic duct. No splenomegaly. No adrenal nodules. Estefania lar appearance of mild adrenal thickening. Atrophy of the right kidney. Right hemorrhagic cyst. Multi ple intrarenal calcified calculi on the right. Mild peripelvic stranding on the right. On the left, there is no hydronephrosis. An indeterminate 1.5 cm lesion is seen in the anterior porti on of the left kidney, slightly larger than 2019. Dominant left upper pole renal cyst is also present . Vessels and lymph nodes: Aortoiliac aneurysmal dilation again seen, larger than prior, measuring up t o 4.7 cm in the distal aorta. No pathologic adenopathy by size criteria. A possible right borderline- enlarged common iliac node is decreased in size compared to prior. Bowel and peritoneum: A gastric tube is in place, with balloon inside the stomach. No body wall absce ss in the adjacent soft tissues. No small bowel obstruction. Moderate to high colorectal stool burden . There is also some wall thickening in the distal colon and rectum. No pathologic ascites. Body wall: Anterior abdominal wall postsurgical changes and rectus diastases. No drainable abscess in the coccyx or ischial regions, although there is fat stranding signifying inflammation. Muscular atr ophy diffusely. Pelvis: Suprapubic catheter in place. Bladder is underdistended limiting evaluation. The pelvis is ob scured by metallic artifact. Prostate bed radiation beads. Bones: Left hip arthroplasty. Scattered degenerative changes. Osteopenia. Bony indistinctness of the posterior coccyx. IMPRESSION: Subcutaneous inflammation around the post coccygeal and ischial regions. No drainable abscess. There is some osseous indistinctness of the posterior coccyx which may represent osteomyelitis, correlate w hether the post coccygeal ulcer probes to bone and consider MRI if necessary to further evaluate. G-tube appears to be appropriate position. Enlarging aortoiliac aneurysm, consider CTA follow-up. Indeterminate renal lesions, consider correlation with ultrasound or renal protocol CT or MR. Moderate to high stool burden, with wall thickening that may represent constipation related colitis a nd proctitis. Correlate with any age-appropriate colonoscopy results. Other incidental/senescent findings above. Reviewed by: Jack Gannon MD on 08/17/2022 2:23 PM PST Approved by: Jack Gannon MD on 08/17/2022 2:23 PM PST Station ID: [id number]
[2022-08-17 14:40] LABS: B. PARAPERTUSSIS- RESP PCR PAN NOT DETECTED; B. PERTUSSIS- RESP PCR PANEL NOT DETECTED; C. PNEUMONIAE- RESP PCR PANEL NOT DETECTED; CORONAVIRUS 229E-RESP PCR NOT DETECTED; CORONAVIRUS HKU1-RESP PCR NOT DETECTED; CORONAVIRUS NL63-RESP PCR NOT DETECTED; CORONAVIRUS OC43-RESP PCR NOT DETECTED; HUMAN METAPNEUMOVIRUS NOT DETECTED; INFLUENZA A- RESP PCR PANEL NOT DETECTED; INFLUENZA B - RESP PCR PANEL NOT DETECTED; M. PNEUMONIAE- RESP PCR PANEL NOT DETECTED; PARAINFLUENZA VIRUS 1 NOT DETECTED; PARAINFLUENZA VIRUS 2 NOT DETECTED; PARAINFLUENZA VIRUS 3 NOT DETECTED; PARAINFLUENZA VIRUS 4 NOT DETECTED; RHINOVIRUS/ENTEROVIRUS NOT DETECTED; RSV- RESP PCR PANEL NOT DETECTED; SARS-CoV-2 -RESP PCR PANEL NOT DETECTED
[2022-08-17 17:33] VITALS: BP 135/67
== END 2022-08-17 17:33 | disposition home or self-care (01) ==
LOC: EDUNIT# → ED 11:15
DX: K94.29 Other complications of gastrostomy (principal); L89.153 Pressure ulcer of sacral region, stage 3; L30.9 Dermatitis, unspecified; Z85.818 Personal history of malignant neoplasm of other sites of lip, oral cavity, and pharynx; Z74.01 Bed confinement status; Z96.0 Presence of urogenital implants; I71.40 Abdominal aortic aneurysm, without rupture, unspecified; N28.9 Disorder of kidney and ureter, unspecified; Z87.891 Personal history of nicotine dependence; Z20.822 Contact with and (suspected) exposure to COVID-19; E11.42 Type 2 diabetes mellitus with diabetic polyneuropathy; J44.9 Chronic obstructive pulmonary disease, unspecified; G47.30 Sleep apnea, unspecified; I48.91 Unspecified atrial fibrillation; E78.00 Pure hypercholesterolemia, unspecified; I10 Essential (primary) hypertension; F32.A Depression, unspecified; F41.9 Anxiety disorder, unspecified; Z95.0 Presence of cardiac pacemaker; K21.9 Gastro-esophageal reflux disease without esophagitis; F03.90 Unspecified dementia, unspecified severity, without behavioral disturbance, psychotic disturbance, mood disturbance, and anxiety
CPT/HCPCS: 36415; 80053; 83690; 85025; 87633; 99284; 99285

== ENCOUNTER 2022-08-17 17:32 | Outpatient (CLI) | payer MEDICARE, MEDICAID | END 2022-08-17 17:33 | disposition home or self-care (01) | LOC: EMS 17:32 | PROVIDERS: ATTEND Registered Nurse | DX: Z43.1 Encounter for attention to gastrostomy (principal); Z74.01 Bed confinement status | CPT/HCPCS: A0425; A0428 ==

== ENCOUNTER 2022-08-19 12:09 | Emergency (ER) | payer MEDICARE, MEDICAID ==
--- NOTE | 2022-08-19 12:24 | ED Physician Documentation ---
History of Present Illness - Stated complaint Stated Complaint: FEEDING TUBE OUT - History obtained from History obtained from: EMS - Additonal information Additional information: 82-year-old gentleman presents by ambulance for evaluation of his feeding tube. Reportedly it fell out this morning but was already replaced at home. Initial history is from the foreign languages department chair, the is not here in initial evaluation. Reportedly they just wanted it assessed. Patient has no specific complaints. PD PAST MEDICAL HISTORY - Past Medical History Cardiovascular: Hypertension, High cholesterol, Atrial fibrillation Respiratory: COPD, Pneumonia, Sleep apnea Neuro: Dementia, Peripheral neuropathy Endocrine/Autoimmune: Type 2 diabetes (diet controlled after weight loss) GI: GERD, Other (PEG tube feeding) : Indwelling catheter HEENT: Chronic vision loss, Glaucoma, Chronic sinusitis, Chronic hearing loss Psych: Depression, Anxiety Musculoskeletal: Osteoarthritis, Osteoporosis, Other (right knee injury) Derm: Other (LE wounds) - Past Surgical History Past Surgical History: Yes Ortho: Hip replacement Cardiovascular: Pacemaker, AAA HEENT: Cataracts, Detached retina repair Derm: Skin cancer surgery - Present Medications Home Medications: Ambulatory Orders Medication Instructions Recorded Confirmed Acetaminophen [Tylenol] 650 mg PEG Q4HR PRN #60 tablet 01/14/19 12/04/20 Enalapril [Vasotec] 5 mg PEG BID #60 01/14/19 12/04/20 Chlorthalidone 12.5 mg PEG DAILY 03/05/19 12/04/20 Nitrofurantoin [Macrobid] 100 mg PEG DAILY 03/05/19 12/04/20 Diclofenac Sodium [Voltaren] 2 - 4 g TP QID PRN 05/28/20 12/04/20 Apixaban [Eliquis] 2.5 mg PEG BID 09/02/20 12/04/20 Clotrimazole 1% Cream [Lotrimin 1% 1 applic TP BID PRN 09/02/20 12/04/20 Cream] Ondansetron Odt [Zofran Odt] 4 mg PO Q8H PRN 12/04/20 12/04/20 Systane Overnight Gel 0.25 RIGHTEYE QPM 02/02/21 Potassium Chloride [Klor-Con] 1 packet PEG DAILY 09/16/21 09/16/21 Amox/Clav 875/125 [Augmentin] 1 each PO Q12H #20 tablet 03/10/22 Cefdinir 300 mg PO BID #20 cap 03/14/22 - Allergies Allergies/Adverse Reactions: Allergies Allergy/AdvReac Type Severity Reaction Status Date / Time vancomycin AdvReac Mild injection Verified 03/10/22 12:40 site erythema - Social History Does the pt smoke?: Yes Smoking Status: Former smoker Does the pt drink ETOH?: No Does the pt have substance abuse?: No - Immunizations Immunizations are current?: Yes Immunizations: TDAP >10years/unknown - POLST Patient has POLST: No POLST Status: Full Code PD ED PE NORMAL - Vitals Vital signs reviewed: Yes - General General: Other (Very hard of hearing and modestly confused) - Abdomen Abdomen: Normal bowel sounds, Soft, Non tender, Other (G-tube left upper q uadrant with apparent appropriate placement albeit the tube itself was noted to have quite a bit of residual feeding and it and flushed at the bedside.) - Back Back: No CVA TTP, No spinal TTP - Derm Derm: Normal color, Warm and dry Results - Vitals Vitals: Vital Signs - 24 hr 08/19/22 12:12 Temperature 37.2 C Heart Rate 78 Respiratory 18 Rate Blood Pressure 122/56 L O2 Saturation 99 Oxygen O2 Source [With Activity] Room air O2 Source [Without Activity] Room air O2 Source Room air PD Medical Decision Making - ED course ED course: Subsequently arrived and she wanted the G-tube replaced. It was replaced with a 22 [place] G-tube without issue. She was counseled on flushing it. Departure - Departure Disposition: 01 Home, Self Care Clinical Impression: Gastrostomy tube in place, Feeding tube dysfunction Condition: Good Instructions: ED G Tube Replacement Comments: Follow with Dr. Cain's office for continued efforts at respite care. Return for new or worsening symptoms.
[2022-08-19 12:38] VITALS: BP 122/56
== END 2022-08-19 13:42 | disposition home or self-care (01) ==
LOC: EDUNIT# → ED 12:09
DX: K94.23 Gastrostomy malfunction (principal); I48.91 Unspecified atrial fibrillation; E11.42 Type 2 diabetes mellitus with diabetic polyneuropathy; I10 Essential (primary) hypertension; E78.00 Pure hypercholesterolemia, unspecified; Z95.0 Presence of cardiac pacemaker
CPT/HCPCS: 43762

== ENCOUNTER 2022-08-25 10:22 | Outpatient (CLI) | payer MEDICARE, MEDICAID | END 2022-08-25 10:23 | LOC: EMS 10:22 | DX: S31.000A Unspecified open wound of lower back and pelvis without penetration into retroperitoneum, initial encounter (principal); X58.XXXA Exposure to other specified factors, initial encounter; Z74.01 Bed confinement status | CPT/HCPCS: A0425; A0428 ==

== ENCOUNTER 2022-09-06 09:36 | Outpatient (CLI) | payer MEDICARE, MEDICAID | END 2022-09-06 09:37 | disposition critical access hospital (66) | LOC: EMS 09:36 | DX: R11.2 Nausea with vomiting, unspecified (principal); R09.89 Other specified symptoms and signs involving the circulatory and respiratory systems; L89.109 Pressure ulcer of unspecified part of back, unspecified stage; L89.899 Pressure ulcer of other site, unspecified stage; R53.1 Weakness; Z74.01 Bed confinement status | CPT/HCPCS: A0425; A0427 ==

== ENCOUNTER 2022-09-06 09:49 | Emergency (ER) | payer MEDICARE, MEDICAID ==
[2022-09-06 10:22] LABS: BASOPHILS # (AUTO) 0.1 10^3/uL (0.0-0.1); BASOPHILS % (AUTO) 0.5 %; EOSINOPHILS # (AUTO) 0.2 10^3/uL (0.0-0.7); HCT - HEMATOCRIT 33.4 % (42.0-52.0); HGB - HEMOGLOBIN 9.9 g/dL (14.0-18.0); LYMPHOCYTES # (AUTO) 0.7 10^3/uL (1.5-3.5); LYMPHOCYTES % (AUTO) 6.2 %; MEAN CORPUSCULAR HEMOGLOBIN 25.5 pg (27.0-31.0); MEAN CORPUSCULAR HGB CONC 29.6 g/dL (32.0-36.0); MEAN CORPUSCULAR VOLUME 86.1 fL (80.0-94.0); MEAN PLATELET VOLUME 9.3 fL (7.4-11.4); MONOCYTES # (AUTO) 0.9 10^3/uL (0.0-1.0); MONOCYTES % (AUTO) 8.2 %; NEUTROPHILS # (AUTO) 9.5 10^3/uL (1.5-6.6); NEUTROPHILS % (AUTO) 82.8 %; PLT - PLATELET COUNT 405 10^3/uL (130-450); RED BLOOD COUNT 3.88 10^6/uL (4.70-6.10); RED CELL DISTRIBUTION WIDTH 17.2 % (12.0-15.0); WHITE BLOOD COUNT 11.5 x10^3/uL (4.8-10.8)
[2022-09-06 10:33] LABS: ALBUMIN 2.4 g/dL (3.2-5.5); ALBUMIN/GLOBULIN RATIO 0.5 (1.0-2.2); BILIRUBIN,TOTAL 0.6 mg/dL (0.2-1.0); CALCIUM 8.7 mg/dL (8.5-10.3); CREATININE 0.7 mg/dL (0.6-1.2); POTASSIUM 4.1 mmol/L (3.5-5.0); TOTAL PROTEIN 6.9 g/dL (6.7-8.2)
[2022-09-06 10:40] LABS: BILIRUBIN,URINE NEGATIVE (NEGATIVE); GLUCOSE, URINE (UA) NEGATIVE (NEGATIVE); KETONES,URINE (UA) NEGATIVE (NEGATIVE); LEUKOCYTE ESTERASE, URINE LARGE (NEGATIVE); NITRITE,URINE POSITIVE (NEGATIVE); OCCULT BLOOD,URINE MODERATE (NEGATIVE); PROTEIN,URINE 30 mg/dL (NEGATIVE); UROBILINOGEN,URINE 1 (NORMAL) E.U./dL (NORMAL)
[2022-09-06 10:46] LABS: CLARITY,URINE SL. CLOUDY (CLEAR)
[2022-09-06 10:54] LABS: BACTERIA,URINE Moderate /HPF (None Seen); RBC,URINE 0-5 /HPF (0-5); SQUAMOUS EPITHELIAL CELL,UR NONE SEEN (<= Few); WBC CLUMPS,URINE PRESENT; WBC,URINE >25 /HPF (0-3)
[2022-09-06] MEDS ORDERED: cefTRIAXone 1 GM VIAL IVP STA (10:56)
[2022-09-06] MEDS ORDERED: SODIUM CHLORIDE 0.9% 1,000 ML IV STA (10:58)
--- NOTE | 2022-09-06 11:07 | ED Physician Documentation ---
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 She states that he has been living at [facility] for the last 2 weeks. She states that for the past 5 months he has had issues with his G-tube falling out. She states that she is concerned he has E. coli in his stool as he has had watery stools. No fevers. She states that he is less talkative than usual. Review of Systems Constitutional: denies: Fever Nose: denies: Rhinorrhea / runny nose, Congestion GI: reports: Diarrhea (Chronic, unchanged). denies: Vomiting, Hematemesis, Bloody / black stool : reports: Other (Chronic indwelling Winslow catheter) Skin: denies: Rash Musculoskeletal: denies: Neck pain, Back pain Neurologic: denies: Headache, Head injury PD PAST MEDICAL HISTORY - Past Medical History Past Medical History: Yes Cardiovascular: Hypertension, High cholesterol, Atrial fibrillation Respiratory: COPD, Pneumonia, Sleep apnea Neuro: Dementia, Peripheral neuropathy Endocrine/Autoimmune: Type 2 diabetes GI: GERD, Other : Indwelling catheter HEENT: Chronic vision loss, Glaucoma, Chronic sinusitis, Chronic hearing loss Psych: Depression, Anxiety Musculoskeletal: Osteoarthritis, Osteoporosis, Other Derm: Other - Past Surgical History Past Surgical History: Yes Ortho: Hip replacement Cardiovascular: Pacemaker, AAA HEENT: Cataracts, Detached retina repair Derm: Skin cancer surgery - Present Medications Home Medications: Ambulatory Orders Medication Instructions Recorded Confirmed Acetaminophen [Tylenol] 650 mg PEG Q4HR PRN #60 tablet 01/14/19 12/04/20 Enalapril [Vasotec] 5 mg PEG BID #60 01/14/19 12/04/20 Chlorthalidone 12.5 mg PEG DAILY 03/05/19 12/04/20 Nitrofurantoin [Macrobid] 100 mg PEG DAILY 03/05/19 12/04/20 Diclofenac Sodium [Voltaren] 2 - 4 g TP QID PRN 05/28/20 12/04/20 Apixaban [Eliquis] 2.5 mg PEG BID 09/02/20 12/04/20 Clotrimazole 1% Cream [Lotrimin 1% 1 applic TP BID PRN 09/02/20 12/04/20 Cream] Ondansetron Odt [Zofran Odt] 4 mg PO Q8H PRN 12/04/20 12/04/20 Systane Overnight Gel 0.25 RIGHTEYE QPM 02/02/21 Potassium Chloride [Klor-Con] 1 packet PEG DAILY 09/16/21 09/16/21 Amox/Clav 875/125 [Augmentin] 1 each PO Q12H #20 tablet 03/10/22 Cefdinir 300 mg PO BID #20 cap 03/14/22 - Allergies Allergies/Adverse Reactions: Allergies Allergy/AdvReac Type Severity Reaction Status Date / Time vancomycin AdvReac Mild injection Verified 09/06/22 09:56 site erythema - Social History Does the pt smoke?: Yes Smoking Status: Current every day smoker Does the pt drink ETOH?: No Does the pt have substance abuse?: No - Immunizations Immunizations are current?: Yes Immunizations: TDAP >10years/unknown - POLST Patient has POLST: No POLST Status: Full Code PD ED PE NORMAL - Vitals Vital signs reviewed: Yes - General General: No acute distress, Well developed/nourished, Other (Drowsy, easily arousable. Oriented to person and place) - HEENT HEENT: Atraumatic, PERRL, Moist mucous membranes, Pharynx benign - Neck Neck: Supple, no meningeal sign - Cardiac Cardiac: RRR, Strong equal pulses - Respiratory Respiratory: No respiratory distress, Clear bilaterally - Abdomen Abdomen: Soft, Non tender, Non distended - Back Back: No spinal TTP - Derm Derm: Warm and dry - Extremities Extremities: No calf tenderness / cord - Neuro Neuro: Alert and oriented X 3 - Psych Psych: Normal mood, Normal affect Results - Vitals Vitals: Vital Signs - 24 hr 09/06/22 09/06/22 09/06/22 09:49 10:23 12:38 Temperature 37.1 C Heart Rate 66 62 62 Respiratory 19 24 24 Rate Blood Pressure 124/70 126/52 L 126/50 L O2 Saturation 100 99 100 09/06/22 14:13 Temperature Heart Rate 68 Respiratory 28 H Rate Blood Pressure 121/61 O2 Saturation 95 Oxygen O2 Source [] Room air O2 Source [] Room air O2 Source Room air - EKG (time done) 1006 Rate: Rate (enter#) (72) Rhythm: NSR [place]: Normal Intervals: Normal VT QRS: Normal Ischemia: Normal ST segments, Q waves (III, aVF) - Labs Labs: Laboratory Tests 09/06/22 09/06/22 09/06/22 10:15 10:15 10:30 WBC 11.5 H RBC 3.88 L Hgb 9.9 L Hct 33.4 L MCV 86.1 MCH 25.5 L MCHC 29.6 L RDW 17.2 H Plt Count 405 MPV 9.3 Neut # (Auto) 9.5 H Lymph # (Auto) 0.7 L [place] # (Auto) 0.9 Eos # (Auto) 0.2 Baso # (Auto) 0.1 Absolute Nucleated RBC 0.00 Nucleated RBC % 0.0 Sodium 134 L Potassium 4.1 Chloride 91 L Carbon Dioxide 31 Anion Gap 12.0 BUN 31 H Creatinine 0.7 Estimated GFR (MDRD) 108 Glucose 140 H Lactic Acid Calcium 8.7 Total Bilirubin 0.6 AST 19 ALT 23 Alkaline Phosphatase 74 Total Protein 6.9 Albumin 2.4 L Globulin 4.5 H Albumin/Globulin Ratio 0.5 L Lipase 31 Urine Color YELLOW Urine Clarity SL. CLOUDY Urine pH 7.0 Ur Specific [place] 1.015 Urine Protein 30 H Urine Glucose (UA) NEGATIVE Urine Ketones NEGATIVE Urine Occult Blood MODERATE H Urine Nitrite POSITIVE H Urine Bilirubin NEGATIVE Urine Urobilinogen 1 (NORMAL) Ur Leukocyte Esterase LARGE H Urine RBC 0-5 Urine WBC >25 H Urine WBC [place]umps PRESENT Ur Squamous Epith Cells NONE SEEN Urine Bacteria Moderate H Ur Microscopic Review INDICATED Urine Culture Comments INDICATED 09/06/22 11:10 WBC RBC Hgb Hct MCV MCH MCHC RDW Plt Count MPV Neut # (Auto) Lymph # (Auto) [place] # (Auto) Eos # (Auto) Baso # (Auto) Absolute Nucleated RBC Nucleated RBC % Sodium Potassium Chloride Carbon Dioxide Anion Gap BUN Creatinine Estimated GFR (MDRD) Glucose Lactic Acid 1.4 Calcium Total Bilirubin AST ALT Alkaline Phosphatase Total Protein Albumin Globulin Albumin/Globulin Ratio Lipase Urine Color Urine Clarity Urine pH Ur Specific [place] Urine Protein Urine Glucose (UA) Urine Ketones Urine Occult Blood Urine Nitrite Urine Bilirubin Urine Urobilinogen Ur Leukocyte Esterase Urine RBC Urine WBC Urine WBC Clumps Ur Squamous Epith Cells Urine Bacteria Ur Microscopic Review Urine Culture Comments - Rads (name of study) Abdomen pelvis CT Radiology: Final report received, See rad report Abdomen ultrasound Radiology: Final report received, See rad report PD Medical Decision Making - ED course Complexity details: reviewed results, re-evaluated patient, considered differential, d/w patient, d/w family ED course: 82-year-old male with decreased level of consciousness the day, chronic ongoing diarrhea for the past 5 months. Has a feeding tube in place. Has a chronic indwelling Winslow catheter. Given IV fluids. Mental status improved back to baseline. He also was given a dose of Rocephin as he does have leukocytosis along with potential UTI versus colonization of the catheter. states that he is on antibiotics at home currently, therefore we will continue those awaiting culture results. CT scan showed a potential cholecystitis, but there is no evidence of cholecystitis on ultrasound. Does have known gallstones. Patient is currently at his baseline. Not septic. Lactate is normal. Patient has chronic anemia. Patient also recently had a flu vaccination and this may explain the malaise over the past few days. Patient and family counseled regarding signs and symptoms for which I believe and urgent re-evaluation would be necessary. Patient with good understanding of and agreement to plan and is comfortable going home at this time This document was made in part using voice recognition software. While efforts are made to proofread this document, sound alike and grammatical errors may occur. Departure - Departure Disposition: 01 Home, Self Care Clinical Impression: Dehydration, Malaise Cholelithiasis Qualifiers: Cholelithiasis location: gallbladder Cholecystitis presence: without cholecystitis Biliary obstruction: without biliary obstruction Qualified Code(s): K80.20 - Calculus of gallbladder without cholecystitis without obstruction Condition: Good Instructions: ED Dehydration Follow-Up: Your,doctor in 1 week [Other] Comments: Please follow-up with his doctor for further care. He does have gallstones on CT and ultrasound but no evidence of infection. He was given IV fluids. The general malaise may be due to the recent influenza vaccination. Please return if he worsens Discharge Date/Time: 09/06/22 16:30
[2022-09-06] MEDS ORDERED: iohexoL-300 100 ML VIAL ONE (12:02)
[2022-09-06] MEDS ORDERED: iohexoL-300 100 ML VIAL IVP ONE (12:38)
--- NOTE | 2022-09-06 13:27 | CT Report ---
PROCEDURE: ABDOMEN/PELVIS W INDICATIONS: abd pain, diffuse CONTRAST: 100ml Omnipaque 300 TECHNIQUE: After the administration of IV contrast, 5 mm thick sections acquired from the diaphragms to the symp hysis. 5 mm thick coronal and sagittal reformats were acquired. For radiation dose reduction, the f ollowing was used: automated exposure control, adjustment of mA and/or kV according to patient size. COMPARISON: 08/17/2022 FINDINGS: Image quality: Mildly motion degraded. There is also metallic artifact. Lower chest: Basal scarring/atelectasis. Suspected pleural thickening also present. Cardiomegaly part ially seen. Solid organs: Liver is unremarkable. There is cholelithiasis, with mild pericholecystic fat stranding . Overall gallbladder however is not distended. No pathologic dilation of biliary tree or pancreatic duct. No splenomegaly. No adrenal nodules. Indeterminate renal lesions, possibly a hemorrhagic cyst o n the right. Nonobstructing renal calculi, particularly on the right, right kidney is atrophic. No hy dronephrosis. 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 Thrombosed right common iliac aneurysm, as before. No pathologic adenopathy by s ize criteria. Bowel and peritoneum: G-tube in place, similar to prior moderate colorectal stool burden. No patholog ic ascites. Body wall: Post coccyx fat stranding, subcutaneous emphysema, and adjacent cortical osseous indistinc tness again seen. No drainable abscess. Pelvis: Not well seen due to metallic artifact. A suprapubic catheter is in place. Bones: Degenerative changes. No acute changes compared to prior Left hip arthroplasty is in place. IMPRESSION: No acute changes compared to prior imaging. Cholelithiasis with nonspecific pericholecystic fat stranding, correlate with LFTs and possible ultra sound to evaluate for cholecystitis. Post coccyx ulcer, in close association with the adjacent bone. Suspected constipation. No drainable intra-abdominal abscess. Aortoiliac aneurysm and indeterminate renal lesions, consider follow-up with CTA and ultrasound respe ctively. Other findings as above. Reviewed by: Jack Gannon MD on 09/06/2022 1:25 PM PST Approved by: Jack Gannon MD on 09/06/2022 1:25 PM PST Station ID: [id number]
[2022-09-06 14:14] VITALS: BP 121/61
--- NOTE | 2022-09-06 15:13 | Ultrasound Report ---
PROCEDURE: Abdomen Limited INDICATIONS: possible cholecystitis on CT TECHNIQUE: Real-time focused scanning was performed of the abdomen, with image documentation. COMPARISON: Same-day CT, 08/17/2022 CT FINDINGS: Liver is mildly enlarged measuring 21 cm and echotexture is heterogeneous. Gallbladder adenomyomatosis and cholelithiasis. Gallbladder wall measures 4 mm. Patient was unable to perform breath holds. CBD is prominent measuring 6 to 8 mm. Pancreas not well seen. Right kidney measures 11 cm. Overall not well seen. IMPRESSION: Overall limited ultrasound due to patient factors. Cholelithiasis and mild gallbladder wall thickenin g, overall equivocal for cholecystitis by imaging. Please correlate for leukocytosis and right upper quadrant symptoms. If further evaluation is needed, nuclear medicine HIDA study can more definitivel y evaluate the patency of the cystic duct. MRCP can further evaluate the CBD if there is cholestatic LFT pattern. Reviewed by: Jack Gannon MD on 09/06/2022 3:12 PM PST Approved by: Jack Gannon MD on 09/06/2022 3:12 PM PST Station ID: [id number]
--- NOTE | 2022-09-11 14:59 | ED Physician Documentation ---
ED Addendum - Addendum Addendum: 09/11/22 14:58 Patient's urine culture is positive for Pseudomonas. It is sensitive to cefepime. We will place on cefpodoxime and have him follow-up closely with his doctor for further care. Departure - Departure Disposition: 01 Home, Self Care Clinical Impression: Dehydration, Malaise Cholelithiasis Qualifiers: Cholelithiasis location: gallbladder Cholecystitis presence: without cholecystitis Biliary obstruction: without biliary obstruction Qualified Code(s): K80.20 - Calculus of gallbladder without cholecystitis without obstruction Condition: Good Instructions: ED Dehydration Follow-Up: Your,doctor in 1 week [Other] Prescriptions: Cefpodoxime Proxetil [Vantin] 100 mg PO Q12H #14 tablet Comments: Please follow-up with his doctor for further care. He does have gallstones on CT and ultrasound but no evidence of infection. He was given IV fluids. The general malaise may be due to the recent influenza vaccination. Please return if he worsens Discharge Date/Time: 09/06/22 16:30
== END 2022-09-06 16:30 | disposition home or self-care (01) ==
LOC: ED 09:49
DX: E86.0 Dehydration (principal); R53.81 Other malaise; K80.20 Calculus of gallbladder without cholecystitis without obstruction; R82.71 Bacteriuria; B96.5 Pseudomonas (aeruginosa) (mallei) (pseudomallei) as the cause of diseases classified elsewhere; Z96.0 Presence of urogenital implants; F17.200 Nicotine dependence, unspecified, uncomplicated; Z96.89 Presence of other specified functional implants; Z74.01 Bed confinement status
CPT/HCPCS: 36415; 74177; 76705; 80053; 81001; 83605; 83690; 85025; 87040; 87077; 87086; 87181; 93005; 96361; 96374; 99284; Q9967; 81003

== ENCOUNTER 2022-09-06 16:55 | Outpatient (CLI) | payer MEDICARE, MEDICAID | END 2022-09-06 16:56 | disposition home or self-care (01) | LOC: EMS 16:55 | PROVIDERS: ATTEND Emergency Medicine | DX: E86.0 Dehydration (principal); Z74.01 Bed confinement status | CPT/HCPCS: A0425; A0428 ==

== ENCOUNTER 2022-09-10 13:45 | Outpatient (CLI) | payer MEDICARE, MEDICAID | END 2022-09-10 13:46 | disposition home or self-care (01) | LOC: EMS 13:45 | PROVIDERS: ATTEND Family Medicine | DX: R52 Pain, unspecified (principal); M62.59 Muscle wasting and atrophy, not elsewhere classified, multiple sites; Z74.01 Bed confinement status | CPT/HCPCS: A0425; A0428 ==

== ENCOUNTER 2022-10-13 13:57 | Outpatient (CLI) | payer MEDICARE, MEDICAID ==
[2022-10-13 14:32] LABS: BILIRUBIN,URINE NEGATIVE (NEGATIVE); GLUCOSE, URINE (UA) NEGATIVE (NEGATIVE); KETONES,URINE (UA) NEGATIVE (NEGATIVE); LEUKOCYTE ESTERASE, URINE LARGE (NEGATIVE); NITRITE,URINE POSITIVE (NEGATIVE); OCCULT BLOOD,URINE MODERATE (NEGATIVE); PROTEIN,URINE 100 mg/dL (NEGATIVE); UROBILINOGEN,URINE 0.2 (NORMAL) E.U./dL (NORMAL)
[2022-10-13 15:22] LABS: CLARITY,URINE CLOUDY (CLEAR)
[2022-10-13 15:35] LABS: AMORPHOUS SEDIMENT,UR Marked /LPF; BACTERIA,URINE Moderate /HPF (None Seen); SQUAMOUS EPITHELIAL CELL,UR NONE SEEN (<= Few); WBC,URINE >25 /HPF (0-3)
== END 2022-10-13 13:58 | disposition home or self-care (01) ==
LOC: LAB.R 13:57
PROVIDERS: ATTEND Internal Medicine
DX: N30.90 Cystitis, unspecified without hematuria (principal); R19.7 Diarrhea, unspecified
CPT/HCPCS: 81001; 87045; 87046; 87081; 87086; 87181; 87427; 87493

== ENCOUNTER 2022-10-18 08:00 | Outpatient (CLI) | payer MEDICARE, MEDICAID | END 2022-10-18 23:59 | disposition home or self-care (01) | LOC: LAB.R 08:00 | PROVIDERS: ATTEND Internal Medicine | DX: N30.90 Cystitis, unspecified without hematuria (principal); R19.7 Diarrhea, unspecified | CPT/HCPCS: 87045; 87046; 87427 ==

== ENCOUNTER 2022-10-20 13:37 | Outpatient (CLI) | payer MEDICARE, MEDICAID | END 2022-10-20 23:59 | disposition short-term general hospital (02) | LOC: EMS 13:37 | DX: A03.9 Shigellosis, unspecified (principal); L89.154 Pressure ulcer of sacral region, stage 4 | CPT/HCPCS: A0425; A0429 ==

== ENCOUNTER 2022-11-05 08:00 | Outpatient (CLI) | payer MEDICARE, MEDICAID ==
[2022-11-05 20:08] LABS: BASOPHILS # (AUTO) 0.1 10^3/uL (0.0-0.1); BASOPHILS % (AUTO) 1.4 %; EOSINOPHILS # (AUTO) 0.2 10^3/uL (0.0-0.7); EOSINOPHILS % (AUTO) 2.6 %; HGB - HEMOGLOBIN 10.1 g/dL (14.0-18.0); LYMPHOCYTES % (AUTO) 11.8 %; MEAN CORPUSCULAR HEMOGLOBIN 25.3 pg (27.0-31.0); MEAN CORPUSCULAR HGB CONC 29.7 g/dL (32.0-36.0); MEAN PLATELET VOLUME 9.9 fL (7.4-11.4); MONOCYTES # (AUTO) 0.6 10^3/uL (0.0-1.0); MONOCYTES % (AUTO) 7.4 %; NEUTROPHILS # (AUTO) 6.2 10^3/uL (1.5-6.6); NEUTROPHILS % (AUTO) 76.6 %; PLT - PLATELET COUNT 458 10^3/uL (130-450); RED CELL DISTRIBUTION WIDTH 19.5 % (12.0-15.0); WHITE BLOOD COUNT 8.1 x10^3/uL (4.8-10.8)
[2022-11-05 20:19] LABS: ALBUMIN 2.8 g/dL (3.2-5.5); ALBUMIN/GLOBULIN RATIO 0.6 (1.0-2.2); BILIRUBIN,TOTAL 0.6 mg/dL (0.2-1.0); CREATININE 0.6 mg/dL (0.6-1.2); POTASSIUM 4.7 mmol/L (3.5-5.0); TOTAL PROTEIN 7.3 g/dL (6.7-8.2)
== END 2022-11-05 23:59 | disposition home or self-care (01) ==
LOC: LAB.R 08:00
PROVIDERS: ATTEND Family Medicine
DX: E87.8 Other disorders of electrolyte and fluid balance, not elsewhere classified (principal); D64.9 Anemia, unspecified
CPT/HCPCS: 80053; 85025

== ENCOUNTER 2022-11-18 10:34 | Outpatient (CLI) | payer MEDICARE, MEDICAID | END 2022-11-18 10:35 | disposition home or self-care (01) | LOC: EMS 10:34 | PROVIDERS: ATTEND Registered Nurse | DX: G82.21 Paraplegia, complete (principal); Z74.01 Bed confinement status; L89.159 Pressure ulcer of sacral region, unspecified stage | CPT/HCPCS: A0425; A0428 ==

== ENCOUNTER 2023-03-07 12:32 | Outpatient (CLI) | payer MEDICARE, MEDICAID ==
[2023-03-07 13:29] LABS: FECAL OCCULT BLOOD (FIT) NEGATIVE (NEGATIVE)
== END 2023-03-07 12:33 | disposition home or self-care (01) ==
LOC: LAB.R 12:32
PROVIDERS: ATTEND Nurse Practitioner
DX: R19.7 Diarrhea, unspecified (principal)
CPT/HCPCS: 82274; 87045; 87046; 87177; 87427

== ENCOUNTER 2023-07-16 23:56 | Outpatient (CLI) | payer MEDICARE, MEDICAID | END 2023-07-16 23:59 | disposition EMS.NT | LOC: EMS 23:56 | DX: R05.9 Cough, unspecified (principal) ==

== ENCOUNTER 2023-10-13 08:00 | Outpatient (CLI) | payer MEDICARE, MEDICAID | END 2023-10-13 23:59 | disposition home or self-care (01) | LOC: PC 08:00 | PROVIDERS: ATTEND Nurse Practitioner Gerontology | DX: Z51.5 Encounter for palliative care (principal); Z74.01 Bed confinement status; R54 Age-related physical debility; R53.1 Weakness; N39.0 Urinary tract infection, site not specified; N26.1 Atrophy of kidney (terminal); I48.91 Unspecified atrial fibrillation; E11.40 Type 2 diabetes mellitus with diabetic neuropathy, unspecified; R63.1 Polydipsia; F03.92 Unspecified dementia, unspecified severity, with psychotic disturbance; F03.94 Unspecified dementia, unspecified severity, with anxiety; M62.58 Muscle wasting and atrophy, not elsewhere classified, other site; Z79.899 Other long term (current) drug therapy; Z71.89 Other specified counseling; Z93.6 Other artificial openings of urinary tract status; Z66 Do not resuscitate | CPT/HCPCS: 99350 ==

== ENCOUNTER 2023-10-23 08:00 | Outpatient (CLI) | payer MEDICARE, MEDICAID | END 2023-10-23 23:59 | disposition home or self-care (01) | LOC: PC 08:00 | PROVIDERS: ATTEND Nurse Practitioner Gerontology | DX: Z51.5 Encounter for palliative care (principal); C07 Malignant neoplasm of parotid gland; F02.84 Dementia in other diseases classified elsewhere, unspecified severity, with anxiety | CPT/HCPCS: 99426 ==

== ENCOUNTER 2023-11-08 08:00 | Outpatient (CLI) | payer MEDICARE, MEDICAID | END 2023-11-08 23:59 | disposition home or self-care (01) | LOC: PC 08:00 | PROVIDERS: ATTEND Nurse Practitioner Gerontology | DX: Z51.5 Encounter for palliative care (principal); Z74.01 Bed confinement status; Z93.6 Other artificial openings of urinary tract status; Z93.1 Gastrostomy status; E11.40 Type 2 diabetes mellitus with diabetic neuropathy, unspecified; H10.89 Other conjunctivitis; L89.326 Pressure-induced deep tissue damage of left buttock; L89.316 Pressure-induced deep tissue damage of right buttock; L89.154 Pressure ulcer of sacral region, stage 4; R53.1 Weakness; F03.90 Unspecified dementia, unspecified severity, without behavioral disturbance, psychotic disturbance, mood disturbance, and anxiety; Z71.89 Other specified counseling; Z63.8 Other specified problems related to primary support group; Z85.89 Personal history of malignant neoplasm of other organs and systems; Z85.46 Personal history of malignant neoplasm of prostate; Z79.899 Other long term (current) drug therapy; Z79.01 Long term (current) use of anticoagulants; I48.91 Unspecified atrial fibrillation; E11.22 Type 2 diabetes mellitus with diabetic chronic kidney disease; N18.30 Chronic kidney disease, stage 3 unspecified | CPT/HCPCS: 99350; G0318; 99417 ==

== ENCOUNTER → 2023-11-30 | Outpatient (CLI) | payer MEDICARE, MEDICAID | LOC: PC 08:00 | PROVIDERS: ATTEND Nurse Practitioner Gerontology | DX: Z51.5 Encounter for palliative care (principal); F03.C2 Unspecified dementia, severe, with psychotic disturbance; F02.B4 Dementia in other diseases classified elsewhere, moderate, with anxiety; C07 Malignant neoplasm of parotid gland; R53.83 Other fatigue; R53.1 Weakness; R63.4 Abnormal weight loss; R52 Pain, unspecified; F12.10 Cannabis abuse, uncomplicated; I48.91 Unspecified atrial fibrillation; I10 Essential (primary) hypertension; R63.0 Anorexia; Z93.1 Gastrostomy status; Z96.0 Presence of urogenital implants; Z95.0 Presence of cardiac pacemaker; Z85.46 Personal history of malignant neoplasm of prostate; Z74.01 Bed confinement status; Z63.8 Other specified problems related to primary support group; Z79.899 Other long term (current) drug therapy; Z87.891 Personal history of nicotine dependence; Z74.1 Need for assistance with personal care; R06.02 Shortness of breath | CPT/HCPCS: 99350 ==

== ENCOUNTER 2024-01-30 11:13 | Outpatient (CLI) | payer MEDICARE, MEDICAID | END 2024-01-30 11:14 | disposition critical access hospital (66) | LOC: EMS 11:13 | DX: R06.03 Acute respiratory distress (principal); R50.9 Fever, unspecified; Z59.19 Other inadequate housing | CPT/HCPCS: A0425; A0427 ==

== ENCOUNTER 2024-01-30 11:37 | Inpatient (IN) | payer MEDICARE, MEDICAID ==
--- NOTE | 2024-01-30 12:30 | ED Physician Documentation ---
PD HPI URI - Stated complaint Stated Complaint: SOA - Chief complaint Chief Complaint: Resp - History obtained from History obtained from: EMS - Additional information Additional information: 84 male brought in by the ambulance today for hypoxia. He has severe dementia and is unable to give any history. He states he does not know why he is here. No other history is available upon arrival to the emergency department. Unclear if he uses oxygen at home or not. Apparently a DuoNeb was given en route. Unclear if he has any lung issues or not. There is no other history available. Unclear how long this has been going on. He states he does not know why he is here. His is not in the emergency department with him. Review of Systems Unable to obtain: Dementia PD PAST MEDICAL HISTORY - Past Medical History Past Medical History: Yes Cardiovascular: Hypertension, High cholesterol, Atrial fibrillation Respiratory: COPD, Pneumonia, Sleep apnea Neuro: Dementia, Peripheral neuropathy Endocrine/Autoimmune: Type 2 diabetes GI: GERD, Other : Indwelling catheter HEENT: Chronic vision loss, Glaucoma, Chronic sinusitis, Chronic hearing loss Psych: Depression, Anxiety Musculoskeletal: Osteoarthritis, Osteoporosis, Other Derm: Other - Past Surgical History Past Surgical History: Yes Ortho: Hip replacement Cardiovascular: Pacemaker, AAA HEENT: Cataracts, Detached retina repair Derm: Skin cancer surgery - Present Medications Home Medications: Ambulatory Orders Medication Instructions Recorded Confirmed Acetaminophen [Tylenol] 650 mg PEG Q4HR PRN #60 tablet 01/14/19 01/30/24 Diclofenac Sodium [Voltaren] 2 - 4 g TP QID PRN 05/28/20 01/30/24 Systane Overnight Gel 0.25 inch EACHEYE QPM 02/02/21 01/30/24 ALPRAZolam [Alprazolam] 0.5 mg PO QID PRN 01/30/24 01/30/24 Aspirin Chewable [[facility] [place] 81 mg PO DAILY 01/30/24 01/30/24 Aspirin] Enalapril [Vasotec] 5 mg PEG QPM 01/30/24 01/30/24 Erythromycin Ophth Oint (3.5) 1 each EACHEYE DAILY PRN 01/30/24 01/30/24 [Ilotycin Ophth Oint (3.5)] Loperamide [Imodium] 2 mg PO DAILY PRN 01/30/24 01/30/24 - Allergies Allergies/Adverse Reactions: Allergies Allergy/AdvReac Type Severity Reaction Status Date / Time vancomycin AdvReac Mild injection Verified 01/30/24 11:45 site erythema - Social History Does the pt smoke?: Yes Smoking Status: Current every day smoker Does the pt drink ETOH?: No Does the pt have substance abuse?: No - Immunizations Immunizations are current?: Yes Immunizations: TDAP >10years/unknown - POLST Patient has POLST: No POLST Status: Full Code PD ED PE NORMAL - Vitals Vital signs reviewed: Yes - General General: No acute distress, Well developed/nourished, Other (Alert, no acute distress. On oxygen. Not oriented to person, place or time.) - HEENT HEENT: Moist mucous membranes - Neck Neck: Supple, no meningeal sign - Cardiac Cardiac: RRR - Respiratory Respiratory: Other (Diffuse wheezing bilaterally and crackles) - Abdomen Abdomen: Soft, Non tender, Non distended - Derm Derm: Warm and dry - Extremities Extremities: No calf tenderness / cord - Neuro Neuro: Other (alert) Results - Vitals Vitals: Vital Signs - 24 hr 01/30/24 01/30/24 01/30/24 11:42 11:45 13:13 Temperature 36.7 C Heart Rate 70 74 Respiratory 26 H 14 Rate Blood Pressure 111/70 106/60 O2 Saturation 79 L 92 99 If not protocol 6 6 : Oxygen Flow, liters/minute 01/30/24 14:00 Temperature Heart Rate 88 Respiratory 17 Rate Blood Pressure 116/68 O2 Saturation 100 If not protocol : Oxygen Flow, liters/minute Oxygen O2 Source [With Activity] Room air O2 Source [Without Activity] Room air O2 Source Nasal cannula Oxygen Flow Rate 6 - Labs Labs: Laboratory Tests 01/30/24 01/30/24 01/30/24 12:12 12:30 12:30 WBC 8.9 RBC 4.17 L Hgb 10.2 L Hct 34.9 L MCV 83.7 MCH 24.5 L MCHC 29.2 L RDW 19.4 H Plt Count 315 MPV 9.0 Neut # (Auto) 7.5 H Lymph # (Auto) 0.7 L [place] # (Auto) 0.7 Eos # (Auto) 0.0 Baso # (Auto) 0.1 Absolute Nucleated RBC 0.00 Nucleated RBC % 0.0 Sodium 137 Potassium 3.7 Chloride 98 L Carbon Dioxide 34 H Anion Gap 5.0 L BUN 24 H Creatinine 0.6 Estimated GFR (MDRD) 129 Glucose 109 H Calcium 9.2 Total Bilirubin 1.3 H AST 11 ALT 4 L Alkaline Phosphatase 64 Total Protein 7.4 Albumin 3.1 L Globulin 4.3 H Albumin/Globulin Ratio 0.7 L Lipase < 10 L Nasal Adenovirus (PCR) NOT DETECTED Nasal B. parapertussis DNA (PCR) NOT DETECTED Nasal Coronavir 229E PCR NOT DETECTED Nasal Coronavir HKU1 PCR NOT DETECTED Nasal Coronavir NL63 PCR NOT DETECTED Nasal Coronavir OC43 PCR NOT DETECTED Nasal Enterovir/Rhinovir PCR NOT DETECTED Nasal Influenza B PCR NOT DETECTED Nasal Influenza A PCR NOT DETECTED Nasal Parainfluen 1 PCR NOT DETECTED Nasal Parainfluen 2 PCR NOT DETECTED Nasal Parainfluen 3 PCR NOT DETECTED Nasal Parainfluen 4 PCR NOT DETECTED Nasal RSV (PCR) NOT DETECTED Nasal B.pertussis DNA PCR NOT DETECTED Nasal C.pneumoniae (PCR) NOT DETECTED [place] Human Metapneumo PCR NOT DETECTED Nasal M.pneumoniae (PCR) NOT DETECTED Nasal SARS-CoV-2 (PCR) NOT DETECTED - Rads (name of study) cxr Relevant Findings:: Final report received, See rad report PD Medical Decision Making - ED course Complexity details: reviewed results, re-evaluated patient, considered differential, d/w family, d/w java developer consultant ED course: 84-year-old male presents to the emergency department with hypoxia. Room air O2 sat of 79%. Has a moist sounding cough. Discussed the case with his . Had been on hospice but she realized that she could not call the ambulance if she needed them so she revoked hospice and he is currently on palliative care. He also had a feeding tube but this was removed in July. She states he drinks Ensure, but most of it leaks out of the G-tube site. She thinks that he is malnutrition and and wants to have the feeding tube put back in. She is also concerned that he has pneumonia. His chest x-ray is consistent with pneumonia. He was given IV antibiotics. He does not use oxygen at home. He is sig nificantly hypoxic here, room air sat 79% on room air. Maintained on 6 L nasal cannula. Discussed the case with the hospitalist, we will admit the patient for pneumonia with hypoxia. This document was made in part using voice recognition software. While efforts are made to proofread this document, sound alike and grammatical errors may occur. Departure - Departure Disposition: 66 [facility] DC/Xfer Clinical Impression: Hypoxia Aspiration pneumonia Qualifiers: Aspiration pneumonia type: due to regurgitated food Laterality: bilateral Lung location: lower lobe of lung Qualified Code(s): J69.0 - Pneumonitis due to inhalation of food and vomit Condition: Stable Discharge Date/Time: 01/30/24 15:30
[2024-01-30 12:40] LABS: BASOPHILS # (AUTO) 0.1 10^3/uL (0.0-0.1); BASOPHILS % (AUTO) 0.6 %; EOSINOPHILS % (AUTO) 0.3 %; HCT - HEMATOCRIT 34.9 % (42.0-52.0); HGB - HEMOGLOBIN 10.2 g/dL (14.0-18.0); LYMPHOCYTES # (AUTO) 0.7 10^3/uL (1.5-3.5); LYMPHOCYTES % (AUTO) 7.5 %; MEAN CORPUSCULAR HEMOGLOBIN 24.5 pg (27.0-31.0); MEAN CORPUSCULAR HGB CONC 29.2 g/dL (32.0-36.0); MEAN CORPUSCULAR VOLUME 83.7 fL (80.0-94.0); MONOCYTES # (AUTO) 0.7 10^3/uL (0.0-1.0); MONOCYTES % (AUTO) 7.3 %; NEUTROPHILS # (AUTO) 7.5 10^3/uL (1.5-6.6); NEUTROPHILS % (AUTO) 84.1 %; PLT - PLATELET COUNT 315 10^3/uL (130-450); RED BLOOD COUNT 4.17 10^6/uL (4.70-6.10); RED CELL DISTRIBUTION WIDTH 19.4 % (12.0-15.0); WHITE BLOOD COUNT 8.9 x10^3/uL (4.8-10.8)
[2024-01-30 13:05] LABS: ALBUMIN 3.1 g/dL (3.2-5.5); ALBUMIN/GLOBULIN RATIO 0.7 (1.0-2.2); ALKALINE PHOSPHATASE 64 IU/L (42-121); ALT ALANINE AMINOTRANSFERASE 4 IU/L (10-60); AST ASPARTATE AMINOTRANSFERASE 11 IU/L (10-42); BILIRUBIN,TOTAL 1.3 mg/dL (0.2-1.0); BUN - BLOOD UREA NITROGEN 24 mg/dL (6-20); CALCIUM 9.2 mg/dL (8.5-10.3); CARBON DIOXIDE - CO2 34 mmol/L (21-32); CHLORIDE 98 mmol/L (101-111); CREATININE 0.6 mg/dL (0.6-1.3); GFR - MDRD 129 (>89); GLUCOSE 109 mg/dL (74-104); POTASSIUM 3.7 mmol/L (3.5-4.5); SODIUM 137 mmol/L (135-145); TOTAL PROTEIN 7.4 g/dL (6.4-8.9)
[2024-01-30 13:10] LABS: LIPASE < 10 U/L (11-82)
[2024-01-30 13:11] LABS: B. PARAPERTUSSIS- RESP PCR PAN NOT DETECTED; B. PERTUSSIS- RESP PCR PANEL NOT DETECTED; C. PNEUMONIAE- RESP PCR PANEL NOT DETECTED; CORONAVIRUS 229E-RESP PCR NOT DETECTED; CORONAVIRUS HKU1-RESP PCR NOT DETECTED; CORONAVIRUS NL63-RESP PCR NOT DETECTED; CORONAVIRUS OC43-RESP PCR NOT DETECTED; HUMAN METAPNEUMOVIRUS NOT DETECTED; INFLUENZA A- RESP PCR PANEL NOT DETECTED; INFLUENZA B - RESP PCR PANEL NOT DETECTED; M. PNEUMONIAE- RESP PCR PANEL NOT DETECTED; PARAINFLUENZA VIRUS 1 NOT DETECTED; PARAINFLUENZA VIRUS 2 NOT DETECTED; PARAINFLUENZA VIRUS 3 NOT DETECTED; PARAINFLUENZA VIRUS 4 NOT DETECTED; RHINOVIRUS/ENTEROVIRUS NOT DETECTED; RSV- RESP PCR PANEL NOT DETECTED; SARS-CoV-2 -RESP PCR PANEL NOT DETECTED
--- NOTE | 2024-01-30 13:12 | XRAY Report ---
PROCEDURE: Chest 1V INDICATIONS: Chest pain TECHNIQUE: One view of the chest was acquired. COMPARISON: Chest CT 08/17/2022 FINDINGS: Surgical changes and devices: None. Lungs and pleura: Mild bibasilar opacities. Possible trace pleural effusions. No pneumothorax. Mediastinum: Cardiac silhouette is mildly enlarged. Bones and chest wall: No suspicious bony lesions. Overlying soft tissues appear unremarkable. IMPRESSION: 1.Mild bibasilar opacities are suspicious for edema, atelectasis, aspiration, or pneumonia. 2.Mild cardiomegaly. Reviewed by: Jensen Corey MD on 01/30/2024 1:11 PM PDT Approved by: Jensen Corey MD on 01/30/2024 1:11 PM PDT Station ID: [id number]
[2024-01-30] MEDS: cefTRIAXone 1 GM in SODIUM CHLORIDE 0.9% MINIBAG 100 ML IV STA (14:26)
[2024-01-30] MEDS: cefTRIAXone 1 GM VIAL IVP STA (14:29)
[2024-01-30] MEDS ORDERED: ONDANSETRON 4 MG/2 ML VIAL IVP PRN (14:30)
[2024-01-30] MEDS ORDERED: SODIUM CHLORIDE FLUSH 0.9% 10 ML SYRINGE IVP PRN (14:30)
[2024-01-30] MEDS ORDERED: LORazepam 2 MG/ML VIAL IVP PRN (14:47)
--- NOTE | 2024-01-30 15:03 | HISTORY & PHYSICAL EXAMINATION ---
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 He is cared for by home health and the home health nurse came today to perform wound care on his multiple decubitus ulcerations when it was noted that he was hypoxic. 911 was called and he was transferred to the emergency department. His Jaleesa states that he has become less and less able to swallow over the last few weeks. His primary food source is Glucerna feedings. Over the past 4 days he has become more delusional and agitated. He is prescribed Xanax and morphine and has been taking both of these twice a day over the past several days because of his agitation. She states that over the past several days he has been hallucinating thinking that he is on is on a boat thinking that he is back in the [place] and thinking that his feeding tube wound is a gunshot wound. Jaleesa states that even yesterday he was verbally interactive with her. Ike has been seen by palliative care multiple times. Review of palliative care notes shows a POLST which initially was full code and now is listed as DO NOT RESUSCITATE. Ike has been enrolled in disenrolled and hospice twice. Jaleesa states that she wants all medical interventions at this time, short of CPR and wonders if we can "just pop the feeding tube in him". She does not want him to of starvation. She also states that she wants Ike to at home but right now his care needs are too great for her to meet. She feels overwhelmed and exhausted by his care needs at this time. She feels that he needs a team of people taking care of him but does not want him to go into a facility. History - Past Medical History Cardiovascular: reports: Hypertension, High cholesterol, Atrial fibrillation Respiratory: reports: COPD, Pneumonia, Sleep apnea Neuro: reports: Dementia, Peripheral neuropathy Endocrine/Autoimmune: reports: Type 2 diabetes (Jaleesa states "pre diabetes") GI: reports: GERD, Other : reports: Indwelling catheter HEENT: reports: Chronic vision loss, Glaucoma, Chronic sinusitis, Chronic hearing loss Psych: reports: Depression, Anxiety Musculoskeletal: reports: Osteoarthritis, Osteoporosis, Other Derm: reports: Other MRSA Hx?: No - Past Surgical History General: reports: Other (PEG placement ) Ortho: reports: Hip replacement Cardiovascular: reports: Pacemaker, AAA HEENT: reports: Cataracts, Detached retina repair Derm: reports: Skin grafts, Skin cancer surgery - Family & Social History Family History: Mother: , CVA/TIA, Father: , Brother: Alive and Well, CAD, Hypertension Family History Comment/Other: Father: The patient did not know his father. Mother: CVA, TB. 2 Brothers: HTN, CAD Living arrangement: At home Living Situation: With spouse/s.o. Social History Notes: The patient and his have lived in [facility] for most of their adult life and moved to [place] about 3 years ago to live on a boat. Once the patient was diagnosed with prostate cancer, they purchased a mobile home and sold the boat. Since that time they have resided in their trailer home. 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 They have one son named Kristopher who lives with them and is the patient's resident care associate. The patient admits to tobacco and cigar use from age 16 to 61, and currently smokes marijuana with very occasional alcohol use. He wishes to be a FULL code. - Substance History Use: Uses substance without health or social issues: Cannabis - POLST Patient has POLST: No POLST Status: DNR (Palliative care note 10/13/23) Meds/Allgy - Home Medications Home Medications: Ambulatory Orders Medication Instructions Recorded Confirmed Acetaminophen [Tylenol] 650 mg PEG Q4HR PRN #60 tablet 01/14/19 12/04/20 Enalapril [Vasotec] 5 mg PEG BID #60 01/14/19 12/04/20 Chlorthalidone 12.5 mg PEG DAILY 03/05/19 12/04/20 Nitrofurantoin [Macrobid] 100 mg PEG DAILY 03/05/19 12/04/20 Diclofenac Sodium [Voltaren] 2 - 4 g TP QID PRN 05/28/20 12/04/20 Apixaban [Eliquis] 2.5 mg PEG BID 09/02/20 12/04/20 Clotrimazole 1% Cream [Lotrimin 1% 1 applic TP BID PRN 09/02/20 12/04/20 Cream] Ondansetron Odt [Zofran Odt] 4 mg PO Q8H PRN 12/04/20 12/04/20 Systane Overnight Gel 0.25 RIGHTEYE QPM 02/02/21 Potassium Chloride [Klor-Con] 1 packet PEG DAILY 09/16/21 09/16/21 Amox/Clav 875/125 [Augmentin] 1 each PO Q12H #20 tablet 03/10/22 Cefdinir 300 mg PO BID #20 cap 03/14/22 Cefpodoxime Proxetil [Vantin] 100 mg PO Q12H #14 tablet 09/11/22 - Allergies Allergies/Adverse Reactions: Allergies Allergy/AdvReac Type Severity Reaction Status Date / Time vancomycin AdvReac Mild injection Verified 01/30/24 11:45 site erythema Review of Systems - Other Findings Other Findings: unable to obtain secondary to non verbal patient Prior Level of Functionality: bedbound x years Exam - Vital Signs Vital Signs: Vital Signs x48h Temp Pulse Resp BP Pulse Ox O2 Flow Rate 01/30/24 14:00 88 17 116/68 100 01/30/24 13:13 74 14 106/60 99 6 01/30/24 11:45 92 6 01/30/24 11:42 36.7 C 70 26 H 111/70 79 L - Physical Exam General Appearance: positive: No acute distress, Other (frail appearing) Eyes Bilateral: positive: Other (R sided lower lid ectropion with yellow discharge, right upper lid ptosis. bilateral pupils round and reactive) ENT: positive: Dry mucous membranes Neck: positive: Other (right sided skin grafting, surgical deformity) Respiratory: positive: Rhonchi (diffuse bilateral rhonchi) Cardiovascular: positive: Regular rate & rhythm Peripheral Pulses: positive: Other (no ischemic changes to the feet. non palpable pulses. scaling of the skin. Bilateral anterior tibial venous stasis skin changes.) Abdomen: positive: No distention, Other (LUQ abdominal wound without discharge, pink granulation tissue.) Extremities: positive: No pedal edema. negative: Calf tenderness Neurologic/Psychiatric: positive: Other (non verbal, does not follow commands. opens eyes to tactile stimulation. GCS [id number]= 7) Conclusion/Plan - Problem List (1) Acute hypoxic respiratory failure Conclusion/Plan: secondary to aspiration PNA onset today when evaluated by HH RN. with declining mental status. treated with oxygen via nasal cannula. discussion with who is his POA regarding level of intervention. Please see further discussion below. (2) Aspiration pneumonia Conclusion/Plan: Patient with hypoxia. CXR shows bibasilar opacities. gives a history of progressive difficulty swallowing and decreasing oral intake. states that he has been verbal at home, but is not currently able to answer questions. He is SpO2 100% on 6L NC Has DNR order. Previously has had comfort care POLST, but by discussion with Jaleesa, she would like all medical interventions at this time. I told her that I could provide antibiotics and IV fluids, and that we would have further discussions about his care. IV abx have been started in the ED. I will continue these. I will give IV fluids. At this time, resuscitation attempts would be MEDICALLY FUTILE. We will provide supportive care for this patient and engage in bedside discussions with his and POA Jaleesa regarding further care. PEG was placed in April 2018 (per review of records after treatment for R parotid Ca with sx and RT September 2017), and patient pulled it out mid September 2023. I have called palliative care service for ongoing consultation. I have spoken w ith palliative care staff. Qualifiers: Aspiration pneumonia type: due to regurgitated food Laterality: bilateral Lung location: lower lobe of lung Qualified Code(s): J69.0 - Pneumonitis due to inhalation of food and vomit (3) Acute metabolic encephalopathy Conclusion/Plan: Could be related to his terminal cancer diagnosis. his mental status has not improved with oxygen therapy. Electrolyte panel was not remarkable. his WBC is not elevated. respiratory pathogens panel negative. continue to follow (4) Cancer of parotid gland Conclusion/Plan: treated in September of 2017 with right sided radial neck dissection then subsequent XRT. OCtober of 2018 PEG tube placed which was pulled by patient earlier this year. had 100# weight loss associated with this cancer, and has had difficulty mainta ining adequate intake. PAtient with chronic abdominal wound associated with previous PEG (5) Chronic a-fib Conclusion/Plan: This year has been changed from Eliquis to ASA 81mg which is appropriate. patient is not currently taking oral medications. Will hold this. (6) Diabetes Conclusion/Plan: per , this was a diagnosis of pre diabetes several years ago. Glucose was 109 on BMP (7) Prostate cancer Conclusion/Plan: diagnosis in 2007. now has suprapubic catheter which is longstanding. urine appears cloudy. Afebrile with no elevation in WBC - Lab Results Fish Bones: 01/30/24 12:30 01/30/24 12:30
[2024-01-30] MEDS: AZITHROMYCIN INJ 500 MG in SODIUM CHLORIDE 0.9% 250 ML IV STA (15:05)
[2024-01-30] MEDS: SODIUM CHLORIDE 0.9% 1,000 ML IV SCH (16:25)
[2024-01-30] MEDS: MORPHINE 2 MG/ML CARPUJECT IVP PRN (16:25)
[2024-01-30] MEDS: SODIUM CHLORIDE FLUSH 0.9% 10 ML SYRINGE IVP SCH (16:26)
--- NOTE | 2024-01-30 17:45 | PHARMACY PROGRESS NOTE ---
- Best Possible Medication History Admit Date and Time: 01/30/24 1428 Processed by: Pharmacy Medications reviewed in ED?: No Medication History completed: Yes Patient Interview: Pt unable to participate Secondary Source(s): Spouse/Significant other, Insurance records (Medication Reconciliation completed by pharmacy buyerEdin with patient's .) As the person ultimately responsible for medication therapy, providers are able to order a medication from an existing home medication list in [facility] via the "Reconcile Routine" prior to Confirmation of that medication by marketing support manager. Such practice is discouraged except when the physician, in their clinical judgment, deems that a medical need exists for a medication without regard to previous use.
[2024-01-31 06:03] LABS: BASOPHILS % (AUTO) 0.4 %; EOSINOPHILS % (AUTO) 0.3 %; HCT - HEMATOCRIT 32.6 % (42.0-52.0); HGB - HEMOGLOBIN 9.4 g/dL (14.0-18.0); LYMPHOCYTES # (AUTO) 0.7 10^3/uL (1.5-3.5); LYMPHOCYTES % (AUTO) 7.8 %; MEAN CORPUSCULAR HEMOGLOBIN 24.5 pg (27.0-31.0); MEAN CORPUSCULAR HGB CONC 28.8 g/dL (32.0-36.0); MEAN CORPUSCULAR VOLUME 84.9 fL (80.0-94.0); MEAN PLATELET VOLUME 8.9 fL (7.4-11.4); MONOCYTES # (AUTO) 0.6 10^3/uL (0.0-1.0); MONOCYTES % (AUTO) 5.9 %; NEUTROPHILS # (AUTO) 7.9 10^3/uL (1.5-6.6); NEUTROPHILS % (AUTO) 85.4 %; PLT - PLATELET COUNT 273 10^3/uL (130-450); RED BLOOD COUNT 3.84 10^6/uL (4.70-6.10); RED CELL DISTRIBUTION WIDTH 19.2 % (12.0-15.0); WHITE BLOOD COUNT 9.3 x10^3/uL (4.8-10.8)
[2024-01-31 06:17] LABS: CALCIUM 8.6 mg/dL (8.5-10.3); CREATININE 0.6 mg/dL (0.6-1.3); POTASSIUM 3.5 mmol/L (3.5-4.5)
[2024-01-31] MEDS: cefTRIAXone 1 GM in SODIUM CHLORIDE 0.9% MINIBAG 100 ML IV SCH (08:36)
[2024-01-31] MEDS ORDERED: cefTRIAXone 1 GM VIAL IV SCH (09:00)
[2024-01-31] MEDS: AZITHROMYCIN INJ 500 MG in SODIUM CHLORIDE 0.9% 250 ML IV SCH (09:30)
--- NOTE | 2024-01-31 10:43 | PROVIDER PROGRESS NOTE ---
Subjective - Prog Note Date Prog Note Date: 01/31/24 Prog Note Time: 09:00 - Subjective Pt reports feeling: Worse Subjective: today he is asking for water. Yesterday when I saw him his GCS was quite low and he was not stable for oral intake. Jaleesa is at the bedside. She was not able to be here yesterday afternoon. She is asking to have the PEG tube replaced. She states this is what she wants. She states that Ike needs nutrition to heal. Jaleesa would like for Ike to take what he wants by mouth as needed for comfort, but wants him to have PEG replaced to meet his nutritional needs. She is not receptive to the idea of letting Ike eat for comfort, and not be concerned about his nutritional status. she wants him to have nutrition to keep him alive as long as possible. Current Medications - Current Medications Current Medications: Medications Ondansetron HCl (Ondansetron 4 Mg/2 Ml Vial) 4 mg IVP Q6HR PRN PRN Reason: Nausea / Vomiting Alprazolam (Alprazolam 0.25 Mg Tablet) 0.5 mg PO BID PRN PRN Reason: Anxiety Azithromycin 500 mg/ Sodium (Chloride) 250 mls @ 250 mls/hr IV DAILY [facility] Stop: 02/02/24 09:59 Last Admin: 01/31/24 09:30 Dose: 250 mls/hr Ceftriaxone Sodium 1 gm/ (Sodium Chloride) 100 mls @ 200 mls/hr IV DAILY [facility] Last Admin: 01/31/24 09:10 Dose: Infused Morphine Sulfate (Morphine 2 Mg/Ml Carpuject) 2 mg IVP Q3H PRN PRN Reason: Severe Pain (Level 7-10) Last Admin: 01/31/24 15:17 Dose: 2 mg Multi-Ingredient Ointment (Zinc Oxide 20% Oint 30 Gm Tube) 1 applic TOP PRN PRN PRN Reason: Skin Care Objective - Vital Signs/Intake & Output Vital Signs: Vital Signs x48h Temp Pulse Resp BP Pulse Ox O2 Flow Rate 01/31/24 08:27 5 01/31/24 07:35 36.6 C 57 L 22 131/63 H 99 6 01/31/24 05:18 36.5 C 64 24 117/62 97 6 Intake & Output: Intake & Output 01/28/24 01/29/24 01/30/24 01/31/24 23:59 23:59 23:59 23:59 Intake Total 350 1100 Output Total 100 300 Balance 250 800 - Objective General Appearance: positive: Moderate distress (asking for water. uncomfortable when he gets moved upright but wants to sit up to drink) Eyes Bilateral: positive: Other (right sided lower lid ectropion with right upper lid ptosis.) ENT: positive: No signs of dehydration, Dry mucous membranes, Other (right facial droop/deformity) Neck: positive: Other (right sided skin grafting, surgical deformity) Respiratory: positive: Rhonchi (diffuse bilateral) Cardiovascular: positive: Regular rate & rhythm Abdomen: positive: Other (PEG site with surrounding irritation. There is bilious drainage coming from site today.) Skin: positive: Color nml Extremities: positive: No pedal edema Neurologic/Psychiatric: positive: Disoriented to place, Disoriented to time, Facial droop, Other (agitated at times "I need help") - Lab Results Fish Bones: 01/31/24 05:50 01/31/24 05:50 Other Labs: Lab Results x24hrs 01/31/24 01/31/24 01/30/24 Range/Units 05:50 05:50 12:30 WBC 9.3 (4.8-10.8) x10^3/uL RBC 3.84 L (4.70-6.10) 10^6/uL Hgb 9.4 L (14.0-18.0) g/dL Hct 32.6 L (42.0-52.0) % MCV 84.9 (80.0-94.0) fL MCH 24.5 L (27.0-31.0) pg MCHC 28.8 L (32.0-36.0) g/dL RDW 19.2 H (12.0-15.0) % Plt Count 273 (130-450) 10^3/uL MPV 8.9 (7.4-11.4) fL Neut # (Auto) 7.9 H (1.5-6.6) 10^3/uL Lymph # (Auto) 0.7 L (1.5-3.5) 10^3/uL [place] # (Auto) 0.6 (0.0-1.0) 10^3/uL Eos # (Auto) 0.0 (0.0-0.7) 10^3/uL Baso # (Auto) 0.0 (0.0-0.1) 10^3/uL Absolute Nucleated RBC 0.00 x10^3/uL Nucleated RBC % 0.0 /100WBC Sodium 139 137 (135-145) mmol/L Potassium 3.5 3.7 (3.5-4.5) mmol/L Chloride 102 98 L (101-111) mmol/L Carbon Dioxide 30 34 H (21-32) mmol/L Anion Gap 7.0 5.0 L (6-13) BUN 21 H 24 H (6-20) mg/dL Creatinine 0.6 0.6 (0.6-1.3) mg/dL Estimated GFR (MDRD) 129 129 (>89) Glucose 77 109 H (74-104) mg/dL Calcium 8.6 9.2 (8.5-10.3) mg/dL Total Bilirubin 1.3 H (0.2-1.0) mg/dL AST 11 (10-42) IU/L ALT 4 L (10-60) IU/L Alkaline Phosphatase 64 (42-121) IU/L Total Protein 7.4 (6.4-8.9) g/dL Albumin 3.1 L (3.2-5.5) g/dL Globulin 4.3 H (2.1-4.2) g/dL Albumin/Globulin Ratio 0.7 L (1.0-2.2) Lipase < 10 L (11-82) U/L Nasal Adenovirus (PCR) Nasal B. parapertussis DNA (PCR) Nasal Coronavir 229E PCR Nasal Coronavir HKU1 PCR Nasal Coronavir NL63 PCR Nasal Coronavir OC43 PCR Nasal Enterovir/Rhinovir PCR Nasal Influenza B PCR Nasal Influenza A PCR Nasal Parainfluen 1 PCR Nasal Parainfluen 2 PCR Nasal Parainfluen 3 PCR Nasal Parainfluen 4 PCR Nasal RSV (PCR) Nasal B.pertussis DNA PCR Nasal C.pneumoniae (PCR) [place] Human Metapneumo PCR Nasal M.pneumoniae (PCR) Nasal SARS-CoV-2 (PCR) 01/30/24 01/30/24 Range/Units 12:30 12:12 WBC 8.9 (4.8-10.8) x10^3/uL RBC 4.17 L (4.70-6.10) 10^6/uL Hgb 10.2 L (14.0-18.0) g/dL Hct 34.9 L (42.0-52.0) % MCV 83.7 (80.0-94.0) fL MCH 24.5 L (27.0-31.0) pg MCHC 29.2 L (32.0-36.0) g/dL RDW 19.4 H (12.0-15.0) % Plt Count 315 (130-450) 10^3/uL MPV 9.0 (7.4-11.4) fL Neut # (Auto) 7.5 H (1.5-6.6) 10^3/uL Lymph # (Auto) 0.7 L (1.5-3.5) 10^3/uL [place] # (Auto) 0.7 (0.0-1.0) 10^3/uL Eos # (Auto) 0.0 (0.0-0.7) 10^3/uL Baso # (Auto) 0.1 (0.0-0.1) 10^3/uL Absolute Nucleated RBC 0.00 x10^3/uL Nucleated RBC % 0.0 /100WBC Sodium (135-145) mmol/L Potassium (3.5-4.5) mmol/L Chloride (101-111) mmol/L Carbon Dioxide (21-32) mmol/L Anion Gap (6-13) BUN (6-20) mg/dL Creatinine (0.6-1.3) mg/dL Estimated GFR (MDRD) (>89) Glucose (74-104) mg/dL Calcium (8.5-10.3) mg/dL Total Bilirubin (0.2-1.0) mg/dL AST (10-42) IU/L ALT (10-60) IU/L Alkaline Phosphatase (42-121) IU/L Total Protein (6.4-8.9) g/dL Albumin (3.2-5.5) g/dL Globulin (2.1-4.2) g/dL Albumin/Globulin Ratio (1.0-2.2) Lipase (11-82) U/L Nasal Adenovirus (PCR) NOT DETECTED Nasal B. parapertussis DNA (PCR) NOT DETECTED Nasal Coronavir 229E PCR NOT DETECTED Nasal Coronavir HKU1 PCR NOT DETECTED Nasal Coronavir NL63 PCR NOT DETECTED Nasal Coronavir OC43 PCR NOT DETECTED Nasal Enterovir/Rhinovir PCR NOT DETECTED Nasal Influenza B PCR NOT DETECTED Nasal Influenza A PCR NOT DETECTED Nasal Parainfluen 1 PCR NOT DETECTED Nasal Parainfluen 2 PCR NOT DETECTED Nasal Parainfluen 3 PCR NOT DETECTED Nasal Parainfluen 4 PCR NOT DETECTED Nasal RSV (PCR) NOT DETECTED Nasal B.pertussis DNA PCR NOT DETECTED Nasal C.pneumoniae (PCR) NOT DETECTED [place] Human Metapneumo PCR NOT DETECTED Nasal M.pneumoniae (PCR) NOT DETECTED Nasal SARS-CoV-2 (PCR) NOT DETECTED Assessment/Plan - Problem List (1) Acute hypoxic respiratory failure Impression: secondary to aspiration PNA O2 sats in mid to high 90s on 5 L via nasal cannula. (2) Aspiration pneumonia Impression: Patient with hypoxia Effectively treated with oxygen via nasal cannula.. CXR shows bibasilar opacities. gives a history of progressive difficulty swallowing and decreasing oral intake. Has DNR order. Previously has had comfort care POLST, but by discussion with Jaleesa, she would like all medical interventions at this time. Further discussions with his this morning indicate that she would like full care. She agrees with DNR DNI order as she recognizes that Ike is at the end of his life. At this time, resuscitation attempts would be MEDICALLY FUTILE. palliative care has been consulted and will see the patient this afternoon. please see further discussion under failure to thrive diagnosis. IV abx have been started in the ED. Day 2/ Rocephin day 2/3 Zithromax PEG was placed in April 2018 (per review of records after treatment for R parotid Ca with sx and RT September 2017), and patient pulled it out Late July of this year per my discussion with Jaleesa. Qualifiers: Aspiration pneumonia type: due to regurgitated food Laterality: bilateral Lung location: lower lobe of lung Qualified Code(s): J69.0 - Pneumonitis due to inhalation of food and vomit (3) Acute metabolic encephalopathy Impression: His mental status has improved overnight with antibiotic and oxygen therapy. He is taking in liquids by mouth therefore I will stop the IV fluids. He has become agitated this afternoon and Yesenia requests that he be transition back to his p.o. Xanax instead of IV Ativan. Currently he is alert but oriented only to self. (4) Failure to thrive in adult Impression: Ike has been sick for some time. He has been bedbound for 4 years. He has been under the care of of our outpatient palliative care service since July of this year. He has been admitted to hospice here at [facility] twice and both times his has discontinued their services. He is currently receiving home health services. His , Jaleesa, is overwhelmed with his care needs. Jaleesa also expresses that what she wants is for Ike to at home in their living room. She recognizes that Ike is dying but she wants to continue all medical interventions. She wants to keep Ike alive as long as possible. She wants him to continue to receive feeding so that he will stay alive longer. I pointed out to her that this will not necessarily give Ike quality of life, but will give him possibly quantity of life. She states that this is what she wants for him and that she is the decision maker. He originally had a PEG tube placed in April 2018. He pulled the PEG tube out in late July of this year, during a period of confusion. Since that time he has had intermittent drainage of the hole in his abdomen. Today there is bilious drainage soaking the 4 x 4 over the PEG tube site. Given the bilious drainage from the hole in the abdominal wall I believe that the tract for the PEG tube is still open. I think that if the PEG tube can be replaced through this tract it should be replaced through this tract. This requires interventional radiology with fluoroscopy services. We do not have that available at this facility. I discussed this with his Jaleesa. She would like him transferred for replacement of the PEG tube. I have initiated this process. Palliative care consultation is pending but will happen this afternoon. I discussed this patient with palliative care this morning (5) Decubitus skin ulcer Impression: Multiple ulcerations on pressure areas. He has ulcerations on the bilateral ischial prominences. He has ulceration at his coccyx. He has shear injuries about his buttocks. Thse are stage 4 ulcerations. They are not draining purulent material. Nursing notes in the chart dated 01/30/2024 were reviewed by me. We will continue local wound care. Qualifiers: Pressure injury location: buttock Pressure injury stage: stage 4 (6) Cancer of parotid gland Impression: treated in September of 2017 with right sided radial neck dissection then subsequent XRT. April of 2018 PEG tube placed which was pulled by patient earlier this year. had 100# weight loss associated with this cancer, and has had difficulty maintaining adequate intake. PAtient with chronic abdominal wound associated with previous PEG (7) Chronic a-fib Impression: This year has been changed from Eliquis to ASA 81mg which is appropriate. Since he is taking PO I will resume ASA. (8) Diabetes Impression: diagnosis of pre diabetes years ago. mildly elevated blood sugar at time of admit. 78 this AM. Will not treat.
[2024-01-31 14:14] VITALS: BP 133/66; O2SAT 95
[2024-01-31] MEDS ORDERED: ZINC OXIDE 20% OINT 30 GM TUBE TOP PRN (14:39)
[2024-01-31] MEDS ORDERED: ALPRAZolam 0.25 MG TABLET PO PRN (14:45)
[2024-01-31] MEDS ORDERED: MORPHINE SOL 10 MG/0.5 ML ORAL SYRINGE PO PRN (14:46)
[2024-01-31] MEDS ORDERED: LIDOCAINE 1%-EPI 1:100000 50 ML VIAL SUBQ ONE (16:18)
[2024-01-31] MEDS ORDERED: LIDOCAINE 1%-EPI 1:100000 20 ML MDV SUBQ ONE (17:00)
--- NOTE | 2024-01-31 17:03 | PROCEDURE REPORT ---
Hospitalist Procedure Note - Procedure Note Procedure Note: request by to close hole in abdominal skin through which gastric secretions are leaking. This was done For palliative purposes. Area was cleaned with alcohol 1% lidocaine with epinephrine was locally infiltrated about 8 cc were used to ensure good anesthesia. Simple interrupted sutures using 3 -0 Ethilon were placed in the skin. The area close is about 1.5 cm in diameter. This was a single layer closure. Please see picture of wound documented in nursing notes. The closure appeared watertight Xeroform gauze was placed with gauze dressing.
--- NOTE | 2024-01-31 18:15 | DISCHARGE SUMMARY ---
Discharge Summary Admit Date: 01/30/24 Discharge Date: 01/31/24 Discharging Provider: Kinza Burgess PA-C Primary Care Provider: Juan Luis Cain MD Condition at Discharge: Stable - DIAGNOSES Admission Diagnoses: acute hypoxic respiratory failure Aspiration pneumonia Acute metabolic encephalopathy Cancer of parotid gland Chronic A-fib Diabetes Prostate cancer Discharge Diagnoses with Status of Each Condition: cardiac arrest Secondary to below diagnoses. Patient had DO NOT RESUSCITATE status established. Hypoxic respiratory failure Secondary to aspiration pneumonia. His oxygen saturation was maintained at 95% or greater on 5 L via nasal cannula up until the time of his . Aspiration pneumonia He was treated with Rocephin and Zithromax from the time of his arrival in the emergency department. Has had progressive difficulty swallowing and decreasing oral intake. Encephalopathy Waxing and waning agitation. Was restarted on oral fluids early on hospital d ay 2 and tolerated this well. Transition back to p.o. Xanax from IV Ativan maintain.ed orientation to self only Failure to thrive Ike has been sick for some time. He has been bedbound for 4 years. He has been under the care of of our outpatient palliative care service since July of this year. His , Jaleesa, is overwhelmed with his care needs. Jaleesa also expresses that what she wants is for Ike to at home in their living room. She recognizes that Ike is dying but she wants to continue all medical interventions. Jaleesa realized on the afternoon of Ike's that placing a feeding tube was probably not a viable option. This would require transfer for higher level of care, and she did not want this level of disruption. Decubitus ulcers ulcerations of the bilateral ischial prominences and at his coccyx. Shear injuries about his buttocks. 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 Associated 100 pound weight loss. PEG placed in April 2018 and removed in July 2023. Chronic wound associated with PEG Chronic atrial fibrillation transitioned earlier in 2023 from Eliquis to aspirin 81 mg. Diabetes Previous diagnosis of diabetes prior to 100 pound weight loss. Blood sugars have been normal Prostate cancer with indwelling suprapubic catheter for many years. No evidence of bony metastasis on imaging studies. 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 He is cared for by home health and the home health nurse came today to perform wound care on his multiple decubitus ulcerations when it was noted that he was hypoxic. 911 was called and he was transferred to the emergency department. His Jaleesa states that he has become less and less able to swallow over the last few weeks. His primary food source is Glucerna feedings. Over the past 4 days he has become more delusional and agitated. He is prescribed Xanax and morphine and has been taking both of these twice a day over the past several days because of his agitation. She states that over the past several days he has been hallucinating thinking that he is on is on a boat thinking that he is back in the [place] and thinking that his feeding tube wound is a gunshot wound. Jaleesa states that even yesterday he was verbally interactive with her. Ike has been seen by palliative care multiple times. Review of palliative care notes shows a POLST which initially was full code and now is listed as DO NOT RESUSCITATE. Ike has been enrolled in disenrolled and hospice twice. Jaleesa states that she wants all medical interventions at this time, short of CPR and wonders if we can "just pop the feeding tube in him". She does not want him to of starvation. She also states that she wants Ike to at home but right now his care needs are too great for her to meet. She feels overwhelmed and exhausted by his care needs at this time. She feels that he needs a team of people taking care of him but does not want him to go into a facility. - CONSULTS | PROCEDURES Consultations: Palliative Care Procedures: telemetry, NSR. CXR bibasilar opacities - HOSPITAL COURSE Hospital Course: Ike was admitted with hypoxia and respiratory failure due to aspiration pneumonia with bibasilar basilar opacities. He was supported with oxygen via nasal cannula. He has multiple decubitus ulcers and is status post right radical neck dissection for parotid cancer in 2018. His was requesting replacement of the feeding tube for prolongation of his life. Palliative care was consulted for further evaluation of his status since it was clear he was failing to thrive. He has been seen by palliative care in the outpatient environment. Decision was made to proceed with DO NOT RESUSCITATE Status and comfort for Ike with a goal of transitioning him to home. Jaleesa requested that the hole from the feeding tube be closed to assist with management of wound drainage. Tube had been removed 5 months prior and he continued to draining gastric secretions from this. Decision's were made regarding Ike's care in the hole from the tube was closed. About an hour later the patient peacefully. I pronounced the patient at 1750 on 01/31/2024. - ALLERGIES Allergies/Adverse Reactions: Allergies Allergy/AdvReac Type Severity Reaction Status Date / Time vancomycin AdvReac Mild injection Verified 01/30/24 11:45 site erythema - MEDICATIONS Home Medications: Ambulatory Orders Medication Instructions Recorded Confirmed Acetaminophen [Tylenol] 650 mg PEG Q4HR PRN #60 tablet 01/14/19 01/30/24 Diclofenac Sodium [Voltaren] 2 - 4 g TP QID PRN 05/28/20 01/30/24 Systane Overnight Gel 0.25 inch EACHEYE QPM 02/02/21 01/30/24 ALPRAZolam [Alprazolam] 0.5 mg PO QID PRN 01/30/24 01/30/24 Aspirin Chewable [St Eduardo 81 mg PO DAILY 01/30/24 01/30/24 Aspirin] Enalapril [Vasotec] 5 mg PEG QPM 01/30/24 01/30/24 Erythromycin Ophth Oint (3.5) 1 each EACHEYE DAILY PRN 01/30/24 01/30/24 [Ilotycin Ophth Oint (3.5)] Loperamide [Imodium] 2 mg PO DAILY PRN 01/30/24 01/30/24 - PHYSICAL EXAM AT DISCHARGE Respiratory: positive: Other (no breath sounds) Cardiovascular: positive: Other (no heart sounds. ) - LABS Result Diagrams: 01/31/24 05:50 01/31/24 05:50 - TIME SPENT Time Spent in Discharge (Minutes): 45
--- NOTE | 2024-02-01 07:13 | CONSULTATION NOTE ---
Palliative Care Consultation - Referral Referring Provider: REZA Coates Time of Visit: 3:30 PM Referral setting: Hospitalized patient Referral Reason: End of life and continued care - Information Sources Records reviewed: Previous records reviewed History/Review of Systems obtained from: Family Exam limitations: Clinical condition (Advanced dementia, bedbound, severely deconditioned) - History of Present Illness Brief History of Present Illness: This is a frail, severely deconditioned, 84 year-old bedbound male with hx of stage IV right parotid gland carcinoma, prostate cancer, and suprapubic catherization in 2009. Ike was brought to the ED yesterday with oxygen saturation of 72%. [facility] () was present in the home and called 911. Ike was having difficulty breathing, swallowing, and with increased agitation and confusion. , Jaleesa, wanted him to treated and requested he be sent. Ike is DNR comfort measures only, but Jaleesa wanted him to have full treatment. Jaleesa was unable to go with him, requested he be given IV fluids and have PEG tube reinstated, so he could receive nutrition. He has been losing weight consistently the past couple months. She has been giving him alprazolam routinely for a couple months to help with agitation and hallucinations. Recent refill of morphine last week was for pain secondary to wound care dressing changes, difficulty breathing, and air hunger PRN. Ike is unable to provide any history of why he was there. He is a poor historian secondary to advanced dementia and Jaleesa was wondering if he had aspirated. He received IV fluids, azithromycin IV, and had a chest XR showing bilateral opacities consistent with aspiration pneumonia. Ike is currently lethargic, on O2 nasal cannula, and nonverbal. He received a dose of morphine a little while ago and appears comfortable now. His brother and [id number] are present and just drove up from [facility]. Jaleesa feels better about his status now and wants him to come home with her. She no longer wants the PEG tube placed and is requesting if the hole can be sutured, so she can resume feeding him. Diana will continue to care for his decubitus wounds and change his catheter monthly. Medical/Surgical History - Past Medical History Cardiovascular: reports: Hypertension, High cholesterol, Atrial fibrillation, Murmur, Other (AAA, thoracic aortic aneurysm, hyperlipidemia, pacemaker) Respiratory: reports: COPD, Pneumonia, Sleep apnea, Other (Chronic cough, hx of smoking) Neuro: Dementia, Peripheral neuropathy Neuro: reports: None Endocrine/Autoimmune: reports: Type 2 diabetes GI: reports: GERD, Other (Dysphagia, PEG tube 2017 and removed 09/2023) : reports: Retention (Hx of prostate cancer 2007), Chronic bladder infection, Renal insuffiency, Indwelling catheter (Placed 2009), Other (right kidney atrophied) HEENT: reports: Chronic vision loss, Glaucoma, Chronic sinusitis, Chronic hearing loss Psych: reports: Depression, Anxiety, Other (hallucinations) Musculoskeletal: reports: Osteoarthritis, Osteoporosis, Fatigue Derm: reports: Other (Decubitus ulcers on buttocks, sacrum/coccyx; hx of melanoma) MRSA Hx?: No Other Past Medical History: BLE venous stasis edema/dermatitis, R parotid gland cancer 2017, prostate cancer 2007, anemia, malnutrition, one left kidney (right kidney atrophy) - Past Surgical History General: reports: Other (R parotidectomy, mastoidectomy, radical neck dissection w XRT 09/2017; PEG tube 2017, suprapubic catherization 2009) Ortho: reports: Hip replacement (L hip), Other (ORIF ankle fx with achilles tendon rupture) /[employer] B[employer]ING: reports: Other (Bladder diverticulum revision with ureter diversion from R atrophied kidney) Cardiovascular: reports: Pacemaker, AAA HEENT: reports: Cataracts, Detached retina repair Derm: reports: Skin grafts, Skin cancer surgery, Other (radical neck dissection w XRT 09/2017 with skin grafts) Other past surgical history: R thigh hematoma evacuation 04/2015, compartment syndrome, suprapubic catheter placement 2009, bladder diverticulum revision - Substance History Use: Uses substance without health or social issues: Anxiolytic (alprazolam currently) Abuse: Recurrent use of substance despite neg consequences: Cannabis Abuse Issues: Delusions, Hallucinations Dependence: Experiences withdrawal or developed tolerances: Cannabis Dependence Issues: Delirium, Delusions, Hallucinations, Sleep Disorder Tobacco Details: Other (hx of tobacco abuse with 45+ yr hx) Social History - Living Situation Living arrangement: At home (Been for over 45 years, Son lives in [place]) Living Situation: With spouse/s.o. Support System: Jaleesa, 2 brothers in [place], and Jaleesa's sister [place] Medications/Allergies - Medications Active Medication List: Active Medications Alprazolam (Alprazolam 0.25 Mg Tablet) 0.5 mg PO BID PRN PRN Reason: Anxiety Azithromycin 500 mg/ Sodium (Chloride) 250 mls @ 250 mls/hr IV DAILY [facility] Stop: 02/02/24 09:59 Last Infusion: 01/31/24 10:35 Dose: Infused Ceftriaxone Sodium 1 gm/ (Sodium Chloride) 100 mls @ 200 mls/hr IV DAILY [facility] Last Infusion: 01/31/24 09:10 Dose: Infused Morphine Sulfate (Morphine 2 Mg/Ml Carpuject) 2 mg IVP Q3H PRN PRN Reason: Severe Pain (Level 7-10) Last Admin: 01/31/24 15:17 Dose: 2 mg Morphine Sulfate (Morphine Bailee 10 Mg/0.5 Ml Oral Syringe) 5 mg PO Q2HR PRN PRN Reason: Moderate Pain (Level 4-6) Multi-Ingredient Ointment (Zinc Oxide 20% Oint 30 Gm Tube) 1 applic TOP PRN PRN PRN Reason: Skin Care Ondansetron HCl (Ondansetron 4 Mg/2 Ml Vial) 4 mg IVP Q6HR PRN PRN Reason: Nausea / Vomiting Sodium Chloride (Sodium Chloride Flush 0.9% 10 Ml Syringe) 10 ml IVP PRN PRN PRN Reason: NEEDED PER PROVIDER ORDERS Sodium Chloride (Sodium Chloride Flush 0.9% 10 Ml Syringe) 10 ml IVP 0100,0900,1700 [facility] Last Admin: 01/31/24 10:00 Dose: 10 ml Diclofenac Sodium [Voltaren] 2 - 4 g TP QID PRN 05/28/20 Systane Overnight Gel 0.25 inch EACHEYE QPM 02/02/21 ALPRAZolam [Alprazolam] 0.5 mg PO QID PRN 01/30/24 Aspirin Chewable [St Eduardo Aspirin] 81 mg PO DAILY 01/30/24 Enalapril [Vasotec] 5 mg PEG QPM 01/30/24 Erythromycin Ophth Oint (3.5) [Ilotycin Ophth Oint (3.5)] 1 each EACHEYE DAILY PRN 01/30/24 Loperamide [Imodium] 2 mg PO DAILY PRN 01/30/24 Morphine 5-10 mg Q 4 hrs PRN - Allergies Allergies/Adverse Reactions: Allergies Allergy/AdvReac Type Severity Reaction Status Date / Time vancomycin AdvReac Mild injection Verified 01/30/24 11:45 site erythema Review of Systems - Constitutional Constitutional: reports: Weakness, Poor appetite, Weight loss (Increased and ongoing). denies: Fatigue, Fever - Eyes Eyes: reports: Vision loss, Other (Chronic conjunctivitis R eye). 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 denies: Hearing aids - Cardiovascular Cardiovascular: reports: Irregular heart rate, Exertional dyspnea, Decr. exercise tolerance - Respiratory Respiratory: reports: Sputum production (routine spitting into container). denies: Cough - Gastrointestinal Gastrointestinal: reports: Poor appetite (Less intake since PEG tube removal 09/2023), Other (Enjoys coffee). denies: Abdominal pain, Constipation (+daily bowel movements), Nausea, Vomiting - Genitourinary Genitourinary: reports: Other (Suprapubic catheter since 2009). denies: Hematuria - Musculoskeletal Musculoskeletal: reports: Stiffness, Limited range of motion, Muscle weakness, Assistive devices (Electric W/C), Transfer issues (Bedbound and nonambulatory; Jessica lift) - Integumentary Integumentary: reports: Dryness, Pigment changes (BLE venous stasis), Other (callus formation due to visible hardware lateral right ankle.) - Neurological Neurological: reports: General weakness, Numbness, Memory problems, Abnormal gait, Slurred speech - Psychiatric Psychiatric: reports: Depression, Anxiety, Delusions, Hallucinations, Aggitation, Behavior disturbances - Endocrine Endocrine: reports: Diabetes type 2 (diet controlled) - Hematologic/Lymphatic Hematologic/Lymph: reports: Anemia, Bleeding tendencies, Recurrent infections (UTIs with colonization) - All Other Systems All Other Systems: reports: Reviewed and negative (ROS supplemented by , Jaleesa.) Physical Exam - Vital Signs Vital Signs: Vital Signs x48h Resp 01/31/24 17:20 14 - Physical Exam General Appearance: positive: No acute distress, Lethargic, Other (chronically ill appearing and appears old than stated age resting in hospital bed) Eyes Bilateral: positive: PERRL, Conjunctivae nml, Other (+ectropion right lower eyelid with exudate; +cloudy lens to left eye) ENT: positive: No signs of dehydration, Dry mucous membranes, Other (+endentulous; No visible wax to either ear canal; 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) Neck: positive: No JVD, Trachea midline, Other (Right parotidectomy with scar tissue; surgical scar) Cardiovascular: positive: Irregularly irregular, Bradycardia, Systolic murmur Respiratory: positive: No respiratory distress, Diminished in bases, Rhonchi Abdomen: positive: Non-tender, Soft, Nml bowel sounds, Other (PEG tube hole only with mild drainage; suprapubic catheter in place with yellow urine and chronic sediment in line) Skin: positive: Pallor, Dryness, Pressure wound (Multiple pressure wounds on buttocks, ischial tuberosities, and sacrum/coccyx), Other (Venous stasis changes to BLE; callus formation over sharp exposed hardware size of pinpoint on right lateral malleolus without surrounding erythema and non-ttp; Dry, flaky skin to BLE and thickened toenails. Skin breakdown by PEG tube hole 2/2 bile acids) Extremities: positive: No pedal edema, Other (+Right foot inverted with internal rotation noted of right hip) Neurologic/Psychiatric: positive: Disoriented to place, Disoriented to time, Weakness (+ generalized and noted muscular atrophy), Facial droop, Slurred/abnml speech, Depressed mood/affect, Flat affect, Other (right facial paralysis) Palliative Care - POLST Patient has POLST: Yes POLST Status: DNR, Comfort Measures Pain: Location (buttocks, coccyx/sacrum, and back pain) Tiredness/Fatigue: Moderate (4-6) Drowsiness/Sedation: Severe (7-10) Nausea: None Anorexia: Severe (7-10), Weight loss (Significant in the past 2 months secondary to malnutrition) Dyspnea: Mild (1-3) Depression: Mild (1-3) Anxiety: Moderate (4-6) (Increases when wound dressing changes or movement), Comment (Situational dependent) Feelings of wellbeing/Perceived Quality of Life: Worsening Sleep: Sleep improved Constipation: No Performance Status: Bedbound for the past 5 years. No longer able to ambulate or feed himself due to weakness and lack of interest. No longer getting out of bed for W/C time. 100% Jessica lift assist. - Palliative Care Discussion: Jaleesa wants Ike to come home. This is the most important thing to be in his own home with the cat, Jaleesa, and his things such as the More lights playing music. She does not like being away from him. She's always said he wanted to at home. They had promised each other this. He would not want to in the hospital. She states she understands he is dying. It has taken her a long time to accept this, but she realizes it. She states, "I still see him being there in 10 years though." She does not want to get the PEG tube replaced any longer. She is requesting if they can at least stitch up the hole in his stomach, so if she is able to feed him it will not drain out like it had been. This will make things much easier. She wants home health to continue to come in and take care of his wounds and change his catheter. Results - Lab Results Fish Bones: 01/31/24 05:50 01/31/24 05:50 Lab and Imaging Results: Lab Results x24hrs 01/31/24 01/31/24 Range/Units 05:50 05:50 WBC 9.3 (4.8-10.8) x10^3/uL RBC 3.84 L (4.70-6.10) 10^6/uL Hgb 9.4 L (14.0-18.0) g/dL Hct 32.6 L (42.0-52.0) % MCV 84.9 (80.0-94.0) fL MCH 24.5 L (27.0-31.0) pg MCHC 28.8 L (32.0-36.0) g/dL RDW 19.2 H (12.0-15.0) % Plt Count 273 (130-450) 10^3/uL MPV 8.9 (7.4-11.4) fL Neut # (Auto) 7.9 H (1.5-6.6) 10^3/uL Lymph # (Auto) 0.7 L (1.5-3.5) 10^3/uL [place] # (Auto) 0.6 (0.0-1.0) 10^3/uL Eos # (Auto) 0.0 (0.0-0.7) 10^3/uL Baso # (Auto) 0.0 (0.0-0.1) 10^3/uL Absolute Nucleated RBC 0.00 x10^3/uL Nucleated RBC % 0.0 /100WBC Sodium 139 (135-145) mmol/L Potassium 3.5 (3.5-4.5) mmol/L Chloride 102 (101-111) mmol/L Carbon Dioxide 30 (21-32) mmol/L Anion Gap 7.0 (6-13) BUN 21 H (6-20) mg/dL Creatinine 0.6 (0.6-1.3) mg/dL Estimated GFR (MDRD) 129 (>89) Glucose 77 (74-104) mg/dL Calcium 8.6 (8.5-10.3) mg/dL Impression and Recommendations - Palliative Care Impression: Ike is a frail, severely deconditioned, bedbound, 84-year-old male. He appears to be actively dying while I am there. He does have moments of apnea. He is nonverbal and no longer communicating. He has limited time and I am concerned he may not even make it home. Jaleesa has had a very difficult time accepting all of this, but I believe deep in her heart, she knows this is it. She's had almost 6 months to accept his decline and come to terms with the ine vitable. The most important thing now to her is to get him home before he passes. Recommendations/Counseling Done: 1. Place stitch/suture in abdominal wound to close if able. 2. Discharge home as soon as possible. Continue [facility] health services for wound care and monthly catheter changes. 3. Get liquid alprazolam for easier intake. 4. Increase morphine use to keep comfortable with passing. 45 minutes
== END 2024-01-31 17:50 | disposition expired | DRG 189 ==
LOC: ED 11:37 → MS2 14:28
PROVIDERS: ADMIT Physician Assistant Medical; ATTEND Physician Assistant Medical
PROC: 0HQ7XZZ Repair Abdomen Skin, External Approach (ICD-10-PCS; principal; 2024-01-31)
DX: J96.01 Acute respiratory failure with hypoxia (principal); R09.02 Hypoxemia; L89.154 Pressure ulcer of sacral region, stage 4; L89.44 Pressure ulcer of contiguous site of back, buttock and hip, stage 4; E78.00 Pure hypercholesterolemia, unspecified; J69.0 Pneumonitis due to inhalation of food and vomit; G93.41 Metabolic encephalopathy; I48.20 Chronic atrial fibrillation, unspecified; F17.200 Nicotine dependence, unspecified, uncomplicated; R44.3 Hallucinations, unspecified; Z87.891 Personal history of nicotine dependence; C07 Malignant neoplasm of parotid gland; C61 Malignant neoplasm of prostate; Z74.01 Bed confinement status; R62.7 Adult failure to thrive; Z68.20 Body mass index [BMI] 20.0-20.9, adult; T81.89XD Other complications of procedures, not elsewhere classified, subsequent encounter; Z96.0 Presence of urogenital implants; Z66 Do not resuscitate; R45.1 Restlessness and agitation; F03.90 Unspecified dementia, unspecified severity, without behavioral disturbance, psychotic disturbance, mood disturbance, and anxiety; R53.1 Weakness; I10 Essential (primary) hypertension; I48.91 Unspecified atrial fibrillation; Z95.0 Presence of cardiac pacemaker; J44.9 Chronic obstructive pulmonary disease, unspecified; E11.42 Type 2 diabetes mellitus with diabetic polyneuropathy; F41.9 Anxiety disorder, unspecified; R13.10 Dysphagia, unspecified; Z51.5 Encounter for palliative care
CPT/HCPCS: 36415; 71045; 80048; 80053; 83690; 85025; 87633; 99284; 99285; A9270; J3490

== ENCOUNTER → 2024-01-30 | Outpatient (CLI) | payer MEDICARE, MEDICAID | LOC: PC 08:00 | PROVIDERS: ATTEND Nurse Practitioner Gerontology | DX: Z51.5 Encounter for palliative care (principal); C07 Malignant neoplasm of parotid gland; F02.84 Dementia in other diseases classified elsewhere, unspecified severity, with anxiety | CPT/HCPCS: 99426; 99427 ==